=== PATIENT | female | born 1950 | race Caucasian/White ===

== ENCOUNTER 2016-12-16 04:11 | Emergency (ER) | payer OTHER ==
--- NOTE | 2016-12-16 05:03 | PDOC ---
History of Present Illness - General History Source: Patient, Half-Way Records Exam Limitations: No Limitations - History of Present Illness Initial Comments: 12/16/16 05:16 The patient is a 66 year old female with a significant past medical history of chronic renal disease, diabetes, hyperlipidemia, hypertension, CVA, anemia, asthma, COPD, and GERD, sent from rehab center to the Emergency Department with one episode of vomiting. The patients rehab center claims she was having difficulty breathing, though the patient claims that her breathing is fine. The patient claims that she woke up from nightmare which alarmed the staff. She reports one episode of vomiting. The patient admits she is hard of hearing, but does not have hear aids. She also admits to edema and redness of her legs which is chronic, though it may be worse today than baseline. The patient denies fever, chills, or cough. Patient denies chest pain, palpitations, or diaphoresis. Patient denies diarrhea or constipation. Patient denies headache, dizziness, or change in vision. <Avani Hercules - Last Filed: 12/16/16 05:16> <Temi Min - Last Filed: 12/17/16 19:47> - General Chief Complaint: Shortness of Breath Stated Complaint: DIFFICULTY BREATHING Time Seen by Provider: 12/16/16 04:24 Past History <Avani Hercules - Last Filed: 12/16/16 05:16> - Past Medical History Anemia: Yes Asthma: Yes CVA: Yes (x2 slurred speech) COPD: Yes Diabetes: Yes GI Disorders: Yes (GERD) Disorders: Yes (CRF) HTN: Yes Hypercholesterolemia: Yes Psychiatric Problems: Yes Thyroid Disease: Yes - Surgical History Cholecystectomy: Yes - Psycho/Social/Smoking Cessation Hx Anxiety: Yes Suicidal Ideation: No Smoking History: Former smoker Have you smoked in the past 12 months: No If you are a former smoker, when did you quit?: 3 MONTHS AGO Information on smoking cessation initiated: No 'Breaking Loose' booklet given: 09/15/16 Hx Alcohol Use: No Drug/Substance Use Hx: No Substance Use Type: None Hx Substance Use Treatment: No <Temi Min - Last Filed: 12/17/16 19:47> - Past Medical History Allergies/Adverse Reactions: Allergies Allergy/AdvReac Type Severity Reaction Status Date / Time naproxen [From Naprosyn] Allergy Verified 12/16/16 04:13 propoxyphene napsylate Allergy Verified 12/16/16 04:13 [From Darvocet-N 100] tramadol Allergy Verified 12/16/16 04:13 acetaminophen [From Percocet] AdvReac Abdominal Verified 12/16/16 04:13 issues ibuprofen [From Motrin] AdvReac Abdominal Verified 12/16/16 04:13 issues oxycodone HCl [From Percocet] AdvReac Abdominal Verified 12/16/16 04:13 issues Home Medications: Ambulatory Orders Brimonidine Tartrate [Alphagan P] 1 drop OU TID 06/05/16 Ferrous Sulfate [Slow Release Iron] 325 mg PO DAILY 06/05/16 Nortriptyline HCl [Pamelor -] 10 mg PO HS 06/05/16 Paroxetine HCl [Paxil] 20 mg PO DAILY 06/05/16 Simvastatin [Zocor -] 20 mg PO HS 06/05/16 Tiotropium [place] [Spiriva] 1 inh PO DAILY 06/05/16 Amlodipine Besylate [Norvasc -] 10 mg PO DAILY #30 tablet 10/25/16 Hydralazine HCl [Apresoline -] 50 mg PO TID #90 tablet 10/25/16 Insulin Glargine,Hum.rec.anlog [Lantus Solostar PEN (NF)] 20 units SQ HS Insulin Lispro [Humalog] 100 unit SQ AC 12/16/16 Levothyroxine [Synthroid -] 200 mcg PO DAILY 12/16/16 Review of Systems - Review of Systems Able to Perform ROS?: Yes Comments:: 12/16/16 05:16 GENERAL/CONSTITUTIONAL: No fever or chills. No weakness. HEAD, EYES, EARS, NOSE AND THROAT: No change in vision. No ear pain or discharge. No sore throat. CARDIOVASCULAR: No chest pain or shortness of breath. RESPIRATORY: No cough, wheezing, or hemoptysis. GASTROINTESTINAL: + vomiting. No diarrhea or constipation. GENITOURINARY: No dysuria, frequency, or change in urination. MUSCULOSKELETAL: No joint or muscle swelling or pain. No neck or back pain. SKIN: No rash NEUROLOGIC: No headache, vertigo, loss of consciousness, or change in strength/ sensation. ENDOCRINE: No increased thirst. No abnormal weight change. HEMATOLOGIC/LYMPHATIC: No anemia, easy bleeding, or history of blood clots. ALLERGIC/IMMUNOLOGIC: No hives or skin allergy. <Avani Hercules - Last Filed: 12/16/16 05:16> *Physical Exam - Vital Signs Last Vital Signs Temp Pulse Resp BP Pulse Ox 97.9 F 74 18 176/86 98 12/16/16 04:13 12/16/16 04:13 12/16/16 04:13 12/16/16 04:13 12/16/16 04:37 - Physical Exam Comments: 12/16/16 05:17 GENERAL: Awake, alert, and fully oriented, in no acute distress HEAD: No signs of trauma EYES: PERRLA, EOMI, sclera anicteric, conjunctiva clear ENT: Auricles normal inspection, hearing grossly normal, nares patent, oropharynx clear without exudates. Moist mucosa NECK: Normal ROM, supple, no lymphadenopathy, JVD, or masses LUNGS: Breath sounds equal, clear to auscultation bilaterally. No wheezes, and no crackles HEART: Regular rate and rhythm, normal S1 and S2, no murmurs, rubs or gallops ABDOMEN: Soft, nontender, normoactive bowel sounds. No guarding, no rebound. No masses EXTREMITIES: Cellulitis bilateral shins, left > right. 3 / 4+ pitting edema up to thighs, left > right. Normal range of motion. No clubbing or cyanosis. No cords. NEUROLOGICAL: Cranial nerves II through XII grossly intact. Normal speech, normal gait SKIN: Warm, Dry, normal turgor, no rashes or lesions noted. <Avani Hercules - Last Filed: 12/16/16 05:16> - Vital Signs Last Vital Signs Temp Pulse Resp BP Pulse Ox 97.9 F 74 18 176/86 98 12/16/16 04:13 12/16/16 04:13 12/16/16 04:13 12/16/16 04:13 12/16/16 04:37 <Temi Min - Last Filed: 12/17/16 19:47> ED Treatment Course - LABORATORY CBC & Chemistry Diagram: 12/16/16 05:21 12/16/16 05:21 <Temi Min - Last Filed: 12/17/16 19:47> Medical Decision Making - Medical Decision Making 12/16/16 05:20 Pt was sent from [place] for SOB; SHe has no complaint of SOB and states that she wants to sleep. Pt has leg swelling bilaterally. She has cellulitis of her shins bilaterally. SHe has pitting edema of her legs up to her thighs. 12/16/16 06:26 Pt has anemia and elevated BUN and creatinine; all labs are same as old. Nothing new. Pt is awaiting ultrasound of bilateral legs at 7AM, when ultrasound service opens. She was signed out to the day ER doc. <Temi Min - Last Filed: 12/17/16 19:47> *DC/Admit/Observation/Transfer - Attestations Scribe Attestion: 12/16/16 05:19 Documentation prepared by Avani Hercules, acting as medical assisting program director for Temi Min MD. <Avani Hercules - Last Filed: 12/16/16 05:16> <Temi Min - Last Filed: 12/17/16 19:47> Diagnosis at time of Disposition: Chronic renal failure, Peripheral edema - Discharge Dispostion Disposition: HOME Condition at time of disposition: Stable - Referrals Referrals: Freddy Barillas MD [Primary Care Provider] - - Patient Instructions Printed Discharge Instructions: DI for Peripheral Edema -- Bilateral
[2016-12-16 05:29] LABS: MCH 28.1 pg (25.7-33.7); MCHC 33.6 g/dl (32.0-36.0); MEAN CELL VOLUME 83.7 fl (80-96); MEAN PLT VOLUME 6.9 fl (7.5-11.1); PLATELET COUNT 364 K/MM3 (134-434); RDW 14.4 % (11.6-15.6); WHITE BLOOD COUNT 12.6 K/mm3 (4.0-10.0)
[2016-12-16 06:11] LABS: BILIRUBIN,TOTAL 0.3 mg/dL (0.2-1.0); CALCIUM 7.4 mg/dL (8.5-10.1); TOT PROT 6.3 g/dl (6.4-8.2)
[2016-12-16 06:14] LABS: TROPONIN I 0.17 ng/ml (0.00-0.05)
--- NOTE | 2016-12-16 07:39 | PDOC ---
*Physical Exam - Vital Signs Last Vital Signs Temp Pulse Resp BP Pulse Ox 97.9 F 74 18 176/86 98 12/16/16 04:13 12/16/16 04:13 12/16/16 04:13 12/16/16 04:13 12/16/16 04:37 ED Treatment Course - LABORATORY CBC & Chemistry Diagram: 12/16/16 05:21 12/16/16 05:21 - ADDITIONAL ORDERS Additional order review: Laboratory Results 12/16/16 12/16/16 05:21 05:21 Sodium 141 Potassium 3.4 L Chloride 107 Carbon Dioxide 20 L Anion Gap 14 BUN 36 H Creatinine 4.0 H Creat Clearance w eGFR 11.27 Random Glucose 127 H D Calcium 7.4 L Total Bilirubin 0.3 D AST 12 L D ALT 10 L Alkaline Phosphatase 123 H Creatine Kinase 48 Troponin I 0.17 H B-Natriuretic Peptide 2817.02 H Total Protein 6.3 L Albumin 3.0 L D 12/16/16 05:21 RBC 3.00 L MCV 83.7 MCHC 33.6 RDW 14.4 D MPV 6.9 L Neutrophils % Y Lymphocytes % Y Medical Decision Making - Medical Decision Making 12/16/16 09:29 Pt endorsed to hi by Dr. Min at 7am shift change. She was sent by [facility] for SOB. She denies any complaints at present. She was found to have BLE edema. Denies any SOB/ cp. Chart review shows that patient has prior history of BLE edema with erythematous, excoriated areas to the shins. Based on prior description, this does not appear to be different. Will send second CE based on earlier presentation with SOB. If neg, will DC back to [facility]. Pt in agreement with plan. *DC/Admit/Observation/Transfer Diagnosis at time of Disposition: Peripheral edema Chronic renal failure Qualifiers: Chronic kidney disease stage: unspecified stage Qualified Code(s): N18.9 - Chronic kidney disease, unspecified - Discharge Dispostion Disposition: HOME Condition at time of disposition: Stable Admit: No - Referrals Referrals: Freddy Barillas MD [Primary Care Provider] - - Patient Instructions Printed Discharge Instructions: DI for Peripheral Edema -- Bilateral - Post Discharge Activity
[2016-12-16 10:30] LABS: TROPONIN I 0.12 ng/ml (0.00-0.05)
[2016-12-16 11:54] VITALS: BP 118/78; PULSE 82; TEMP 98.1
--- NOTE | 2016-12-16 13:33 | EKG ---
Test Reason : Blood Pressure : / mmHG Vent. Rate : 093 BPM Atrial Rate : 093 BPM P-R Int : 120 ms QRS Dur : 102 ms QT Int : 400 ms P-R-T Axes : -24 -48 121 degrees QTc Int : 497 ms NORMAL SINUS RHYTHM LEFT AXIS DEVIATION CANNOT RULE OUT ANTERIOR INFARCT , AGE UNDETERMINED WITH POOR R PROGRESSION ABNORMAL ECG WHEN COMPARED WITH ECG OF 09-JUN-2016 14:56, T WAVE VARIATION Confirmed by CYNDY POMPA, DAVE ([id number]) on 12/16/2016 1:32:41 PM Referred By: Confirmed By:DAVE NAYLOR MD
== END 2016-12-16 12:09 | disposition home or self-care (01) ==
LOC: JER 04:11
DX: R60.0 Localized edema (principal); I12.9 Hypertensive chronic kidney disease with stage 1 through stage 4 chronic kidney disease, or unspecified chronic kidney disease; E11.22 Type 2 diabetes mellitus with diabetic chronic kidney disease; N18.9 Chronic kidney disease, unspecified; Z79.4 Long term (current) use of insulin; J45.909 Unspecified asthma, uncomplicated; J44.9 Chronic obstructive pulmonary disease, unspecified; E03.9 Hypothyroidism, unspecified; I69.320 Aphasia following cerebral infarction; I69.328 Other speech and language deficits following cerebral infarction
CPT/HCPCS: 36415; 71010-TC; 80053; 82550; 83880; 84484; 85025; 93005; 93010; 93970-TC; 99282-25

== ENCOUNTER 2017-01-12 12:42 | Inpatient (IN) | payer OTHER ==
--- NOTE | 2017-01-12 12:47 | PDOC ---
History of Present Illness - General Chief Complaint: Shortness of Breath Stated Complaint: SHORTNESS OF BREATH Time Seen by Provider: 01/12/17 12:44 History Source: Patient Exam Limitations: Other (poor historian) - History of Present Illness Initial Comments: 66 yo F history CRI, HTN, HL, GERD, anemia, asthma, CVA, COPD presents with SOB x1 day, comes from assisted living. Vague historian. Denies any recent illness. She c/o swelling to both legs which is chronic. No recent change in the swelling , but she states that she is supposed to start a new medicine for it- cannot recall the name. Denies cough, fever, congestion. She states "I might have heart problems". Past History - Past Medical History Allergies/Adverse Reactions: Allergies Allergy/AdvReac Type Severity Reaction Status Date / Time naproxen [From Naprosyn] Allergy Verified 12/16/16 04:13 propoxyphene napsylate Allergy Verified 12/16/16 04:13 [From Darvocet-N 100] tramadol Allergy Verified 12/16/16 04:13 acetaminophen [From Percocet] AdvReac Abdominal Verified 12/16/16 04:13 issues ibuprofen [From Motrin] AdvReac Abdominal Verified 12/16/16 04:13 issues oxycodone HCl [From Percocet] AdvReac Abdominal Verified 12/16/16 04:13 issues Home Medications: Ambulatory Orders Amlodipine Besylate 10 mg PO DAILY 01/12/17 Aspirin [Aspirin EC] 81 mg PO DAILY 01/12/17 Brimonidine Tartrate [Alphagan 0.15% -] 1 drop OU TID 01/12/17 Budesonide/Formeterol Fumarate [SYMBICORT 80/4.5mcg -] 2 inh PO BID 01/12/17 Cephalexin [Keflex] 250 mg PO DAILY 01/12/17 Ferrous Sulfate 325 mg PO DAILY 01/12/17 Hydralazine HCl 50 mg PO TID 01/12/17 Insulin Glargine,Hum.rec.anlog [Lantus Solostar PEN (NF)] 20 units SQ HS Insulin Lispro [Humalog] unit SQ TID 01/12/17 Levothyroxine Sodium [Synthroid] 200 mcg PO DAILY 01/12/17 Nortriptyline HCl [Pamelor -] 10 mg PO HS 01/12/17 Paroxetine HCl [Paxil] 20 mg PO DAILY 01/12/17 Sennosides [Senna] 8.6 mg PO HS 01/12/17 Simvastatin [Zocor -] 20 mg PO HS 01/12/17 Tiotropium [place] [Spiriva] 18 mcg IH DAILY 01/12/17 Anemia: Yes Asthma: Yes CVA: Yes (x2 slurred speech) COPD: Yes Diabetes: Yes GI Disorders: Yes (GERD) Disorders: Yes (CRF) HTN: Yes Hypercholesterolemia: Yes Psychiatric Problems: Yes Thyroid Disease: Yes - Surgical History Cholecystectomy: Yes - Psycho/Social/Smoking Cessation Hx Anxiety: Yes Suicidal Ideation: No Smoking History: Former smoker Have you smoked in the past 12 months: No If you are a former smoker, when did you quit?: 3 MONTHS AGO 'Breaking Loose' booklet given: 09/15/16 Hx Alcohol Use: No Drug/Substance Use Hx: No Substance Use Type: None Hx Substance Use Treatment: No Review of Systems - Review of Systems Able to Perform ROS?: Yes Comments:: GENERAL/CONSTITUTIONAL: No fever or chills. No weakness. HEAD, EYES, EARS, NOSE AND THROAT: No change in vision. No ear pain or discharge. No sore throat. CARDIOVASCULAR: No chest pain. +Shortness of breath. RESPIRATORY: No cough, wheezing, or hemoptysis. GASTROINTESTINAL: No nausea, vomiting, diarrhea or constipation. GENITOURINARY: No dysuria, frequency, or change in urination. MUSCULOSKELETAL: No joint or muscle swelling or pain. No neck or back pain. + Feet and ankle swelling and redness, chronic. SKIN: No rash NEUROLOGIC: No headache, vertigo, loss of consciousness, or change in strength/ sensation. ENDOCRINE: No increased thirst. No abnormal weight change. HEMATOLOGIC/LYMPHATIC: No anemia, easy bleeding, or history of blood clots. ALLERGIC/IMMUNOLOGIC: No hives or skin allergy. *Physical Exam - Physical Exam Comments: GENERAL: Awake, alert, and fully oriented. +Mildly labored breathing. HEAD: No signs of trauma EYES: PERRLA, EOMI, sclera anicteric, conjunctiva clear ENT: Auricles normal inspection, hearing grossly normal, nares patent, oropharynx clear without exudates. Moist mucosa NECK: Normal ROM, supple, no lymphadenopathy, JVD, or masses LUNGS: Good air entry B/L, mildly labored breathing, +rales at bases B/L. HEART: Regular rate and rhythm, normal S1 and S2, no murmurs, rubs or gallops ABDOMEN: Soft, nontender, normoactive bowel sounds. No guarding, no rebound. No masses EXTREMITIES: Normal range of motion. No clubbing or cyanosis. No cords, tenderness. +Chronic stasis changes to BLE, with erythema to lower anterior shins (consistent with prior exam 1 month ago), 2+ pitting edema to mid-chang B/ L. NEUROLOGICAL: Cranial nerves II through XII grossly intact. Normal speech. Motor and sensation intact. SKIN: Warm, Dry, normal turgor, no rashes or lesions noted. ED Treatment Course - LABORATORY CBC & Chemistry Diagram: 01/12/17 14:00 01/12/17 14:00 Medical Decision Making - Medical Decision Making Patient with B/L pna and pleural effusion, acute on chronic renal failure ( currently 4.5, baseline is 3.8-4). Will admit for IV abx. Treated for community acquired pna. *DC/Admit/Observation/Transfer Diagnosis at time of Disposition: Renal failure (ARF), acute on chronic, Pleural effusion Pneumonia Qualifiers: Pneumonia type: due to unspecified organism Laterality: bilateral Lung location : unspecified part of lung Qualified Code(s): J18.9 - Pneumonia, unspecified organism - Discharge Dispostion Condition at time of disposition: Fair Admit: Yes
[2017-01-12 12:52] VITALS: BMI 29.8
[2017-01-12 14:29] LABS: BASOPHIL 3.4 % (0-2.0); EOSINOPHIL 4.7 % (0-4.5); MCH 27.8 pg (25.7-33.7); MCHC 32.7 g/dl (32.0-36.0); MEAN CELL VOLUME 85.1 fl (80-96); NEUTROPHILS 76.1 % (42.8-82.8); PLATELET COUNT 421 K/MM3 (134-434); RDW 15.1 % (11.6-15.6); WHITE BLOOD COUNT 12.5 K/mm3 (4.0-10.0)
[2017-01-12 14:41] LABS: ALBUMIN 3.1 g/dl (3.5-5.0); ALK PHOS 96 U/L (32-92); ANION GAP 11 (8-16); CALCIUM 7.4 mg/dl (8.4-10.2); CO2 17 mmol/L (22-28); CREATININE 4.5 mg/dl (0.6-1.3); GLUCOSE,RANDOM 153 mg/dl (74-106); SGOT/AST 15 U/L (10-42); TOT PROT 6.1 g/dl (6.4-8.3)
[2017-01-12 14:50] LABS: BILIRUBIN,TOTAL 0.5 mg/dl (0.2-1.0)
[2017-01-12 14:51] LABS: SGPT/ALT < 9 U/L (10-40)
[2017-01-12 14:52] LABS: TROPONIN I (DFP) 0.09 ng/ml (0.03-0.50)
[2017-01-12] MEDS ORDERED: CEFTRIAXONE 1 GM in DEXTROSE 5%-WATER - 50 ML IVPB ONE (15:33)
[2017-01-12] MEDS ORDERED: AZITHROMYCIN IVPB 500 MG in DEXTROSE 5%-WATER - 250 ML IVPB ONE (15:33)
[2017-01-12] MEDS ORDERED: SODIUM CHLORIDE 500 ML IV STA (15:51)
[2017-01-12] MEDS ORDERED: AZITHROMYCIN 500 MG VIAL IVPB ONE (15:52)
[2017-01-12] MEDS ORDERED: cefTRIAXone SODIUM 1 GM VIAL ONE (15:52)
[2017-01-12] MEDS ORDERED: ALBUTEROL SO4 2.5/IPRATROPIUM 0.5 INH SOL 3 ML VIAL.NEB. NEB ONE ×2 (16:33→16:34)
[2017-01-12 16:41] LABS: URINE BILIRUBIN Negative (NEGATIVE); URINE BLOOD Trace-lysed (NEGATIVE); URINE GLUCOSE (UA) 1+ (NEGATIVE); URINE KETONE Negative (NEGATIVE); URINE LEUK ESTERASE Negative (NEGATIVE); URINE NITRITE Negative (NEGATIVE); URINE UROBILINOGEN 0.2 E.U/dl (0.2-1.0)
[2017-01-12 16:56] LABS: URINE APPEARANCE CLOUDY; URINE COLOR YELLOW; URINE PROTEIN 3+ (NEGATIVE)
[2017-01-12 16:57] LABS: URINE RBC NONE SEEN /hpf (0-3); URINE WBC NONE SEEN (3-5)
[2017-01-12 16:59] LABS: URINE BACTERIA FEW /hpf (NEGATIVE)
--- NOTE | 2017-01-12 19:47 | HP ---
CHIEF COMPLAINT: Shortness of Breath PCP: Doctor Not on Staff HISTORY OF PRESENT ILLNESS: This is a 66 y/o female with a past medical history of CKD, HTN, HLD, GERD, Anemia, CVA x2, Asthma, COPD (O2 dependent), Anxiety, Hypothyroid. Who presents to the emergency department from an assisted living facility with SOB x one day. Patient reports having trouble breathing worse on exertion. Patient reports chronic lower leg swelling and redness. Patient denies fever, chills, cough, dizziness, CP, AP, N/V/D, constipation. ER course was notable for: (1) Chest Xray- Bilateral infiltrates. Small left pleural effusion (2) WBC 12.3 (3) CKD- Bun 40, Cr 4.5 Recent Travel: None PAST MEDICAL HISTORY: See HPI PAST SURGICAL HISTORY: Cholecystectomy Social History: Smoking: Former Alcohol: None Drugs: None Resides in a Assisted Living Facility Family History: Allergies naproxen [From Naprosyn] Allergy (Verified 12/16/16 04:13) propoxyphene napsylate [From Darvocet-N 100] Allergy (Verified 12/16/16 04:13) tramadol Allergy (Verified 12/16/16 04:13) acetaminophen [From Percocet] Adverse Reaction (Verified 12/16/16 04:13) Abdominal issues ibuprofen [From Motrin] Adverse Reaction (Verified 12/16/16 04:13) Abdominal issues oxycodone HCl [From Percocet] Adverse Reaction (Verified 12/16/16 04:13) Abdominal issues HOME MEDICATIONS: Home Medications Medication Instructions Recorded Amlodipine Besylate 10 mg PO DAILY 01/12/17 Aspirin [Aspirin EC] 81 mg PO DAILY 01/12/17 Brimonidine Tartrate [Alphagan 1 drop OU TID 01/12/17 0.15% -] Budesonide/Formeterol Fumarate 2 inh PO BID 01/12/17 [SYMBICORT 80/4.5mcg -] Cephalexin [Keflex] 250 mg PO DAILY 01/12/17 Ferrous Sulfate 325 mg PO DAILY 01/12/17 Hydralazine HCl 50 mg PO TID 01/12/17 Insulin Glargine,Hum.rec.anlog 20 units SQ HS 01/12/17 [Lantus Solostar PEN (NF)] Insulin Lispro [Humalog] unit SQ TID 01/12/17 Levothyroxine Sodium [Synthroid] 200 mcg PO DAILY 01/12/17 Nortriptyline HCl [Pamelor -] 10 mg PO HS 01/12/17 Paroxetine HCl [Paxil] 20 mg PO DAILY 01/12/17 Sennosides [Senna] 8.6 mg PO HS 01/12/17 Simvastatin [Zocor -] 20 mg PO HS 01/12/17 Tiotropium [place] [Spiriva] 18 mcg IH DAILY 01/12/17 REVIEW OF SYSTEMS CONSTITUTIONAL: Absent: fever, chills, diaphoresis, generalized weakness, malaise, loss of appetite, weight change HEENT: Absent: rhinorrhea, nasal congestion, throat pain, throat swelling, difficulty swallowing, mouth swelling, ear pain, eye pain, visual changes CARDIOVASCULAR: Absent: chest pain, syncope, palpitations, irregular heart rate, lightheadedness , peripheral edema RESPIRATORY: shortness of breath Absent: cough, shortness of breath, dyspnea with exertion, orthopnea, wheezing, stridor, hemoptysis GASTROINTESTINAL: Absent: abdominal pain, abdominal distension, nausea, vomiting, diarrhea, constipation, melena, hematochezia GENITOURINARY: Absent: dysuria, frequency, urgency, hesitancy, hematuria, flank pain, genital pain MUSCULOSKELETAL: Absent: myalgia, arthralgia, joint swelling, back pain, neck pain SKIN: Absent: rash, itching, pallor HEMATOLOGIC/IMMUNOLOGIC: Absent: easy bleeding, easy bruising, lymphadenopathy, frequent infections ENDOCRINE: Absent: unexplained weight gain, unexplained weight loss, heat intolerance, cold intolerance NEUROLOGIC: Absent: headache, focal weakness or paresthesias, dizziness, unsteady gait, seizure, mental status changes, bladder or bowel incontinence PSYCHIATRIC: Absent: anxiety, depression, suicidal or homicidal ideation, hallucinations. PHYSICAL EXAMINATION Vital Signs - 24 hr 01/12/17 18:13 Temperature 98.4 F Pulse Rate 87 Respiratory 18 Rate Blood Pressure 144/82 GENERAL: Awake, alert, and oriented to baseline, in no acute distress. HEAD: Normal with no signs of trauma. EYES: Pupils equal, round and reactive to light, extraocular movements intact, sclera anicteric, conjunctiva clear. No lid lag. EARS, NOSE, THROAT: Ears normal, nares patent, oropharynx clear without exudates. Moist mucous membranes. NECK: Normal range of motion, supple without lymphadenopathy, JVD, or masses. LUNGS: Decreased breath sounds to bases. No wheezes, and no crackles. No accessory muscle use. HEART: Regular rate and rhythm, normal S1 and S2 without murmur, rub or gallop. ABDOMEN: Soft, obese, nontender, not distended, normoactive bowel sounds, no guarding, no rebound, no masses. No hepatomegaly or splenomegaly. MUSCULOSKELETAL: Normal range of motion at all joints. No bony deformities or tenderness. No CVA tenderness. UPPER EXTREMITIES: 2+ pulses, warm, well-perfused. No cyanosis. No clubbing. No peripheral edema. LOWER EXTREMITIES: 2+ pulses, warm, well-perfused. No calf tenderness. +2 pitting peripheral edema bilaterally mid knee to chang. NEUROLOGICAL: Cranial nerves II-XII intact. Normal speech. Gait not observed. PSYCHIATRIC: Cooperative. Good eye contact. Appropriate mood and affect. SKIN: Warm, dry, normal turgor, no rashes or lesions noted, normal capillary refill. +erythema to bilateral lower extremities. Laboratory Results - last 24 hr 01/12/17 01/12/17 01/12/17 14:00 14:00 14:00 WBC 12.5 H RBC 3.15 L Hgb 8.8 L Hct 26.8 L MCV 85.1 MCHC 32.7 RDW 15.1 Plt Count 421 MPV 7.0 L Neutrophils % 76.1 Lymphocytes % 11.7 Monocytes % 4.1 Eosinophils % 4.7 H Basophils % 3.4 H Sodium 137 Potassium 3.8 Chloride 109 H Carbon Dioxide 17 L Anion Gap 11 BUN 40 H Creatinine 4.5 H Creat Clearance w eGFR 9.84 Random Glucose 153 H D Lactic Acid Calcium 7.4 L Total Bilirubin 0.5 D AST 15 ALT < 9 L Alkaline Phosphatase 96 H Creatine Kinase 105 Troponin I 0.09 B-Natriuretic Peptide 4576.62 H Total Protein 6.1 L Albumin 3.1 L Urine Color Urine Appearance Urine pH Ur Specific [place] Urine Protein Urine Glucose (UA) Urine Ketones Urine Blood Urine Nitrite Urine Bilirubin Urine Urobilinogen Ur Leukocyte Esterase Urine RBC Urine WBC Amorphous Urates Urine Bacteria 01/12/17 01/12/17 15:45 16:10 WBC RBC Hgb Hct MCV MCHC RDW Plt Count MPV Neutrophils % Lymphocytes % Monocytes % Eosinophils % Basophils % Sodium Potassium Chloride Carbon Dioxide Anion Gap BUN Creatinine Creat Clearance w eGFR Random Glucose Lactic Acid 0.489 Calcium Total Bilirubin AST ALT Alkaline Phosphatase Creatine Kinase Troponin I B-Natriuretic Peptide Total Protein Albumin Urine Color Yellow Urine Appearance Cloudy Urine pH 6.0 Ur Specific [place] 1.020 Urine Protein 3+ H Urine Glucose (UA) 1+ H Urine Ketones Negative Urine Blood Trace-lysed Urine Nitrite Negative Urine Bilirubin Negative Urine Urobilinogen 0.2 e.u/dl Ur Leukocyte Esterase Negative Urine RBC None seen Urine WBC None seen Amorphous Urates Few Urine Bacteria Few ASSESSMENT/PLAN: This is a 66 y/o female with a PMHx of: CKD, HTN, HLD, GERD, anemia, asthma, CVA , COPD presents with SOB x1 day. Admitted for Community Acquired Pneumonia, Pleural Effusion for further evaluation of their emergent condition. Problems: 1. CAP 2. Pleural Effusion 3. Acute on Chronic Renal Failure 4. Anemia 5. HTN 6. Asthma 7. COPD 8. CVA 9. HLD 10. GERD FEN - PO Fluids 1L restriction - Replete lytes as indicated - Low Na, 1800 ADA Diet Code Status: Full Code Dispo: Requires Inpatient Care Problem List - Problem (1) Pneumonia Assessment/Plan: - Curb65 Score 1 - Blood Cultures-pending - Urine Legionella - Rocephin/Azithromycin given in ED - Will treat empirically with Rocephin/Azithromycin until results of BC - Sputum Culture - O2 - Monitor for fever, CBC Code(s): J18.9 - PNEUMONIA, UNSPECIFIED ORGANISM Qualifiers: Pneumonia type: due to unspecified organism Laterality: bilateral Lung location: unspecified part of lung Qualified Code(s): J18.9 - Pneumonia, unspecified organism (2) Pleural effusion Assessment/Plan: - Likely possible CHF vs PE vs Malignancy - Continue to diurese - Consider IR for Thoracentesis - O2 Code(s): J90 - PLEURAL EFFUSION, NOT ELSEWHERE CLASSIFIED (3) Renal failure (ARF), acute on chronic Assessment/Plan: - Cr 4.5 at baseline - Continue to monitor renal function - Avoid nephrotoxic drugs Code(s): N17.9 - ACUTE KIDNEY FAILURE, UNSPECIFIED N18.9 - CHRONIC KIDNEY DISEASE, UNSPECIFIED (4) HTN (hypertension) Assessment/Plan: - Uncontrolled - Likely secondary to CKD - Monitor BP - Continue home med - Monitor renal function Code(s): I10 - ESSENTIAL (PRIMARY) HYPERTENSION (5) Anemia Assessment/Plan: - Likely secondary to CKD - Hgb at baseline - Will transfuse if Hgb < 7.0 Code(s): D64.9 - ANEMIA, UNSPECIFIED Qualifiers: Anemia type: other cause Other causes of anemia: other cause, not classified Qualified Code(s): D64.89 - Other specified anemias (6) Cerebrovascular accident (CVA) Assessment/Plan: - Continue to monitor and treat with interventions accordingly - Continue Asa Code(s): I63.9 - CEREBRAL INFARCTION, UNSPECIFIED Qualifiers: CVA mechanism: other Qualified Code(s): I63.8 - Other cerebral infarction (7) Peripheral edema Assessment/Plan: - Likely secondary to chronic venous stasis - Elevate extremities Code(s): R60.9 - EDEMA, UNSPECIFIED (8) Hyperlipemia Assessment/Plan: - Continue Statin - Monitor LFTs Code(s): E78.5 - HYPERLIPIDEMIA, UNSPECIFIED (9) Hypothyroid Assessment/Plan: - Continue Levothyroxine - TSH Code(s): E03.9 - HYPOTHYROIDISM, UNSPECIFIED (10) DVT prophylaxis Assessment/Plan: - OOB - Heparin SQ Code(s): [id number] - Visit type - Emergency Visit Emergency Visit: Yes ED Registration Date: 01/12/17 Care time: The patient presented to the Emergency Department on the above date and was hospitalized for further evaluation of their emergent condition. - New Patient This patient is new to me today: Yes Date on this admission: 01/12/17 - Critical Care Critical Care patient: No
[2017-01-13] MEDS: BRIMONIDINE TARTRATE 0.15% OPHTHALMIC 5 ML BOTTLE OU SCH ×3 (05:43→21:12)
[2017-01-13] MEDS: HEPARIN NA (PORCINE) 5,000 UNITS/ML 1ML VIAL SQ SCH ×3 (05:44→21:15)
[2017-01-13] MEDS ORDERED: hydrALAZINE HCL 50 MG TABLET (FP) PO SCH (06:00)
[2017-01-13] MEDS: LEVOTHYROXINE NA 200 MCG TABLET PO SCH (06:12)
--- NOTE | 2017-01-13 08:58 | PN ---
Progress Note (short form) - Note Progress Note: ID Consult dictated Acute exacerbation COPD Bibasilar pneumonia v. effusions Possible bilateral LE cellulitis CKD S/P CVA Await c/s Sputum c/s, legionella/ pneumococcal ag CT chest non contrast Zithromax/ ceftriaxone, vancomycin x 1 dose
[2017-01-13 09:03] LABS: BASOPHIL 0.4 % (0-2.0); EOSINOPHIL 4.6 % (0-4.5); MCH 28.5 pg (25.7-33.7); MCHC 33.1 g/dl (32.0-36.0); MEAN PLT VOLUME 7.3 fl (7.5-11.1); NEUTROPHILS 83.4 % (42.8-82.8); PLATELET COUNT 400 K/MM3 (134-434); RDW 15.4 % (11.6-15.6); WHITE BLOOD COUNT 11.1 K/mm3 (4.0-10.0)
[2017-01-13] MEDS ORDERED: VANCOMYCIN 1,000 MG in DEXTROSE 5%-WATER - 250 ML IVPB ONE (09:05)
[2017-01-13 09:19] LABS: CALCIUM 7.4 mg/dl (8.4-10.2)
--- NOTE | 2017-01-13 09:22 | CONS ---
DATE OF CONSULTATION: HISTORY: A 66-year-old female status post stroke, history of COPD, and chronic kidney disease evaluated for possible pneumonia. She lives in an assisted living complex. She was brought to the hospital with a 1-day history of increasing shortness of breath. Chest x-ray on admission showed bibasilar infiltrates versus effusions. She had a low-grade temperature and elevated white blood cell count. She was empirically treated with Zithromax and ceftriaxone. According to the nursing facility notes, she had been prescribed Keflex 1 day prior to admission. She is awake and alert. She is out of bed to chair. She is slightly short of breath at rest on Ventimask. She reports cough productive of whitish sputum. She denies any hemoptysis. No complaints of chest pain. She denies any high-grade fever or shaking chills. She is unaware whether or not she received influenza and pneumococcal vaccines. She was last hospitalized in September 2016 for worsening renal function. PAST MEDICAL HISTORY: Positive for stroke, chronic kidney disease, COPD, diabetes mellitus, hypertension, hypothyroidism, hyperlipidemia, macular degeneration. PAST SURGICAL HISTORY: Status post cholecystectomy. ALLERGIES: NAPROXEN, TRAMADOL, ACETAMINOPHEN, DARVOCET, MOTRIN. MEDICATIONS: Humalog, nortriptyline, Spiriva, Symbicort, Norvasc, aspirin, iron, hydralazine, levothyroxine, Paxil, Zocor. SOCIAL HISTORY: She lives in an assisted living complex. Former smoker. SYSTEMS REVIEW: Neurologic: Positive for stroke. Cardiac: Negative chest pain or palpitations. Respiratory: As per HPI. Gastrointestinal: Negative vomiting or diarrhea. Genitourinary: Negative for urinary tract infection. LABORATORY DATA: White count 12.5 with 75 neutrophils, 11 lymphocytes, 4 monocytes, 4 eosinophils, hematocrit 26.8, platelet count 421, BUN 40, creatinine 4.5. BNP 4576. Urinalysis negative. Chest x-ray showed bilateral infiltrates versus effusions. PHYSICAL EXAMINATION: General: She is out of bed to chair. She is obese. She is dysarthric. No acute distress. Vital Signs: Temperature 99, blood pressure 164/84, pulse 98, respirations 20 per minute. HEENT: Sclerae anicteric. Heart: Sounds S1, S2. Lungs: Bibasilar rales. Abdomen: Obese, soft, nontender. Extremities: Positive for edema. There is erythema and warmth present to lower extremities bilaterally. IMPRESSION: 1. Acute exacerbation of chronic obstructive pulmonary disease. 2. Bibasilar pneumonia, possible infiltrates. 3. Possible bilateral lower extremity cellulitis. 4. Chronic kidney disease. 5. Status post cerebrovascular accident. PLAN: Await culture results. Obtain sputum culture, urine Legionella and pneumococcal antigens. CAT scan of the chest noncontrast. Continue empiric Zithromax and ceftriaxone. We will give a STAT dose of vancomycin for additional staphylococcus coverage in light of possible bilateral lower extremity cellulitis. Further recommendations pending cultures. Thank you for the kind referral. JESENIA MCCORMICK M.D. [id number]
[2017-01-13] MEDS: ACLIDINIUM BROMIDE 400 MCG/INH AERO.POWD IH SCH ×2 (10:00→21:14)
[2017-01-13] MEDS: BUDESONIDE/FORMETEROL FUMARATE 80/4.5 mcg INHALER IH SCH ×2 (10:00→21:13)
[2017-01-13] MEDS ORDERED: CEFTRIAXONE 500 MG in DEXTROSE 5%-WATER - 50 ML IVPB SCH (10:00)
[2017-01-13] MEDS ORDERED: PT OWN MED DRAWER 7, Y5N ONE ×2 (10:01→21:16)
[2017-01-13] MEDS: amLODIPine BESYLATE 10 MG TABLET (FP) PO SCH (10:02)
[2017-01-13] MEDS: ASPIRIN COATED 81 MG TABLET.EC PO SCH (10:02)
[2017-01-13] MEDS: AZITHROMYCIN IVPB 250 ML IVPB SCH (10:03)
[2017-01-13] MEDS: PARoxetine HCL 20 MG TABLET (FP) PO SCH (10:03)
--- NOTE | 2017-01-13 11:11 | PN ---
Physical Exam: SUBJECTIVE: Patient seen and examined oob to chair. Patient known to me from previous visit. Mildly agitated, resists nursing care, tried to scratch aides earlier. Emotional lability is sequelae of CVAs. Complains of feeling tired and SOB. OBJECTIVE: Vital Signs Period Temp Pulse Resp BP Sys/Gonsalez Pulse Ox Last 24 Hr 98.4 F-99 F 87-98 18-20 144-164/82-84 GENERAL/NEURO: The patient is awake, alert. Labile. Irritable. Cranial nerves II through XII grossly intact. Normal speech, gait not observed. HEAD: Normal with no signs of trauma. EYES: PERRL, extraocular movements intact, sclera anicteric, conjunctiva clear. No ptosis. LUNGS: Breath sounds equal, clear to auscultation bilaterally, no wheezes, no crackles, no accessory muscle use. HEART: Regular rate and rhythm, S1, S2 without murmur, rub or gallop. ABDOMEN: Soft, nontender, nondistended, normoactive bowel sounds, no guarding, no rebound EXTREMITIES: 2+ pulses, warm, well-perfused, no edema. Laboratory Results - last 24 hr 01/13/17 01/13/17 01/13/17 06:09 07:45 07:45 WBC 11.1 H RBC 2.96 L Hgb 8.4 L Hct 25.4 L MCV 86.0 MCHC 33.1 RDW 15.4 Plt Count 400 MPV 7.3 L Neutrophils % 83.4 H Lymphocytes % 6.3 L D Monocytes % 5.3 Eosinophils % 4.6 H Basophils % 0.4 Sodium 144 Potassium 4.0 Chloride 110 H Carbon Dioxide 21 L D Anion Gap 13 BUN 37 H Creatinine 4.0 H POC Glucometer 116 Random Glucose 109 H D Calcium 7.4 L 01/13/17 10:44 WBC RBC Hgb Hct MCV MCHC RDW Plt Count MPV Neutrophils % Lymphocytes % Monocytes % Eosinophils % Basophils % Sodium Potassium Chloride Carbon Dioxide Anion Gap BUN Creatinine POC Glucometer 166 Random Glucose Calcium Active Medications Generic Name Dose Route Start Last Admin Trade Name Freq PRN Reason Stop Dose Admin Aclidinium [place] 1 puff 01/13/17 10:00 Tudorza - IH BID L[facility] Amlodipine Besylate 10 mg 01/13/17 10:00 01/13/17 10:02 Norvasc - PO 10 mg DAILY [facility] Administration Aspirin 81 mg 01/13/17 10:00 01/13/17 10:02 Ecotrin - PO 81 mg DAILY [facility] Administration Brimonidine Tartrate 1 drop 01/13/17 06:00 01/13/17 05:43 Alphagan 0.15% - OU 1 drop TID [facility] Administration Budesonide/Formoterol Fumarate 2 puff 01/13/17 10:00 Symbicort 80/4.5mcg - IH BID LIT[facility] Heparin Sodium (Porcine) 5,000 unit 01/13/17 06:00 01/13/17 05:44 Heparin - SQ 5,000 unit TID [facility] Administration Hydralazine HCl 50 mg 01/13/17 06:00 01/13/17 05:43 Apresoline - PO 50 mg TID [facility] Administration Azithromycin 250 mls @ 250 mls/hr 01/13/17 10:00 01/13/17 10:03 Zithromax 500mg Ivpb (Pre-Docked) IVPB 250 mls/hr DAILY [facility] Administration Ceftriaxone Sodium 500 mg/ 50 mls @ 100 mls/hr 01/13/17 10:00 Dextrose IVPB DAILY [facility] Insulin Aspart 1 vial 01/13/17 07:00 Novolog Vial Sliding Scale - SQ ACHS [facility] Protocol Levothyroxine Sodium 200 mcg 01/13/17 07:00 01/13/17 06:12 Synthroid - PO 200 mcg DAILY@0700 [facility] Administration Nortriptyline HCl 10 mg 01/13/17 22:00 Pamelor - PO HS L[facility]Y Paroxetine HCl 20 mg 01/13/17 10:00 01/13/17 10:03 Paxil - PO 20 mg DAILY [facility] Administration Senna 2 tab 01/13/17 22:00 Senna - PO HS [facility] ASSESSMENT/PLAN: 66 year-old female with a PMH of HTN, HLD, CVA x 2 with left hemiparesis, IDDM, COPD on home O2, hypothyroidism, CKD and anemia. Admitted for worsening SOB. Acute Diastolic Heart Failure --01/13 CT: cardiomegaly, moderate bilateral pleural effusions, extensive atelectasis, pericardial effusion; BNP 4500 --last echo done May 2016 showed preserved EF; will get repeat on Sunday --Lasix IV started --daily weight, strict I&Os --cardiology consult requested Hypertension --BP elevated --continue amlodipine, increase hydralazine to 75mg TID, IV lasix Acute on chronic renal failure --baseline Cr 4.1 seen on 10/25/16 --Cr on admission 4.5, trending down, now 4.0 --closely monitor given the start of aggressive diuresis for CHF COPD exacerbation --continue Symbicort, Tudorza Pneumonia, unlikely --although initial CXR was read as bilateral infiltrates, CT is more suggestive of CHF --afebrile, no leukocytosis --cultures pending --consider stopping antibiotics Bilateral lower extremity cellulitis --mild erythema and edema seen bilaterally --continue current antibiotics IDDM --Novolog sliding scale coverage --holding long-acting insulin as patient has only required minimal coverage Anxiety --continue nortriptyline, Paxil Mediastinal and bilateral axillary lymphadenopathy Hyperproteinemia --will need workup when more stable F/E/N Fluids: PO intake adequate Electrolytes: replete as indicated Nutrition: diabetic diet DVT prophylaxis: subq heparin, oob, ambulation PT evaluation Dispo: continues to require inpatient care. full code. Visit type - Emergency Visit Emergency Visit: Yes ED Registration Date: 01/12/17 Care time: The patient presented to the Emergency Department on the above date and was hospitalized for further evaluation of their emergent condition. - New Patient This patient is new to me today: Yes Date on this admission: 01/13/17 - Critical Care Critical Care patient: No
[2017-01-13] MEDS ORDERED: INSULIN (NOVOLOG) ASPART 100 UNITS/ML 10ML VIAL ONE ×2 (11:43→16:37)
[2017-01-13] MEDS: INSULIN SLIDING SCALE (NOVOLOG) 1 VIAL SQ SCH ×2 (11:45→16:39)
[2017-01-13] MEDS: CEFTRIAXONE 1 GM in DEXTROSE 5%-WATER - 50 ML IVPB SCH (12:00)
[2017-01-13] MEDS: hydrALAZINE HCL 50 MG TABLET (FP) PO SCH ×2 (13:38→21:15)
--- NOTE | 2017-01-13 15:57 | CON.PULM ---
Consult Consult Specialty:: PULMONARY Referred by:: Dr. Haq Reason for Consultation:: shortness of breath - History of Present Illness Chief Complaint: shortness of breath History of Present Illness: 66yo female with h/o HTN, hyperlipidemia, COPD, chronic hypoxic respiratory failure, h/o CVA, hypothyroidism, anxiety who was admitted with worsening shortness of breath x 2 days. Pt denies any chest pain or discomfort. No cough, chest tightness or wheezing. Denies fevers, chills or sweats. She states that her legs are chronically swollen and red but she did have to sleep more upright because of her breathing. She is a former long time smoker. - History Source History Provided By: Patient, Medical Record Limitations to Obtaining History: Poor Historian - Past Medical History [employer]: Yes: CVA Cardio/Vascular: Yes: HTN, Hyperlipdemia Pulmonary: Yes: COPD ...: No - Alcohol/Substance Use Hx Alcohol Use: No - Smoking History Smoking history: Former smoker Have you smoked in the past 12 months: No If you are a former smoker, when did you quit?: 3 MONTHS AGO - Social History Usual Living Arrangement: Assisted Living ADL: Support Services Home Medications - Allergies Allergies/Adverse Reactions: Allergies Allergy/AdvReac Type Severity Reaction Status Date / Time naproxen [From Naprosyn] Allergy Verified 12/16/16 04:13 propoxyphene napsylate Allergy Verified 12/16/16 04:13 [From Darvocet-N 100] tramadol Allergy Verified 12/16/16 04:13 acetaminophen [From Percocet] AdvReac Abdominal Verified 12/16/16 04:13 issues ibuprofen [From Motrin] AdvReac Abdominal Verified 12/16/16 04:13 issues oxycodone HCl [From Percocet] AdvReac Abdominal Verified 12/16/16 04:13 issues - Home Medications Home Medications: Ambulatory Orders Amlodipine Besylate 10 mg PO DAILY 01/12/17 Aspirin [Aspirin EC] 81 mg PO DAILY 01/12/17 Brimonidine Tartrate [Alphagan 0.15% -] 1 drop OU TID 01/12/17 Budesonide/Formeterol Fumarate [SYMBICORT 80/4.5mcg -] 2 inh PO BID 01/12/17 Cephalexin [Keflex] 250 mg PO DAILY 01/12/17 Ferrous Sulfate 325 mg PO DAILY 01/12/17 Hydralazine HCl 50 mg PO TID 01/12/17 Insulin Glargine,Hum.rec.anlog [Lantus Solostar PEN (NF)] 20 units SQ HS Insulin Lispro [Humalog] unit SQ TID 01/12/17 Levothyroxine Sodium [Synthroid] 200 mcg PO DAILY 01/12/17 Nortriptyline HCl [Pamelor -] 10 mg PO HS 01/12/17 Paroxetine HCl [Paxil] 20 mg PO DAILY 01/12/17 Sennosides [Senna] 8.6 mg PO HS 01/12/17 Simvastatin [Zocor -] 20 mg PO HS 01/12/17 Tiotropium [place] [Spiriva] 18 mcg IH DAILY 01/12/17 Family Disease History - Family Disease History Other Family History: non-contributory Review of Systems - Review of Systems Constitutional: denies: Chills, Fever Eyes: denies: Recent Change in Vision HENT: denies: Nasal Congestion, Throat Pain Neck: denies: Stiffness, Tenderness Cardiovascular: reports: Edema, Shortness of Breath. denies: Chest Pain, Palpitations Respiratory: reports: SOB, SOB on Exertion. denies: Cough, Hemoptysis, Wheezing Gastrointestinal: denies: Abdominal Pain, Nausea, Vomiting Genitourinary: denies: Dysuria, Hematuria Neurological: denies: Dizziness, Headache Endocrine: denies: Unexplained Weight Gain, Unexplained Weight Loss Physical Exam Vital Sings: Vital Signs Temperature 98.5 F 01/13/17 15:00 Pulse Rate 99 H 01/13/17 15:00 Respiratory Rate 20 01/13/17 15:00 Blood Pressure 165/76 01/13/17 15:00 O2 Sat by Pulse Oximetry (%) 91 L 01/13/17 15:00 Constitutional: Yes: Anxious, Other (agitated) Eyes: Yes: Conjunctiva Clear, EOM Intact HENT: Yes: Atraumatic, Normocephalic Neck: Yes: Supple, Trachea Midline Cardiovascular: Yes: Regular Rate and Rhythm Respiratory: Yes: Rales (basilar) ...Clubbing: No Gastrointestinal: Yes: Normal Bowel Sounds, Soft. No: Tenderness Edema: Yes Neurological: Yes: Alert, Oriented Labs: CBC, BMP 01/13/17 07:45 01/13/17 07:45 Imaging - Results Chest X-ray: Report Reviewed, Image Reviewed Cat Scan: Report Reviewed, Image Reviewed (bilateral effusions, pulmonary vascular congestion, LLL atelectasis vs infiltrate, lymphadenopathy) Problem List - Problems (1) Acute on chronic diastolic (congestive) heart failure Code(s): I50.33 - ACUTE ON CHRONIC DIASTOLIC (CONGESTIVE) HEART FAILURE (2) Renal failure (ARF), acute on chronic Code(s): N17.9 - ACUTE KIDNEY FAILURE, UNSPECIFIED N18.9 - CHRONIC KIDNEY DISEASE, UNSPECIFIED (3) Pleural effusion Code(s): J90 - PLEURAL EFFUSION, NOT ELSEWHERE CLASSIFIED (4) Pneumonia Code(s): J18.9 - PNEUMONIA, UNSPECIFIED ORGANISM Qualifiers: Pneumonia type: due to unspecified organism Laterality: bilateral Lung location: unspecified part of lung Qualified Code(s): J18.9 - Pneumonia, unspecified organism (5) Atelectasis Code(s): J98.11 - ATELECTASIS (6) COPD (chronic obstructive pulmonary disease) Code(s): J44.9 - CHRONIC OBSTRUCTIVE PULMONARY DISEASE, UNSPECIFIED (7) Chronic respiratory failure with hypoxia Code(s): J96.11 - CHRONIC RESPIRATORY FAILURE WITH HYPOXIA Assessment/Plan Acute on Chronic Diastolic Heart Failure Pleural Effusions/Atelectasis from above Mitral Regurgitation Acute on Chronic Renal Failure COPD Chronic Hypoxic Respiratory Failure HTN Anxiety - IV lasix - monitor urine output, creatinine - daily weights, I/Os - favor decompensated CHF leading to pleural effusions and compressive atelectasis rather than pneumonia - monitor CXR with diuresis - continue empiric antibiotics - can d/c antibiotics if cultures negative and pt afebrile - O2 to keep SpO2 >90% - inhaled bronchodilators - consider repeat echocardiogram if none done recently as last one in 05/2016 showing moderate mitral regurgitation - DVT prophylaxis Thank you for this consult Edvin Parks MD
[2017-01-13] MEDS: FUROSEMIDE 40 MG/4 ML INJECTABLE VIAL IVPUSH SCH (16:38)
[2017-01-13] MEDS: SENNOSIDES 8.6MG TABLET (FP) PO SCH (21:12)
[2017-01-13] MEDS: NORTRIPTYLINE HCL 10 MG CAPSULE PO SCH (21:26)
[2017-01-14] MEDS ORDERED: PT OWN MED DRAWER 7, Y5N ONE ×4 (06:37→21:29)
[2017-01-14] MEDS: BRIMONIDINE TARTRATE 0.15% OPHTHALMIC 5 ML BOTTLE OU SCH ×3 (06:50→21:12)
[2017-01-14] MEDS: LEVOTHYROXINE NA 200 MCG TABLET PO SCH (06:51)
[2017-01-14] MEDS: HEPARIN NA (PORCINE) 5,000 UNITS/ML 1ML VIAL SQ SCH ×3 (06:51→21:10)
[2017-01-14] MEDS: hydrALAZINE HCL 50 MG TABLET (FP) PO SCH ×3 (06:51→21:21)
[2017-01-14] MEDS: INSULIN SLIDING SCALE (NOVOLOG) 1 VIAL SQ SCH ×4 (07:19→21:46)
--- NOTE | 2017-01-14 09:45 | PN ---
Progress Note, Physician History of Present Illness: Awake, alert No complaints Denies dyspnea/ cough/ sputum Breathing non-labored on nasal cannula O2 Afebrile CT shows bilateral effusions and compressive atelectasis - Current Medication List Current Medications: Active Medications Aclidinium [place] (Tudorza -) 1 puff IH BID [facility] Last Admin: 01/13/17 21:14 Dose: 1 puff Amlodipine Besylate (Norvasc -) 10 mg PO DAILY [facility] Last Admin: 01/13/17 10:02 Dose: 10 mg Aspirin (Ecotrin -) 81 mg PO DAILY [facility] Last Admin: 01/13/17 10:02 Dose: 81 mg Brimonidine Tartrate (Alphagan 0.15% -) 1 drop OU TID [facility] Last Admin: 01/14/17 06:50 Dose: 1 drop Budesonide/Formoterol Fumarate (Symbicort 80/4.5mcg -) 2 puff IH BID [facility] Last Admin: 01/13/17 21:13 Dose: 2 puff Furosemide (Lasix Injection -) 80 mg IVPUSH DAILY [facility] Last Admin: 01/13/17 16:38 Dose: 80 mg Heparin Sodium (Porcine) (Heparin -) 5,000 unit SQ TID [facility] Last Admin: 01/14/17 06:51 Dose: 5,000 unit Hydralazine HCl (Apresoline -) 75 mg PO TID [facility] Last Admin: 01/14/17 06:51 Dose: 75 mg Azithromycin (Zithromax 500mg Ivpb (Pre-Docked)) 250 mls @ 250 mls/hr IVPB DAILY [facility] Last Admin: 01/13/17 10:03 Dose: 250 mls/hr Ceftriaxone Sodium 1 gm/ (Dextrose) 50 mls @ 100 mls/hr IVPB DAILY [facility] Last Admin: 01/13/17 12:00 Dose: 100 mls/hr Insulin Aspart (Novolog Vial Sliding Scale -) 1 vial SQ ACHS [facility] PRN Reason: Protocol Last Admin: 01/14/17 07:19 Dose: Not Given Levothyroxine Sodium (Synthroid -) 200 mcg PO DAILY@0700 [facility] Last Admin: 01/14/17 06:51 Dose: 200 mcg Nortriptyline HCl (Pamelor -) 10 mg PO HS [facility] Last Admin: 01/13/17 21:26 Dose: 10 mg Paroxetine HCl (Paxil -) 20 mg PO DAILY [facility] Last Admin: 01/13/17 10:03 Dose: 20 mg Senna (Senna -) 2 tab PO HS [facility] Last Admin: 01/13/17 21:12 Dose: Not Given - Objective Vital Signs: Vital Signs Temperature 98.4 F 01/14/17 06:00 Pulse Rate 100 H 01/14/17 06:00 Respiratory Rate 19 01/14/17 06:00 Blood Pressure 148/79 01/14/17 06:00 O2 Sat by Pulse Oximetry (%) 95 01/14/17 06:00 Constitutional: Yes: No Distress Eyes: Yes: Conjunctiva Clear Cardiovascular: Yes: Regular Rate and Rhythm, S1, S2 Respiratory: Yes: Other (+ crepitations at bases bilaterally- improved) Gastrointestinal: Yes: Normal Bowel Sounds, Soft. No: Tenderness Extremities: Yes: Other (+ erythema/ warmth LE bilaterally) Edema: Yes Edema: LLE: 1+, RLE: 1+ Assessment/Plan Bilateral pleural effusions Compressive atelectasis v. pneumonia Possible bilateral cellulitis CKD S/P CVA Pulmonary evaluation appreciated Continue zithromax/ ceftriaxone Sputum c/s legionella/pneumococcal ag pending If cultures negative will D/C zithromax/ ceftriaxone Check vancomycin level. Redose vancomycin 1gm x 1 fot trough < 15
[2017-01-14 09:49] LABS: BASOPHIL 0.2 % (0-2.0); EOSINOPHIL 4.5 % (0-4.5); MCH 27.8 pg (25.7-33.7); MCHC 32.2 g/dl (32.0-36.0); MEAN CELL VOLUME 86.3 fl (80-96); MEAN PLT VOLUME 7.4 fl (7.5-11.1); NEUTROPHILS 83.5 % (42.8-82.8); PLATELET COUNT 434 K/MM3 (134-434); RDW 15.5 % (11.6-15.6); WHITE BLOOD COUNT 10.7 K/mm3 (4.0-10.0)
--- NOTE | 2017-01-14 09:54 | PN ---
Physical Exam: SUBJECTIVE: Patient seen and examined at bedside. OBJECTIVE: Vital Signs Period Temp Pulse Resp BP Sys/Gonsalez Pulse Ox Last 24 Hr 97.8 F-98.5 F 89-100 19-20 142-165/62-79 91-95 GENERAL/NEURO: The patient is awake, alert. Cranial nerves II through XII grossly intact. Normal speech, gait not observed. HEAD: Normal with no signs of trauma. EYES: PERRL, extraocular movements intact, sclera anicteric, conjunctiva clear. No ptosis. LUNGS: Breath sounds equal, clear to auscultation bilaterally, no wheezes, no crackles, no accessory muscle use. HEART: Regular rate and rhythm, S1, S2 without murmur, rub or gallop. ABDOMEN: Soft, nontender, nondistended, normoactive bowel sounds, no guarding, no rebound UPPER EXTREMITIES: 2+ pulses, warm, well-perfused, 1+ edema LOWER EXTREMITIES: 2+pulses, warm, well-perfused; 1+ edema; mild erythema bilaterally Laboratory Results - last 24 hr 01/13/17 01/13/17 01/14/17 10:44 16:33 06:00 WBC RBC Hgb Hct MCV MCHC RDW Plt Count MPV Neutrophils % Lymphocytes % Monocytes % Eosinophils % Basophils % Sodium 139 Potassium 3.7 Chloride 109 H Carbon Dioxide 20 L Anion Gap 10 BUN 39 H Creatinine 4.2 H Creat Clearance w eGFR 10.65 POC Glucometer 166 153 Random Glucose 84 D Calcium 7.4 L Phosphorus 6.1 H D Magnesium 1.7 L Total Bilirubin < 0.3 D AST 15 ALT < 9 L Alkaline Phosphatase 88 Total Protein 5.8 L Albumin 2.9 L 01/14/17 06:00 WBC 10.7 H RBC 3.04 L Hgb 8.4 L Hct 26.2 L MCV 86.3 MCHC 32.2 RDW 15.5 Plt Count 434 MPV 7.4 L Neutrophils % 83.5 H Lymphocytes % 7.4 L Monocytes % 4.4 Eosinophils % 4.5 Basophils % 0.2 Sodium Potassium Chloride Carbon Dioxide Anion Gap BUN Creatinine Creat Clearance w eGFR POC Glucometer Random Glucose Calcium Phosphorus Magnesium Total Bilirubin AST ALT Alkaline Phosphatase Total Protein Albumin Active Medications Generic Name Dose Route Start Last Admin Trade Name Freq PRN Reason Stop Dose Admin Aclidinium [place] 1 puff 01/13/17 10:00 01/13/17 21:14 Tudorza - IH 1 puff BID [facility] Administration Amlodipine Besylate 10 mg 01/13/17 10:00 01/13/17 10:02 Norvasc - PO 10 mg DAILY [facility] Administration Aspirin 81 mg 01/13/17 10:00 01/13/17 10:02 Ecotrin - PO 81 mg DAILY [facility] Administration Brimonidine Tartrate 1 drop 01/13/17 06:00 01/14/17 06:50 Alphagan 0.15% - OU 1 drop TID [facility] Administration Budesonide/Formoterol Fumarate 2 puff 01/13/17 10:00 01/13/17 21:13 Symbicort 80/4.5mcg - IH 2 puff BID [facility] Administration Furosemide 80 mg 01/13/17 16:15 01/13/17 16:38 Lasix Injection - IVPUSH 80 mg DAILY [facility] Administration Heparin Sodium (Porcine) 5,000 unit 01/13/17 06:00 01/14/17 06:51 Heparin - SQ 5,000 unit TID [facility] Administration Hydralazine HCl 75 mg 01/13/17 11:51 01/14/17 06:51 Apresoline - PO 75 mg TID [facility] Administration Azithromycin 250 mls @ 250 mls/hr 01/13/17 10:00 01/13/17 10:03 Zithromax 500mg Ivpb (Pre-Docked) IVPB 250 mls/hr DAILY [facility] Administration Ceftriaxone Sodium 1 gm/ 50 mls @ 100 mls/hr 01/13/17 11:45 01/13/17 12:00 Dextrose IVPB 100 mls/hr DAILY [facility] Administration Insulin Aspart 1 vial 01/13/17 07:00 01/14/17 07:19 Novolog Vial Sliding Scale - SQ Not Given ACHS [facility] Protocol Levothyroxine Sodium 200 mcg 01/13/17 07:00 01/14/17 06:51 Synthroid - PO 200 mcg DAILY@0700 [facility] Administration Nortriptyline HCl 10 mg 01/13/17 22:00 01/13/17 21:26 Pamelor - PO 10 mg HS [facility] Administration Paroxetine HCl 20 mg 01/13/17 10:00 01/13/17 10:03 Paxil - PO 20 mg DAILY [facility] Administration Senna 2 tab 01/13/17 22:00 01/13/17 21:12 Senna - PO Not Given HS [facility] ASSESSMENT/PLAN: 66 year-old female with a PMH of HTN, HLD, CVA x 2 with left hemiparesis, IDDM, COPD on home O2, hypothyroidism, CKD and anemia. Admitted for worsening SOB. Acute Diastolic Heart Failure --01/13 CT: cardiomegaly, moderate bilateral pleural effusions, extensive atelectasis, pericardial effusion; BNP 4500 --last echo done May 2016 showed preserved EF; will get repeat on Sunday --Lasix IV started --godfrey placed --daily weight, strict I&Os --cardiology consult requested Hypertension --BP improved --continue amlodipine, increased dose hydralazine, IV lasix Acute on chronic renal failure Hyperphosphatemia --baseline Cr 4.1 seen on 10/25/16 --Cr on admission 4.5; 4.2 today --start phoslo --renal consult requested Dr. Patel Hypmagnesemia --replete COPD exacerbation --continue Symbicort, Tudorza Pneumonia, unlikely --although initial CXR was read as bilateral infiltrates, CT is more suggestive of CHF --afebrile, no leukocytosis --per ID continue antibiotics until cultures back Bilateral lower extremity cellulitis --mild erythema and edema seen bilaterally --continue current antibiotics IDDM --Novolog sliding scale coverage --holding long-acting insulin as patient has only required minimal coverage Anxiety --continue nortriptyline, Paxil Mediastinal and bilateral axillary lymphadenopathy Hyperproteinemia --will need workup when more stable F/E/N Fluids: PO intake adequate Electrolytes: replete as indicated Nutrition: diabetic diet DVT prophylaxis: subq heparin, oob, ambulation PT evaluation Dispo: Attempted to call daughter Roxann to advise her of mother's condition; number listed in computer is not a working number; please ask SW to track daughter down. Patient continues to require inpatient care. full code. Visit type - Emergency Visit Emergency Visit: Yes ED Registration Date: 01/12/17 Care time: The patient presented to the Emergency Department on the above date and was hospitalized for further evaluation of their emergent condition. - New Patient This patient is new to me today: No - Critical Care Critical Care patient: No
[2017-01-14] MEDS: CEFTRIAXONE 1 GM in DEXTROSE 5%-WATER - 50 ML IVPB SCH (09:58)
[2017-01-14] MEDS: FUROSEMIDE 40 MG/4 ML INJECTABLE VIAL IVPUSH SCH (09:58)
[2017-01-14] MEDS: ASPIRIN COATED 81 MG TABLET.EC PO SCH (09:58)
[2017-01-14] MEDS: amLODIPine BESYLATE 10 MG TABLET (FP) PO SCH (09:58)
[2017-01-14] MEDS: PARoxetine HCL 20 MG TABLET (FP) PO SCH (09:58)
[2017-01-14 10:00] LABS: ALBUMIN 2.9 g/dl (3.5-5.0); ALK PHOS 88 U/L (32-92); ANION GAP 10 (8-16); CALCIUM 7.4 mg/dl (8.4-10.2); CO2 20 mmol/L (22-28); CREATININE 4.2 mg/dl (0.6-1.3); GLUCOSE,RANDOM 84 mg/dl (74-106); MAGNESIUM 1.7 mg/dL (1.8-2.4); PHOSPHOROUS 6.1 mg/dl (2.5-4.6); SGOT/AST 15 U/L (10-42); TOT PROT 5.8 g/dl (6.4-8.3)
[2017-01-14] MEDS: ACLIDINIUM BROMIDE 400 MCG/INH AERO.POWD IH SCH ×2 (10:00→21:12)
[2017-01-14] MEDS: AZITHROMYCIN IVPB 250 ML IVPB SCH (10:01)
[2017-01-14] MEDS: BUDESONIDE/FORMETEROL FUMARATE 80/4.5 mcg INHALER IH SCH ×2 (10:01→21:12)
[2017-01-14 10:04] LABS: BILIRUBIN,TOTAL < 0.3 mg/dl (0.2-1.0); SGPT/ALT < 9 U/L (10-40)
[2017-01-14] MEDS ORDERED: MAGNESIUM SULF 50% (8.12 MEQ/2 ML-1 GM VIAL) IVPB ONE (11:10)
[2017-01-14] MEDS: CALCIUM ACETATE 667 MG CAPSULE (FP) PO SCH ×2 (11:49→17:11)
--- NOTE | 2017-01-14 13:11 | CONSULT ---
Consult - text type - Consultation Consultation Note: CARDIOLOGY ASKED BY DR. Ny TO SEE PT. 66 YO FEMALE 01/12/17 DYSPNEA, PT SEEN, EXAMINED. X RAYS ECG REVIEWED. WORKING DX: ACUTE ON CHRONIC CHF DUE DIASTOLIC DYSFUNCTION/HEART FAILURE WITH PRESERVED EJECTION FRACTION . UNDERLYING HYPERTENSIVE-PROBABLE ATHEROSCLEROTIC ? VALVULAR (MODERATE MITRAL REGURGITATION 06/13 ECHO NOT APPARENT ON EXAMINATION TODAY )HEART DISEASE. RENAL FAILURE EXACERBATES FLUID RETENTION NO EVIDENCE OF ACUTE MYOCARDIAL ISCHEMIA/INFARCTION. PRESENTLY HEMODYNAMICALLY STABLE. REC: OBTAIN PRIOR RECORDS NOT AVAILABLE AT THIS TIME. IV LASIX. ADD NITRATES (ISORDIL) TO HYDRALAZINE REPEAT ECHOCARDIOGRAM. RENAL RE-EVALUATION. THANKS. FULL NOTE DICTATED. WILL FOLLOW
--- NOTE | 2017-01-14 14:20 | CON.NEP ---
Consult Consult Specialty:: Nephrology Referred by:: Nargis Vuong Reason for Consultation:: CKD - History of Present Illness Chief Complaint: Dyspnea History of Present Illness: 66yo female with h/o DM, HTN, CKD, HFpEF, hyperlipidemia, COPD, chronic hypoxic respiratory insufficiency, hypothyroidism, anxiety and is S/P CVA Pt now who was admitted with worsening shortness of breath over the last few day. She has no associated chest painor palpitations.Has had LE edema prior to admission and had diarrhea since yesterday but no nausea or vomiting. Since admission started on IV diuretics and Abx Asked to evaluate for azotemia. 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 Cardio/Vascular: Yes: HTN, Hyperlipdemia Pulmonary: Yes: COPD ...: No - Alcohol/Substance Use Hx Alcohol Use: No - Smoking History Smoking history: Former smoker Have you smoked in the past 12 months: No If you are a former smoker, when did you quit?: 3 MONTHS AGO - Social History Usual Living Arrangement: Assisted Living ADL: Support Services Home Medications - Allergies Allergies/Adverse Reactions: Allergies Allergy/AdvReac Type Severity Reaction Status Date / Time naproxen [From Naprosyn] Allergy Verified 12/16/16 04:13 propoxyphene napsylate Allergy Verified 12/16/16 04:13 [From Darvocet-N 100] tramadol Allergy Verified 12/16/16 04:13 acetaminophen [From Percocet] AdvReac Abdominal Verified 12/16/16 04:13 issues ibuprofen [From Motrin] AdvReac Abdominal Verified 12/16/16 04:13 issues oxycodone HCl [From Percocet] AdvReac Abdominal Verified 12/16/16 04:13 issues - Home Medications Home Medications: Ambulatory Orders Amlodipine Besylate 10 mg PO DAILY 01/12/17 Aspirin [Aspirin EC] 81 mg PO DAILY 01/12/17 Brimonidine Tartrate [Alphagan 0.15% -] 1 drop OU TID 01/12/17 Budesonide/Formeterol Fumarate [SYMBICORT 80/4.5mcg -] 2 inh PO BID 01/12/17 Cephalexin [Keflex] 250 mg PO DAILY 01/12/17 Ferrous Sulfate 325 mg PO DAILY 01/12/17 Hydralazine HCl 50 mg PO TID 01/12/17 Insulin Glargine,Hum.rec.anlog [Lantus Solostar PEN (NF)] 20 units SQ HS Insulin Lispro [Humalog] unit SQ TID 01/12/17 Levothyroxine Sodium [Synthroid] 200 mcg PO DAILY 01/12/17 Nortriptyline HCl [Pamelor -] 10 mg PO HS 01/12/17 Paroxetine HCl [Paxil] 20 mg PO DAILY 01/12/17 Sennosides [Senna] 8.6 mg PO HS 01/12/17 Simvastatin [Zocor -] 20 mg PO HS 01/12/17 Tiotropium [place] [Spiriva] 18 mcg IH DAILY 01/12/17 Family Disease History - Family Disease History Other Family History: non-contributory Nephrology Consult - Height Height: 5 ft 4 in - Weight Weight: 173 lb 15.115 oz - BMI Body Mass Index (BMI): 29.8 - Lab Results CBC,BMP: CBC, BMP 01/14/17 06:00 01/14/17 06:00 Laboratory Tests 10/20/16 10/21/16 10/22/16 06:30 06:30 07:30 Creatinine 3.8 H 3.9 H 4.1 H U/A: Laboratory Tests 01/12/17 16:10 Urine Color Yellow Urine Appearance Cloudy Urine pH 6.0 Ur Specific [place] 1.020 Urine Protein 3+ H Urine Glucose (UA) 1+ H Urine Blood Trace-lysed Urine Nitrite Negative Urine Bilirubin Negative Urine Urobilinogen 0.2 e.u/dl Ur Leukocyte Esterase Negative Anion Gap: Anion Gap Anion Gap 10 (8-16) 01/14/17 06:00 - Imaging X-ray: Report Reviewed Cat Scan: Report Reviewed EKG: Other (EKG NSR HR 95 LAE slow R wave progression) - Physical Examination Vital Signs: Vital Signs Temperature 97.6 F 01/14/17 10:02 Pulse Rate 100 H 01/14/17 10:02 Respiratory Rate 18 01/14/17 10:02 Blood Pressure 165/63 01/14/17 10:02 O2 Sat by Pulse Oximetry (%) 97 01/14/17 09:00 Cardiovascular: Yes: Murmur, S1, S2 Respiratory: Yes: CTA Bilaterally, Diminished (Decreased BS at bases) Gastrointestinal: Yes: Soft, Distention. No: Tenderness, Rebound Edema: Yes (up to knees with redness) Neurological: Yes: Alert (Cooperative but a poor historian) Assessment/Plan Impression Dyspnea from HFpEF, possible infiltrate, COPD, R/O Effusions from CKD with Nephrotic Syndrome CKD attributed to DM and HTN Cellulitis of the legs CVA Anemia Hypothyroidism Anxiety Plan IV Lasix and Abx Renal and CCD Adkins for I's O's Urine for Pro/Cr ratio Lipid profile Daily wt PO4 binder since PO4 6.1 Replace Mag W/U for the diarrhea if it persists Rpt labs in am Avoid nephrotoxic agents Thank You Will follow Dr Munroe
--- NOTE | 2017-01-14 15:32 | CONS ---
DATE OF CONSULTATION: 01/14/2017 REQUESTING PHYSICIAN: Sanju Ramirez MD PATIENT PROFILE: Mrs. Lissa Holland is a 66-year-old female admitted on January 12, 2017, because of shortness of breath. The details of the patient's prior history are not presently available. She has been unable to provide accurate history. She is a resident of an assisted living facility, carries a diagnosis of hypertension, chronic obstructive lung disease, and a previous cerebrovascular accident. An echocardiographic study in May 2016 reportedly showed evidence of moderate mitral insufficiency and normal left ventricular systolic function. She is admitted now with shortness of breath and was initially thought to have pneumonia and treated with antibiotics. She has been given intravenous Lasix and, at the present time, feels "better." There was no chest pain, no cough, no hemoptysis. Patient also complained of leg swelling with redness in the front area. No palpitations, no syncope. PRESENT MEDICATIONS: Norvasc 10 mg per day; aspirin 81 mg per day; Zithromax; calcium acetate; Rocephin; Lasix 80 mg intravenously daily; heparin 5000 units b.i.d.; hydralazine 75 mg t.i.d.; Synthroid 200 mcg per day; nortriptyline 10 mg per day; Pamelor 10 mg per day; Paxil 20 mg per day. PRIOR MEDICAL HISTORY: Chronic renal insufficiency, cholecystectomy, asthma, CVA in the past, chronic obstructive lung disease, hyperlipidemia, hypertension, gastroesophageal reflux, hypothyroidism, on replacement therapy. SOCIAL HISTORY: She is a resident of an assisted living facility. She smoked in the past, but, reportedly, stopped 3 months prior to presentation. There is no history of alcohol abuse. ALLERGIES: NAPROSYN, DARVOCET, TRAMADOL, ACETAMINOPHEN, IBUPROFEN, OXYCODONE. FAMILY HISTORY: Not able to be obtained accurately. REVIEW OF SYSTEMS: General: No chills or fever. Gastrointestinal: No melena, no vomiting. Respiratory: No hemoptysis. Neurologic: No focal deficit. PHYSICAL EXAMINATION: General: The patient is markedly hard of hearing, awake, and alert. Vital Signs: Temperature afebrile. The heart rate is 90. The blood pressure is 165/60. The respiratory rate is 18/min. The oxygen saturation is 97% on supplemental oxygen. Lungs: There are decreased breath sounds at the bases bilaterally. There is no wheezing. Neck: There is no jugular venous distention at 90 degrees. Cardiac: The heart sounds are normal and regular. There is a suggestion of an S4 gallop. No murmur is presently audible. The PMI is normal and not displaced. Abdomen: Soft and nontender. Extremities: There is pretibial erythema and +1 edema bilaterally. DATABASE: Electrocardiogram demonstrates sinus rhythm, possible septal infarct of indeterminate age, left atrial abnormality, nonspecific ST and T-wave changes. The chest x-ray was reviewed. It demonstrates bilateral pleural effusions. There is no distinct infiltrate. Laboratory studies of note include a white blood cell count of 10.7, hematocrit 26%, platelet count is 434,000. The INR is 1.1. The serum sodium is 139, potassium 3.7, chloride 109, carbon dioxide 20, BUN 39, creatinine 4.2. The albumin is 2.9. The glucose is 109. The BNP level is 4576. Troponin level was 0.09, CPK is 105. IMPRESSION: The working diagnosis is [id number] congestive heart failure secondary to diastolic dysfunction; that is heart failure with preserved ejection fraction (May 2016 echocardiogram). The underlying heart disease includes hypertensive, probable atherosclerotic and possibly valvular as reflected by moderate mitral insufficiency being described on the May 2016 echocardiogram, which is not apparent on the present physical examination. The renal failure with a creatinine clearance of 10 exacerbates fluid retention and makes treatment with medical intervention for heart failure challenging. There is no evidence to suggest an acute myocardial infarction/ischemia. The patient is presently hemodynamically stable. I have recommended the followin. Obtain prior records not presently available with regard to previous cardiac evaluation, noninvasive studies, etc. 2. Intravenous Lasix. 3. Add nitrates, i.e. Isordil, to hydralazine. 4. Repeat echocardiogram with particular attention to the degree of mitral insufficiency and left ventricular function. 5. Renal reevaluation with a consideration for dialysis treatment in the future in an effort to adequately control fluid retention. Thank you for allowing me to take part in the care of this pleasant patient. KATLIN RODRIGUEZ M.D. [id number] cc: MD Edvin Rodriges MD Ketevan Vladi, MD
[2017-01-14] MEDS: SENNOSIDES 8.6MG TABLET (FP) PO SCH (21:22)
[2017-01-14 21:33] LABS: URINE CREATININE 27.1 mg/dL
[2017-01-14] MEDS: NORTRIPTYLINE HCL 10 MG CAPSULE PO SCH (21:46)
[2017-01-15] MEDS: HEPARIN NA (PORCINE) 5,000 UNITS/ML 1ML VIAL SQ SCH ×3 (06:31→21:24)
[2017-01-15] MEDS: LEVOTHYROXINE NA 200 MCG TABLET PO SCH (06:31)
[2017-01-15] MEDS: BRIMONIDINE TARTRATE 0.15% OPHTHALMIC 5 ML BOTTLE OU SCH ×3 (06:31→21:23)
[2017-01-15] MEDS: hydrALAZINE HCL 50 MG TABLET (FP) PO SCH ×3 (06:31→21:22)
[2017-01-15] MEDS: INSULIN SLIDING SCALE (NOVOLOG) 1 VIAL SQ SCH ×4 (06:32→21:24)
[2017-01-15] MEDS: CALCIUM ACETATE 667 MG CAPSULE (FP) PO SCH ×3 (08:00→17:07)
[2017-01-15] MEDS ORDERED: PT OWN MED DRAWER 7, Y5N ONE ×9 (08:50→21:17)
--- NOTE | 2017-01-15 09:06 | PN ---
Progress Note, Physician History of Present Illness: Awake, alert Hard of hearing No complaints. Denies dyspnea, cough No c/o leg pain Afebrile WBC slightly elevated - Current Medication List Current Medications: Active Medications Aclidinium [place] (Tudorza -) 1 puff IH BID [facility] Last Admin: 01/14/17 21:12 Dose: 1 puff Amlodipine Besylate (Norvasc -) 10 mg PO DAILY [facility] Last Admin: 01/14/17 09:58 Dose: 10 mg Aspirin (Ecotrin -) 81 mg PO DAILY [facility] Last Admin: 01/14/17 09:58 Dose: 81 mg Brimonidine Tartrate (Alphagan 0.15% -) 1 drop OU TID [facility] Last Admin: 01/15/17 06:31 Dose: 1 drop Budesonide/Formoterol Fumarate (Symbicort 80/4.5mcg -) 2 puff IH BID [facility] Last Admin: 01/14/17 21:12 Dose: 2 puff Calcium Acetate (Phoslo -) 667 mg PO TIDCM [facility] Last Admin: 01/14/17 17:11 Dose: 667 mg Furosemide (Lasix Injection -) 80 mg IVPUSH DAILY [facility] Last Admin: 01/14/17 09:58 Dose: 80 mg Heparin Sodium (Porcine) (Heparin -) 5,000 unit SQ TID [facility] Last Admin: 01/15/17 06:31 Dose: 5,000 unit Hydralazine HCl (Apresoline -) 75 mg PO TID [facility] Last Admin: 01/15/17 06:31 Dose: 75 mg Azithromycin (Zithromax 500mg Ivpb (Pre-Docked)) 250 mls @ 250 mls/hr IVPB DAILY [facility] Last Admin: 01/14/17 10:01 Dose: 250 mls/hr Ceftriaxone Sodium 1 gm/ (Dextrose) 50 mls @ 100 mls/hr IVPB DAILY [facility] Last Admin: 01/14/17 09:58 Dose: 100 mls/hr Insulin Aspart (Novolog Vial Sliding Scale -) 1 vial SQ ACHS [facility] PRN Reason: Protocol Last Admin: 01/15/17 06:32 Dose: Not Given Levothyroxine Sodium (Synthroid -) 200 mcg PO DAILY@0700 [facility] Nortriptyline HCl (Pamelor -) 10 mg PO HS [facility] Last Admin: 01/14/17 21:46 Dose: 10 mg Paroxetine HCl (Paxil -) 20 mg PO DAILY [facility] Last Admin: 01/14/17 09:58 Dose: 20 mg Senna (Senna -) 2 tab PO HS [facility] Last Admin: 01/14/17 21:22 Dose: 2 tab - Objective Vital Signs: Vital Signs Temperature 98.3 F 01/15/17 06:00 Pulse Rate 98 H 01/15/17 06:00 Respiratory Rate 18 01/15/17 07:57 Blood Pressure 166/69 01/15/17 06:00 O2 Sat by Pulse Oximetry (%) 95 01/15/17 07:57 Constitutional: Yes: No Distress, Obese Eyes: Yes: Conjunctiva Clear Cardiovascular: Yes: Regular Rate and Rhythm, Tachycardia, S1, S2 Respiratory: Yes: Other (+ rales at bases bilaterally) Gastrointestinal: Yes: Normal Bowel Sounds, Soft, Abdomen, Obese. No: Tenderness Extremities: Yes: Other (+ erythema/ warmth pretibial aspects of LE bilaterally) Edema: Yes Assessment/Plan Bilateral pleural effusions Compressive atelectasis v. pneumonia Possible bilateral cellulitis CKD S/P CVA Cardiology and nephrology evaluations appreciated Discontinue zithromax/ ceftriaxone. Substitute po keflex for treatment of LE celllulitis
[2017-01-15 09:19] LABS: BASOPHIL 0.3 % (0-2.0); MCH 28.1 pg (25.7-33.7); MCHC 32.8 g/dl (32.0-36.0); MEAN CELL VOLUME 85.4 fl (80-96); MEAN PLT VOLUME 7.4 fl (7.5-11.1); NEUTROPHILS 85.5 % (42.8-82.8); PLATELET COUNT 423 K/MM3 (134-434); RDW 15.3 % (11.6-15.6); WHITE BLOOD COUNT 9.9 K/mm3 (4.0-10.0)
[2017-01-15 09:26] LABS: ALBUMIN 2.8 g/dl (3.5-5.0); ALK PHOS 92 U/L (32-92); ANION GAP 12 (8-16); BILIRUBIN,TOTAL 0.5 mg/dl (0.2-1.0); CALCIUM 7.9 mg/dl (8.4-10.2); CO2 20 mmol/L (22-28); CREATININE 4.2 mg/dl (0.6-1.3); GLUCOSE,RANDOM 131 mg/dl (74-106); MAGNESIUM 1.9 mg/dL (1.8-2.4); PHOSPHOROUS 6.3 mg/dl (2.5-4.6); SGOT/AST 13 U/L (10-42); TOT PROT 5.6 g/dl (6.4-8.3)
[2017-01-15 09:32] LABS: CHOLESTEROL 175 mg/dl
[2017-01-15] MEDS: ASPIRIN COATED 81 MG TABLET.EC PO SCH (09:55)
[2017-01-15] MEDS: FUROSEMIDE 40 MG/4 ML INJECTABLE VIAL IVPUSH SCH (09:55)
[2017-01-15] MEDS: PARoxetine HCL 20 MG TABLET (FP) PO SCH (09:55)
[2017-01-15] MEDS: amLODIPine BESYLATE 10 MG TABLET (FP) PO SCH (09:55)
[2017-01-15] MEDS: ACLIDINIUM BROMIDE 400 MCG/INH AERO.POWD IH SCH ×2 (09:55→21:23)
[2017-01-15] MEDS: BUDESONIDE/FORMETEROL FUMARATE 80/4.5 mcg INHALER IH SCH ×2 (09:56→21:23)
[2017-01-15 10:03] LABS: SGPT/ALT < 9 U/L (10-40)
--- NOTE | 2017-01-15 10:04 | PN ---
[id number] female with a PMH of HTN, HLD, CVA x 2 with left hemiparesis , IDDM, COPD on home O2, hypothyroidism, CKD and anemia. Admitted for worsening SOB. Vital Signs Period Temp Pulse Resp BP Sys/Gonsalez Pulse Ox Last 24 Hr 97.5 F-98.3 F 96-99 18-20 160-180/69-82 93-95 Selected Entries 01/12/17 01/12/17 01/14/17 12:49 18:13 15:08 Weight 78.925 kg 78.9 kg 78.9 kg 01/15/17 07:00 Weight 74.446 kg Intake & Output 01/14/17 01/15/17 01/15/17 23:59 07:59 15:59 Intake Total 450 700 Output Total 600 600 Balance -150 -600 700 Weight 74.446 kg GENERAL: The patient is awake, alert, and fully oriented, anxious. HEAD: Normal with no signs of trauma. EYES: PERRL, extraocular movements intact, sclera anicteric, conjunctiva clear. No ptosis. ENT: Ears normal, nares patent, oropharynx clear without exudates, moist mucous membranes. NECK: Trachea midline, full range of motion, supple. LUNGS: Breath sounds equal, clear to apexes, rales to bilateral bases, respiratory rate 22 unlabored, no accessory muscle use, no wheezes, no crackles , no HEART: Regular rate and rhythm, S1, S2 without murmur, rub or gallop. ABDOMEN: Soft, nontender, nondistended, normoactive bowel sounds, no guarding, no rebound, no hepatosplenomegaly, no masses. EXTREMITIES: 2+ pulses, warm, well-perfused, no edema. NEUROLOGICAL: Cranial nerves II through XII grossly intact. Normal speech, gait not observed. PSYCH: Normal mood, normal affect. SKIN: Warm, dry, normal turgor, no rashes or lesions noted Laboratory Results - last 24 hr 01/14/17 01/14/17 01/14/17 06:00 11:23 16:58 WBC RBC Hgb Hct MCV MCHC RDW Plt Count MPV Neutrophils % Lymphocytes % Monocytes % Eosinophils % Basophils % Sodium 139 Potassium 3.7 Chloride 109 H Carbon Dioxide 20 L Anion Gap 10 BUN 39 H Creatinine 4.2 H Creat Clearance w eGFR 10.65 POC Glucometer 163 147 Random Glucose 84 D Calcium 7.4 L Phosphorus 6.1 H D Magnesium 1.7 L Total Bilirubin < 0.3 D AST 15 ALT < 9 L Alkaline Phosphatase 88 Total Protein 5.8 L Albumin 2.9 L Triglycerides Cholesterol Total LDL Cholesterol HDL Cholesterol U Random Total Protein Urine Creatinine Protein/Creatinin Ratio Random Vancomycin 12.661 01/14/17 01/14/17 01/15/17 18:00 21:44 06:37 WBC RBC Hgb Hct MCV MCHC RDW Plt Count MPV Neutrophils % Lymphocytes % Monocytes % Eosinophils % Basophils % Sodium Potassium Chloride Carbon Dioxide Anion Gap BUN Creatinine Creat Clearance w eGFR POC Glucometer 122 121 Random Glucose Calcium Phosphorus Magnesium Total Bilirubin AST ALT Alkaline Phosphatase Total Protein Albumin Triglycerides Cholesterol Total LDL Cholesterol HDL Cholesterol U Random Total Protein 274 H Urine Creatinine 27.1 Protein/Creatinin Ratio 10.1 Random Vancomycin 01/15/17 01/15/17 01/15/17 07:25 07:25 07:25 WBC 9.9 RBC 2.98 L Hgb 8.4 L Hct 25.4 L MCV 85.4 MCHC 32.8 RDW 15.3 Plt Count 423 MPV 7.4 L Neutrophils % 85.5 H Lymphocytes % 5.8 L D Monocytes % 4.4 Eosinophils % 4.0 Basophils % 0.3 Sodium 139 Potassium 3.7 Chloride 107 Carbon Dioxide 20 L Anion Gap 12 BUN 38 H Creatinine 4.2 H Creat Clearance w eGFR 10.65 POC Glucometer Random Glucose 131 H D Calcium 7.9 L Phosphorus 6.3 H Magnesium 1.9 Total Bilirubin 0.5 D AST 13 ALT < 9 L Alkaline Phosphatase 92 Total Protein 5.6 L Albumin 2.8 L Triglycerides 184 H Cholesterol 175 Total LDL Cholesterol 79 HDL Cholesterol 59 U Random Total Protein Urine Creatinine Protein/Creatinin Ratio Random Vancomycin Active Medications Generic Name Dose Route Start Last Admin Trade Name Freq PRN Reason Stop Dose Admin Aclidinium [place] 1 puff 01/13/17 10:00 01/15/17 09:55 Tudorza - IH 1 puff BID [facility] Administration Amlodipine Besylate 10 mg 01/13/17 10:00 01/15/17 09:55 Norvasc - PO 10 mg DAILY [facility] Administration Aspirin 81 mg 01/13/17 10:00 01/15/17 09:55 Ecotrin - PO 81 mg DAILY [facility] Administration Brimonidine Tartrate 1 drop 01/13/17 06:00 01/15/17 06:31 Alphagan 0.15% - OU 1 drop TID [facility] Administration Budesonide/Formoterol Fumarate 2 puff 01/13/17 10:00 01/15/17 09:56 Symbicort 80/4.5mcg - IH 2 puff BID [facility] Administration Calcium Acetate 667 mg 01/14/17 12:00 01/15/17 08:00 Phoslo - PO 667 mg TIDCM [facility] Administration Cephalexin HCl 250 mg 01/15/17 10:00 Keflex - PO Q8H [facility] Furosemide 80 mg 01/13/17 16:15 01/15/17 09:55 Lasix Injection - IVPUSH 80 mg DAILY [facility] Administration Heparin Sodium (Porcine) 5,000 unit 01/13/17 06:00 01/15/17 06:31 Heparin - SQ 5,000 unit TID [facility] Administration Hydralazine HCl 75 mg 01/13/17 11:51 01/15/17 06:31 Apresoline - PO 75 mg TID [facility] Administration Insulin Aspart 1 vial 01/13/17 07:00 01/15/17 06:32 Novolog Vial Sliding Scale - SQ Not Given [facility] Protocol Levothyroxine Sodium 200 mcg 01/16/17 07:00 Synthroid - PO DAILY@0700 [facility] Nortriptyline HCl 10 mg 01/13/17 22:00 01/14/17 21:46 Pamelor - PO 10 mg HS [facility] Administration Paroxetine HCl 20 mg 01/13/17 10:00 01/15/17 09:55 Paxil - PO 20 mg DAILY [facility] Administration Senna 2 tab 01/13/17 22:00 01/14/17 21:22 Senna - PO 2 tab HS [facility] Administration Microbiology 01/12/17 15:40 Blood - Peripheral Venous Blood Culture - Preliminary NO GROWTH OBTAINED AFTER 48 HOURS, INCUBATION TO CONTINUE FOR 3 DAYS. 01/12/17 15:45 Blood - Peripheral Venous Blood Culture - Preliminary NO GROWTH OBTAINED AFTER 48 HOURS, INCUBATION TO CONTINUE FOR 3 DAYS. 01/14/17 13:00 Urine For Antigen Detection Legionella Antigen - Final negative 01/14/17 13:00 Urine For Antigen Detection Streptococcus pneumoniae Antigen (M - Final 01/12/17 16:10 Urine - Urine Clean Catch Urine Culture - Final NO GROWTH OBTAINED 01/13/17 20:00 Nasopharyngeal Swab Influenza Types A,B Antigen (DAX) - Coreen , negtive l 01/13/17 20:00 Nasopharyngeal Swab - Final IMAGING 01/13 CT: cardiomegaly, moderate bilateral pleural effusions, extensive atelectasis, pericardial effusion 01/15 chest x-ray: Moderate bilateral pleural effusions ASSESSMENT/PLAN: 1) card Acute Diastolic Heart Failure - pending echo - Continue Lasix 80 mg IV daily,4 kg weight loss noted - Continue daily weights strict I's and O's, 1 L fluid restriction Hypertension -continue amlodipine and hydralazine - Cardiology consulted and following 2) nephrology acute on chronic renal failure - creatinine 4.2 baseline 2.7 - continue PhosLo - continue Adkins - nephrology consulted and followed 3) pulmonary cOPD exacerbation - continue Symbicort and tudorza is when necessary albuterol nebulizers Pneumonia - Unlikely pneumonia CT scan of chest suggestive of cHF, continue with antibiotics as per ID l - pulmonary consulted and following 4) ID Bilateral lower extremity cellulitis - Continue Rocephin 5) Endo IDDM - continue fingersticks before meals and at bedtime with regular insulin coverage 6) psych Anxiety - continue nortripyltine and Paxil F/E/N Fluids: PO intake adequate Electrolytes: replete as indicated Nutrition: diabetic diet DVT prophylaxis: subq heparin, oob, ambulation PT evaluation Dispo: Patient continues to require inpatient care. full code. Visit type - Emergency Visit Emergency Visit: Yes ED Registration Date: 01/12/17 Care time: The patient presented to the Emergency Department on the above date and was hospitalized for further evaluation of their emergent condition. - New Patient This patient is new to me today: Yes Date on this admission: 01/15/17 - Critical Care Critical Care patient: No - Discharge Referral Referred to [facility] Med P.C.: No
--- NOTE | 2017-01-15 10:08 | PN ---
Progress Note, Physician History of Present Illness: PULMONARY ALERT,FEELING BETTER,LESS DYSPNEIC - Current Medication List Current Medications: Active Medications Aclidinium [place] (Tudorza -) 1 puff IH BID [facility] Last Admin: 01/15/17 09:55 Dose: 1 puff Amlodipine Besylate (Norvasc -) 10 mg PO DAILY [facility] Last Admin: 01/15/17 09:55 Dose: 10 mg Aspirin (Ecotrin -) 81 mg PO DAILY [facility] Last Admin: 01/15/17 09:55 Dose: 81 mg Brimonidine Tartrate (Alphagan 0.15% -) 1 drop OU TID [facility] Last Admin: 01/15/17 06:31 Dose: 1 drop Budesonide/Formoterol Fumarate (Symbicort 80/4.5mcg -) 2 puff IH BID [facility] Last Admin: 01/15/17 09:56 Dose: 2 puff Calcium Acetate (Phoslo -) 667 mg PO TIDCM [facility] Last Admin: 01/15/17 08:00 Dose: 667 mg Cephalexin HCl (Keflex -) 250 mg PO Q8H [facility] Furosemide (Lasix Injection -) 80 mg IVPUSH DAILY [facility] Last Admin: 01/15/17 09:55 Dose: 80 mg Heparin Sodium (Porcine) (Heparin -) 5,000 unit SQ TID [facility] Last Admin: 01/15/17 06:31 Dose: 5,000 unit Hydralazine HCl (Apresoline -) 75 mg PO TID [facility] Last Admin: 01/15/17 06:31 Dose: 75 mg Insulin Aspart (Novolog Vial Sliding Scale -) 1 vial SQ ACHS [facility] PRN Reason: Protocol Last Admin: 01/15/17 06:32 Dose: Not Given Levothyroxine Sodium (Synthroid -) 200 mcg PO DAILY@0700 [facility] Nortriptyline HCl (Pamelor -) 10 mg PO HS [facility] Last Admin: 01/14/17 21:46 Dose: 10 mg Paroxetine HCl (Paxil -) 20 mg PO DAILY [facility] Last Admin: 01/15/17 09:55 Dose: 20 mg Senna (Senna -) 2 tab PO HS [facility] Last Admin: 01/14/17 21:22 Dose: 2 tab - Objective Vital Signs: Vital Signs Temperature 98.3 F 01/15/17 06:00 Pulse Rate 98 H 01/15/17 06:00 Respiratory Rate 18 01/15/17 07:57 Blood Pressure 166/69 01/15/17 06:00 O2 Sat by Pulse Oximetry (%) 95 01/15/17 07:57 Constitutional: Yes: Well Nourished, Calm Eyes: Yes: WNL HENT: Yes: WNL Neck: Yes: WNL Cardiovascular: Yes: Regular Rate and Rhythm, S1, S2 Respiratory: Yes: Rales ([place] CRACKLES) Gastrointestinal: Yes: Normal Bowel Sounds, Soft Extremities: Yes: Erythema Edema: Yes Labs: CBC, BMP 01/15/17 07:25 01/15/17 07:25 - ....Imaging Chest X-ray: Report Reviewed, Image Reviewed (NO CHANGE) Assessment/Plan Problem List - Problems (1) Acute on chronic diastolic (congestive) heart failure Code(s): I50.33 - ACUTE ON CHRONIC DIASTOLIC (CONGESTIVE) HEART FAILURE (2) Renal failure (ARF), acute on chronic Code(s): N17.9 - ACUTE KIDNEY FAILURE, UNSPECIFIED N18.9 - CHRONIC KIDNEY DISEASE, UNSPECIFIED (3) Pleural effusion Code(s): J90 - PLEURAL EFFUSION, NOT ELSEWHERE CLASSIFIED (4) Pneumonia Code(s): J18.9 - PNEUMONIA, UNSPECIFIED ORGANISM Qualifiers: Pneumonia type: due to unspecified organism Laterality: bilateral Lung location: unspecified part of lung Qualified Code(s): J18.9 - Pneumonia, unspecified organism (5) Atelectasis Code(s): J98.11 - ATELECTASIS (6) COPD (chronic obstructive pulmonary disease) Code(s): J44.9 - CHRONIC OBSTRUCTIVE PULMONARY DISEASE, UNSPECIFIED (7) Chronic respiratory failure with hypoxia Code(s): J96.11 - CHRONIC RESPIRATORY FAILURE WITH HYPOXIA Assessment/Plan Acute on Chronic Diastolic Heart Failure Pleural Effusions/Atelectasis from above Mitral Regurgitation Acute on Chronic Renal Failure COPD Chronic Hypoxic Respiratory Failure HTN Anxiety - CONT IV lasix - monitor urine output, creatinine - daily weights, I/Os - monitor CXR with diuresis - continue antibiotics - O2 to keep SpO2 >90% - inhaled bronchodilators - DVT prophylaxis DR WALKER
[2017-01-15] MEDS: CEPHALEXIN MONOHYDRATE 250 MG CAPSULE (FP) PO SCH ×2 (10:30→17:24)
--- NOTE | 2017-01-15 12:25 | PN ---
Progress Note, Physician History of Present Illness: Pt seen and examined at bedside. She is awake and alert. She feels that her breathing is improved mildly. She denies chest pain. - Current Medication List Current Medications: Active Medications Aclidinium [place] (Tudorza -) 1 puff IH BID [facility] Last Admin: 01/15/17 09:55 Dose: 1 puff Amlodipine Besylate (Norvasc -) 10 mg PO DAILY [facility] Last Admin: 01/15/17 09:55 Dose: 10 mg Aspirin (Ecotrin -) 81 mg PO DAILY [facility] Last Admin: 01/15/17 09:55 Dose: 81 mg Brimonidine Tartrate (Alphagan 0.15% -) 1 drop OU TID [facility] Last Admin: 01/15/17 06:31 Dose: 1 drop Budesonide/Formoterol Fumarate (Symbicort 80/4.5mcg -) 2 puff IH BID [facility] Last Admin: 01/15/17 09:56 Dose: 2 puff Calcium Acetate (Phoslo -) 667 mg PO TIDCM [facility] Last Admin: 01/15/17 08:00 Dose: 667 mg Cephalexin HCl (Keflex -) 250 mg PO Q8H [facility] Last Admin: 01/15/17 10:30 Dose: 250 mg Furosemide (Lasix Injection -) 80 mg IVPUSH DAILY [facility] Last Admin: 01/15/17 09:55 Dose: 80 mg Heparin Sodium (Porcine) (Heparin -) 5,000 unit SQ TID [facility] Last Admin: 01/15/17 06:31 Dose: 5,000 unit Hydralazine HCl (Apresoline -) 75 mg PO TID [facility] Last Admin: 01/15/17 06:31 Dose: 75 mg Insulin Aspart (Novolog Vial Sliding Scale -) 1 vial SQ ACHS [facility] PRN Reason: Protocol Last Admin: 01/15/17 06:32 Dose: Not Given Levothyroxine Sodium (Synthroid -) 200 mcg PO DAILY@0700 [facility] Nortriptyline HCl (Pamelor -) 10 mg PO HS [facility] Last Admin: 01/14/17 21:46 Dose: 10 mg Paroxetine HCl (Paxil -) 20 mg PO DAILY [facility] Last Admin: 01/15/17 09:55 Dose: 20 mg Senna (Senna -) 2 tab PO [facility] Last Admin: 01/14/17 21:22 Dose: 2 tab - Objective Vital Signs: Vital Signs Temperature 98.3 F 01/15/17 06:00 Pulse Rate 98 H 01/15/17 06:00 Respiratory Rate 18 01/15/17 07:57 Blood Pressure 166/69 01/15/17 06:00 O2 Sat by Pulse Oximetry (%) 95 01/15/17 07:57 Constitutional: Yes: Calm Eyes: Yes: Conjunctiva Clear HENT: Yes: Atraumatic Cardiovascular: Yes: S1, S2 Respiratory: Yes: On Nasal O2, Rhonchi Gastrointestinal: Yes: Soft, Abdomen, Obese Genitourinary: Yes: Adkins Present Musculoskeletal: Yes: WNL Edema: Yes Edema: LLE: 2+, RLE: 2+ Integumentary: Yes: Erythema Neurological: Yes: Oriented Psychiatric: Yes: Oriented Labs: CBC, BMP 01/15/17 07:25 01/15/17 07:25 - ....Imaging Chest X-ray: Report Reviewed Problem List - Problems (1) Acute on chronic diastolic (congestive) heart failure Code(s): I50.33 - ACUTE ON CHRONIC DIASTOLIC (CONGESTIVE) HEART FAILURE (2) COPD (chronic obstructive pulmonary disease) Code(s): J44.9 - CHRONIC OBSTRUCTIVE PULMONARY DISEASE, UNSPECIFIED (3) HTN (hypertension) Code(s): I10 - ESSENTIAL (PRIMARY) HYPERTENSION (4) Hypothyroid Code(s): E03.9 - HYPOTHYROIDISM, UNSPECIFIED (5) Pleural effusion Code(s): J90 - PLEURAL EFFUSION, NOT ELSEWHERE CLASSIFIED (6) Renal failure (ARF), acute on chronic Code(s): N17.9 - ACUTE KIDNEY FAILURE, UNSPECIFIED N18.9 - CHRONIC KIDNEY DISEASE, UNSPECIFIED Assessment/Plan Current Medications Generic Name Dose Route Start Last Admin Trade Name Freq PRN Reason Stop Dose Admin Aclidinium [place] 1 puff 01/13/17 10:00 01/15/17 09:55 Tudorza - IH 1 puff BID [facility] Administration Amlodipine Besylate 10 mg 01/13/17 10:00 01/15/17 09:55 Norvasc - PO 10 mg DAILY [facility] Administration Aspirin 81 mg 01/13/17 10:00 01/15/17 09:55 Ecotrin - PO 81 mg DAILY [facility] Administration Brimonidine Tartrate 1 drop 01/13/17 06:00 01/15/17 06:31 Alphagan 0.15% - OU 1 drop TID [facility] Administration Budesonide/Formoterol Fumarate 2 puff 01/13/17 10:00 01/15/17 09:56 Symbicort 80/4.5mcg - IH 2 puff BID [facility] Administration Calcium Acetate 667 mg 01/14/17 12:00 01/15/17 08:00 Phoslo - PO 667 mg TIDCM [facility] Administration Cephalexin HCl 250 mg 01/15/17 10:00 01/15/17 10:30 Keflex - PO 250 mg Q8H [facility] Administration Furosemide 80 mg 01/13/17 16:15 01/15/17 09:55 Lasix Injection - IVPUSH 80 mg DAILY [facility] Administration Heparin Sodium (Porcine) 5,000 unit 01/13/17 06:00 01/15/17 06:31 Heparin - SQ 5,000 unit TID [facility] Administration Hydralazine HCl 75 mg 01/13/17 11:51 01/15/17 06:31 Apresoline - PO 75 mg TID [facility] Administration Insulin Aspart 1 vial 01/13/17 07:00 01/15/17 06:32 Novolog Vial Sliding Scale - SQ Not Given ACHS [facility] Protocol Levothyroxine Sodium 200 mcg 01/16/17 07:00 Synthroid - PO DAILY@0700 [facility] Nortriptyline HCl 10 mg 01/13/17 22:00 01/14/17 21:46 Pamelor - PO 10 mg HS [facility] Administration Paroxetine HCl 20 mg 01/13/17 10:00 01/15/17 09:55 Paxil - PO 20 mg DAILY [facility] Administration Senna 2 tab 01/13/17 22:00 01/14/17 21:22 Senna - PO 2 tab HS [facility] Administration Laboratory Tests 10/19/16 10/20/16 10/25/16 11:00 06:30 13:15 NATHAN Screen Positive H c-ANCA <1:20 Proteinase 3 (PR3) <3.5 p-ANCA <1:20 Atypical p-ANCA <1:20 Myeloperoxidase Ab <9.0 Double Strand DNA Ab <1 Hep B Core Total Ab Positive H Impression 1. CKD with acute component 2. HTN 3. DM 4. CVA 5. smoking history 6. pleural effusions 7. anemia 8. COPD 9. CHF 10. positive nathan 11. Hepatitis B Plan - cont with diuretics - monitor urine output - check echo - renal workup is in progress - pt does have history of nephrotic range proteinuria - monitor bmp daily - discussed HD with patient, will need access for [facility] Dr Patel
--- NOTE | 2017-01-15 20:38 | EKG ---
Test Reason : Blood Pressure : / mmHG Vent. Rate : 095 BPM Atrial Rate : 095 BPM P-R Int : 140 ms QRS Dur : 088 ms QT Int : 384 ms P-R-T Axes : 056 -08 131 degrees QTc Int : 482 ms NORMAL SINUS RHYTHM POSSIBLE LEFT ATRIAL ENLARGEMENT LOW VOLTAGE QRS CANNOT RULE OUT ANTERIOR INFARCT (CITED ON OR BEFORE 16-DEC-2016) WHEN COMPARED WITH ECG OF 16-DEC-2016 05:19, QRS AXIS SHIFTED RIGHT Confirmed by MD YIMI, PRESTON ([id number]) on 01/15/2017 8:37:38 PM Referred By: ALDA Confirmed By:PRESTON GELLER MD
[2017-01-15] MEDS: SENNOSIDES 8.6MG TABLET (FP) PO SCH (21:22)
[2017-01-15] MEDS: NORTRIPTYLINE HCL 10 MG CAPSULE PO SCH (21:23)
[2017-01-16] MEDS: CEPHALEXIN MONOHYDRATE 250 MG CAPSULE (FP) PO SCH ×3 (02:05→17:46)
[2017-01-16] MEDS ORDERED: PT OWN MED DRAWER 7, Y5N ONE ×5 (03:17→21:09)
[2017-01-16] MEDS: LEVOTHYROXINE NA 100 MCG TABLET (FP) PO SCH (06:42)
[2017-01-16] MEDS: HEPARIN NA (PORCINE) 5,000 UNITS/ML 1ML VIAL SQ SCH ×3 (06:42→21:14)
[2017-01-16] MEDS: hydrALAZINE HCL 50 MG TABLET (FP) PO SCH ×3 (06:42→21:13)
[2017-01-16] MEDS: BRIMONIDINE TARTRATE 0.15% OPHTHALMIC 5 ML BOTTLE OU SCH ×3 (06:42→21:12)
[2017-01-16 07:52] LABS: BASOPHIL 3.5 % (0-2.0); EOSINOPHIL 3.8 % (0-4.5); MCH 27.6 pg (25.7-33.7); MCHC 32.2 g/dl (32.0-36.0); MEAN CELL VOLUME 85.6 fl (80-96); MEAN PLT VOLUME 7.2 fl (7.5-11.1); NEUTROPHILS 81.1 % (42.8-82.8); PLATELET COUNT 423 K/MM3 (134-434); RDW 15.4 % (11.6-15.6); WHITE BLOOD COUNT 12.6 K/mm3 (4.0-10.0)
--- NOTE | 2017-01-16 07:54 | PN ---
Progress Note, Physician History of Present Illness: pulmonary alert,feeling better,less dyspneic - Current Medication List Current Medications: Active Medications Aclidinium [place] (Tudorza -) 1 puff IH BID [facility] Last Admin: 01/15/17 21:23 Dose: 1 puff Albuterol Sulfate (Ventolin 0.083% Nebulizer Soln -) 1 amp NEB Q4H PRN PRN Reason: SHORT OF BREATH/WHEEZING Amlodipine Besylate (Norvasc -) 10 mg PO DAILY [facility] Last Admin: 01/15/17 09:55 Dose: 10 mg Aspirin (Ecotrin -) 81 mg PO DAILY [facility] Last Admin: 01/15/17 09:55 Dose: 81 mg Brimonidine Tartrate (Alphagan 0.15% -) 1 drop OU TID [facility] Last Admin: 01/16/17 06:42 Dose: 1 drop Budesonide/Formoterol Fumarate (Symbicort 80/4.5mcg -) 2 puff IH BID [facility] Last Admin: 01/15/17 21:23 Dose: 2 puff Calcium Acetate (Phoslo -) 667 mg PO TIDCM [facility] Last Admin: 01/15/17 17:07 Dose: 667 mg Cephalexin HCl (Keflex -) 250 mg PO Q8H [facility] Last Admin: 01/16/17 02:05 Dose: 250 mg Furosemide (Lasix Injection -) 80 mg IVPUSH DAILY [facility] Last Admin: 01/15/17 09:55 Dose: 80 mg Heparin Sodium (Porcine) (Heparin -) 5,000 unit SQ TID [facility] Last Admin: 01/16/17 06:42 Dose: 5,000 unit Hydralazine HCl (Apresoline -) 75 mg PO TID [facility] Last Admin: 01/16/17 06:42 Dose: 75 mg Insulin Aspart (Novolog Vial Sliding Scale -) 1 vial SQ ACHS [facility] PRN Reason: Protocol Last Admin: 01/15/17 21:24 Dose: Not Given Levothyroxine Sodium (Synthroid -) 200 mcg PO DAILY@0700 [facility] Last Admin: 01/16/17 06:42 Dose: 200 mcg Nortriptyline HCl (Pamelor -) 10 mg PO HS [facility] Last Admin: 01/15/17 21:23 Dose: 10 mg Paroxetine HCl (Paxil -) 20 mg PO DAILY [facility] Last Admin: 01/15/17 09:55 Dose: 20 mg Senna (Senna -) 2 tab PO HS [facility] Last Admin: 01/15/17 21:22 Dose: 2 tab - Objective Vital Signs: Vital Signs Temperature 98.0 F 01/16/17 06:32 Pulse Rate 94 H 01/16/17 06:32 Respiratory Rate 20 01/16/17 06:32 Blood Pressure 163/73 01/16/17 06:32 O2 Sat by Pulse Oximetry (%) 98 01/16/17 06:32 Constitutional: Yes: Well Nourished, Calm Eyes: Yes: WNL HENT: Yes: WNL Neck: Yes: WNL Cardiovascular: Yes: Regular Rate and Rhythm, S1, S2 Respiratory: Yes: Diminished, Rales (bibasilar crackles) Gastrointestinal: Yes: WNL Extremities: Yes: WNL Edema: No Assessment/Plan Problem List - Problems (1) Acute on chronic diastolic (congestive) heart failure Code(s): I50.33 - ACUTE ON CHRONIC DIASTOLIC (CONGESTIVE) HEART FAILURE (2) Renal failure (ARF), acute on chronic Code(s): N17.9 - ACUTE KIDNEY FAILURE, UNSPECIFIED N18.9 - CHRONIC KIDNEY DISEASE, UNSPECIFIED (3) Pleural effusion Code(s): J90 - PLEURAL EFFUSION, NOT ELSEWHERE CLASSIFIED (4) Pneumonia Code(s): J18.9 - PNEUMONIA, UNSPECIFIED ORGANISM Qualifiers: Pneumonia type: due to unspecified organism Laterality: bilateral Lung location: unspecified part of lung Qualified Code(s): J18.9 - Pneumonia, unspecified organism (5) Atelectasis Code(s): J98.11 - ATELECTASIS (6) COPD (chronic obstructive pulmonary disease) Code(s): J44.9 - CHRONIC OBSTRUCTIVE PULMONARY DISEASE, UNSPECIFIED (7) Chronic respiratory failure with hypoxia Code(s): J96.11 - CHRONIC RESPIRATORY FAILURE WITH HYPOXIA Assessment/Plan Acute on Chronic Diastolic Heart Failure improving Pleural Effusions/Atelectasis from above Mitral Regurgitation Acute on Chronic Renal Failure COPD Chronic Hypoxic Respiratory Failure HTN Anxiety - CONT IV lasix - monitor urine output, creatinine - daily weights, I/Os - monitor CXR - continue antibiotics - O2 to keep SpO2 >90% - inhaled bronchodilators - DVT prophylaxis DR WALKER
[2017-01-16] MEDS: INSULIN SLIDING SCALE (NOVOLOG) 1 VIAL SQ SCH ×4 (07:58→23:10)
[2017-01-16 08:03] LABS: ALBUMIN 2.9 g/dl (3.5-5.0); ALK PHOS 93 U/L (32-92); ANION GAP 10 (8-16); CO2 22 mmol/L (22-28); CREATININE 4.1 mg/dl (0.6-1.3); GLUCOSE,RANDOM 140 mg/dl (74-106); MAGNESIUM 1.8 mg/dL (1.8-2.4); PHOSPHOROUS 5.9 mg/dl (2.5-4.6); SGOT/AST 16 U/L (10-42); TOT PROT 5.7 g/dl (6.4-8.3)
[2017-01-16 08:04] LABS: BILIRUBIN,TOTAL < 0.3 mg/dl (0.2-1.0); SGPT/ALT < 9 U/L (10-40)
[2017-01-16] MEDS ORDERED: ALPRAZolam 0.25 MG TABLET PO ONE (08:20)
--- NOTE | 2017-01-16 08:20 | PN ---
Physical Exam: SUBJECTIVE: Patient seen and examined. Complaining that she did not sleep well. No appetite. Wants "a pill to relax" and wants to be left alone. OBJECTIVE: Hospital day # ALONZO-on-CKD, HTN, HLD, GERD, anemia, CVA x2, asthma/ COPD (O2 dependent), anxiety, hypothyroidism, and chronic diastolic heart failure admitted on 01/12 with ?CAP, bilateral pleural effusions, small pericardial effusions, and bilateral LE cellulitis. Echo has been completed and read is pending. Currently on Keflex for cellulitis. Vital Signs Period Temp Pulse Resp BP Sys/Gonsalez Pulse Ox Last 24 Hr 98.0 F-98.4 F 90-98 18-20 163-163/67-73 96-98 GENERAL: The patient is awake, alert, and fully oriented, in no acute distress. HEAD: Normal with no signs of trauma. EYES: PERRL, extraocular movements intact, sclera anicteric, conjunctiva clear. No ptosis. ENT: Ears normal, nares patent, oropharynx clear without exudates, moist mucous membranes. NECK: Trachea midline, full range of motion, supple. LUNGS: Mild tachypnea. Rales at bases. HEART: Regular rate and rhythm, S1, S2 without murmur, rub or gallop. ABDOMEN: Soft, nontender, nondistended, normoactive bowel sounds, no guarding, no rebound, no hepatosplenomegaly, no masses. EXTREMITIES: 2+ pulses, warm, well-perfused. 2+ pitting edema bilaterally with erythema and cobblestoning. NEUROLOGICAL: Cranial nerves II through XII grossly intact. Normal speech, gait not observed. PSYCH: Irritable. SKIN: Warm, dry, normal turgor, no rashes or lesions noted Laboratory Results - last 24 hr 01/15/17 01/15/17 01/15/17 07:25 07:25 07:25 WBC 9.9 RBC 2.98 L Hgb 8.4 L Hct 25.4 L MCV 85.4 MCHC 32.8 RDW 15.3 Plt Count 423 MPV 7.4 L Neutrophils % 85.5 H Lymphocytes % 5.8 L D Monocytes % 4.4 Eosinophils % 4.0 Basophils % 0.3 Sodium 139 Potassium 3.7 Chloride 107 Carbon Dioxide 20 L Anion Gap 12 BUN 38 H Creatinine 4.2 H Creat Clearance w eGFR 10.65 POC Glucometer Random Glucose 131 H D Calcium 7.9 L Phosphorus 6.3 H Magnesium 1.9 Total Bilirubin 0.5 D AST 13 ALT < 9 L Alkaline Phosphatase 92 Total Protein 5.6 L Albumin 2.8 L Triglycerides 184 H Cholesterol 175 Total LDL Cholesterol 79 HDL Cholesterol 59 01/15/17 01/15/17 01/15/17 11:14 16:17 21:20 WBC RBC Hgb Hct MCV MCHC RDW Plt Count MPV Neutrophils % Lymphocytes % Monocytes % Eosinophils % Basophils % Sodium Potassium Chloride Carbon Dioxide Anion Gap BUN Creatinine Creat Clearance w eGFR POC Glucometer 142 148 161 Random Glucose Calcium Phosphorus Magnesium Total Bilirubin AST ALT Alkaline Phosphatase Total Protein Albumin Triglycerides Cholesterol Total LDL Cholesterol HDL Cholesterol 01/16/17 01/16/17 01/16/17 05:33 07:25 07:25 WBC 12.6 H RBC 3.25 L Hgb 9.0 L Hct 27.8 L MCV 85.6 MCHC 32.2 RDW 15.4 Plt Count 423 MPV 7.2 L Neutrophils % 81.1 Lymphocytes % 7.5 L D Monocytes % 4.1 Eosinophils % 3.8 Basophils % 3.5 H D Sodium 140 Potassium 3.5 Chloride 108 H Carbon Dioxide 22 Anion Gap 10 BUN 34 H Creatinine 4.1 H Creat Clearance w eGFR 10.96 POC Glucometer 134 Random Glucose 140 H Calcium 8.0 L Phosphorus 5.9 H Magnesium 1.8 Total Bilirubin < 0.3 D AST 16 D ALT < 9 L Alkaline Phosphatase 93 H Total Protein 5.7 L Albumin 2.9 L Triglycerides Cholesterol Total LDL Cholesterol HDL Cholesterol Active Medications Generic Name Dose Route Start Last Admin Trade Name Freq PRN Reason Stop Dose Admin Aclidinium [place] 1 puff 01/13/17 10:00 01/15/17 21:23 Tudorza - IH 1 puff BID [facility] Administration Albuterol Sulfate 1 amp 01/15/17 15:14 Ventolin 0.083% Nebulizer Soln - NEB Q4H PRN SHORT OF BREATH/WHEEZING Amlodipine Besylate 10 mg 01/13/17 10:00 01/15/17 09:55 Norvasc - PO 10 mg DAILY [facility] Administration Aspirin 81 mg 01/13/17 10:00 01/15/17 09:55 Ecotrin - PO 81 mg DAILY [facility] Administration Brimonidine Tartrate 1 drop 01/13/17 06:00 01/16/17 06:42 Alphagan 0.15% - OU 1 drop TID [facility] Administration Budesonide/Formoterol Fumarate 2 puff 01/13/17 10:00 01/15/17 21:23 Symbicort 80/4.5mcg - IH 2 puff BID [facility] Administration Calcium Acetate 667 mg 01/14/17 12:00 01/15/17 17:07 Phoslo - PO 667 mg TIDCM [facility] Administration Cephalexin HCl 250 mg 01/15/17 10:00 01/16/17 02:05 Keflex - PO 250 mg Q8H [facility] Administration Furosemide 80 mg 01/13/17 16:15 01/15/17 09:55 Lasix Injection - IVPUSH 80 mg DAILY [facility] Administration Heparin Sodium (Porcine) 5,000 unit 01/13/17 06:00 01/16/17 06:42 Heparin - SQ 5,000 unit TID [facility] Administration Hydralazine HCl 75 mg 01/13/17 11:51 01/16/17 06:42 Apresoline - PO 75 mg TID [facility] Administration Insulin Aspart 1 vial 01/13/17 07:00 01/16/17 07:58 Novolog Vial Sliding Scale - SQ Not Given ACHS [facility] Protocol Levothyroxine Sodium 200 mcg 01/16/17 07:00 01/16/17 06:42 Synthroid - PO 200 mcg DAILY@0700 [facility] Administration Nortriptyline HCl 10 mg 01/13/17 22:00 01/15/17 21:23 Pamelor - PO 10 mg HS [facility] Administration Paroxetine HCl 20 mg 01/13/17 10:00 01/15/17 09:55 Paxil - PO 20 mg DAILY [facility] Administration Senna 2 tab 01/13/17 22:00 01/15/17 21:22 Senna - PO 2 tab HS [facility] Administration IMAGIN/18 CT: Cardiomegaly, moderate bilateral pleural effusions, groundglass opacities with extensive atelectasis, small pericardial effusion 01/15 chest x-ray: Moderate bilateral pleural effusions ASSESSMENT/PLAN: 66 year old female with ALONZO-on-CKD, exacerbation of diastolic heart failure, ?CAP, and bilateral LE cellulitis. 1. CARDS Acute diastolic heart failure -Continue Lasix 80 mg IV daily, 6 kg weight loss noted since admission! -Continue daily weights strict I's and O's, 1 L fluid restriction -Echo has been completed and read is pending Hypertension -Consistently above goal -Continue amlodipine and hydralazine -Add isosorbide dinitrate per cardiology recommendations 2. RENAL -ALONZO-on-CKD -Creatinine 4.1 (baseline ~2.7) -Continue PhosLo -Continue Adkins catheter/strict I/O -Nephrology following 3. PULM -Exacerbation of COPD -Continue Symbicort, Tudorza, prn albuterol nebs 4. ID Bilateral lower extremity cellulitis -On PO Keflex ?CAP -S/p Cefriaxone/Azithromycin, one dose Vancomycin -No obvious infiltrate on CT 5. ENDO IDDM -Continue FS ACHS, ISS, diabetic diet 6. PSYCH Anxiety -Continue nortriptyline, paroxetine -Alprazolam 0.25mg po x 1 now 7. F/E/N -Encourage PO intake -Replete electrolytes as indicated -Diabetic diet 8. Ppx -Sqh -Ambulation Dispo: Requires inpatient care. FULL CODE Visit type - Emergency Visit Emergency Visit: Yes ED Registration Date: 01/12/17 Care time: The patient presented to the Emergency Department on the above date and was hospitalized for further evaluation of their emergent condition. - New Patient This patient is new to me today: Yes Date on this admission: 01/16/17 - Critical Care Critical Care patient: No
[2017-01-16] MEDS: CALCIUM ACETATE 667 MG CAPSULE (FP) PO SCH ×3 (08:38→17:47)
--- NOTE | 2017-01-16 09:02 | PN ---
Progress Note, Physician History of Present Illness: Awake, alert. Supine in bed. No complaints Breathing non-labored Denies cough No c/o fever/ chills No c/o leg pain Slight leukocytosis noted No diarrhea reported - Current Medication List Current Medications: Active Medications Aclidinium [place] (Tudorza -) 1 puff IH BID [facility] Last Admin: 01/15/17 21:23 Dose: 1 puff Albuterol Sulfate (Ventolin 0.083% Nebulizer Soln -) 1 amp NEB Q4H PRN PRN Reason: SHORT OF BREATH/WHEEZING Amlodipine Besylate (Norvasc -) 10 mg PO DAILY [facility] Last Admin: 01/15/17 09:55 Dose: 10 mg Aspirin (Ecotrin -) 81 mg PO DAILY [facility] Last Admin: 01/15/17 09:55 Dose: 81 mg Brimonidine Tartrate (Alphagan 0.15% -) 1 drop OU TID [facility] Last Admin: 01/16/17 06:42 Dose: 1 drop Budesonide/Formoterol Fumarate (Symbicort 80/4.5mcg -) 2 puff IH BID [facility] Last Admin: 01/15/17 21:23 Dose: 2 puff Calcium Acetate (Phoslo -) 667 mg PO TIDCM [facility] Last Admin: 01/16/17 08:38 Dose: Not Given Cephalexin HCl (Keflex -) 250 mg PO Q8H [facility] Last Admin: 01/16/17 02:05 Dose: 250 mg Furosemide (Lasix Injection -) 80 mg IVPUSH DAILY [facility] Last Admin: 01/15/17 09:55 Dose: 80 mg Heparin Sodium (Porcine) (Heparin -) 5,000 unit SQ TID [facility] Last Admin: 01/16/17 06:42 Dose: 5,000 unit Hydralazine HCl (Apresoline -) 75 mg PO TID [facility] Last Admin: 01/16/17 06:42 Dose: 75 mg Insulin Aspart (Novolog Vial Sliding Scale -) 1 vial SQ ACHS [facility] PRN Reason: Protocol Last Admin: 01/16/17 07:58 Dose: Not Given Isosorbide Dinitrate (Isordil -) 20 mg PO TID [facility] Levothyroxine Sodium (Synthroid -) 200 mcg PO DAILY@0700 [facility] Last Admin: 01/16/17 06:42 Dose: 200 mcg Nortriptyline HCl (Pamelor -) 10 mg PO HS [facility] Last Admin: 01/15/17 21:23 Dose: 10 mg Paroxetine HCl (Paxil -) 20 mg PO DAILY [facility] Last Admin: 01/15/17 09:55 Dose: 20 mg Senna (Senna -) 2 tab PO HS [facility] Last Admin: 01/15/17 21:22 Dose: 2 tab - Objective Vital Signs: Vital Signs Temperature 98.0 F 01/16/17 06:32 Pulse Rate 94 H 01/16/17 06:32 Respiratory Rate 20 01/16/17 06:32 Blood Pressure 163/73 01/16/17 06:32 O2 Sat by Pulse Oximetry (%) 98 01/16/17 06:32 Constitutional: Yes: Well Nourished, Obese Eyes: Yes: Conjunctiva Clear Cardiovascular: Yes: Regular Rate and Rhythm, S1, S2 Respiratory: Yes: Other (few crepitations at bases-improved) Gastrointestinal: Yes: Normal Bowel Sounds, Soft. No: Tenderness Extremities: Yes: Other (+ erythema/ warmth, pretibial aspects of LE bilaterally ) Edema: Yes Labs: CBC, BMP 01/16/17 07:25 01/16/17 07:25 Assessment/Plan Bilateral pleural effusions Compressive atelectasis v. pneumonia Possible bilateral cellulitis CKD S/P CVA Cardiology and nephrology evaluations appreciated Continue po keflex for treatment of LE celllulitis
[2017-01-16] MEDS: BUDESONIDE/FORMETEROL FUMARATE 80/4.5 mcg INHALER IH SCH ×2 (10:28→21:16)
[2017-01-16] MEDS: FUROSEMIDE 40 MG/4 ML INJECTABLE VIAL IVPUSH SCH (10:29)
[2017-01-16] MEDS: ACLIDINIUM BROMIDE 400 MCG/INH AERO.POWD IH SCH ×2 (10:30→21:17)
[2017-01-16] MEDS: amLODIPine BESYLATE 10 MG TABLET (FP) PO SCH (10:32)
[2017-01-16] MEDS: ASPIRIN COATED 81 MG TABLET.EC PO SCH (10:32)
[2017-01-16] MEDS: PARoxetine HCL 20 MG TABLET (FP) PO SCH (10:32)
[2017-01-16] MEDS: ALBUTEROL SO4 0.083% IH SOL 2.5 MG/3 ML VIAL.NEB. NEB PRN (10:40)
--- NOTE | 2017-01-16 10:41 | CONSULT ---
Consult - text type - Consultation Consultation Note: CARDIOLOGY. FEELS "BETTER" DECREASED DYSPNEA. MEDICATIONS REVIEWED. AWAKE ALERT LYING 45 DEGREES. RR 18/MINUTE. BP 163/78 PULSE 85/MINUTE AFEBRILE.DECREASED WEIGHT DECREASED BREATH SOUNDS BILATERAL BASES. NO WHEEZE. S1 AND S2 NORMAL. 1/6 SYSTOLIC MURMUR LEFT STERNAL BORDER WITH BREATH HOLDING. NO GALLOP DECREASED EDEMA/ERYTHEMA CREAT. 4.1 WORKING DX: ACUTE ON CHRONIC CHF DUE DIASTOLIC DYSFUNCTION/HEART FAILURE WITH PRESERVED EJECTION FRACTION . UNDERLYING HYPERTENSIVE-PROBABLE ATHEROSCLEROTIC ? VALVULAR (MODERATE MITRAL REGURGITATION 06/13 ECHO NOT APPARENT ON EXAMINATION TODAY )HEART DISEASE. RENAL FAILURE EXACERBATES FLUID RETENTION INFLUENCES MEDICAL THERAPY FOR HEART FAILURE NO EVIDENCE OF ACUTE MYOCARDIAL ISCHEMIA/INFARCTION. CONTROL OF SYSTEMIC HYPERTENSION WILL BE CRITICAL PRESENTLY HEMODYNAMICALLY STABLE WITH CLINICAL IMPROVEMENT FROM ADMISSION REC: OBTAIN PRIOR RECORDS NOT AVAILABLE AT THIS TIME. IV LASIX. INCREASE NITRATES (ISORDIL)/HYDRALAZINE DOSES AWAIT ECHOCARDIOGRAM. RENAL RE-EVALUATION.
[2017-01-16] MEDS ORDERED: INSULIN (NOVOLOG) ASPART 100 UNITS/ML 10ML VIAL ONE ×2 (12:10→12:13)
--- NOTE | 2017-01-16 13:20 | PN ---
Progress Note, Physician History of Present Illness: Pt seen and examined at bedside. She is out of bed to chair. She feels that her breathing is improved. - Current Medication List Current Medications: Active Medications Aclidinium [place] (Tudorza -) 1 puff IH BID [facility] Last Admin: 01/16/17 10:30 Dose: 1 puff Albuterol Sulfate (Ventolin 0.083% Nebulizer Soln -) 1 amp NEB Q4H PRN PRN Reason: SHORT OF BREATH/WHEEZING Last Admin: 01/16/17 10:40 Dose: 1 amp Amlodipine Besylate (Norvasc -) 10 mg PO DAILY [facility] Last Admin: 01/16/17 10:32 Dose: 10 mg Aspirin (Ecotrin -) 81 mg PO DAILY [facility] Last Admin: 01/16/17 10:32 Dose: 81 mg Brimonidine Tartrate (Alphagan 0.15% -) 1 drop OU TID [facility] Last Admin: 01/16/17 06:42 Dose: 1 drop Budesonide/Formoterol Fumarate (Symbicort 80/4.5mcg -) 2 puff IH BID [facility] Last Admin: 01/16/17 10:28 Dose: 2 puff Calcium Acetate (Phoslo -) 667 mg PO TIDCM [facility] Last Admin: 01/16/17 12:14 Dose: 667 mg Cephalexin HCl (Keflex -) 250 mg PO Q8H [facility] Last Admin: 01/16/17 10:27 Dose: 250 mg Furosemide (Lasix Injection -) 80 mg IVPUSH DAILY [facility] Last Admin: 01/16/17 10:29 Dose: 80 mg Heparin Sodium (Porcine) (Heparin -) 5,000 unit SQ TID [facility] Last Admin: 01/16/17 06:42 Dose: 5,000 unit Hydralazine HCl (Apresoline -) 75 mg PO TID [facility] Last Admin: 01/16/17 06:42 Dose: 75 mg Insulin Aspart (Novolog Vial Sliding Scale -) 1 vial SQ ACHS [facility] PRN Reason: Protocol Last Admin: 01/16/17 12:13 Dose: 2 unit Isosorbide Dinitrate (Isordil -) 20 mg PO TID [facility] Levothyroxine Sodium (Synthroid -) 200 mcg PO DAILY@0700 [facility] Last Admin: 01/16/17 06:42 Dose: 200 mcg Nortriptyline HCl (Pamelor -) 10 mg PO HS [facility] Last Admin: 01/15/17 21:23 Dose: 10 mg Paroxetine HCl (Paxil -) 20 mg PO DAILY [facility] Last Admin: 01/16/17 10:32 Dose: 20 mg Senna (Senna -) 2 tab PO HS [facility] Last Admin: 01/15/17 21:22 Dose: 2 tab - Objective Vital Signs: Vital Signs Temperature 98.0 F 01/16/17 06:32 Pulse Rate 94 H 01/16/17 06:32 Respiratory Rate 20 01/16/17 12:00 Blood Pressure 163/73 01/16/17 06:32 O2 Sat by Pulse Oximetry (%) 98 01/16/17 09:00 Constitutional: Yes: Anxious Eyes: Yes: Conjunctiva Clear HENT: Yes: Atraumatic Cardiovascular: Yes: S1, S2 Respiratory: Yes: On Nasal O2 Gastrointestinal: Yes: Soft, Abdomen, Obese Genitourinary: Yes: Godfrey Present Musculoskeletal: Yes: WNL Edema: Yes Edema: LLE: 2+, RLE: 2+ Neurological: Yes: Oriented Psychiatric: Yes: Oriented Labs: CBC, BMP 01/16/17 07:25 01/16/17 07:25 Problem List - Problems (1) Acute on chronic diastolic (congestive) heart failure Code(s): I50.33 - ACUTE ON CHRONIC DIASTOLIC (CONGESTIVE) HEART FAILURE (2) COPD (chronic obstructive pulmonary disease) Code(s): J44.9 - CHRONIC OBSTRUCTIVE PULMONARY DISEASE, UNSPECIFIED (3) HTN (hypertension) Code(s): I10 - ESSENTIAL (PRIMARY) HYPERTENSION (4) Hypothyroid Code(s): E03.9 - HYPOTHYROIDISM, UNSPECIFIED (5) Pleural effusion Code(s): J90 - PLEURAL EFFUSION, NOT ELSEWHERE CLASSIFIED (6) Renal failure (ARF), acute on chronic Code(s): N17.9 - ACUTE KIDNEY FAILURE, UNSPECIFIED N18.9 - CHRONIC KIDNEY DISEASE, UNSPECIFIED Assessment/Plan Current Medications Generic Name Dose Route Start Last Admin Trade Name Freq PRN Reason Stop Dose Admin Aclidinium [place] 1 puff 01/13/17 10:00 01/16/17 10:30 Tudorza - IH 1 puff BID [facility] Administration Albuterol Sulfate 1 amp 01/15/17 15:14 01/16/17 10:40 Ventolin 0.083% Nebulizer Soln - NEB 1 amp Q4H PRN Administration SHORT OF BREATH/WHEEZING Amlodipine Besylate 10 mg 01/13/17 10:00 01/16/17 10:32 Norvasc - PO 10 mg DAILY [facility] Administration Aspirin 81 mg 01/13/17 10:00 01/16/17 10:32 Ecotrin - PO 81 mg DAILY [facility] Administration Brimonidine Tartrate 1 drop 01/13/17 06:00 01/16/17 06:42 Alphagan 0.15% - OU 1 drop TID [facility] Administration Budesonide/Formoterol Fumarate 2 puff 01/13/17 10:00 01/16/17 10:28 Symbicort 80/4.5mcg - IH 2 puff BID [facility] Administration Calcium Acetate 667 mg 01/14/17 12:00 01/16/17 12:14 Phoslo - PO 667 mg TIDCM [facility] Administration Cephalexin HCl 250 mg 01/15/17 10:00 01/16/17 10:27 Keflex - PO 250 mg Q8H [facility] Administration Furosemide 80 mg 01/13/17 16:15 01/16/17 10:29 Lasix Injection - IVPUSH 80 mg DAILY [facility] Administration Heparin Sodium (Porcine) 5,000 unit 01/13/17 06:00 01/16/17 06:42 Heparin - SQ 5,000 unit TID [facility] Administration Hydralazine HCl 75 mg 01/13/17 11:51 01/16/17 06:42 Apresoline - PO 75 mg TID [facility] Administration Insulin Aspart 1 vial 01/13/17 07:00 01/16/17 12:13 Novolog Vial Sliding Scale - SQ 2 unit ACHS [facility] Administration Protocol Isosorbide Dinitrate 20 mg 01/16/17 14:00 Isordil - PO TID [facility] Levothyroxine Sodium 200 mcg 01/16/17 07:00 01/16/17 06:42 Synthroid - PO 200 mcg DAILY@0700 [facility] Administration Nortriptyline HCl 10 mg 01/13/17 22:00 01/15/17 21:23 Pamelor - PO 10 mg HS [facility] Administration Paroxetine HCl 20 mg 01/13/17 10:00 01/16/17 10:32 Paxil - PO 20 mg DAILY [facility] Administration Senna 2 tab 01/13/17 22:00 01/15/17 21:22 Senna - PO 2 tab HS [facility] Administration Impression 1. CKD with acute component 2. HTN 3. DM 4. CVA 5. smoking history 6. pleural effusions 7. anemia 8. COPD 9. CHF 10. positive nathan 11. Hepatitis B Plan - renal function has returned to near baseline - cont with diuretics - keep godfrey in place for now - attempted to call daughter - should at least place fistula in preperation for HD - cardiology input appreciated - monitor urine output - renal workup is in progress Dr Patel
[2017-01-16] MEDS: ISOSORBIDE DINITRATE 20 MG TABLET (FP) PO SCH ×2 (15:25→21:15)
[2017-01-16] MEDS: SENNOSIDES 8.6MG TABLET (FP) PO SCH (21:16)
[2017-01-16] MEDS: NORTRIPTYLINE HCL 10 MG CAPSULE PO SCH (21:16)
[2017-01-17] MEDS: CEPHALEXIN MONOHYDRATE 250 MG CAPSULE (FP) PO SCH ×3 (01:28→17:17)
[2017-01-17] MEDS ORDERED: PT OWN MED DRAWER 7, Y5N ONE ×6 (06:07→21:23)
[2017-01-17] MEDS: hydrALAZINE HCL 50 MG TABLET (FP) PO SCH ×3 (06:08→21:29)
[2017-01-17] MEDS: HEPARIN NA (PORCINE) 5,000 UNITS/ML 1ML VIAL SQ SCH ×3 (06:09→21:29)
[2017-01-17] MEDS: LEVOTHYROXINE NA 100 MCG TABLET (FP) PO SCH (06:09)
[2017-01-17] MEDS: BRIMONIDINE TARTRATE 0.15% OPHTHALMIC 5 ML BOTTLE OU SCH ×3 (06:09→21:30)
[2017-01-17] MEDS: ISOSORBIDE DINITRATE 20 MG TABLET (FP) PO SCH ×3 (06:09→21:30)
[2017-01-17] MEDS: INSULIN SLIDING SCALE (NOVOLOG) 1 VIAL SQ SCH ×4 (06:38→21:30)
--- NOTE | 2017-01-17 08:07 | PN ---
Physical Exam: SUBJECTIVE: Patient seen and examined, reports feeling well, reports improvement in shortness of breath, wants to go home OBJECTIVE: patient is Hospital day # [id number], HTN, HLD, GERD, anemia, CVA x2 , asthma/COPD (O2 dependent), anxiety, hypothyroidism, and chronic diastolic heart failure admitted on 01/12 with ?CAP, bilateral pleural effusions, small pericardial effusions, and bilateral LE cellulitis. . Vital Signs Period Temp Pulse Resp BP Sys/Gonsalez Pulse Ox Last 24 Hr 98.0 F-98.7 F 65-96 18-20 128-155/57-74 94-98 Physical examination GENERAL: The patient is awake, alert, and fully oriented, irritable, in no acute distress. HEAD: Normal with no signs of trauma. EYES: PERRL, extraocular movements intact, sclera anicteric, conjunctiva clear. No ptosis. ENT: Ears normal, nares patent, oropharynx clear without exudates, moist mucous membranes. NECK: Trachea midline, full range of motion, supple. LUNGS: Breath sounds equal to apexes, rales noted bilaterally to bases, no wheezes, no crackles, no accessory muscle use. HEART: Regular rate and rhythm, S1, S2 without murmur, rub or gallop. ABDOMEN: Soft, nontender, nondistended, normoactive bowel sounds, no guarding, no rebound, no hepatosplenomegaly, no masses. EXTREMITIES: 2+ pulses, warm, well-perfused, no edema. NEUROLOGICAL: Cranial nerves II through XII grossly intact. Normal speech, gait not observed. PSYCH: Normal mood, normal affect. SKIN: Warm, dry, normal turgor, no rashes or lesions noted Laboratory Results - last 24 hr 01/16/17 01/16/17 01/17/17 12:05 17:06 06:16 POC Glucometer 167 122 130 CBC, BMP 01/17/17 09:23 01/17/17 09:23 Active Medications Generic Name Dose Route Start Last Admin Trade Name Freq PRN Reason Stop Dose Admin Aclidinium [place] 1 puff 01/13/17 10:00 01/16/17 21:17 Tudorza - IH 1 puff BID [facility] Administration Albuterol Sulfate 1 amp 01/15/17 15:14 01/16/17 10:40 Ventolin 0.083% Nebulizer Soln - NEB 1 amp Q4H PRN Administration SHORT OF BREATH/WHEEZING Amlodipine Besylate 10 mg 01/13/17 10:00 01/16/17 10:32 Norvasc - PO 10 mg DAILY [facility] Administration Aspirin 81 mg 01/13/17 10:00 01/16/17 10:32 Ecotrin - PO 81 mg DAILY [facility] Administration Brimonidine Tartrate 1 drop 01/13/17 06:00 01/17/17 06:09 Alphagan 0.15% - OU 1 drop TID [facility] Administration Budesonide/Formoterol Fumarate 2 puff 01/13/17 10:00 01/16/17 21:16 Symbicort 80/4.5mcg - IH 2 puff BID [facility] Administration Calcium Acetate 667 mg 01/14/17 12:00 01/16/17 17:47 Phoslo - PO 667 mg TIDCM [facility] Administration Cephalexin HCl 250 mg 01/15/17 10:00 01/17/17 01:28 Keflex - PO 250 mg Q8H [facility] Administration Furosemide 80 mg 01/13/17 16:15 01/16/17 10:29 Lasix Injection - IVPUSH 80 mg DAILY [facility] Administration Heparin Sodium (Porcine) 5,000 unit 01/13/17 06:00 01/17/17 06:09 Heparin - SQ 5,000 unit TID [facility] Administration Hydralazine HCl 75 mg 01/13/17 11:51 01/17/17 06:08 Apresoline - PO 75 mg TID [facility] Administration Insulin Aspart 1 vial 01/13/17 07:00 01/17/17 06:38 Novolog Vial Sliding Scale - SQ Not Given [facility] Protocol Isosorbide Dinitrate 20 mg 01/16/17 14:00 01/17/17 06:09 Isordil - PO 20 mg TID [facility] Administration Levothyroxine Sodium 200 mcg 01/16/17 07:00 01/17/17 06:09 Synthroid - PO 200 mcg DAILY@0700 [facility] Administration Nortriptyline HCl 10 mg 01/13/17 22:00 01/16/17 21:16 Pamelor - PO 10 mg HS [facility] Administration Paroxetine HCl 20 mg 01/13/17 10:00 01/16/17 10:32 Paxil - PO 20 mg DAILY [facility] Administration Senna 2 tab 01/13/17 22:00 01/16/17 21:16 Senna - PO Not Given HS [facility] Microbiology 01/12/17 15:40 Blood - Peripheral Venous Blood Culture - Preliminary NO GROWTH OBTAINED AFTER 96 HOURS, INCUBATION TO CONTINUE FOR 1 DAYS. 01/12/17 15:45 Blood - Peripheral Venous Blood Culture - Preliminary NO GROWTH OBTAINED AFTER 96 HOURS, INCUBATION TO CONTINUE FOR 1 DAYS. 01/13/17 20:00 Nasopharyngeal Swab Respiratory Virus Panel - Preliminary 01/14/17 13:00 Urine For Antigen Detection Legionella Antigen - Final 01/14/17 13:00 Urine For Antigen Detection Streptococcus pneumoniae Antigen (M - Final 01/12/17 16:10 Urine - Urine Clean Catch Urine Culture - Final NO GROWTH OBTAINED 01/13/17 20:00 Nasopharyngeal Swab Influenza Types A,B Antigen (DAX) - Final , negative IMAGING 01/13 CT: cardiomegaly, moderate bilateral pleural effusions, extensive atelectasis, pericardial effusion 01/15 chest x-ray: Moderate bilateral pleural effusions ASSESSMENT/PLAN: 1) card Acute Diastolic Heart Failure - echo grade 1 diastolic dysfunction, LVEF 65-70% - Continue Lasix 80 mg IV daily,7 kg weight loss noted - Continue daily weights strict I's and O's, 1 L fluid restriction Hypertension -continue amlodipine and hydralazine - Cardiology consulted and following 2) nephrology acute on chronic renal failure - creatinine 4.2 baseline 2.7 - continue PhosLo - continue Adkins - nephrology consulted and followed 3) pulmonary cOPD exacerbation - continue Symbicort and tudorza is when necessary albuterol nebulizers Pneumonia - Unlikely pneumonia CT scan of chest suggestive of cHF, continue with antibiotics as per ID l - pulmonary consulted and following 4) ID Bilateral lower extremity cellulitis - Continue keflex 5) Endo IDDM - continue fingersticks before meals and at bedtime with regular insulin coverage 6) psych Anxiety - continue nortripyltine and Paxil F/E/N Fluids: PO intake adequate Electrolytes: replete as indicated Nutrition: diabetic diet DVT prophylaxis: subq heparin, oob, ambulation PT evaluation Dispo: Patient continues to require inpatient care. full code. Visit type - Emergency Visit Emergency Visit: Yes ED Registration Date: 01/12/17 Care time: The patient presented to the Emergency Department on the above date and was hospitalized for further evaluation of their emergent condition. - New Patient This patient is new to me today: No - Critical Care Critical Care patient: No - Discharge Referral Referred to [facility] No
[2017-01-17] MEDS: CALCIUM ACETATE 667 MG CAPSULE (FP) PO SCH ×3 (08:30→17:17)
--- NOTE | 2017-01-17 09:19 | PN ---
Progress Note, Physician History of Present Illness: Awake, alert No c/o leg pain No fever/ chills Denies chest pain/ dyspnea/ cough - Current Medication List Current Medications: Active Medications Aclidinium [place] (Tudorza -) 1 puff IH BID [facility] Last Admin: 01/16/17 21:17 Dose: 1 puff Albuterol Sulfate (Ventolin 0.083% Nebulizer Soln -) 1 amp NEB Q4H PRN PRN Reason: SHORT OF BREATH/WHEEZING Last Admin: 01/16/17 10:40 Dose: 1 amp Amlodipine Besylate (Norvasc -) 10 mg PO DAILY [facility] Last Admin: 01/16/17 10:32 Dose: 10 mg Aspirin (Ecotrin -) 81 mg PO DAILY [facility] Last Admin: 01/16/17 10:32 Dose: 81 mg Brimonidine Tartrate (Alphagan 0.15% -) 1 drop OU TID [facility] Last Admin: 01/17/17 06:09 Dose: 1 drop Budesonide/Formoterol Fumarate (Symbicort 80/4.5mcg -) 2 puff IH BID [facility] Last Admin: 01/16/17 21:16 Dose: 2 puff Calcium Acetate (Phoslo -) 667 mg PO TIDCM [facility] Last Admin: 01/17/17 08:30 Dose: 667 mg Cephalexin HCl (Keflex -) 250 mg PO Q8H [facility] Last Admin: 01/17/17 01:28 Dose: 250 mg Furosemide (Lasix Injection -) 80 mg IVPUSH DAILY [facility] Last Admin: 01/16/17 10:29 Dose: 80 mg Heparin Sodium (Porcine) (Heparin -) 5,000 unit SQ TID [facility] Last Admin: 01/17/17 06:09 Dose: 5,000 unit Hydralazine HCl (Apresoline -) 75 mg PO TID [facility] Last Admin: 01/17/17 06:08 Dose: 75 mg Insulin Aspart (Novolog Vial Sliding Scale -) 1 vial SQ ACHS [facility] PRN Reason: Protocol Last Admin: 01/17/17 06:38 Dose: Not Given Isosorbide Dinitrate (Isordil -) 20 mg PO TID [facility] Last Admin: 01/17/17 06:09 Dose: 20 mg Levothyroxine Sodium (Synthroid -) 200 mcg PO DAILY@0700 [facility] Last Admin: 01/17/17 06:09 Dose: 200 mcg Nortriptyline HCl (Pamelor -) 10 mg PO HS [facility] Last Admin: 01/16/17 21:16 Dose: 10 mg Paroxetine HCl (Paxil -) 20 mg PO DAILY [facility] Last Admin: 01/16/17 10:32 Dose: 20 mg Senna (Senna -) 2 tab PO HS [facility] Last Admin: 01/16/17 21:16 Dose: Not Given - Objective Vital Signs: Vital Signs Temperature 98.0 F 01/17/17 04:00 Pulse Rate 65 01/17/17 04:00 Respiratory Rate 20 01/17/17 04:00 Blood Pressure 128/57 01/17/17 04:00 O2 Sat by Pulse Oximetry (%) 98 01/17/17 05:40 Constitutional: Yes: No Distress Eyes: Yes: Conjunctiva Clear Cardiovascular: Yes: Regular Rate and Rhythm, S1, S2 Respiratory: Yes: Other (few crepitations at bases) Gastrointestinal: Yes: Normal Bowel Sounds, Soft. No: Tenderness Extremities: Yes: Other (decreasing erythema/ warmth LE bilaterally) Edema: Yes Labs: CBC, BMP 01/16/17 07:25 01/16/17 07:25 Assessment/Plan Bilateral pleural effusions Compressive atelectasis v. pneumonia Bilateral LE cellulitis-improved CKD S/P CVA Continue po keflex for treatment of LE celllulitis
[2017-01-17] MEDS: FUROSEMIDE 40 MG/4 ML INJECTABLE VIAL IVPUSH SCH (09:42)
[2017-01-17] MEDS: ASPIRIN COATED 81 MG TABLET.EC PO SCH (09:43)
[2017-01-17] MEDS: amLODIPine BESYLATE 10 MG TABLET (FP) PO SCH (09:43)
[2017-01-17] MEDS: PARoxetine HCL 20 MG TABLET (FP) PO SCH (09:44)
[2017-01-17] MEDS: ACLIDINIUM BROMIDE 400 MCG/INH AERO.POWD IH SCH ×2 (09:44→21:30)
[2017-01-17] MEDS: BUDESONIDE/FORMETEROL FUMARATE 80/4.5 mcg INHALER IH SCH ×2 (09:45→21:30)
--- NOTE | 2017-01-17 09:56 | PN ---
Progress Note, Physician History of Present Illness: pulmonary alert,nad,-sob. - Current Medication List Current Medications: Active Medications Aclidinium [place] (Tudorza -) 1 puff IH BID [facility] Last Admin: 01/16/17 21:17 Dose: 1 puff Albuterol Sulfate (Ventolin 0.083% Nebulizer Soln -) 1 amp NEB Q4H PRN PRN Reason: SHORT OF BREATH/WHEEZING Last Admin: 01/16/17 10:40 Dose: 1 amp Amlodipine Besylate (Norvasc -) 10 mg PO DAILY [facility] Last Admin: 01/16/17 10:32 Dose: 10 mg Aspirin (Ecotrin -) 81 mg PO DAILY [facility] Last Admin: 01/16/17 10:32 Dose: 81 mg Brimonidine Tartrate (Alphagan 0.15% -) 1 drop OU TID [facility] Last Admin: 01/17/17 06:09 Dose: 1 drop Budesonide/Formoterol Fumarate (Symbicort 80/4.5mcg -) 2 puff IH BID [facility] Last Admin: 01/16/17 21:16 Dose: 2 puff Calcium Acetate (Phoslo -) 667 mg PO TIDCM [facility] Last Admin: 01/17/17 08:30 Dose: 667 mg Cephalexin HCl (Keflex -) 250 mg PO Q8H [facility] Last Admin: 01/17/17 01:28 Dose: 250 mg Furosemide (Lasix Injection -) 80 mg IVPUSH DAILY [facility] Last Admin: 01/16/17 10:29 Dose: 80 mg Heparin Sodium (Porcine) (Heparin -) 5,000 unit SQ TID [facility] Last Admin: 01/17/17 06:09 Dose: 5,000 unit Hydralazine HCl (Apresoline -) 75 mg PO TID [facility] Last Admin: 01/17/17 06:08 Dose: 75 mg Insulin Aspart (Novolog Vial Sliding Scale -) 1 vial SQ ACHS [facility] PRN Reason: Protocol Last Admin: 01/17/17 06:38 Dose: Not Given Isosorbide Dinitrate (Isordil -) 20 mg PO TID [facility] Last Admin: 01/17/17 06:09 Dose: 20 mg Levothyroxine Sodium (Synthroid -) 200 mcg PO DAILY@0700 [facility] Last Admin: 01/17/17 06:09 Dose: 200 mcg Nortriptyline HCl (Pamelor -) 10 mg PO [facility] Last Admin: 01/16/17 21:16 Dose: 10 mg Paroxetine HCl (Paxil -) 20 mg PO DAILY [facility] Last Admin: 01/16/17 10:32 Dose: 20 mg Senna (Senna -) 2 tab PO [facility] Last Admin: 01/16/17 21:16 Dose: Not Given - Objective Vital Signs: Vital Signs Temperature 98.0 F 01/17/17 04:00 Pulse Rate 65 01/17/17 04:00 Respiratory Rate 20 01/17/17 04:00 Blood Pressure 128/57 01/17/17 04:00 O2 Sat by Pulse Oximetry (%) 98 01/17/17 05:40 Constitutional: Yes: Well Nourished, Calm Eyes: Yes: WNL HENT: Yes: WNL Neck: Yes: WNL Cardiovascular: Yes: Regular Rate and Rhythm, S1, S2 Respiratory: Yes: Diminished Gastrointestinal: Yes: Normal Bowel Sounds, Soft Extremities: Yes: WNL Edema: No Assessment/Plan Problem List - Problems (1) Acute on chronic diastolic (congestive) heart failure Code(s): I50.33 - ACUTE ON CHRONIC DIASTOLIC (CONGESTIVE) HEART FAILURE (2) Renal failure (ARF), acute on chronic Code(s): N17.9 - ACUTE KIDNEY FAILURE, UNSPECIFIED N18.9 - CHRONIC KIDNEY DISEASE, UNSPECIFIED (3) Pleural effusion Code(s): J90 - PLEURAL EFFUSION, NOT ELSEWHERE CLASSIFIED (4) Pneumonia Code(s): J18.9 - PNEUMONIA, UNSPECIFIED ORGANISM Qualifiers: Pneumonia type: due to unspecified organism Laterality: bilateral Lung location: unspecified part of lung Qualified Code(s): J18.9 - Pneumonia, unspecified organism (5) Atelectasis Code(s): J98.11 - ATELECTASIS (6) COPD (chronic obstructive pulmonary disease) Code(s): J44.9 - CHRONIC OBSTRUCTIVE PULMONARY DISEASE, UNSPECIFIED (7) Chronic respiratory failure with hypoxia Code(s): J96.11 - CHRONIC RESPIRATORY FAILURE WITH HYPOXIA Assessment/Plan Acute on Chronic Diastolic Heart Failure improving Pleural Effusions/Atelectasis from above Mitral Regurgitation Acute on Chronic Renal Failure COPD Chronic Hypoxic Respiratory Failure HTN Anxiety - CONT IV lasix - monitor urine output, creatinine - daily weights, I/Os - CXR in am - continue antibiotics - O2 to keep SpO2 >90% - inhaled bronchodilators - DVT prophylaxis DR WALKER
[2017-01-17 09:59] LABS: BASOPHIL 1.7 % (0-2.0); EOSINOPHIL 4.1 % (0-4.5); MCH 28.5 pg (25.7-33.7); MCHC 33.4 g/dl (32.0-36.0); MEAN CELL VOLUME 85.1 fl (80-96); MEAN PLT VOLUME 7.3 fl (7.5-11.1); NEUTROPHILS 84.1 % (42.8-82.8); PLATELET COUNT 387 K/MM3 (134-434); RDW 15.6 % (11.6-15.6); WHITE BLOOD COUNT 12.7 K/mm3 (4.0-10.0)
[2017-01-17 10:06] LABS: ALBUMIN 2.7 g/dl (3.5-5.0); ALK PHOS 82 U/L (32-92); ANION GAP 10 (8-16); BILIRUBIN,TOTAL 0.4 mg/dl (0.2-1.0); CALCIUM 7.8 mg/dl (8.4-10.2); CO2 24 mmol/L (22-28); CREATININE 4.2 mg/dl (0.6-1.3); GLUCOSE,RANDOM 162 mg/dl (74-106); MAGNESIUM 1.8 mg/dL (1.8-2.4); PHOSPHOROUS 5.7 mg/dl (2.5-4.6); SGOT/AST 15 U/L (10-42); TOT PROT 5.3 g/dl (6.4-8.3)
[2017-01-17] MEDS: ALBUTEROL SO4 0.083% IH SOL 2.5 MG/3 ML VIAL.NEB. NEB PRN (10:10)
[2017-01-17 10:44] LABS: SGPT/ALT < 9 U/L (10-40)
[2017-01-17] MEDS ORDERED: POTASSIUM CHLORIDE TABS 20 MEQ TABLET.ER (FP) PO ONE (10:45)
[2017-01-17] MEDS ORDERED: INSULIN (NOVOLOG) ASPART 100 UNITS/ML 10ML VIAL ONE ×2 (11:13→16:15)
--- NOTE | 2017-01-17 12:41 | PN ---
Progress Note, Physician History of Present Illness: Pt seen and examined at bedside. She is unable to lay flat due to shortness of breath. - Current Medication List Current Medications: Active Medications Aclidinium [place] (Tudorza -) 1 puff IH BID [facility] Last Admin: 01/17/17 09:44 Dose: 1 puff Albuterol Sulfate (Ventolin 0.083% Nebulizer Soln -) 1 amp NEB Q4H PRN PRN Reason: SHORT OF BREATH/WHEEZING Last Admin: 01/17/17 10:10 Dose: 1 amp Amlodipine Besylate (Norvasc -) 10 mg PO DAILY [facility] Last Admin: 01/17/17 09:43 Dose: 10 mg Aspirin (Ecotrin -) 81 mg PO DAILY [facility] Last Admin: 01/17/17 09:43 Dose: 81 mg Brimonidine Tartrate (Alphagan 0.15% -) 1 drop OU TID [facility] Last Admin: 01/17/17 06:09 Dose: 1 drop Budesonide/Formoterol Fumarate (Symbicort 80/4.5mcg -) 2 puff IH BID [facility] Last Admin: 01/17/17 09:45 Dose: 2 puff Calcium Acetate (Phoslo -) 667 mg PO TIDCM [facility] Last Admin: 01/17/17 11:21 Dose: 667 mg Cephalexin HCl (Keflex -) 250 mg PO Q8H [facility] Last Admin: 01/17/17 09:43 Dose: 250 mg Furosemide (Lasix Injection -) 80 mg IVPUSH DAILY [facility] Last Admin: 01/17/17 09:42 Dose: 80 mg Heparin Sodium (Porcine) (Heparin -) 5,000 unit SQ TID [facility] Last Admin: 01/17/17 06:09 Dose: 5,000 unit Hydralazine HCl (Apresoline -) 75 mg PO TID [facility] Last Admin: 01/17/17 06:08 Dose: 75 mg Insulin Aspart (Novolog Vial Sliding Scale -) 1 vial SQ ACHS [facility] PRN Reason: Protocol Last Admin: 01/17/17 11:20 Dose: 2 unit Isosorbide Dinitrate (Isordil -) 20 mg PO TID [facility] Last Admin: 01/17/17 06:09 Dose: 20 mg Levothyroxine Sodium (Synthroid -) 200 mcg PO DAILY@0700 [facility] Last Admin: 01/17/17 06:09 Dose: 200 mcg Nortriptyline HCl (Pamelor -) 10 mg PO HS [facility] Last Admin: 01/16/17 21:16 Dose: 10 mg Paroxetine HCl (Paxil -) 20 mg PO DAILY [facility] Last Admin: 01/17/17 09:44 Dose: 20 mg Senna (Senna -) 2 tab PO HS [facility] Last Admin: 01/16/17 21:16 Dose: Not Given - Objective Vital Signs: Vital Signs Temperature 98.0 F 01/17/17 04:00 Pulse Rate 72 01/17/17 10:10 Respiratory Rate 20 01/17/17 04:00 Blood Pressure 128/57 01/17/17 04:00 O2 Sat by Pulse Oximetry (%) 97 01/17/17 10:10 Constitutional: Yes: Calm Eyes: Yes: Conjunctiva Clear Cardiovascular: Yes: S1, S2 Respiratory: Yes: On Nasal O2, Rhonchi Gastrointestinal: Yes: Soft Genitourinary: Yes: Adkins Present Musculoskeletal: Yes: WNL Extremities: Yes: WNL Edema: Yes Edema: LLE: 1+, RLE: 1+ Neurological: Yes: Oriented Psychiatric: Yes: Oriented Labs: CBC, BMP 01/17/17 09:23 01/17/17 09:23 Problem List - Problems (1) Acute on chronic diastolic (congestive) heart failure Code(s): I50.33 - ACUTE ON CHRONIC DIASTOLIC (CONGESTIVE) HEART FAILURE (2) COPD (chronic obstructive pulmonary disease) Code(s): J44.9 - CHRONIC OBSTRUCTIVE PULMONARY DISEASE, UNSPECIFIED (3) HTN (hypertension) Code(s): I10 - ESSENTIAL (PRIMARY) HYPERTENSION (4) Hypothyroid Code(s): E03.9 - HYPOTHYROIDISM, UNSPECIFIED (5) Pleural effusion Code(s): J90 - PLEURAL EFFUSION, NOT ELSEWHERE CLASSIFIED (6) Renal failure (ARF), acute on chronic Code(s): N17.9 - ACUTE KIDNEY FAILURE, UNSPECIFIED N18.9 - CHRONIC KIDNEY DISEASE, UNSPECIFIED Assessment/Plan Current Medications Generic Name Dose Route Start Last Admin Trade Name Freq PRN Reason Stop Dose Admin Aclidinium [place] 1 puff 01/13/17 10:00 01/17/17 09:44 Tudorza - IH 1 puff BID [facility] Administration Albuterol Sulfate 1 amp 01/15/17 15:14 01/17/17 10:10 Ventolin 0.083% Nebulizer Soln - NEB 1 amp Q4H PRN Administration SHORT OF BREATH/WHEEZING Amlodipine Besylate 10 mg 01/13/17 10:00 01/17/17 09:43 Norvasc - PO 10 mg DAILY [facility] Administration Aspirin 81 mg 01/13/17 10:00 01/17/17 09:43 Ecotrin - PO 81 mg DAILY [facility] Administration Brimonidine Tartrate 1 drop 01/13/17 06:00 01/17/17 06:09 Alphagan 0.15% - OU 1 drop TID [facility] Administration Budesonide/Formoterol Fumarate 2 puff 01/13/17 10:00 01/17/17 09:45 Symbicort 80/4.5mcg - IH 2 puff BID [facility] Administration Calcium Acetate 667 mg 01/14/17 12:00 01/17/17 11:21 Phoslo - PO 667 mg TIDCM [facility] Administration Cephalexin HCl 250 mg 01/15/17 10:00 01/17/17 09:43 Keflex - PO 250 mg Q8H [facility] Administration Furosemide 80 mg 01/13/17 16:15 01/17/17 09:42 Lasix Injection - IVPUSH 80 mg DAILY [facility] Administration Heparin Sodium (Porcine) 5,000 unit 01/13/17 06:00 01/17/17 06:09 Heparin - SQ 5,000 unit TID [facility] Administration Hydralazine HCl 75 mg 01/13/17 11:51 01/17/17 06:08 Apresoline - PO 75 mg TID [facility] Administration Insulin Aspart 1 vial 01/13/17 07:00 01/17/17 11:20 Novolog Vial Sliding Scale - SQ 2 unit ACHS [facility] Administration Protocol Isosorbide Dinitrate 20 mg 01/16/17 14:00 01/17/17 06:09 Isordil - PO 20 mg TID [facility] Administration Levothyroxine Sodium 200 mcg 01/16/17 07:00 01/17/17 06:09 Synthroid - PO 200 mcg DAILY@0700 [facility] Administration Nortriptyline HCl 10 mg 01/13/17 22:00 01/16/17 21:16 Pamelor - PO 10 mg HS [facility] Administration Paroxetine HCl 20 mg 01/13/17 10:00 01/17/17 09:44 Paxil - PO 20 mg DAILY [facility] Administration Senna 2 tab 01/13/17 22:00 01/16/17 21:16 Senna - PO Not Given HS [facility] Impression 1. CKD with acute component 2. HTN 3. DM 4. CVA 5. smoking history 6. pleural effusions 7. anemia 8. COPD 9. CHF 10. positive nathan 11. Hepatitis B Plan - replace potassium - check mag - cont lasix - abx per ID - repeat labs in am - should at least place fistula in preperation for HD once pt is clinically stable - monitor urine output Dr Patel
--- NOTE | 2017-01-17 12:47 | PN ---
Progress Note, Physician History of Present Illness: SOB improving with diuretics - Current Medication List Current Medications: Active Medications Aclidinium [place] (Tudorza -) 1 puff IH BID [facility] Last Admin: 01/17/17 09:44 Dose: 1 puff Albuterol Sulfate (Ventolin 0.083% Nebulizer Soln -) 1 amp NEB Q4H PRN PRN Reason: SHORT OF BREATH/WHEEZING Last Admin: 01/17/17 10:10 Dose: 1 amp Amlodipine Besylate (Norvasc -) 10 mg PO DAILY [facility] Last Admin: 01/17/17 09:43 Dose: 10 mg Aspirin (Ecotrin -) 81 mg PO DAILY [facility] Last Admin: 01/17/17 09:43 Dose: 81 mg Brimonidine Tartrate (Alphagan 0.15% -) 1 drop OU TID [facility] Last Admin: 01/17/17 06:09 Dose: 1 drop Budesonide/Formoterol Fumarate (Symbicort 80/4.5mcg -) 2 puff IH BID [facility] Last Admin: 01/17/17 09:45 Dose: 2 puff Calcium Acetate (Phoslo -) 667 mg PO TIDCM [facility] Last Admin: 01/17/17 11:21 Dose: 667 mg Cephalexin HCl (Keflex -) 250 mg PO Q8H [facility] Last Admin: 01/17/17 09:43 Dose: 250 mg Furosemide (Lasix Injection -) 80 mg IVPUSH DAILY [facility] Last Admin: 01/17/17 09:42 Dose: 80 mg Heparin Sodium (Porcine) (Heparin -) 5,000 unit SQ TID [facility] Last Admin: 01/17/17 06:09 Dose: 5,000 unit Hydralazine HCl (Apresoline -) 75 mg PO TID [facility] Last Admin: 01/17/17 06:08 Dose: 75 mg Insulin Aspart (Novolog Vial Sliding Scale -) 1 vial SQ ACHS [facility] PRN Reason: Protocol Last Admin: 01/17/17 11:20 Dose: 2 unit Isosorbide Dinitrate (Isordil -) 20 mg PO TID [facility] Last Admin: 01/17/17 06:09 Dose: 20 mg Levothyroxine Sodium (Synthroid -) 200 mcg PO DAILY@0700 [facility] Last Admin: 01/17/17 06:09 Dose: 200 mcg Nortriptyline HCl (Pamelor -) 10 mg PO HS [facility] Last Admin: 01/16/17 21:16 Dose: 10 mg Paroxetine HCl (Paxil -) 20 mg PO DAILY [facility] Last Admin: 01/17/17 09:44 Dose: 20 mg Senna (Senna -) 2 tab PO HS [facility] Last Admin: 01/16/17 21:16 Dose: Not Given - Objective Vital Signs: Vital Signs Temperature 98.0 F 01/17/17 04:00 Pulse Rate 72 01/17/17 10:10 Respiratory Rate 20 01/17/17 04:00 Blood Pressure 128/57 01/17/17 04:00 O2 Sat by Pulse Oximetry (%) 97 01/17/17 10:10 Constitutional: Yes: No Distress Eyes: Yes: Conjunctiva Clear, EOM Intact HENT: Yes: Atraumatic, Normocephalic Cardiovascular: Yes: Regular Rate and Rhythm. No: JVD, Murmur Respiratory: Yes: Diminished (at bases, otherwise clear) Gastrointestinal: Yes: Normal Bowel Sounds, Soft Edema: LLE: 2+, RLE: 2+ Neurological: Yes: Alert, Oriented, Cran Nerves II-XII Intact Psychiatric: Yes: Alert, Oriented Labs: CBC, BMP 01/17/17 09:23 01/17/17 09:23 Assessment/Plan 66 yo female with HTN, CKD, COPD, prior CVA, hyperlipidemia. Admitted on 01/12 with SOB. Currently being treated for acute on chronic diastolic CHF with fluid retention from CKD as an exacerbating factor. 01/15/17 Echo: Normal LV size and systolic function. LVEF 65-70%. Grade I diastolic dysfunction. Normal RV size and systolic function. LAE. Severe MAC. Mild MR. Mild TR. RVSP normal. Mild AV sclerosis. Mild PT. Trivial pericardial effusion. Pleural effusion present. Patient still dyspneic but improving with diuresis. Cr 4.2 today. RECS: Blood pressure is currently controlled on current regimen. Will continue to monitor on currend meds. Will continue furosemide 80 mg IV daily for now. Monitor lytes and renal function. Will repeat PA CXR today. Patient does not have any cardiac contraindications to AV fistula surgery if clinically indicated, and may proceed without further cardiac work-up. Will follow. Call with questions.
[2017-01-17] MEDS: SENNOSIDES 8.6MG TABLET (FP) PO SCH (21:29)
[2017-01-17] MEDS: NORTRIPTYLINE HCL 10 MG CAPSULE PO SCH (21:50)
[2017-01-18] MEDS: CEPHALEXIN MONOHYDRATE 250 MG CAPSULE (FP) PO SCH ×3 (02:00→17:17)
[2017-01-18] MEDS ORDERED: PT OWN MED DRAWER 7, Y5N ONE ×6 (05:43→21:42)
[2017-01-18] MEDS: hydrALAZINE HCL 50 MG TABLET (FP) PO SCH ×3 (05:52→22:12)
[2017-01-18] MEDS: BRIMONIDINE TARTRATE 0.15% OPHTHALMIC 5 ML BOTTLE OU SCH ×3 (05:52→22:12)
[2017-01-18] MEDS: ISOSORBIDE DINITRATE 20 MG TABLET (FP) PO SCH ×3 (05:52→22:12)
[2017-01-18] MEDS: HEPARIN NA (PORCINE) 5,000 UNITS/ML 1ML VIAL SQ SCH ×3 (05:52→22:13)
[2017-01-18] MEDS: LEVOTHYROXINE NA 100 MCG TABLET (FP) PO SCH ×2 (05:53→07:16)
[2017-01-18] MEDS ORDERED: FUROSEMIDE 40 MG/4 ML INJECTABLE VIAL IVPUSH SCH (06:00)
[2017-01-18] MEDS: INSULIN SLIDING SCALE (NOVOLOG) 1 VIAL SQ SCH ×4 (07:16→22:22)
[2017-01-18] MEDS: CALCIUM ACETATE 667 MG CAPSULE (FP) PO SCH ×3 (07:59→17:17)
[2017-01-18 08:38] LABS: ALBUMIN 2.7 g/dl (3.5-5.0); ALK PHOS 84 U/L (32-92); ANION GAP 8 (8-16); BILIRUBIN,TOTAL 0.4 mg/dl (0.2-1.0); CALCIUM 7.8 mg/dl (8.4-10.2); CO2 25 mmol/L (22-28); CREATININE 4.1 mg/dl (0.6-1.3); GLUCOSE,RANDOM 96 mg/dl (74-106); MAGNESIUM 1.8 mg/dL (1.8-2.4); SGOT/AST 15 U/L (10-42); TOT PROT 5.4 g/dl (6.4-8.3)
[2017-01-18 08:53] LABS: SGPT/ALT < 9 U/L (10-40)
[2017-01-18] MEDS: PARoxetine HCL 20 MG TABLET (FP) PO SCH (09:35)
[2017-01-18] MEDS: ASPIRIN COATED 81 MG TABLET.EC PO SCH (09:35)
[2017-01-18] MEDS: amLODIPine BESYLATE 10 MG TABLET (FP) PO SCH (09:35)
[2017-01-18] MEDS: ACLIDINIUM BROMIDE 400 MCG/INH AERO.POWD IH SCH ×2 (09:36→22:13)
[2017-01-18] MEDS: BUDESONIDE/FORMETEROL FUMARATE 80/4.5 mcg INHALER IH SCH ×2 (09:36→22:13)
--- NOTE | 2017-01-18 10:28 | PN ---
Progress Note, Physician History of Present Illness: pulmonary alert,oob-chair,-sob - Current Medication List Current Medications: Active Medications Aclidinium [place] (Tudorza -) 1 puff IH BID [facility] Last Admin: 01/18/17 09:36 Dose: 1 puff Albuterol Sulfate (Ventolin 0.083% Nebulizer Soln -) 1 amp NEB Q4H PRN PRN Reason: SHORT OF BREATH/WHEEZING Last Admin: 01/17/17 10:10 Dose: 1 amp Amlodipine Besylate (Norvasc -) 10 mg PO DAILY [facility] Last Admin: 01/18/17 09:35 Dose: 10 mg Aspirin (Ecotrin -) 81 mg PO DAILY [facility] Last Admin: 01/18/17 09:35 Dose: 81 mg Brimonidine Tartrate (Alphagan 0.15% -) 1 drop OU TID [facility] Last Admin: 01/18/17 05:52 Dose: 1 drop Budesonide/Formoterol Fumarate (Symbicort 80/4.5mcg -) 2 puff IH BID [facility] Last Admin: 01/18/17 09:36 Dose: 2 puff Calcium Acetate (Phoslo -) 667 mg PO TIDCM [facility] Last Admin: 01/18/17 07:59 Dose: 667 mg Cephalexin HCl (Keflex -) 250 mg PO Q8H [facility] Last Admin: 01/18/17 09:35 Dose: 250 mg Furosemide (Lasix Injection -) 80 mg IVPUSH BIDLASIX [facility] Last Admin: 01/18/17 05:51 Dose: 80 mg Heparin Sodium (Porcine) (Heparin -) 5,000 unit SQ TID [facility] Last Admin: 01/18/17 05:52 Dose: 5,000 unit Hydralazine HCl (Apresoline -) 75 mg PO TID [facility] Last Admin: 01/18/17 05:52 Dose: 75 mg Insulin Aspart (Novolog Vial Sliding Scale -) 1 vial SQ ACHS [facility] PRN Reason: Protocol Last Admin: 01/18/17 07:16 Dose: Not Given Isosorbide Dinitrate (Isordil -) 20 mg PO TID [facility] Last Admin: 01/18/17 05:52 Dose: 20 mg Levothyroxine Sodium (Synthroid -) 200 mcg PO DAILY@0700 [facility] Last Admin: 01/18/17 07:16 Dose: Not Given Nortriptyline HCl (Pamelor -) 10 mg PO [facility] Last Admin: 01/17/17 21:50 Dose: 10 mg Paroxetine HCl (Paxil -) 20 mg PO DAILY [facility] Last Admin: 01/18/17 09:35 Dose: 20 mg Senna (Senna -) 2 tab PO [facility] Last Admin: 01/17/17 21:29 Dose: 2 tab - Objective Vital Signs: Vital Signs Temperature 98.2 F 01/18/17 07:30 Pulse Rate 80 01/18/17 07:30 Respiratory Rate 18 01/18/17 07:30 Blood Pressure 143/65 01/18/17 07:30 O2 Sat by Pulse Oximetry (%) 96 01/18/17 07:30 Constitutional: Yes: Well Nourished, Calm Eyes: Yes: WNL HENT: Yes: WNL Neck: Yes: WNL Cardiovascular: Yes: Regular Rate and Rhythm, S1, S2 Respiratory: Yes: Diminished (poor inspiratory effort) Gastrointestinal: Yes: Normal Bowel Sounds, Soft Extremities: Yes: Erythema Edema: Yes Labs: CBC, BMP 01/17/17 09:23 01/18/17 07:00 - ....Imaging Chest X-ray: Report Reviewed, Image Reviewed Assessment/Plan Problem List - Problems (1) Acute on chronic diastolic (congestive) heart failure Code(s): I50.33 - ACUTE ON CHRONIC DIASTOLIC (CONGESTIVE) HEART FAILURE (2) Renal failure (ARF), acute on chronic Code(s): N17.9 - ACUTE KIDNEY FAILURE, UNSPECIFIED N18.9 - CHRONIC KIDNEY DISEASE, UNSPECIFIED (3) Pleural effusion Code(s): J90 - PLEURAL EFFUSION, NOT ELSEWHERE CLASSIFIED (4) Pneumonia Code(s): J18.9 - PNEUMONIA, UNSPECIFIED ORGANISM Qualifiers: Pneumonia type: due to unspecified organism Laterality: bilateral Lung location: unspecified part of lung Qualified Code(s): J18.9 - Pneumonia, unspecified organism (5) Atelectasis Code(s): J98.11 - ATELECTASIS (6) COPD (chronic obstructive pulmonary disease) Code(s): J44.9 - CHRONIC OBSTRUCTIVE PULMONARY DISEASE, UNSPECIFIED (7) Chronic respiratory failure with hypoxia Code(s): J96.11 - CHRONIC RESPIRATORY FAILURE WITH HYPOXIA Assessment/Plan Acute on Chronic Diastolic Heart Failure improving Pleural Effusions/Atelectasis from above Mitral Regurgitation Acute on Chronic Renal Failure COPD Chronic Hypoxic Respiratory Failure HTN Anxiety - CONT IV lasix - monitor urine output, creatinine - daily weights, I/Os - continue antibiotics - O2 to keep SpO2 >90% - inhaled bronchodilators - DVT prophylaxis - fistula as per surgery DR WALKER
--- NOTE | 2017-01-18 10:42 | PN ---
Progress Note, Physician History of Present Illness: SOB improving with diuretics. - Current Medication List Current Medications: Active Medications Aclidinium [place] (Tudorza -) 1 puff IH BID [facility] Last Admin: 01/18/17 09:36 Dose: 1 puff Albuterol Sulfate (Ventolin 0.083% Nebulizer Soln -) 1 amp NEB Q4H PRN PRN Reason: SHORT OF BREATH/WHEEZING Last Admin: 01/17/17 10:10 Dose: 1 amp Amlodipine Besylate (Norvasc -) 10 mg PO DAILY [facility] Last Admin: 01/18/17 09:35 Dose: 10 mg Aspirin (Ecotrin -) 81 mg PO DAILY [facility] Last Admin: 01/18/17 09:35 Dose: 81 mg Brimonidine Tartrate (Alphagan 0.15% -) 1 drop OU TID [facility] Last Admin: 01/18/17 05:52 Dose: 1 drop Budesonide/Formoterol Fumarate (Symbicort 80/4.5mcg -) 2 puff IH BID [facility] Last Admin: 01/18/17 09:36 Dose: 2 puff Calcium Acetate (Phoslo -) 667 mg PO TIDCM [facility] Last Admin: 01/18/17 07:59 Dose: 667 mg Cephalexin HCl (Keflex -) 250 mg PO Q8H [facility] Last Admin: 01/18/17 09:35 Dose: 250 mg Furosemide (Lasix Injection -) 80 mg IVPUSH BIDLASIX [facility] Last Admin: 01/18/17 05:51 Dose: 80 mg Heparin Sodium (Porcine) (Heparin -) 5,000 unit SQ TID [facility] Last Admin: 01/18/17 05:52 Dose: 5,000 unit Hydralazine HCl (Apresoline -) 75 mg PO TID [facility] Last Admin: 01/18/17 05:52 Dose: 75 mg Insulin Aspart (Novolog Vial Sliding Scale -) 1 vial SQ ACHS [facility] PRN Reason: Protocol Last Admin: 01/18/17 07:16 Dose: Not Given Isosorbide Dinitrate (Isordil -) 20 mg PO TID [facility] Last Admin: 01/18/17 05:52 Dose: 20 mg Levothyroxine Sodium (Synthroid -) 200 mcg PO DAILY@0700 [facility] Last Admin: 01/18/17 07:16 Dose: Not Given Nortriptyline HCl (Pamelor -) 10 mg PO HS [facility] Last Admin: 01/17/17 21:50 Dose: 10 mg Paroxetine HCl (Paxil -) 20 mg PO DAILY [facility] Last Admin: 01/18/17 09:35 Dose: 20 mg Senna (Senna -) 2 tab PO HS [facility] Last Admin: 01/17/17 21:29 Dose: 2 tab - Objective Vital Signs: Vital Signs Temperature 98.2 F 01/18/17 07:30 Pulse Rate 80 01/18/17 07:30 Respiratory Rate 18 01/18/17 10:30 Blood Pressure 143/65 01/18/17 07:30 O2 Sat by Pulse Oximetry (%) 96 01/18/17 10:30 Constitutional: Yes: Well Nourished, No Distress Eyes: Yes: Conjunctiva Clear, EOM Intact HENT: Yes: Atraumatic, Normocephalic Cardiovascular: Yes: Regular Rate and Rhythm. No: Murmur Respiratory: Yes: CTA Bilaterally Gastrointestinal: Yes: Normal Bowel Sounds, Soft Edema: LLE: 1+, RLE: 1+ Neurological: Yes: Alert, Oriented Labs: CBC, BMP 01/17/17 09:23 01/18/17 07:00 Assessment/Plan 66 yo female with HTN, CKD, COPD, prior CVA, hyperlipidemia. Admitted on 01/12 with SOB. Currently being treated for acute on chronic diastolic CHF with fluid retention from CKD as an exacerbating factor. 01/15/17 Echo: Normal LV size and systolic function. LVEF 65-70%. Grade I diastolic dysfunction. Normal RV size and systolic function. LAE. Severe MAC. Mild MR. Mild TR. RVSP normal. Mild AV sclerosis. Mild PT. Trivial pericardial effusion. Pleural effusion present. Patient clinically improving with diuresis. Cr 4.1 today. RECS: Blood pressure is currently controlled on current regimen. Will continue to monitor on current meds. Will switch patient to lasix 80 mg po bid. Patient does not have any cardiac contraindications to AV fistula surgery if clinically indicated, and may proceed without further cardiac work-up. Patient will need cardiology follow upon discharge. Further recs and management as per renal/pulmonary/primary care team. Will see prn. Call with questions.
--- NOTE | 2017-01-18 12:10 | PN ---
Progress Note, Physician History of Present Illness: No c/o leg pain Denies chest pain/ dyspnea/ cough no fever/chills - Current Medication List Current Medications: Active Medications Aclidinium [place] (Tudorza -) 1 puff IH BID [facility] Last Admin: 01/18/17 09:36 Dose: 1 puff Albuterol Sulfate (Ventolin 0.083% Nebulizer Soln -) 1 amp NEB Q4H PRN PRN Reason: SHORT OF BREATH/WHEEZING Last Admin: 01/17/17 10:10 Dose: 1 amp Amlodipine Besylate (Norvasc -) 10 mg PO DAILY [facility] Last Admin: 01/18/17 09:35 Dose: 10 mg Aspirin (Ecotrin -) 81 mg PO DAILY [facility] Last Admin: 01/18/17 09:35 Dose: 81 mg Brimonidine Tartrate (Alphagan 0.15% -) 1 drop OU TID [facility] Last Admin: 01/18/17 05:52 Dose: 1 drop Budesonide/Formoterol Fumarate (Symbicort 80/4.5mcg -) 2 puff IH BID [facility] Last Admin: 01/18/17 09:36 Dose: 2 puff Calcium Acetate (Phoslo -) 667 mg PO TIDCM [facility] Last Admin: 01/18/17 12:06 Dose: 667 mg Cephalexin HCl (Keflex -) 250 mg PO Q8H [facility] Last Admin: 01/18/17 09:35 Dose: 250 mg Furosemide (Lasix -) 80 mg PO BIDLASIX [facility] Heparin Sodium (Porcine) (Heparin -) 5,000 unit SQ TID [facility] Last Admin: 01/18/17 05:52 Dose: 5,000 unit Hydralazine HCl (Apresoline -) 75 mg PO TID [facility] Last Admin: 01/18/17 05:52 Dose: 75 mg Insulin Aspart (Novolog Vial Sliding Scale -) 1 vial SQ ACHS [facility] PRN Reason: Protocol Last Admin: 01/18/17 11:20 Dose: Not Given Isosorbide Dinitrate (Isordil -) 20 mg PO TID [facility] Last Admin: 01/18/17 05:52 Dose: 20 mg Levothyroxine Sodium (Synthroid -) 200 mcg PO DAILY@0700 [facility] Last Admin: 01/18/17 07:16 Dose: Not Given Nortriptyline HCl (Pamelor -) 10 mg PO [facility] Last Admin: 01/17/17 21:50 Dose: 10 mg Paroxetine HCl (Paxil -) 20 mg PO DAILY [facility] Last Admin: 01/18/17 09:35 Dose: 20 mg Senna (Senna -) 2 tab PO [facility] Last Admin: 01/17/17 21:29 Dose: 2 tab - Objective Vital Signs: Vital Signs Temperature 98.2 F 01/18/17 07:30 Pulse Rate 80 01/18/17 07:30 Respiratory Rate 18 01/18/17 10:30 Blood Pressure 143/65 01/18/17 07:30 O2 Sat by Pulse Oximetry (%) 96 01/18/17 10:30 Constitutional: Yes: No Distress Eyes: Yes: Conjunctiva Clear Cardiovascular: Yes: Regular Rate and Rhythm, S1, S2 Respiratory: Yes: Other (few crepitations, bases) Gastrointestinal: Yes: Normal Bowel Sounds, Soft. No: Tenderness Extremities: Yes: Other (resolving erythema/ warmth LE bilaterally) Edema: Yes Labs: CBC, BMP 01/17/17 09:23 01/18/17 07:00 Assessment/Plan Bilateral pleural effusions Compressive atelectasis v. pneumonia Bilateral LE cellulitis-improved CKD S/P CVA Continue po keflex for treatment of LE celllulitis
[2017-01-18] MEDS: FUROSEMIDE 40 MG TABLET (FP) PO SCH (13:49)
--- NOTE | 2017-01-18 14:11 | PN ---
[id number]:patient is a 66 y/o female with a past medical history of ALONZO-on- CKD, HTN, HLD, GERD, anemia, CVA x2, asthma/COPD (O2 dependent), anxiety, hypothyroidism, and chronic diastolic heart failure admitted on 01/12 with ?CAP, bilateral pleural effusions, small pericardial effusions, and bilateral LE cellulitis . . Vital Signs Period Temp Pulse Resp BP Sys/Gonsalez Pulse Ox Last 24 Hr 97.8 F-98.2 F 80-88 18-19 132-157/56-73 95-97 GENERAL: The patient is awake, alert, and fully oriented, in no acute distress. HEAD: Normal with no signs of trauma. EYES: PERRL, extraocular movements intact, sclera anicteric, conjunctiva clear. No ptosis. ENT: Ears normal, nares patent, oropharynx clear without exudates, moist mucous membranes. NECK: Trachea midline, full range of motion, supple. LUNGS: Breath sounds equal, clear to auscultation bilaterally to apexes, no wheezes, crackles to bases, no accessory muscle use. HEART: Regular rate and rhythm, S1, S2 without murmur, rub or gallop. ABDOMEN: Soft, nontender, nondistended, normoactive bowel sounds, no guarding, no rebound, no hepatosplenomegaly, no masses. EXTREMITIES: 2+ pulses, warm, well-perfused, no edema. NEUROLOGICAL: Cranial nerves II through XII grossly intact. Normal speech, gait not observed. PSYCH: Normal mood, normal affect. SKIN: Warm, dry, normal turgor, no rashes or lesions noted Laboratory Results - last 24 hr 01/17/17 01/17/17 01/18/17 16:11 21:06 05:40 Sodium Potassium Chloride Carbon Dioxide Anion Gap BUN Creatinine Creat Clearance w eGFR POC Glucometer 164 266 68 Random Glucose Calcium Magnesium Total Bilirubin AST ALT Alkaline Phosphatase B-Natriuretic Peptide Total Protein Albumin 01/18/17 01/18/17 01/18/17 07:00 07:00 11:18 Sodium 139 Potassium 3.7 Chloride 106 Carbon Dioxide 25 Anion Gap 8 BUN 32 H Creatinine 4.1 H Creat Clearance w eGFR 10.96 POC Glucometer 120 Random Glucose 96 D Calcium 7.8 L Magnesium 1.8 Total Bilirubin 0.4 AST 15 ALT < 9 L Alkaline Phosphatase 84 B-Natriuretic Peptide 3995.65 H Total Protein 5.4 L Albumin 2.7 L Active Medications Generic Name Dose Route Start Last Admin Trade Name Freq PRN Reason Stop Dose Admin Aclidinium [place] 1 puff 01/13/17 10:00 01/18/17 09:36 Tudorza - IH 1 puff BID LITZY Administration Albuterol Sulfate 1 amp 01/15/17 15:14 01/17/17 10:10 Ventolin 0.083% Nebulizer Soln - NEB 1 amp Q4H PRN Administration SHORT OF BREATH/WHEEZING Amlodipine Besylate 10 mg 01/13/17 10:00 01/18/17 09:35 Norvasc - PO 10 mg DAILY LITZY Administration Aspirin 81 mg 01/13/17 10:00 01/18/17 09:35 Ecotrin - PO 81 mg DAILY LITZY Administration Brimonidine Tartrate 1 drop 01/13/17 06:00 01/18/17 13:52 Alphagan 0.15% - OU 1 drop TID LITZY Administration Budesonide/Formoterol Fumarate 2 puff 01/13/17 10:00 01/18/17 09:36 Symbicort 80/4.5mcg - IH 2 puff BID LITZY Administration Calcium Acetate 667 mg 01/14/17 12:00 01/18/17 12:06 Phoslo - PO 667 mg TIDCM LITZY Administration Cephalexin HCl 250 mg 01/15/17 10:00 01/18/17 09:35 Keflex - PO 250 mg Q8H LITZY Administration Furosemide 80 mg 01/18/17 14:00 01/18/17 13:49 Lasix - PO 80 mg BIDLASIX LITZY Administration Heparin Sodium (Porcine) 5,000 unit 01/13/17 06:00 01/18/17 13:49 Heparin - SQ 5,000 unit TID LITZY Administration Hydralazine HCl 75 mg 01/13/17 11:51 01/18/17 13:49 Apresoline - PO 75 mg TID LITZY Administration Insulin Aspart 1 vial 01/13/17 07:00 01/18/17 11:20 Novolog Vial Sliding Scale - SQ Not Given ACHS [facility] Protocol Isosorbide Dinitrate 20 mg 01/16/17 14:00 01/18/17 13:53 Isordil - PO 20 mg TID LITZY Administration Levothyroxine Sodium 200 mcg 01/16/17 07:00 01/18/17 07:16 Synthroid - PO Not Given DAILY@0700 LITZY Nortriptyline HCl 10 mg 01/13/17 22:00 01/17/17 21:50 Pamelor - PO 10 mg HS LITZY Administration Paroxetine HCl 20 mg 01/13/17 10:00 01/18/17 09:35 Paxil - PO 20 mg DAILY LITZY Administration Senna 2 tab 01/13/17 22:00 01/17/17 21:29 Senna - PO 2 tab HS LITZY Administration Microbiology 01/12/17 15:40 Blood - Peripheral Venous Blood Culture - Final NO GROWTH AFTER 5 DAYS INCUBATION 01/12/17 15:45 Blood - Peripheral Venous Blood Culture - Final NO GROWTH AFTER 5 DAYS INCUBATION 01/13/17 20:00 Nasopharyngeal Swab Respiratory Virus Panel - Preliminary 01/14/17 13:00 Urine For Antigen Detection Legionella Antigen - Final 01/14/17 13:00 Urine For Antigen Detection Streptococcus pneumoniae Antigen (M - Final 01/12/17 16:10 Urine - Urine Clean Catch Urine Culture - Final NO GROWTH OBTAINED 01/13/17 20:00 Nasopharyngeal Swab Influenza Types A,B Antigen (DAX) - Final 01/13/17 20:00 Nasopharyngeal Swab - Final IMAGING 01/13 CT: cardiomegaly, moderate bilateral pleural effusions, extensive atelectasis, pericardial effusion 01/15 chest x-ray: Moderate bilateral pleural effusions 01/18 chest x-ray, unchanged bilateral pleural effusions ASSESSMENT/PLAN: 1) card Acute Diastolic Heart Failure - echo grade 1 diastolic dysfunction, LVEF 65-70% - Lasix 80 mg PO BID, 8 kg weight loss noted - Continue daily weights strict I's and O's, 1 L fluid restriction Hypertension -continue amlodipine and hydralazine - Cardiology consulted and following 2) nephrology acute on chronic renal failure - creatinine 4.2 baseline 2.7 - continue PhosLo - continue Adkins - nephrology consulted and followed 3) pulmonary cOPD exacerbation - continue Symbicort and tudorza is when necessary albuterol nebulizers Pneumonia - Unlikely pneumonia CT scan of chest suggestive of cHF - pulmonary consulted and following 4) ID Bilateral lower extremity cellulitis - Continue keflex 5) Endo IDDM - continue fingersticks before meals and at bedtime with regular insulin coverage 6) psych Anxiety - continue nortripyltine and Paxil F/E/N Fluids: PO intake adequate Electrolytes: replete as indicated Nutrition: diabetic diet DVT prophylaxis: subq heparin, oob, ambulation PT evaluation Dispo: Patient continues to require inpatient care. full code. Visit type - Emergency Visit Emergency Visit: Yes ED Registration Date: 01/12/17 Care time: The patient presented to the Emergency Department on the above date and was hospitalized for further evaluation of their emergent condition. - New Patient This patient is new to me today: No - Critical Care Critical Care patient: No - Discharge Referral Referred to [facility] No
--- NOTE | 2017-01-18 16:26 | PN ---
Progress Note, Physician History of Present Illness: Pt seen and examined at bedside. She is awake and appears comfortable. She complains of discomfort from the godfrey. - Current Medication List Current Medications: Active Medications Aclidinium [place] (Tudorza -) 1 puff IH BID [facility] Last Admin: 01/18/17 09:36 Dose: 1 puff Albuterol Sulfate (Ventolin 0.083% Nebulizer Soln -) 1 amp NEB Q4H PRN PRN Reason: SHORT OF BREATH/WHEEZING Last Admin: 01/17/17 10:10 Dose: 1 amp Amlodipine Besylate (Norvasc -) 10 mg PO DAILY [facility] Last Admin: 01/18/17 09:35 Dose: 10 mg Aspirin (Ecotrin -) 81 mg PO DAILY [facility] Last Admin: 01/18/17 09:35 Dose: 81 mg Brimonidine Tartrate (Alphagan 0.15% -) 1 drop OU TID [facility] Last Admin: 01/18/17 13:52 Dose: 1 drop Budesonide/Formoterol Fumarate (Symbicort 80/4.5mcg -) 2 puff IH BID [facility] Last Admin: 01/18/17 09:36 Dose: 2 puff Calcium Acetate (Phoslo -) 667 mg PO TIDCM [facility] Last Admin: 01/18/17 12:06 Dose: 667 mg Cephalexin HCl (Keflex -) 250 mg PO Q8H [facility] Last Admin: 01/18/17 09:35 Dose: 250 mg Furosemide (Lasix -) 80 mg PO BIDLASIX [facility] Last Admin: 01/18/17 13:49 Dose: 80 mg Heparin Sodium (Porcine) (Heparin -) 5,000 unit SQ TID [facility] Last Admin: 01/18/17 13:49 Dose: 5,000 unit Hydralazine HCl (Apresoline -) 75 mg PO TID [facility] Last Admin: 01/18/17 13:49 Dose: 75 mg Insulin Aspart (Novolog Vial Sliding Scale -) 1 vial SQ ACHS [facility] PRN Reason: Protocol Last Admin: 01/18/17 11:20 Dose: Not Given Isosorbide Dinitrate (Isordil -) 20 mg PO TID [facility] Last Admin: 01/18/17 13:53 Dose: 20 mg Levothyroxine Sodium (Synthroid -) 200 mcg PO DAILY@0700 [facility] Last Admin: 01/18/17 07:16 Dose: Not Given Nortriptyline HCl (Pamelor -) 10 mg PO HS [facility] Last Admin: 01/17/17 21:50 Dose: 10 mg Paroxetine HCl (Paxil -) 20 mg PO DAILY [facility] Last Admin: 01/18/17 09:35 Dose: 20 mg Senna (Senna -) 2 tab PO HS [facility] Last Admin: 01/17/17 21:29 Dose: 2 tab - Objective Vital Signs: Vital Signs Temperature 98.5 F 01/18/17 14:14 Pulse Rate 93 H 01/18/17 14:14 Respiratory Rate 19 01/18/17 14:14 Blood Pressure 152/66 01/18/17 14:14 O2 Sat by Pulse Oximetry (%) 99 01/18/17 14:14 Constitutional: Yes: Calm Eyes: Yes: Conjunctiva Clear HENT: Yes: Atraumatic Cardiovascular: Yes: S1, S2 Respiratory: Yes: On Nasal O2 Gastrointestinal: Yes: Soft Genitourinary: Yes: Godfrey Present Musculoskeletal: Yes: WNL Edema: Yes Edema: LLE: 2+, RLE: 2+ Neurological: Yes: Oriented Psychiatric: Yes: Oriented Labs: CBC, BMP 01/17/17 09:23 01/18/17 07:00 Problem List - Problems (1) Acute on chronic diastolic (congestive) heart failure Code(s): I50.33 - ACUTE ON CHRONIC DIASTOLIC (CONGESTIVE) HEART FAILURE (2) COPD (chronic obstructive pulmonary disease) Code(s): J44.9 - CHRONIC OBSTRUCTIVE PULMONARY DISEASE, UNSPECIFIED (3) HTN (hypertension) Code(s): I10 - ESSENTIAL (PRIMARY) HYPERTENSION (4) Hypothyroid Code(s): E03.9 - HYPOTHYROIDISM, UNSPECIFIED (5) Pleural effusion Code(s): J90 - PLEURAL EFFUSION, NOT ELSEWHERE CLASSIFIED (6) Renal failure (ARF), acute on chronic Code(s): N17.9 - ACUTE KIDNEY FAILURE, UNSPECIFIED N18.9 - CHRONIC KIDNEY DISEASE, UNSPECIFIED Assessment/Plan Current Medications Generic Name Dose Route Start Last Admin Trade Name Freq PRN Reason Stop Dose Admin Aclidinium [place] 1 puff 01/13/17 10:00 01/18/17 09:36 Tudorza - IH 1 puff BID [facility] Administration Albuterol Sulfate 1 amp 01/15/17 15:14 01/17/17 10:10 Ventolin 0.083% Nebulizer Soln - NEB 1 amp Q4H PRN Administration SHORT OF BREATH/WHEEZING Amlodipine Besylate 10 mg 01/13/17 10:00 01/18/17 09:35 Norvasc - PO 10 mg DAILY LITZY Administration Aspirin 81 mg 01/13/17 10:00 01/18/17 09:35 Ecotrin - PO 81 mg DAILY LITZY Administration Brimonidine Tartrate 1 drop 01/13/17 06:00 01/18/17 13:52 Alphagan 0.15% - OU 1 drop TID LITZY Administration Budesonide/Formoterol Fumarate 2 puff 01/13/17 10:00 01/18/17 09:36 Symbicort 80/4.5mcg - IH 2 puff BID LITZY Administration Calcium Acetate 667 mg 01/14/17 12:00 01/18/17 12:06 Phoslo - PO 667 mg TIDCM LITZY Administration Cephalexin HCl 250 mg 01/15/17 10:00 01/18/17 09:35 Keflex - PO 250 mg Q8H LITZY Administration Furosemide 80 mg 01/18/17 14:00 01/18/17 13:49 Lasix - PO 80 mg BIDLASIX [facility] Administration Heparin Sodium (Porcine) 5,000 unit 01/13/17 06:00 01/18/17 13:49 Heparin - SQ 5,000 unit TID LITZY Administration Hydralazine HCl 75 mg 01/13/17 11:51 01/18/17 13:49 Apresoline - PO 75 mg TID [facility] Administration Insulin Aspart 1 vial 01/13/17 07:00 01/18/17 11:20 Novolog Vial Sliding Scale - SQ Not Given ACHS [facility] Protocol Isosorbide Dinitrate 20 mg 01/16/17 14:00 01/18/17 13:53 Isordil - PO 20 mg TID LITZY Administration Levothyroxine Sodium 200 mcg 01/16/17 07:00 01/18/17 07:16 Synthroid - PO Not Given DAILY@0700 LITZY Nortriptyline HCl 10 mg 01/13/17 22:00 01/17/17 21:50 Pamelor - PO 10 mg HS LITZY Administration Paroxetine HCl 20 mg 01/13/17 10:00 01/18/17 09:35 Paxil - PO 20 mg DAILY LITZY Administration Senna 2 tab 01/13/17 22:00 01/17/17 21:29 Senna - PO 2 tab HS LITZY Administration Impression 1. CKD with acute component 2. HTN 3. DM 4. CVA 5. smoking history 6. pleural effusions 7. anemia 8. COPD 9. CHF 10. positive nathan 11. Hepatitis B Plan - cont with lasix - repeat labs in am - abx for cellulitis - will need close outpt follow up - can d/c godfrey catheter Dr Patel
[2017-01-18] MEDS: SENNOSIDES 8.6MG TABLET (FP) PO SCH (22:11)
[2017-01-18] MEDS: NORTRIPTYLINE HCL 10 MG CAPSULE PO SCH (22:12)
[2017-01-18 22:44] VITALS: BP 141/62; PULSE 87; TEMP 98.8
[2017-01-19] MEDS: CEPHALEXIN MONOHYDRATE 250 MG CAPSULE (FP) PO SCH ×2 (01:17→10:30)
[2017-01-19] MEDS ORDERED: PT OWN MED DRAWER 7, Y5N ONE ×2 (06:01→12:26)
[2017-01-19] MEDS: ISOSORBIDE DINITRATE 20 MG TABLET (FP) PO SCH (06:16)
[2017-01-19] MEDS: LEVOTHYROXINE NA 100 MCG TABLET (FP) PO SCH (06:16)
[2017-01-19] MEDS: BRIMONIDINE TARTRATE 0.15% OPHTHALMIC 5 ML BOTTLE OU SCH (06:16)
[2017-01-19] MEDS: FUROSEMIDE 40 MG TABLET (FP) PO SCH (06:16)
[2017-01-19] MEDS: hydrALAZINE HCL 50 MG TABLET (FP) PO SCH (06:17)
[2017-01-19] MEDS: HEPARIN NA (PORCINE) 5,000 UNITS/ML 1ML VIAL SQ SCH (06:17)
[2017-01-19] MEDS: INSULIN SLIDING SCALE (NOVOLOG) 1 VIAL SQ SCH (06:36)
--- NOTE | 2017-01-19 07:35 | PN ---
Progress Note, Physician History of Present Illness: pulmonary alert,nad,-sob - Current Medication List Current Medications: Active Medications Aclidinium [place] (Tudorza -) 1 puff IH BID [facility] Last Admin: 01/18/17 22:13 Dose: 1 puff Albuterol Sulfate (Ventolin 0.083% Nebulizer Soln -) 1 amp NEB Q4H PRN PRN Reason: SHORT OF BREATH/WHEEZING Last Admin: 01/17/17 10:10 Dose: 1 amp Amlodipine Besylate (Norvasc -) 10 mg PO DAILY [facility] Last Admin: 01/18/17 09:35 Dose: 10 mg Aspirin (Ecotrin -) 81 mg PO DAILY [facility] Last Admin: 01/18/17 09:35 Dose: 81 mg Brimonidine Tartrate (Alphagan 0.15% -) 1 drop OU TID [facility] Last Admin: 01/19/17 06:16 Dose: 1 drop Budesonide/Formoterol Fumarate (Symbicort 80/4.5mcg -) 2 puff IH BID [facility] Last Admin: 01/18/17 22:13 Dose: 2 puff Calcium Acetate (Phoslo -) 667 mg PO TIDCM [facility] Last Admin: 01/18/17 17:17 Dose: 667 mg Cephalexin HCl (Keflex -) 250 mg PO Q8H [facility] Last Admin: 01/19/17 01:17 Dose: 250 mg Furosemide (Lasix -) 80 mg PO BIDLASIX [facility] Last Admin: 01/19/17 06:16 Dose: 80 mg Heparin Sodium (Porcine) (Heparin -) 5,000 unit SQ TID [facility] Last Admin: 01/19/17 06:17 Dose: 5,000 unit Hydralazine HCl (Apresoline -) 75 mg PO TID [facility] Last Admin: 01/19/17 06:17 Dose: 75 mg Insulin Aspart (Novolog Vial Sliding Scale -) 1 vial SQ ACHS [facility] PRN Reason: Protocol Last Admin: 01/19/17 06:36 Dose: Not Given Isosorbide Dinitrate (Isordil -) 20 mg PO TID [facility] Last Admin: 01/19/17 06:16 Dose: 20 mg Levothyroxine Sodium (Synthroid -) 200 mcg PO DAILY@0700 [facility] Last Admin: 01/19/17 06:16 Dose: 200 mcg Nortriptyline HCl (Pamelor -) 10 mg PO [facility] Last Admin: 01/18/17 22:12 Dose: 10 mg Paroxetine HCl (Paxil -) 20 mg PO DAILY [facility] Last Admin: 01/18/17 09:35 Dose: 20 mg Senna (Senna -) 2 tab PO [facility] Last Admin: 01/18/17 22:11 Dose: 2 tab - Objective Vital Signs: Vital Signs Temperature 98.8 F 01/18/17 22:43 Pulse Rate 87 01/18/17 22:43 Respiratory Rate 18 01/18/17 22:43 Blood Pressure 141/62 01/18/17 22:43 O2 Sat by Pulse Oximetry (%) 96 01/19/17 06:00 Constitutional: Yes: Well Nourished, Calm Eyes: Yes: WNL HENT: Yes: WNL Neck: Yes: WNL Cardiovascular: Yes: Regular Rate and Rhythm, S1, S2 Respiratory: Yes: Diminished Gastrointestinal: Yes: WNL Extremities: Yes: WNL, Erythema (less erythema brayan) Edema: Yes Labs: CBC, BMP 01/17/17 09:23 01/18/17 07:00 Assessment/Plan Problem List - Problems (1) Acute on chronic diastolic (congestive) heart failure Code(s): I50.33 - ACUTE ON CHRONIC DIASTOLIC (CONGESTIVE) HEART FAILURE (2) Renal failure (ARF), acute on chronic Code(s): N17.9 - ACUTE KIDNEY FAILURE, UNSPECIFIED N18.9 - CHRONIC KIDNEY DISEASE, UNSPECIFIED (3) Pleural effusion Code(s): J90 - PLEURAL EFFUSION, NOT ELSEWHERE CLASSIFIED (4) Pneumonia Code(s): J18.9 - PNEUMONIA, UNSPECIFIED ORGANISM Qualifiers: Pneumonia type: due to unspecified organism Laterality: bilateral Lung location: unspecified part of lung Qualified Code(s): J18.9 - Pneumonia, unspecified organism (5) Atelectasis Code(s): J98.11 - ATELECTASIS (6) COPD (chronic obstructive pulmonary disease) Code(s): J44.9 - CHRONIC OBSTRUCTIVE PULMONARY DISEASE, UNSPECIFIED (7) Chronic respiratory failure with hypoxia Code(s): J96.11 - CHRONIC RESPIRATORY FAILURE WITH HYPOXIA Assessment/Plan Acute on Chronic Diastolic Heart Failure improving Pleural Effusions/Atelectasis from above Mitral Regurgitation Acute on Chronic Renal Failure COPD Chronic Hypoxic Respiratory Failure HTN Anxiety - lasix - monitor urine output, creatinine - daily weights, I/Os - antibiotics as per id - O2 to keep SpO2 >90% - inhaled bronchodilators - DVT prophylaxis DR WALKER
[2017-01-19] MEDS: CALCIUM ACETATE 667 MG CAPSULE (FP) PO SCH ×2 (08:00→12:00)
--- NOTE | 2017-01-19 09:39 | DS ---
Physical Exam: SUBJECTIVE: Patient seen and examined OBJECTIVE:This is a 66 y/o female with a past medical history of CKD, HTN, HLD, GERD, Anemia, CVA x2, Asthma, COPD (O2 dependent), Anxiety, Hypothyroid. Who presents to the emergency department from an assisted living facility with SOB x one day. Patient reports having trouble breathing worse on exertion. Patient reports chronic lower leg swelling and redness. Patient denies fever, chills, cough, dizziness, CP, AP, N/V/D, constipation. ER course was notable for: (1) Chest Xray- Bilateral infiltrates. Small left pleural effusion (2) WBC 12.3 (3) CKD- Bun 40, Cr 4.5 Vital Signs Period Temp Pulse Resp BP Sys/Gonsalez Pulse Ox Last 24 Hr 98.5 F-98.8 F 87-93 18-19 141-152/62-66 96-99 PHYSICAL EXAM GENERAL: The patient is awake, alert, and fully oriented, in no acute distress. HEAD: Normal with no signs of trauma. EYES: PERRL, extraocular movements intact, sclera anicteric, conjunctiva clear. ENT: Ears normal, nares patent, oropharynx clear without exudates, moist mucous membranes. NECK: Trachea midline, full range of motion, supple. LUNGS: Breath sounds equal, clear to auscultation bilaterally, no wheezes, no crackles, no accessory muscle use. HEART: Regular rate and rhythm, S1, S2 without murmur, rub or gallop. ABDOMEN: Soft, nontender, nondistended, normoactive bowel sounds, no guarding, no rebound, no hepatosplenomegaly, no masses. EXTREMITIES: 2+ pulses, warm, well-perfused, no edema. NEUROLOGICAL: Cranial nerves II through XII grossly intact. Normal speech, gait not observed. PSYCH: Normal mood, normal affect. SKIN: Warm, dry, normal turgor, no rashes or lesions noted. LABS Laboratory Results - last 24 hr 01/18/17 01/18/17 01/18/17 11:18 16:41 22:21 POC Glucometer 120 137 145 01/19/17 06:35 POC Glucometer 131 HOSPITAL COURSE: Date of Admission:01/12/17 Date of Discharge: 01/19/17 Minutes to complete discharge: 45 Discharge Summary Reason For Visit: SHORTNESS OF BREATH Current Active Problems Acute on chronic diastolic (congestive) heart failure (Acute) Atelectasis (Acute) COPD (chronic obstructive pulmonary disease) (Acute) Chronic respiratory failure with hypoxia (Acute) DVT prophylaxis (Acute) HTN (hypertension) (Acute) Hypothyroid (Acute) Pleural effusion (Acute) Pneumonia (Acute) Renal failure (ARF), acute on chronic (Acute) Condition: Improved - Instructions Diet, Activity, Other Instructions: resume, regular low sodium diet take antibiotics as prescribed continue taking phosphlo and lasix daily as prescribed please follow up with Dr Siddiqui (nephrology) within 5 days please follow up with the motor builder winder within 7 days please follow up with your primary care physician within 7 days. Referrals: Stevie Patel MD [Staff Physician] - Disposition: HOME - Home Medications Comprehensive Discharge Medication List: Ambulatory Orders Aspirin [Aspirin EC] 81 mg PO DAILY 01/12/17 Brimonidine Tartrate [Alphagan 0.15% -] 1 drop OU TID 01/12/17 Budesonide/Formeterol Fumarate [SYMBICORT 80/4.5mcg -] 2 inh PO BID 01/12/17 Cephalexin [Keflex] 250 mg PO DAILY 01/12/17 Insulin Glargine,Hum.rec.anlog [Lantus Solostar PEN (NF)] 20 units SQ HS Insulin Lispro [Humalog] unit SQ TID 01/12/17 Levothyroxine Sodium [Synthroid] 200 mcg PO DAILY 01/12/17 Nortriptyline HCl [Pamelor -] 10 mg PO HS 01/12/17 Paroxetine HCl [Paxil] 20 mg PO DAILY 01/12/17 RX: Amlodipine Besylate 10 mg PO DAILY 01/12/17 RX: Ferrous Sulfate 325 mg PO DAILY 01/12/17 RX: Hydralazine HCl 50 mg PO TID 01/12/17 Sennosides [Senna] 8.6 mg PO HS 01/12/17 Simvastatin [Zocor -] 20 mg PO HS 01/12/17 Tiotropium [place] [Spiriva] 18 mcg IH DAILY 01/12/17 - Discharge Referral Referred to [facility] No
[2017-01-19] MEDS: ACLIDINIUM BROMIDE 400 MCG/INH AERO.POWD IH SCH (10:00)
[2017-01-19] MEDS: PARoxetine HCL 20 MG TABLET (FP) PO SCH (10:00)
[2017-01-19] MEDS: BUDESONIDE/FORMETEROL FUMARATE 80/4.5 mcg INHALER IH SCH (10:00)
[2017-01-19] MEDS: amLODIPine BESYLATE 10 MG TABLET (FP) PO SCH (10:00)
--- NOTE | 2017-01-19 10:07 | PN ---
Progress Note, Physician History of Present Illness: Awake, alert Supine in bed No complaints No c/o leg pain Afebrile WBC slightly elevated - Current Medication List Current Medications: Active Medications Aclidinium [place] (Tudorza -) 1 puff IH BID [facility] Last Admin: 01/18/17 22:13 Dose: 1 puff Albuterol Sulfate (Ventolin 0.083% Nebulizer Soln -) 1 amp NEB Q4H PRN PRN Reason: SHORT OF BREATH/WHEEZING Last Admin: 01/17/17 10:10 Dose: 1 amp Amlodipine Besylate (Norvasc -) 10 mg PO DAILY [facility] Last Admin: 01/18/17 09:35 Dose: 10 mg Aspirin (Ecotrin -) 81 mg PO DAILY [facility] Last Admin: 01/18/17 09:35 Dose: 81 mg Brimonidine Tartrate (Alphagan 0.15% -) 1 drop OU TID [facility] Last Admin: 01/19/17 06:16 Dose: 1 drop Budesonide/Formoterol Fumarate (Symbicort 80/4.5mcg -) 2 puff IH BID [facility] Last Admin: 01/18/17 22:13 Dose: 2 puff Calcium Acetate (Phoslo -) 667 mg PO TIDCM [facility] Last Admin: 01/18/17 17:17 Dose: 667 mg Cephalexin HCl (Keflex -) 250 mg PO Q8H [facility] Last Admin: 01/19/17 01:17 Dose: 250 mg Furosemide (Lasix -) 80 mg PO BIDLASIX [facility] Last Admin: 01/19/17 06:16 Dose: 80 mg Heparin Sodium (Porcine) (Heparin -) 5,000 unit SQ TID [facility] Last Admin: 01/19/17 06:17 Dose: 5,000 unit Hydralazine HCl (Apresoline -) 75 mg PO TID [facility] Last Admin: 01/19/17 06:17 Dose: 75 mg Insulin Aspart (Novolog Vial Sliding Scale -) 1 vial SQ ACHS [facility] PRN Reason: Protocol Last Admin: 01/19/17 06:36 Dose: Not Given Isosorbide Dinitrate (Isordil -) 20 mg PO TID [facility] Last Admin: 01/19/17 06:16 Dose: 20 mg Levothyroxine Sodium (Synthroid -) 200 mcg PO DAILY@0700 [facility] Last Admin: 01/19/17 06:16 Dose: 200 mcg Nortriptyline HCl (Pamelor -) 10 mg PO HS [facility] Last Admin: 01/18/17 22:12 Dose: 10 mg Paroxetine HCl (Paxil -) 20 mg PO DAILY [facility] Last Admin: 01/18/17 09:35 Dose: 20 mg Senna (Senna -) 2 tab PO HS [facility] Last Admin: 01/18/17 22:11 Dose: 2 tab - Objective Vital Signs: Vital Signs Temperature 98.8 F 01/18/17 22:43 Pulse Rate 87 01/18/17 22:43 Respiratory Rate 18 01/18/17 22:43 Blood Pressure 141/62 01/18/17 22:43 O2 Sat by Pulse Oximetry (%) 96 01/19/17 06:00 Constitutional: Yes: No Distress Eyes: Yes: Conjunctiva Clear Cardiovascular: Yes: Regular Rate and Rhythm, S1, S2 Respiratory: Yes: Other (few crepitations at bases) Gastrointestinal: Yes: Normal Bowel Sounds, Soft. No: Tenderness Extremities: Yes: Other (fading erythema/ decreasing warmth LE bilaterally) Edema: Yes Edema: LLE: 1+, RLE: 1+ Labs: CBC, BMP 01/17/17 09:23 Assessment/Plan Bilateral pleural effusions Compressive atelectasis v. pneumonia Bilateral LE cellulitis-improved CKD S/P CVA Continue po keflex for treatment of LE celllulitis additional 5 days Please re-consult prn
[2017-01-19 10:17] LABS: CALCIUM 7.8 mg/dl (8.4-10.2); CREATININE 4.1 mg/dl (0.6-1.3)
--- NOTE | 2017-01-19 10:25 | PN ---
Progress Note, Physician History of Present Illness: Pt seen and examined at bedside. She is awake and alert. She feels that her breathing is improved. - Current Medication List Current Medications: Active Medications Aclidinium [place] (Tudorza -) 1 puff IH BID [facility] Last Admin: 01/18/17 22:13 Dose: 1 puff Albuterol Sulfate (Ventolin 0.083% Nebulizer Soln -) 1 amp NEB Q4H PRN PRN Reason: SHORT OF BREATH/WHEEZING Last Admin: 01/17/17 10:10 Dose: 1 amp Amlodipine Besylate (Norvasc -) 10 mg PO DAILY [facility] Last Admin: 01/18/17 09:35 Dose: 10 mg Aspirin (Ecotrin -) 81 mg PO DAILY [facility] Last Admin: 01/18/17 09:35 Dose: 81 mg Brimonidine Tartrate (Alphagan 0.15% -) 1 drop OU TID [facility] Last Admin: 01/19/17 06:16 Dose: 1 drop Budesonide/Formoterol Fumarate (Symbicort 80/4.5mcg -) 2 puff IH BID [facility] Last Admin: 01/18/17 22:13 Dose: 2 puff Calcium Acetate (Phoslo -) 667 mg PO TIDCM [facility] Last Admin: 01/18/17 17:17 Dose: 667 mg Cephalexin HCl (Keflex -) 250 mg PO Q8H [facility] Last Admin: 01/19/17 01:17 Dose: 250 mg Furosemide (Lasix -) 80 mg PO BIDLASIX [facility] Last Admin: 01/19/17 06:16 Dose: 80 mg Heparin Sodium (Porcine) (Heparin -) 5,000 unit SQ TID [facility] Last Admin: 01/19/17 06:17 Dose: 5,000 unit Hydralazine HCl (Apresoline -) 75 mg PO TID [facility] Last Admin: 01/19/17 06:17 Dose: 75 mg Insulin Aspart (Novolog Vial Sliding Scale -) 1 vial SQ ACHS [facility] PRN Reason: Protocol Last Admin: 01/19/17 06:36 Dose: Not Given Isosorbide Dinitrate (Isordil -) 20 mg PO TID [facility] Last Admin: 01/19/17 06:16 Dose: 20 mg Levothyroxine Sodium (Synthroid -) 200 mcg PO DAILY@0700 [facility] Last Admin: 01/19/17 06:16 Dose: 200 mcg Nortriptyline HCl (Pamelor -) 10 mg PO HS [facility] Last Admin: 01/18/17 22:12 Dose: 10 mg Paroxetine HCl (Paxil -) 20 mg PO DAILY [facility] Last Admin: 01/18/17 09:35 Dose: 20 mg Senna (Senna -) 2 tab PO HS [facility] Last Admin: 01/18/17 22:11 Dose: 2 tab - Objective Vital Signs: Vital Signs Temperature 98.8 F 01/18/17 22:43 Pulse Rate 87 01/18/17 22:43 Respiratory Rate 18 01/18/17 22:43 Blood Pressure 141/62 01/18/17 22:43 O2 Sat by Pulse Oximetry (%) 96 01/19/17 06:00 Constitutional: Yes: Calm Eyes: Yes: Conjunctiva Clear HENT: Yes: Atraumatic Neck: Yes: Supple Cardiovascular: Yes: S1, S2 Respiratory: Yes: On Nasal O2 Gastrointestinal: Yes: Soft, Abdomen, Obese Genitourinary: Yes: WNL Musculoskeletal: Yes: WNL Edema: Yes Edema: LLE: 2+, RLE: 2+ Neurological: Yes: Oriented Labs: CBC, BMP 01/17/17 09:23 Problem List - Problems (1) Acute on chronic diastolic (congestive) heart failure Code(s): I50.33 - ACUTE ON CHRONIC DIASTOLIC (CONGESTIVE) HEART FAILURE (2) COPD (chronic obstructive pulmonary disease) Code(s): J44.9 - CHRONIC OBSTRUCTIVE PULMONARY DISEASE, UNSPECIFIED (3) HTN (hypertension) Code(s): I10 - ESSENTIAL (PRIMARY) HYPERTENSION (4) Hypothyroid Code(s): E03.9 - HYPOTHYROIDISM, UNSPECIFIED (5) Pleural effusion Code(s): J90 - PLEURAL EFFUSION, NOT ELSEWHERE CLASSIFIED (6) Renal failure (ARF), acute on chronic Code(s): N17.9 - ACUTE KIDNEY FAILURE, UNSPECIFIED N18.9 - CHRONIC KIDNEY DISEASE, UNSPECIFIED Assessment/Plan Current Medications Generic Name Dose Route Start Last Admin Trade Name Freq PRN Reason Stop Dose Admin Aclidinium [place] 1 puff 01/13/17 10:00 01/18/17 22:13 Tudorza - IH 1 puff BID [facility] Administration Albuterol Sulfate 1 amp 01/15/17 15:14 01/17/17 10:10 Ventolin 0.083% Nebulizer Soln - NEB 1 amp Q4H PRN Administration SHORT OF BREATH/WHEEZING Amlodipine Besylate 10 mg 01/13/17 10:00 01/18/17 09:35 Norvasc - PO 10 mg DAILY [facility] Administration Aspirin 81 mg 01/13/17 10:00 01/18/17 09:35 Ecotrin - PO 81 mg DAILY [facility] Administration Brimonidine Tartrate 1 drop 01/13/17 06:00 01/19/17 06:16 Alphagan 0.15% - OU 1 drop TID [facility] Administration Budesonide/Formoterol Fumarate 2 puff 01/13/17 10:00 01/18/17 22:13 Symbicort 80/4.5mcg - IH 2 puff BID [facility] Administration Calcium Acetate 667 mg 01/14/17 12:00 01/18/17 17:17 Phoslo - PO 667 mg TIDCM [facility] Administration Cephalexin HCl 250 mg 01/15/17 10:00 01/19/17 01:17 Keflex - PO 250 mg Q8H [facility] Administration Furosemide 80 mg 01/18/17 14:00 01/19/17 06:16 Lasix - PO 80 mg BIDLASIX [facility] Administration Heparin Sodium (Porcine) 5,000 unit 01/13/17 06:00 01/19/17 06:17 Heparin - SQ 5,000 unit TID [facility] Administration Hydralazine HCl 75 mg 01/13/17 11:51 01/19/17 06:17 Apresoline - PO 75 mg TID [facility] Administration Insulin Aspart 1 vial 01/13/17 07:00 01/19/17 06:36 Novolog Vial Sliding Scale - SQ Not Given ACHS [facility] Protocol Isosorbide Dinitrate 20 mg 01/16/17 14:00 01/19/17 06:16 Isordil - PO 20 mg TID [facility] Administration Levothyroxine Sodium 200 mcg 01/16/17 07:00 01/19/17 06:16 Synthroid - PO 200 mcg DAILY@0700 [facility] Administration Nortriptyline HCl 10 mg 01/13/17 22:00 01/18/17 22:12 Pamelor - PO 10 mg HS [facility] Administration Paroxetine HCl 20 mg 01/13/17 10:00 01/18/17 09:35 Paxil - PO 20 mg DAILY [facility] Administration Senna 2 tab 01/13/17 22:00 01/18/17 22:11 Senna - PO 2 tab HS [facility] Administration Impression 1. CKD with acute component 2. HTN 3. DM 4. CVA 5. smoking history 6. pleural effusions 7. anemia 8. COPD 9. CHF 10. positive nathan 11. Hepatitis B Plan - cont with lasix PO - abx per ID - pt will need close outpt follow up - should see me in office next week on Sunday - will need vascular eval for fistula creation - pt has tolerated voiding trial - follow up labs from today - discussed with medical team Dr Patel
[2017-01-19] MEDS: ASPIRIN COATED 81 MG TABLET.EC PO SCH (10:30)
== END 2017-01-19 14:31 | disposition home or self-care (01) | DRG 291 ==
LOC: FER 12:42 → FM/S 16:35 → UNDODISIN 01-19 12:53
PROVIDERS: ADMIT Internal Medicine; ATTEND Nurse Practitioner Family
DX: I13.0 Hypertensive heart and chronic kidney disease with heart failure and stage 1 through stage 4 chronic kidney disease, or unspecified chronic kidney disease (principal); I50.33 Acute on chronic diastolic (congestive) heart failure; J18.9 Pneumonia, unspecified organism; J98.11 Atelectasis; J90 Pleural effusion, not elsewhere classified; J96.11 Chronic respiratory failure with hypoxia; N17.9 Acute kidney failure, unspecified; J44.1 Chronic obstructive pulmonary disease with (acute) exacerbation; L03.115 Cellulitis of right lower limb; L03.116 Cellulitis of left lower limb; B19.10 Unspecified viral hepatitis B without hepatic coma; N18.9 Chronic kidney disease, unspecified; I34.0 Nonrheumatic mitral (valve) insufficiency; F41.9 Anxiety disorder, unspecified; E03.9 Hypothyroidism, unspecified; E11.9 Type 2 diabetes mellitus without complications; D64.9 Anemia, unspecified; Z87.891 Personal history of nicotine dependence; Z86.73 Personal history of transient ischemic attack (TIA), and cerebral infarction without residual deficits; E78.5 Hyperlipidemia, unspecified; K21.9 Gastro-esophageal reflux disease without esophagitis; Z79.4 Long term (current) use of insulin; E83.39 Other disorders of phosphorus metabolism; J45.909 Unspecified asthma, uncomplicated; R59.1 Generalized enlarged lymph nodes
CPT/HCPCS: 36415; 71010-TC; 71250-TC; 80048; 80053; 80061; 81003; 81015; 82550; 82570; 83605; 83735; 83880; 84100; 84156; 84484; 85025; 87040; 87086; 87254; 87804; 87899; 93005; 93306-TC; 94640; 97116-GP; 97161-GP; 99283-25; G0480; J1644

== ENCOUNTER 2017-02-06 18:30 | Inpatient (IN) | payer OTHER ==
[2017-02-06 21:52] LABS: BASOPHIL 0.7 % (0-2.0); EOSINOPHIL 4.8 % (0-4.5); MCH 27.6 pg (25.7-33.7); MCHC 32.5 g/dl (32.0-36.0); MEAN CELL VOLUME 85.1 fl (80-96); NEUTROPHILS 83.8 % (42.8-82.8); PLATELET COUNT 395 K/MM3 (134-434); RDW 15.4 % (11.6-15.6); WHITE BLOOD COUNT 14.7 K/mm3 (4.0-10.0)
[2017-02-06 22:00] LABS: URINE APPEARANCE CLEAR; URINE BILIRUBIN NEGATIVE (NEGATIVE); URINE BLOOD NEGATIVE (NEGATIVE); URINE COLOR STRAW; URINE GLUCOSE (UA) 1+ (NEGATIVE); URINE KETONE NEGATIVE (NEGATIVE); URINE LEUK ESTERASE NEGATIVE (NEGATIVE); URINE NITRITE NEGATIVE (NEGATIVE); URINE UROBILINOGEN NEGATIVE E.U./dl (0.2-1.0)
[2017-02-06 22:01] LABS: URINE PROTEIN 3+ (NEGATIVE)
[2017-02-06 22:03] LABS: URINE BACTERIA RARE /hpf (NONE SEEN); URINE RBC 1 /hpf (0-3); URINE WBC 4 /hpf (3-5)
[2017-02-06 22:03] LABS: INR 1.13 (0.82-1.09); PROTHROMBIN TIME (PATIENT) 12.5 SEC (9.98-11.88)
[2017-02-06 22:13] LABS: ALBUMIN 2.5 g/dl (3.4-5.0); BILIRUBIN,TOTAL 0.2 mg/dL (0.2-1.0); CALCIUM 7.1 mg/dL (8.5-10.1); COCKROFT - GAULT 14.195; CREATININE 4.3 mg/dL (0.55-1.02); TOT PROT 6.2 g/dl (6.4-8.2)
--- NOTE | 2017-02-07 05:00 | PDOC ---
History of Present Illness - General Chief Complaint: Nausea Stated Complaint: NAUSEA Time Seen by Provider: 02/06/17 19:06 History Source: Family (Daughter), [place] Records Exam Limitations: Dementia - History of Present Illness Initial Comments: 02/07/17 05:11 66yo Female patient w/ PmHx: Dementia, CVA x 4, HTN, Vertigo, Depression, DM, HLD, LORENZO, GERD, Anxiety, Hypothyroidism, CRF, Dysarthria, presented to ED via EMS from [facility]. Staff states patient was trying to get up out of chair, fell backward, her eyes rolled backward and they called 911 for possible stroke. Patient is altered and this is her baseline according to her daughter. Denies any other complaints at this time. Timing/Duration: other (Prior to arrival) Severity: mild Modifying Factors: worse with: cold therapy, eating, immobilization, medication , movement, rest, other Associated Symptoms: denies: denies symptoms, chest pain, cough, diaphoresis, fever/chills, headaches, loss of appetite, malaise, nausea/vomiting, rash, seizure, shortness of breath, syncope, weakness, other Aspirin Received prior to arrival: No: no aspirin today, unknown, 81 mg x 1, 81 mg x 2, 81 mg x 3, 81 mg x 4, 325 mg x 1, provided at home, provided by EMS, provided by ED Past History - Travel Traveled outside of the country in the last 30 days: No Close contact w/someone who was outside of country & ill: No - Past Medical History Allergies/Adverse Reactions: Allergies Allergy/AdvReac Type Severity Reaction Status Date / Time naproxen [From Naprosyn] Allergy Verified 02/06/17 19:32 propoxyphene napsylate Allergy Verified 02/06/17 19:32 [From Darvocet-N 100] tramadol Allergy Verified 02/06/17 19:32 acetaminophen [From Percocet] AdvReac Abdominal Verified 02/06/17 19:32 issues ibuprofen [From Motrin] AdvReac Abdominal Verified 02/06/17 19:32 issues oxycodone HCl [From Percocet] AdvReac Abdominal Verified 02/06/17 19:32 issues Home Medications: Ambulatory Orders Amlodipine Besylate [Norvasc -] 10 mg PO DAILY 02/06/17 Aspirin [ASA -] 81 mg PO DAILY 02/06/17 Brimonidine Tartrate [Alphagan 0.15% -] 1 drop OD TID 02/06/17 Calcium Acetate 667 mg PO TID 02/06/17 Diphenhydramine HCl [Benadryl -] 25 mg PO Q6H 02/06/17 Ferrous Sulfate [Feosol] 325 mg PO DAILY 02/06/17 Furosemide [Lasix] 40 mg PO BID 02/06/17 Hydralazine HCl 50 mg PO TID 02/06/17 Insulin Glargine,Hum.rec.anlog [Lantus Solostar PEN (NF)] 0 units SQ HS Insulin Lispro [Humalog] 0 unit SQ ASDIR 02/06/17 Levothyroxine [Synthroid -] 200 mcg PO DAILY 02/06/17 Mag Hydrox/Al Hydrox/Simeth [[place] Liquid] 355 ml PO BID 02/06/17 Nortriptyline HCl [Pamelor -] 10 mg PO DAILY 02/06/17 Paroxetine HCl [Paxil] 20 mg PO DAILY 02/06/17 Sennosides [Senna] 8.6 mg PO DAILY 02/06/17 Simvastatin 20 mg PO DAILY 02/06/17 Tiotropium [place] [Spiriva] 1 inh IH DAILY 02/06/17 Anemia: Yes (iron def) Asthma: Yes Cancer: No Cardiac Disorders: No CVA: Yes (x2 slurred speech) COPD: Yes CHF: No Dementia: No Diabetes: Yes GI Disorders: Yes (GERD) Disorders: Yes HTN: Yes Hypercholesterolemia: Yes Liver Disease: No Psychiatric Problems: Yes Seizures: No Thyroid Disease: Yes - Surgical History Abdominal Surgery: No Appendectomy: No Cardiac Surgery: No Cholecystectomy: Yes Lung Surgery: No Neurologic Surgery: No Orthopedic Surgery: No - Psycho/Social/Smoking Cessation Hx Anxiety: No Suicidal Ideation: No Smoking History: Former smoker Have you smoked in the past 12 months: No If you are a former smoker, when did you quit?: 3 MONTHS AGO Information on smoking cessation initiated: No 'Breaking Loose' booklet given: 09/15/16 Hx Alcohol Use: No Drug/Substance Use Hx: No Substance Use Type: None Hx Substance Use Treatment: No Review of Systems - Review of Systems Able to Perform ROS?: No Is the patient limited Armenian proficient: No Constitutional: No: Chills, Fever, Malaise, Weakness HEENTM: Yes: Hearing Loss. No: Eye Pain, Blurred Vision, Double Vision, Cataracts, Nose Congestion, Nose Bleeding, Throat Swelling, Mouth Pain, Difficulty Swallowing, Mouth Swelling Respiratory: No: Cough, Shortness of Breath, Wheezing Cardiac (ROS): Yes: Edema. No: See HPI, Chest Pain, Lightheadedness, Palpitations, Syncope, Chest Tightness ABD/GI: No: Diarrhea, Difficulty Swallowing, Nausea, Poor Appetite, Poor Fluid Intake, Vomiting, Abdominal cramping : Yes: Incontinence. No: Dysuria, Flank Pain, Hematuria Musculoskeletal: No: Back Pain, Muscle Weakness Integumentary: No: Bruising, Erythema, Rash, Sweating Neurological: No: Headache, Numbness, Tingling, Tremors, Weakness, Ataxia, Dizziness All Other Systems: Reviewed and Negative *Physical Exam - Vital Signs Last Vital Signs Temp Pulse Resp BP Pulse Ox 97.2 F L 92 H 18 153/80 95 02/06/17 18:30 02/06/17 18:30 02/06/17 18:30 02/06/17 18:30 02/06/17 18:30 - Physical Exam General Appearance: Yes: Appropriately Dressed. No: Apparent Distress, Mild Distress, Moderate Distress, Severe Distress Neck: positive: Trachea midline, Supple. negative: Decreased range of motion, Stridor, Lymphadenopathy (R), Lymphadenopathy (L) Respiratory/Chest: positive: Decreased Breath Sounds. negative: Chest Tender, Normal Breath Sounds, Respiratory Distress, Accessory Muscle Use, Labored Respiration, Rapid RR, Stridor, Wheezing Cardiovascular: positive: Regular Rhythm, Regular Rate, Edema. negative: JVD, Murmur Gastrointestinal/Abdominal: positive: Normal Bowel Sounds, Soft. negative: Tender, Distended, Guarding, Rebound, Tenderness Rectal Exam: positive: normal rectal tone, heme positive stool Musculoskeletal: positive: Normal Inspection. negative: CVA Tenderness Extremity: positive: Normal Capillary Refill, Normal Range of Motion, Pedal Edema, Swelling, Erythema, Inflammation. negative: Calf Tenderness Integumentary: positive: Dry, Warm, Pale Neurologic: positive: Alert, Normal Mood/Affect, Normal Response, Other ( Dementia) ED Treatment Course - LABORATORY CBC & Chemistry Diagram: 02/06/17 21:20 02/06/17 20:10 - ADDITIONAL ORDERS Additional order review: Laboratory Results 02/06/17 02/06/17 02/06/17 23:53 22:41 21:20 INR PTT (Actin FS) Sodium Potassium Chloride Carbon Dioxide Anion Gap BUN Creatinine Creat Clearance w eGFR Random Glucose Calcium Total Bilirubin AST ALT Alkaline Phosphatase Total Protein Albumin Urine Color Straw Urine Appearance Clear Urine pH 6.0 Ur Specific [place] 1.012 Urine Protein 3+ H Urine Glucose (UA) 1+ H D Urine Ketones Negative Urine Blood Negative Urine Nitrite Negative Urine Bilirubin Negative Urine Urobilinogen Negative Ur Leukocyte Esterase Negative Urine RBC 1 Urine WBC 4 Urine Bacteria Rare Stool Occult Blood Positive Blood Type O NEGATIVE Antibody Screen Negative Crossmatch See Detail 02/06/17 02/06/17 20:10 20:10 INR 1.13 PTT (Actin FS) 33.0 Sodium 143 Potassium 3.5 Chloride 106 Carbon Dioxide 23 Anion Gap 14 BUN 62 H D Creatinine 4.3 H Creat Clearance w eGFR 10.37 Random Glucose 89 D Calcium 7.1 L Total Bilirubin 0.2 D AST 19 D ALT 13 D Alkaline Phosphatase 120 H Total Protein 6.2 L Albumin 2.5 L Urine Color Urine Appearance Urine pH Ur Specific [place] Urine Protein Urine Glucose (UA) Urine Ketones Urine Blood Urine Nitrite Urine Bilirubin Urine Urobilinogen Ur Leukocyte Esterase Urine RBC Urine WBC Urine Bacteria Stool Occult Blood Blood Type Antibody Screen Crossmatch 02/06/17 21:20 RBC 2.34 L D MCV 85.1 MCHC 32.5 RDW 15.4 MPV 7.0 L Neutrophils % 83.8 H Lymphocytes % 6.0 L D Monocytes % 4.7 D Eosinophils % 4.8 H Basophils % 0.7 - RADIOLOGY Radiology Studies Ordered: Category Date Time Status HEAD CT WITHOUT CONTRAST [CT] Stat CT Scan 02/06/17 20:35 Completed CHEST X-RAY PORTABLE* [RAD] Stat Radiology 02/06/17 22:14 Taken *DC/Admit/Observation/Transfer Diagnosis at time of Disposition: Renal failure (ARF), acute on chronic, Guaiac + stool Anemia Qualifiers: Anemia type: unspecified type Qualified Code(s): D64.9 - Anemia, unspecified - Discharge Dispostion Condition at time of disposition: Fair Admit: Yes
--- NOTE | 2017-02-07 05:36 | PDOC ---
*Physical Exam - Vital Signs Last Vital Signs Temp Pulse Resp BP Pulse Ox 97.2 F L 84 17 152/81 98 02/06/17 18:30 02/07/17 05:06 02/07/17 05:06 02/07/17 05:06 02/07/17 05:06 ED Treatment Course - LABORATORY CBC & Chemistry Diagram: 02/06/17 21:20 02/06/17 20:10 - ADDITIONAL ORDERS Additional order review: Laboratory Results 02/06/17 02/06/17 02/06/17 23:53 22:41 21:20 INR PTT (Actin FS) Sodium Potassium Chloride Carbon Dioxide Anion Gap BUN Creatinine Creat Clearance w eGFR Random Glucose Calcium Total Bilirubin AST ALT Alkaline Phosphatase Total Protein Albumin Urine Color Straw Urine Appearance Clear Urine pH 6.0 Ur Specific [place] 1.012 Urine Protein 3+ H Urine Glucose (UA) 1+ H D Urine Ketones Negative Urine Blood Negative Urine Nitrite Negative Urine Bilirubin Negative Urine Urobilinogen Negative Ur Leukocyte Esterase Negative Urine RBC 1 Urine WBC 4 Urine Bacteria Rare Stool Occult Blood Positive Blood Type O NEGATIVE Antibody Screen Negative Crossmatch See Detail 02/06/17 02/06/17 20:10 20:10 INR 1.13 PTT (Actin FS) 33.0 Sodium 143 Potassium 3.5 Chloride 106 Carbon Dioxide 23 Anion Gap 14 BUN 62 H D Creatinine 4.3 H Creat Clearance w eGFR 10.37 Random Glucose 89 D Calcium 7.1 L Total Bilirubin 0.2 D AST 19 D ALT 13 D Alkaline Phosphatase 120 H Total Protein 6.2 L Albumin 2.5 L Urine Color Urine Appearance Urine pH Ur Specific [place] Urine Protein Urine Glucose (UA) Urine Ketones Urine Blood Urine Nitrite Urine Bilirubin Urine Urobilinogen Ur Leukocyte Esterase Urine RBC Urine WBC Urine Bacteria Stool Occult Blood Blood Type Antibody Screen Crossmatch 02/06/17 21:20 RBC 2.34 L D MCV 85.1 MCHC 32.5 RDW 15.4 MPV 7.0 L Neutrophils % 83.8 H Lymphocytes % 6.0 L D Monocytes % 4.7 D Eosinophils % 4.8 H Basophils % 0.7 Medical Decision Making - Medical Decision Making 02/07/17 05:36 agree with care from [facility] *DC/Admit/Observation/Transfer Diagnosis at time of Disposition: Renal failure (ARF), acute on chronic, Guaiac + stool Anemia Qualifiers: Anemia type: unspecified type Qualified Code(s): D64.9 - Anemia, unspecified - Discharge Dispostion Condition at time of disposition: Fair - Referrals Referrals: Freddy Barillas MD [Primary Care Provider] - - Patient Instructions - Post Discharge Activity
--- NOTE | 2017-02-07 06:36 | HP ---
CHIEF COMPLAINT: syncope PCP: HISTORY OF PRESENT ILLNESS: This is a 66 year old female with a past medical history of HTN, DM, HLD, CKD, COPD, hypothyroidism, CVA x 2, anemia, glaucoma who presents to the ED from her assisted living facility for ? syncopal episode. According to ER chart, patient was trying to get up out of chair, fell backward, her eyes rolled backward and they called 911 for possible stroke. Pt states she was sent in to r/o stroke but is unable to provide any further details. Denies complaints on exam. ER course was notable for: (1) Hgb 6.5 (2) head Ct without acute changes Recent Travel: pt denies PAST MEDICAL HISTORY: HTN DM CKD Hyperlipidemia COPD hypothyroid CVA x 2, most recent 06/05/16, L aliza anemia glaucoma PAST SURGICAL HISTORY: cholecystectomy L knee arthroscopy Social History: Smoking: pt denies presently, h/o same Alcohol: pt denies Drugs: pt denies Family History: mother in her 50s, [place], DM father when pt was very young, ?alcohol related brother with mental retardation, , unknown cause 1 daughter, healthy Allergies naproxen [From Naprosyn] Allergy (Verified 02/06/17 19:32) propoxyphene napsylate [From Darvocet-N 100] Allergy (Verified 02/06/17 19:32) tramadol Allergy (Verified 02/06/17 19:32) acetaminophen [From Percocet] Adverse Reaction (Verified 02/06/17 19:32) Abdominal issues ibuprofen [From Motrin] Adverse Reaction (Verified 02/06/17 19:32) Abdominal issues oxycodone HCl [From Percocet] Adverse Reaction (Verified 02/06/17 19:32) Abdominal issues HOME MEDICATIONS: 3 Medication Instructions Recorded Amlodipine Besylate [Norvasc -] 10 mg PO DAILY 02/06/17 Aspirin [ASA -] 81 mg PO DAILY 02/06/17 Brimonidine Tartrate [Alphagan 1 drop OD TID 02/06/17 0.15% -] Calcium Acetate 667 mg PO TID 02/06/17 Diphenhydramine HCl [Benadryl -] 25 mg PO Q6H 02/06/17 Ferrous Sulfate [Feosol] 325 mg PO DAILY 02/06/17 Furosemide [Lasix] 40 mg PO BID 02/06/17 Hydralazine HCl 50 mg PO TID 02/06/17 Insulin Glargine,Hum.rec.anlog 0 units SQ HS 02/06/17 [Lantus Solostar PEN (NF)] Insulin Lispro [Humalog] 0 unit SQ ASDIR 02/06/17 Levothyroxine [Synthroid -] 200 mcg PO DAILY 02/06/17 Mag Hydrox/Al Hydrox/Simeth 355 ml PO BID 02/06/17 [Brittney-Lanta Liquid] Nortriptyline HCl [Pamelor -] 10 mg PO DAILY 02/06/17 Paroxetine HCl [Paxil] 20 mg PO DAILY 02/06/17 Sennosides [Senna] 8.6 mg PO DAILY 02/06/17 Simvastatin 20 mg PO DAILY 02/06/17 Tiotropium [place] [Spiriva] 1 inh IH DAILY 02/06/17 REVIEW OF SYSTEMS CONSTITUTIONAL: Present: generalized weakness, malaise Absent: fever, chills, diaphoresis, loss of appetite, weight change HEENT: Absent: rhinorrhea, nasal congestion, throat pain, throat swelling, difficulty swallowing, mouth swelling, ear pain, eye pain, visual changes CARDIOVASCULAR: Present: ?syncope Absent: chest pain, palpitations, irregular heart rate, lightheadedness, peripheral edema RESPIRATORY: Absent: cough, shortness of breath, dyspnea with exertion, orthopnea, wheezing, stridor, hemoptysis GASTROINTESTINAL: Absent: abdominal pain, abdominal distension, nausea, vomiting, diarrhea, constipation, melena, hematochezia GENITOURINARY: Absent: dysuria, frequency, urgency, hesitancy, hematuria, flank pain, genital pain MUSCULOSKELETAL: Absent: myalgia, arthralgia, joint swelling, back pain, neck pain SKIN: Absent: rash, itching, pallor HEMATOLOGIC/IMMUNOLOGIC: Absent: easy bleeding, easy bruising, lymphadenopathy, frequent infections ENDOCRINE: Absent: unexplained weight gain, unexplained weight loss, heat intolerance, cold intolerance NEUROLOGIC: Absent: headache, focal weakness or paresthesias, dizziness, unsteady gait, seizure, mental status changes, bladder or bowel incontinence PSYCHIATRIC: Absent: anxiety, depression, suicidal or homicidal ideation, hallucinations. PHYSICAL EXAMINATION Vital Signs - 24 hr 3 02/06/17 02/07/17 02/07/17 18:30 02:42 05:06 Temperature 97.2 F L Pulse Rate 92 H Pulse Rate [ 77 84 Both] Respiratory 18 16 17 Rate Blood Pressure 153/80 Blood Pressure 146/70 152/81 [Left] O2 Sat by Pulse 95 96 98 Oximetry (%) GENERAL: Awake, alert, and fully oriented, in no acute distress. HEAD: Normal with no signs of trauma. EYES: Pupils equal, round and reactive to light, extraocular movements intact, sclera anicteric, conjunctiva clear. No lid lag. EARS, NOSE, THROAT: Ears normal, nares patent, oropharynx clear without exudates. Moist mucous membranes. NECK: Normal range of motion, supple without lymphadenopathy, JVD, or masses. LUNGS: Breath sounds equal, clear to auscultation bilaterally. No wheezes, and no crackles. No accessory muscle use. HEART: Regular rate and rhythm, normal S1 and S2 without murmur, rub or gallop. ABDOMEN: Softly distended, nontender, normoactive bowel sounds, no guarding, no rebound, no masses. No hepatomegaly or splenomegaly. MUSCULOSKELETAL: Normal range of motion at all joints. No bony deformities or tenderness. No CVA tenderness. UPPER EXTREMITIES: 2+ pulses, warm, well-perfused. No cyanosis. No clubbing. No peripheral edema. LOWER EXTREMITIES: 2+ pulses, warm, well-perfused. No calf tenderness. + erythema B/L, some excoriations left lower extremity. No excessive warmth, 1+ edema. NEUROLOGICAL: Cranial nerves II-XII intact. Normal speech. Normal gait. PSYCHIATRIC: Cooperative. Good eye contact. Appropriate mood and affect. SKIN: Warm, dry, normal turgor, no rashes or lesions noted, normal capillary refill. Laboratory Results - last 24 hr 3 02/06/17 02/06/17 02/06/17 20:10 20:10 21:20 WBC RBC Hgb Hct MCV MCHC RDW Plt Count MPV Neutrophils % Lymphocytes % Monocytes % Eosinophils % Basophils % INR 1.13 PTT (Actin FS) 33.0 Sodium 143 Potassium 3.5 Chloride 106 Carbon Dioxide 23 Anion Gap 14 BUN 62 H D Creatinine 4.3 H Creat Clearance w eGFR 10.37 Random Glucose 89 D Calcium 7.1 L Total Bilirubin 0.2 D AST 19 D ALT 13 D Alkaline Phosphatase 120 H Total Protein 6.2 L Albumin 2.5 L Urine Color Straw Urine Appearance Clear Urine pH 6.0 Ur Specific [place] 1.012 Urine Protein 3+ H Urine Glucose (UA) 1+ H D Urine Ketones Negative Urine Blood Negative Urine Nitrite Negative Urine Bilirubin Negative Urine Urobilinogen Negative Ur Leukocyte Esterase Negative Urine RBC 1 Urine WBC 4 Urine Bacteria Rare Stool Occult Blood Blood Type Antibody Screen Crossmatch 3 02/06/17 02/06/17 02/06/17 21:20 22:41 23:53 WBC 14.7 H RBC 2.34 L D Hgb 6.5 L* D Hct 19.9 L D MCV 85.1 MCHC 32.5 RDW 15.4 Plt Count 395 MPV 7.0 L Neutrophils % 83.8 H Lymphocytes % 6.0 L D Monocytes % 4.7 D Eosinophils % 4.8 H Basophils % 0.7 INR PTT (Actin FS) Sodium Potassium Chloride Carbon Dioxide Anion Gap BUN Creatinine Creat Clearance w eGFR Random Glucose Calcium Total Bilirubin AST ALT Alkaline Phosphatase Total Protein Albumin Urine Color Urine Appearance Urine pH Ur Specific [place] Urine Protein Urine Glucose (UA) Urine Ketones Urine Blood Urine Nitrite Urine Bilirubin Urine Urobilinogen Ur Leukocyte Esterase Urine RBC Urine WBC Urine Bacteria Stool Occult Blood Positive Blood Type O NEGATIVE Antibody Screen Negative Crossmatch See Detail CT/HEAD CT WITHOUT CONTRAST Cranial CT without contrast Clinical information: altered mental status No definite interval change is identified in comparison to a previous CT exam of 10/18/2016. A moderate to large chronic right frontal cortical infarct is noted. No intracranial hemorrhage is seen. There is no evidence of acute infarction with the limitations of CT. Mild periventricular microvascular ischemic gliosis is noted. No obvious mass lesion is identified. There is no extra-axial fluid collection. Involutional changes are noted with mild ventricular dilatation. Impression: No definite interval change is identified. Moderate to large chronic right frontal cortical infarct. CXR: No acute infiltrates/effusions, official read pending ASSESSMENT/PLAN: 66yF with PMH HTN, DM, HLD, COPD, hypothyroid, CVA w/ L aliza, CKD, anemia, glaucoma presented s/p fall, ? syncope and was found to have anemia with significant drop in H/H from previous labs. fall, ? syncope - likely due to anemia - CT head negative for acute process - ECG pending, f/u same - check trop x1 to r/o ACS although no chest pain or other s/s - tele x 24 Anemia - Hgb 6.5 down from 8.2 on 01/17/17 - stool guaic positive, GI consult ordered - transfuse 2uPRBC - cont home ferrous sulfate CKD - Cr slightly above baseline, likely due to severe anemia - trend BUN/Cr - consider renal consult HTN - cont home hydralazine, norvasc, BP stable with same. DM - home dosing not specified, on DC on 01/17 was on lantus 20 units QHS, start levemir 5u BID (dose reduced by 50% due to NPO.) - BGM ACHS with novolog sliding scale COPD - cont home spiriva CVA - will hold ASA due to positive stool guaiac - cont statin hypothyroid - cont home synthroid dose glaucoma - cont home alphagan DVT PPX - deferred due to positive stool guaiac FEN - hold IVF, will be getting 2uPRBC - repeat labs ordered - NPO for now Dispo: Pt currently requires inpatient management of her emergent condition. Visit type - Emergency Visit Emergency Visit: Yes ED Registration Date: 02/06/17 Care time: The patient presented to the Emergency Department on the above date and was hospitalized for further evaluation of their emergent condition. - New Patient This patient is new to me today: Yes Date on this admission: 02/07/17 - Critical Care Critical Care patient: No
[2017-02-07] MEDS ORDERED: INSULIN DETEMIR 100 UNITS/ML MDV SQ SCH (07:00)
[2017-02-07] MEDS: INSULIN DETEMIR 100 UNITS/ML MDV SQ SCH ×2 (07:39→17:56)
[2017-02-07] MEDS: INSULIN SLIDING SCALE (NOVOLOG) 1 VIAL SQ SCH ×4 (07:39→21:34)
[2017-02-07] MEDS: LEVOTHYROXINE NA 200 MCG TABLET PO SCH (07:39)
[2017-02-07 09:08] LABS: BASOPHIL 0.9 % (0-2.0); EOSINOPHIL 5.7 % (0-4.5); MCH 27.5 pg (25.7-33.7); MEAN PLT VOLUME 7.1 fl (7.5-11.1); NEUTROPHILS 79.4 % (42.8-82.8); PLATELET COUNT 372 K/MM3 (134-434); RDW 15.5 % (11.6-15.6); WHITE BLOOD COUNT 11.1 K/mm3 (4.0-10.0)
[2017-02-07 09:20] LABS: COCKROFT - GAULT 13.872; CREATININE 4.4 mg/dL (0.55-1.02); MAGNESIUM 1.8 mg/dL (1.8-2.4); PHOSPHOROUS 4.7 mg/dL (2.5-4.9)
[2017-02-07] MEDS: FERROUS SO4 325 MG TABLET (FP) PO SCH (09:40)
[2017-02-07] MEDS: PARoxetine HCL 20 MG TABLET (FP) PO SCH (09:40)
[2017-02-07] MEDS: NORTRIPTYLINE HCL 10 MG CAPSULE PO SCH (09:40)
[2017-02-07] MEDS: ATORVASTATIN CA 10 MG TABLET (FP) PO SCH (09:40)
[2017-02-07] MEDS: ACLIDINIUM BROMIDE 400 MCG/INH AERO.POWD IH SCH ×3 (09:42→22:39)
[2017-02-07 09:50] LABS: CALCIUM 6.9 mg/dL (8.5-10.1)
[2017-02-07] MEDS ORDERED: FUROSEMIDE 40 MG TABLET (FP) PO SCH (10:00)
[2017-02-07] MEDS ORDERED: ASPIRIN 81 MG CHEWABLE TABLETS PO SCH (10:00)
[2017-02-07] MEDS ORDERED: SENNOSIDES 8.6MG TABLET (FP) PO SCH (10:00)
[2017-02-07] MEDS ORDERED: POTASSIUM CHLORIDE ORAL LIQUID 20 MEQ/15 ML PO ONE (10:15)
[2017-02-07 10:19] LABS: ALBUMIN 2.5 g/dl (3.4-5.0)
[2017-02-07 10:20] LABS: TROPONIN I 0.41 ng/ml (0.00-0.05)
[2017-02-07] MEDS ORDERED: INSULIN (NOVOLOG) ASPART 100 UNITS/ML 10ML VIAL ONE (11:41)
--- NOTE | 2017-02-07 12:31 | EKG ---
Test Reason : Blood Pressure : / mmHG Vent. Rate : 085 BPM Atrial Rate : 085 BPM P-R Int : 136 ms QRS Dur : 098 ms QT Int : 422 ms P-R-T Axes : 055 -28 114 degrees QTc Int : 502 ms NORMAL SINUS RHYTHM POSSIBLE LEFT ATRIAL ENLARGEMENT ABNORMAL QRS-T ANGLE, CONSIDER PRIMARY T WAVE ABNORMALITY PROLONGED QT ABNORMAL ECG WHEN COMPARED WITH ECG OF 12-JAN-2017 13:54, NO SIGNIFICANT CHANGE WAS FOUND Confirmed by JURGEN BRIGGS MD ([id number]) on 02/07/2017 12:31:44 PM Referred By: Confirmed By:JURGEN BRIGGS MD
[2017-02-07 14:23] VITALS: BMI 45.8
[2017-02-07 14:37] LABS: TROPONIN I 0.42 ng/ml (0.00-0.05)
[2017-02-07] MEDS: hydrALAZINE HCL 50 MG TABLET (FP) PO SCH ×2 (14:47→21:30)
[2017-02-07] MEDS: CALCIUM ACETATE 667 MG CAPSULE (FP) PO SCH ×2 (14:47→21:30)
[2017-02-07] MEDS: BRIMONIDINE TARTRATE 0.15% OPHTHALMIC 5 ML BOTTLE OD SCH ×2 (14:50→21:30)
--- NOTE | 2017-02-07 14:50 | CON.GI ---
Consult Consult Specialty:: GI Referred by:: Hospitalist Service Reason for Consultation:: Anemia - History of Present Illness Chief Complaint: Poor historian. did not give a CC History of Present Illness: 66F admitted from [place] for evaluation of syncopal/near syncopal episode. Called to evaluate anemia. Found guaiac + in ER with Hgb 6.5. Her baseline hgb in review of [facility] is 8-9. She was admitted 09/13 for evaluation of anemia. It appears as though the hospitalist ordered a GI consult at that time but the patient was discharged the next day. Ms. Holland is a poor historian. She thinks that she may have had a colonoscopy "a few years ago" at [facility]. She then said that she There has been no overt bleeding noted. She denies abdominal pain. - History Source History Provided By: Patient, Medical Record Limitations to Obtaining History: Other (? confused or simply hard of hearing) - Past Medical History STAGE HAND: Yes: CVA Cardio/Vascular: Yes: HTN, Hyperlipdemia Pulmonary: Yes: COPD ...: No Endocrine: Yes: Diabetes Mellitus Additional Medical History: Hard of hearing - Past Surgical History Past Surgical History: Yes: Cholecystectomy - Alcohol/Substance Use Hx Alcohol Use: No History of Substance Use: reports: None - Smoking History Smoking history: Former smoker Have you smoked in the past 12 months: No If you are a former smoker, when did you quit?: 3 MONTHS AGO - Social History Usual Living Arrangement: Assisted Living ADL: Support Services Occupation: Unemployed Place of : [facility] History of Recent Travel: No Home Medications - Allergies Allergies/Adverse Reactions: Allergies Allergy/AdvReac Type Severity Reaction Status Date / Time naproxen [From Naprosyn] Allergy Verified 02/06/17 19:32 propoxyphene napsylate Allergy Verified 02/06/17 19:32 [From Darvocet-N 100] tramadol Allergy Verified 02/06/17 19:32 acetaminophen [From Percocet] AdvReac Abdominal Verified 02/06/17 19:32 issues ibuprofen [From Motrin] AdvReac Abdominal Verified 02/06/17 19:32 issues oxycodone HCl [From Percocet] AdvReac Abdominal Verified 02/06/17 19:32 issues - Home Medications Home Medications: Ambulatory Orders Amlodipine Besylate [Norvasc -] 10 mg PO DAILY 02/06/17 Aspirin [ASA -] 81 mg PO DAILY 02/06/17 Brimonidine Tartrate [Alphagan 0.15% -] 1 drop OD TID 02/06/17 Calcium Acetate 667 mg PO TID 02/06/17 Diphenhydramine HCl [Benadryl -] 25 mg PO Q6H 02/06/17 Ferrous Sulfate [Feosol] 325 mg PO DAILY 02/06/17 Furosemide [Lasix] 40 mg PO BID 02/06/17 Hydralazine HCl 50 mg PO TID 02/06/17 Insulin Glargine,Hum.rec.anlog [Lantus Solostar PEN (NF)] 0 units SQ HS Insulin Lispro [Humalog] 0 unit SQ ASDIR 02/06/17 Levothyroxine [Synthroid -] 200 mcg PO DAILY 02/06/17 Mag Hydrox/Al Hydrox/Simeth [Brittney-Lanta Liquid] 355 ml PO BID 02/06/17 Nortriptyline HCl [Pamelor -] 10 mg PO DAILY 02/06/17 Paroxetine HCl [Paxil] 20 mg PO DAILY 02/06/17 Sennosides [Senna] 8.6 mg PO DAILY 02/06/17 Simvastatin 20 mg PO DAILY 02/06/17 Tiotropium [place] [Spiriva] 1 inh IH DAILY 02/06/17 Family Disease History - Family Disease History Other Family History: Unable to obtain Review of Systems - Review of Systems HENT: denies: Difficult Swallowing Respiratory: denies: Cough Gastrointestinal: denies: Abdominal Pain, Constipation, Melena, Rectal Bleeding Physical Exam-GI Vital Signs: Vital Signs Temperature 98.7 F 02/07/17 13:52 Pulse Rate 94 H 02/07/17 13:52 Respiratory Rate 20 02/07/17 13:52 Blood Pressure 134/83 02/07/17 13:52 O2 Sat by Pulse Oximetry (%) 96 02/07/17 13:01 Constitutional: Yes: Calm Eyes: No: Sclera Icterus Cardiovascular: Yes: Regular Rate and Rhythm Respiratory: Yes: CTA Bilaterally Gastrointestinal Inspection: Yes: Scars (RUQ). No: Distention ...Auscultate: Yes: Normoactive Bowel Sounds ...Palpate: Yes: Hepatomegaly. No: Tenderness, Tenderness, Rebound ...Percussion: No: Tympanitic ...Rectal Exam: Yes: Guaiac Positive (Tracely guaic positive dark brown stool) Edema: Yes (Erythema LE) Edema: LLE: 2+, RLE: 2+ Neurological: Yes: Confusion Labs: CBC, BMP 02/07/17 08:15 02/07/17 08:15 INR, PTT INR 1.13 (0.82-1.09) 02/06/17 20:10 Problem List - Problems (1) Anemia Assessment/Plan: Likely multifactorial including her renal disease. ? if her near syncopal episode was secondary to her hypoglycemia Consider Hematology evaluation Discussed EGD / Colonoscopy with Ms. Holland to exclude potential sources of GI blood loss such as ulcers, bleeding blood vessels, cancers. I needed to speak quite loudly given her difficulty hearing and her nurse Cristina was present. We discussed potential risks of the procedures like but not limited to bleeding, perforation requiring surgery to repair, infection, sedation medication effects all of which could be potentially life threatening. She agreed however seemed somewhat confused and at times stated that she did not understand. I explained to her that I would call her daughter as well to discuss the plan. the number provided in the chart did not work. EGD and colonoscopy can be performed when: 1. Ms. Holland's decision making capacity has been clarified and plan can be discussed with her daughter. The number provided in the chart was non- functioning 2. Hgb within reason ie 8-9 Consider heme evaluation Monitor H/H and for active bleeding MiraLAX 17g daily Code(s): D64.9 - ANEMIA, UNSPECIFIED Qualifiers: Anemia type: unspecified type Qualified Code(s): D64.9 - Anemia, unspecified
--- NOTE | 2017-02-07 15:46 | HOSP ---
Physical Examination Vital Signs: Vital Signs Temperature 98.7 F 02/07/17 13:52 Pulse Rate 94 H 02/07/17 13:52 Respiratory Rate 20 02/07/17 13:52 Blood Pressure 134/83 02/07/17 13:52 O2 Sat by Pulse Oximetry (%) 96 02/07/17 13:01 Labs: CBC, BMP 02/07/17 08:15 02/07/17 08:15 Hospitalist Encounter Assessment: Subjective: pt seen and examined in ED. She says she feels fine and she wants to go home. Denies SOB, CP, dizziness, SINGH. She is hard of hearing Objective: PE: Neuro: alert, awake, cn 2-12intact, no dizziness Pulm: CTAB CV: s1 s2 rrr no mrg Abd: mild erythema, white coating skin panus fold, abd soft, nt nd +bs ExT: b/l LE erythema up to knees, not warm, +1 edema, no tenderness Current Medications Generic Name Dose Route Start Last Admin Trade Name Freq PRN Reason Stop Dose Admin Aclidinium [place] 1 puff 02/07/17 10:00 02/07/17 09:42 Tudorza - IH 1 puff BID LITZY Administration Amlodipine Besylate 10 mg 02/07/17 22:00 Norvasc - PO HS LITZY Atorvastatin Calcium 10 mg 02/07/17 10:00 02/07/17 09:40 Lipitor - PO 10 mg DAILY LITZY Administration Brimonidine Tartrate 1 drop 02/07/17 14:00 02/07/17 14:50 Alphagan 0.15% - OD Not Given TID LITZY Calcium Acetate 667 mg 02/07/17 14:00 02/07/17 14:47 Phoslo - PO 667 mg TID LITZY Administration Ferrous Sulfate 325 mg 02/07/17 10:00 02/07/17 09:40 Feosol - PO 325 mg DAILY LITZY Administration Furosemide 40 mg 02/07/17 10:00 02/07/17 09:40 Lasix - PO 40 mg BID ILTZY Administration Hydralazine HCl 50 mg 02/07/17 14:00 02/07/17 14:47 Apresoline - PO 50 mg TID LITZY Administration Insulin Aspart 1 vial 02/07/17 07:00 02/07/17 11:40 Novolog Vial Sliding Scale - SQ 2 unit ACHS LITZY Administration Protocol Insulin Detemir 5 units 02/07/17 07:00 02/07/17 07:39 Levemir Vial SQ Not Given BIDI LITZY Levothyroxine Sodium 200 mcg 02/07/17 07:00 02/07/17 07:39 Synthroid - PO 200 mcg AM LITZY Administration Nortriptyline HCl 10 mg 02/07/17 10:00 02/07/17 09:40 Pamelor - PO 10 mg DAILY LITZY Administration Paroxetine HCl 20 mg 02/07/17 10:00 02/07/17 09:40 Paxil - PO 20 mg DAILY LITZY Administration Polyethylene Glycol 17 gm 02/08/17 10:00 Miralax (For Daily Use) - PO DAILY LITZY Imagin01/15/17 Echo: Normal LV size and systolic function. LVEF 65-70%. Grade I diastolic dysfunction. Normal RV size and systolic function. Mild MR. Mild TR. RVSP normal. Trivial pericardial effusion. Pleural effusion present. Assessment: 66 year old female HFpEF CHF, HTN, DM, HLD, CKD, COPD, hypothyroidism, CVA x 2 (05/2016), anemia, glaucoma admitted with witnessed syncopal episode and hgb 6.5. Plan: 1. Acute blood loss anemia - Transfused 2units PRBC - Recheck CBC at 8pm - D/w Primary manager of investigations Dr. Philip, states she has worsening under productive anemia d/t kidney disease, negative for hemolysis suspects GI blood loss - Maintained on Procrit and Iron 2. GI bleed - Stool occult positive - Will likely need EGD/colonoscopy possibly Sunday - Outpt GI Dr. Dias [phone] - Pt daughter states, pt has had colonoscopy in past - Will keep on clears for tentative prep tomorrow pending stable hgb - Can proceed with procedure per cardiology - Discussed above with GI 3. ALONZO on CKD - Cr 12/29 4.1, 01/05 3.7 and today 4.1 - Primary cook syrup maker Dr. Conroy [phone] - per daughter, was to have appt this regarding goals of care, plan was ?palliative - Continue phoslo 4. Elevated troponins - Likely demand from above - No ischemic changes on EKG - ECHO above 5. Acute on chronic CHF (HFpEF) - Start Toprol xl 25mg daily - Continue Norvasc 10mg daily - Lasix 40mg BID, will hold on 80mg for alonzo 6. Syncopal episode - Likely d/t anemia - CT head negative - ECHO above 7. HTN - Hydralazine 50mg TID 8. Hypothyroidsm - Continue Synthroid 200mcg - Check TSH 9. COPD - Continue Tudorza 10. HLD - Continue statin 11. DM II - Levemir 5mg BID - ISS, BGM ACHS Dispo: - discussed with daughter shane [phone]
--- NOTE | 2017-02-07 16:04 | CON.CARD ---
Consult Consult Specialty:: Cardiology Referred by:: Dr. Adriana Fuller Reason for Consultation:: Elevated troponins - History of Present Illness History of Present Illness: 66 yo female with HTN, DM, hyperlipidemia, CKD, COPD, hypothyroidism, CVA x2 ( last 05/2016), anemia (chronic), and recent hospitalization for acute on chronic diastolic CHF (HFpEF) on 01/12/17. Patient was now admitted from her assisted living facility for reported syncopal/near syncopal episode. It was reported that she was trying to get up out of her chair and then fell backward with her eyes rolled back. Patient currently denies any symptoms. She was found to be anemia in ED with Hgb 6.5 and positive stool occult blood. Head CT was negative for acute changes. Cardiology was consulted for mildly elevated troponins. No ischemic ECG changes were noted. 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 Cardio/Vascular: Yes: HTN, Hyperlipdemia Pulmonary: Yes: COPD Renal/: Yes: Renal Inusuff (CKD) ...: No Endocrine: Yes: Diabetes Mellitus Additional Medical History: Hard of hearing - Past Surgical History Past Surgical History: Yes: Arthrosocopy (Left knee), Cholecystectomy - Alcohol/Substance Use Hx Alcohol Use: No History of Substance Use: reports: None - Smoking History Smoking history: Former smoker Have you smoked in the past 12 months: No If you are a former smoker, when did you quit?: 3 MONTHS AGO - Social History Usual Living Arrangement: Assisted Living ADL: Support Services Occupation: Unemployed History of Recent Travel: No Home Medications - Allergies Allergies/Adverse Reactions: Allergies Allergy/AdvReac Type Severity Reaction Status Date / Time naproxen [From Naprosyn] Allergy Verified 02/06/17 19:32 propoxyphene napsylate Allergy Verified 02/06/17 19:32 [From Darvocet-N 100] tramadol Allergy Verified 02/06/17 19:32 acetaminophen [From Percocet] AdvReac Abdominal Verified 02/06/17 19:32 issues ibuprofen [From Motrin] AdvReac Abdominal Verified 02/06/17 19:32 issues oxycodone HCl [From Percocet] AdvReac Abdominal Verified 02/06/17 19:32 issues - Home Medications Home Medications: Ambulatory Orders Amlodipine Besylate [Norvasc -] 10 mg PO DAILY 02/06/17 Aspirin [ASA -] 81 mg PO DAILY 02/06/17 Brimonidine Tartrate [Alphagan 0.15% -] 1 drop OD TID 02/06/17 Calcium Acetate 667 mg PO TID 02/06/17 Diphenhydramine HCl [Benadryl -] 25 mg PO Q6H 02/06/17 Ferrous Sulfate [Feosol] 325 mg PO DAILY 02/06/17 Furosemide [Lasix] 40 mg PO BID 02/06/17 Hydralazine HCl 50 mg PO TID 02/06/17 Insulin Glargine,Hum.rec.anlog [Lantus Solostar PEN (NF)] 0 units SQ HS Insulin Lispro [Humalog] 0 unit SQ ASDIR 02/06/17 Levothyroxine [Synthroid -] 200 mcg PO DAILY 02/06/17 Mag Hydrox/Al Hydrox/Simeth [Brittney-Lanta Liquid] 355 ml PO BID 02/06/17 Nortriptyline HCl [Pamelor -] 10 mg PO DAILY 02/06/17 Paroxetine HCl [Paxil] 20 mg PO DAILY 02/06/17 Sennosides [Senna] 8.6 mg PO DAILY 02/06/17 Simvastatin 20 mg PO DAILY 02/06/17 Tiotropium [place] [Spiriva] 1 inh IH DAILY 02/06/17 Family Disease History - Family Disease History Family Disease History: Diabetes: Mother ( in her 50s from [place]), Heart Disease: Mother Review of Systems - Review of Systems Constitutional: reports: No Symptoms Eyes: reports: No Symptoms HENT: reports: No Symptoms Neck: reports: No Symptoms Cardiovascular: reports: No Symptoms, Edema. denies: Chest Pain, Palpitations, Shortness of Breath Respiratory: denies: SOB Gastrointestinal: reports: No Symptoms. denies: Abdominal Pain Genitourinary: reports: No Symptoms Vital Signs: Vital Signs Temperature 98.7 F 02/07/17 13:52 Pulse Rate 94 H 02/07/17 13:52 Respiratory Rate 20 02/07/17 13:52 Blood Pressure 134/83 02/07/17 13:52 O2 Sat by Pulse Oximetry (%) 96 02/07/17 13:01 Constitutional: Yes: No Distress Eyes: Yes: EOM Intact, PERRL HENT: Yes: Atraumatic, Normocephalic Respiratory: Yes: CTA Bilaterally Gastrointestinal: Yes: Normal Bowel Sounds. No: Soft, Tenderness JVD: No Carotid Bruit: No PMI: Non-Displaced Heart Sounds: Yes: S1, S2 Murmur: No: Systolic Murmur Edema: Yes Edema: LLE: 1+, RLE: 1+ Neurological: Yes: Alert, Other (Decreased hearing) - Other Data Labs, Other Data: CBC, BMP 02/07/17 08:15 02/07/17 08:15 INR, PTT INR 1.13 (0.82-1.09) 02/06/17 20:10 Troponin, BNP 02/07/17 02/07/17 02/07/17 08:15 08:15 13:55 Troponin I 0.41 H Cancelled 0.42 H Troponin, BNP 02/07/17 02/07/17 02/07/17 08:15 08:15 13:55 Troponin I 0.41 H Cancelled 0.42 H 02/07/17 ECG: Sinus rhythm, possible LA enlargement, non-specific T wave abnormalities, poor R wave progression Echo: Report Reviewed (01/15/17 Echo: Normal LV size and systolic function. LVEF 65-70%. Grade I diastolic dysfunction. Normal RV size and systolic function. LAE. Severe MAC. Mild MR. Mild TR. RVSP normal. Mild AV sclerosis. Mild PT. Trivial pericardial effusion. Pleural effusion present.) Imaging - Results Chest X-ray: Report Reviewed (02/06/17: Cardiomegaly, congestive changes), Image Reviewed Assessment/Plan 66 yo female with HTN, DM, hyperlipidemia, CKD, COPD, hypothyroidism, CVA x2 ( last 05/2016), anemia (chronic), and hospitalization for acute on chronic diastolic CHF (HFpEF) on 01/12/17. Now admitted from her assisted living facility for reported syncopal/near syncopal episode, and anemia with Hgb 6.5 and positive stool occult blood. Head CT was negative for acute changes. Cardiology was consulted for mildly elevated troponins of 0.42 -> 0.41, but normal CKs. No ischemic ECG changes were noted. Mildly elevated/flat trops due to CKD. Low clinical suspicion for ACS given absence of chest pain/dyspnea and ischemic ECG changes. 01/15/17 Echo: Normal LV size and systolic function. LVEF 65-70%. Grade I diastolic dysfunction. Normal RV size and systolic function. LAE. Severe MAC. Mild MR. Mild TR. RVSP normal. Mild AV sclerosis. Mild PT. Trivial pericardial effusion. RECS: Patient may proceed with GI endoscopy if clinically indicated without further cardiac work-up or intervention. No further cardiac work-up or intervention is indicated at this time with regard to her mild troponin elevation as this would not change her current medical management. If patient were found to have a positive stress test in the future, she would not be a candidate for coronary angiography/coronary re- vascularization due to the following reasons: 1) CKD (unless she starts hemodialysis in the future), 2) current anemia due to possible GI source since coronary re-vascularization would require the use of antiplatelet therapy. Patient does not appear grossly volume overloaded at this time. Will resume her furosemide 80 mg po bid. Further adjustment of diuretics as per renal service. Further recs as per GI, nephrology, and primary team. Please call with questions. Will see prn.
[2017-02-07] MEDS ORDERED: DEXTROSE 50%-WATER 50 ML VIAL IVPUSH ONE (17:50)
[2017-02-07] MEDS ORDERED: PT OWN MED DRAWER 7, Y5N ONE ×3 (17:59→21:38)
[2017-02-07] MEDS ORDERED: DEXTROSE 50%-WATER 50 ML DISP.SYRIN ONE (17:59)
[2017-02-07] MEDS: METOPROLOL SUCCINATE 25 MG TAB.SR.24H (FP) PO SCH (18:03)
[2017-02-07 20:35] LABS: BASOPHIL 0.8 % (0-2.0); EOSINOPHIL 2.4 % (0-4.5); MCH 28.3 pg (25.7-33.7); MCHC 33.2 g/dl (32.0-36.0); MEAN CELL VOLUME 85.2 fl (80-96); NEUTROPHILS 85.2 % (42.8-82.8); PLATELET COUNT 389 K/MM3 (134-434); RDW 14.8 % (11.6-15.6); WHITE BLOOD COUNT 12.7 K/mm3 (4.0-10.0)
[2017-02-07 21:22] LABS: TROPONIN I 0.54 ng/ml (0.00-0.05)
[2017-02-07] MEDS: amLODIPine BESYLATE 10 MG TABLET (FP) PO SCH (21:30)
--- NOTE | 2017-02-08 03:09 | HOSP ---
Subjective - Review of Symptoms Events since last encounter: troponin @ 8pm slightly higher, no chest pain. ordered repeat for 2am but pt refused 2am CBC and troponin, nurse reports pt became combative. Will reorder for 6am. Elevated troponin in setting of renal disease. Physical Examination Vital Signs: Vital Signs Temperature 98.1 F 02/08/17 02:00 Pulse Rate 80 02/08/17 02:00 Respiratory Rate 20 02/08/17 02:00 Blood Pressure 141/71 02/08/17 02:00 O2 Sat by Pulse Oximetry (%) 96 02/07/17 22:00 Labs: CBC, BMP 02/07/17 19:45 02/07/17 08:15
[2017-02-08] MEDS ORDERED: PT OWN MED DRAWER 7, Y5N ONE ×4 (05:27→14:31)
[2017-02-08] MEDS: hydrALAZINE HCL 50 MG TABLET (FP) PO SCH ×3 (05:50→21:16)
[2017-02-08] MEDS: BRIMONIDINE TARTRATE 0.15% OPHTHALMIC 5 ML BOTTLE OD SCH ×3 (05:50→21:17)
[2017-02-08] MEDS: CALCIUM ACETATE 667 MG CAPSULE (FP) PO SCH ×3 (05:50→21:17)
[2017-02-08] MEDS: FUROSEMIDE 40 MG TABLET (FP) PO SCH ×2 (05:50→14:33)
[2017-02-08] MEDS: LEVOTHYROXINE NA 200 MCG TABLET PO SCH ×2 (05:51→06:01)
[2017-02-08] MEDS: INSULIN SLIDING SCALE (NOVOLOG) 1 VIAL SQ SCH ×4 (06:01→21:07)
[2017-02-08] MEDS: INSULIN DETEMIR 100 UNITS/ML MDV SQ SCH ×2 (06:01→17:53)
[2017-02-08] MEDS ORDERED: PARoxetine HCL 10 MG TABLET (FP) ONE (09:08)
[2017-02-08] MEDS: FERROUS SO4 325 MG TABLET (FP) PO SCH (09:12)
[2017-02-08] MEDS: ATORVASTATIN CA 10 MG TABLET (FP) PO SCH (09:12)
[2017-02-08] MEDS: METOPROLOL SUCCINATE 25 MG TAB.SR.24H (FP) PO SCH (09:12)
[2017-02-08] MEDS: NORTRIPTYLINE HCL 10 MG CAPSULE PO SCH (09:13)
[2017-02-08] MEDS: PARoxetine HCL 20 MG TABLET (FP) PO SCH (09:13)
[2017-02-08] MEDS: POLYETHYLENE GLYCOL 3350 119 GM BTL PO SCH (09:14)
[2017-02-08] MEDS: ACLIDINIUM BROMIDE 400 MCG/INH AERO.POWD IH SCH ×2 (09:14→21:17)
[2017-02-08 10:29] LABS: BASOPHIL 0.9 % (0-2.0); EOSINOPHIL 5.3 % (0-4.5); MCH 28.8 pg (25.7-33.7); MEAN CELL VOLUME 84.8 fl (80-96); MEAN PLT VOLUME 7.1 fl (7.5-11.1); NEUTROPHILS 84.7 % (42.8-82.8); PLATELET COUNT 402 K/MM3 (134-434); RDW 15.1 % (11.6-15.6); WHITE BLOOD COUNT 13.8 K/mm3 (4.0-10.0)
[2017-02-08 11:07] LABS: ALBUMIN 2.6 g/dl (3.4-5.0); CALCIUM 7.4 mg/dL (8.5-10.1)
[2017-02-08 11:10] LABS: BILIRUBIN,TOTAL 0.4 mg/dL (0.2-1.0); COCKROFT - GAULT 14.8835; CREATININE 4.1 mg/dL (0.55-1.02); TOT PROT 6.4 g/dl (6.4-8.2)
[2017-02-08 11:27] LABS: TROPONIN I 0.49 ng/ml (0.00-0.05)
--- NOTE | 2017-02-08 14:08 | CONSULT ---
Consult Consult Specialty:: Nephrology Reason for Consultation:: CKD - History of Present Illness Chief Complaint: s/p fall/syncope History of Present Illness: Pt is a 66 year old female with pmhx of CKD stage 5, CVA, HTH, vertigo, DM, Chol , GERD and hypothyroidism who presented to the ER after a fall. She was admitted to hospital for workup. She was found to have elevated troponins and a GI bleed. I was called to evaluate her for CKD. Her mental status is at baseline. She denies shortness of breath or palpitations. She denies dysuria or hematuria. 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 Cardio/Vascular: Yes: HTN, Hyperlipdemia Pulmonary: Yes: COPD Renal/: Yes: Renal Inusuff (CKD) ...: No Endocrine: Yes: Diabetes Mellitus Additional Medical History: Hard of hearing - Past Surgical History Past Surgical History: Yes: Arthrosocopy (Left knee), Cholecystectomy - Alcohol/Substance Use Hx Alcohol Use: No History of Substance Use: reports: None - Smoking History Smoking history: Former smoker Have you smoked in the past 12 months: No If you are a former smoker, when did you quit?: 3 MONTHS AGO - Social History Usual Living Arrangement: Assisted Living ADL: Support Services Occupation: Unemployed History of Recent Travel: No Home Medications - Allergies Allergies/Adverse Reactions: Allergies Allergy/AdvReac Type Severity Reaction Status Date / Time naproxen [From Naprosyn] Allergy Verified 02/06/17 19:32 propoxyphene napsylate Allergy Verified 02/06/17 19:32 [From Darvocet-N 100] tramadol Allergy Verified 02/06/17 19:32 acetaminophen [From Percocet] AdvReac Abdominal Verified 02/06/17 19:32 issues ibuprofen [From Motrin] AdvReac Abdominal Verified 02/06/17 19:32 issues oxycodone HCl [From Percocet] AdvReac Abdominal Verified 02/06/17 19:32 issues - Home Medications Home Medications: Ambulatory Orders Amlodipine Besylate [Norvasc -] 10 mg PO DAILY 02/06/17 Aspirin [ASA -] 81 mg PO DAILY 02/06/17 Brimonidine Tartrate [Alphagan 0.15% -] 1 drop OD TID 02/06/17 Calcium Acetate 667 mg PO TID 02/06/17 Diphenhydramine HCl [Benadryl -] 25 mg PO Q6H 02/06/17 Ferrous Sulfate [Feosol] 325 mg PO DAILY 02/06/17 Furosemide [Lasix] 40 mg PO BID 02/06/17 Hydralazine HCl 50 mg PO TID 02/06/17 Insulin Glargine,Hum.rec.anlog [Lantus Solostar PEN (NF)] 0 units SQ HS Insulin Lispro [Humalog] 0 unit SQ ASDIR 02/06/17 Levothyroxine [Synthroid -] 200 mcg PO DAILY 02/06/17 Mag Hydrox/Al Hydrox/Simeth [Brittney-Lanta Liquid] 355 ml PO BID 02/06/17 Nortriptyline HCl [Pamelor -] 10 mg PO DAILY 02/06/17 Paroxetine HCl [Paxil] 20 mg PO DAILY 02/06/17 Sennosides [Senna] 8.6 mg PO DAILY 02/06/17 Simvastatin 20 mg PO DAILY 02/06/17 Tiotropium [place] [Spiriva] 1 inh IH DAILY 02/06/17 Family Disease History - Family Disease History Family Disease History: Diabetes: Mother ( in her 50s from [place]), Heart Disease: Mother Other Family History: Unable to obtain Review of Systems - Review of Systems Constitutional: reports: No Symptoms Eyes: reports: No Symptoms HENT: reports: No Symptoms Cardiovascular: reports: Edema Respiratory: reports: Cough Musculoskeletal: reports: Muscle Weakness Neurological: reports: Change in LOC Endocrine: reports: No Symptoms Physical Exam Vital Signs: Vital Signs Temperature 98.2 F 02/08/17 10:00 Pulse Rate 78 02/08/17 10:00 Respiratory Rate 20 02/08/17 10:00 Blood Pressure 146/78 02/08/17 10:00 O2 Sat by Pulse Oximetry (%) 96 02/08/17 10:00 Constitutional: Yes: Calm Eyes: Yes: Conjunctiva Clear HENT: Yes: Atraumatic Neck: Yes: Supple Cardiovascular: Yes: S1, S2 Respiratory: Yes: On Nasal O2, Rhonchi Gastrointestinal: Yes: Soft Musculoskeletal: Yes: Muscle Weakness Edema: Yes Edema: LLE: 1+, RLE: 1+ Neurological: Yes: Oriented Labs: CBC, BMP 02/08/17 09:44 02/08/17 09:44 Laboratory Tests 02/06/17 02/06/17 02/07/17 20:10 21:20 08:15 WBC Hgb 6.5 L* D 6.5 L* RDW Plt Count INR 1.13 PTT (Actin FS) 33.0 Sodium Potassium Chloride Carbon Dioxide Anion Gap BUN Creatinine Troponin I 02/07/17 02/07/17 02/07/17 08:15 13:55 19:45 WBC 12.7 H Hgb 9.6 L D RDW Plt Count 389 INR PTT (Actin FS) Sodium Potassium Chloride Carbon Dioxide Anion Gap BUN Creatinine 4.4 H Troponin I 0.42 H 02/07/17 02/08/17 02/08/17 19:45 09:44 09:44 WBC 13.8 H Hgb 10.7 D RDW 15.1 Plt Count INR PTT (Actin FS) Sodium 144 Potassium 3.7 Chloride 105 Carbon Dioxide 25 Anion Gap 14 BUN 54 H Creatinine 4.1 H Troponin I 0.54 H 0.49 H Imaging - Results Chest X-ray: Report Reviewed Problem List - Problems (1) Anemia Code(s): D64.9 - ANEMIA, UNSPECIFIED Qualifiers: Anemia type: unspecified type Qualified Code(s): D64.9 - Anemia, unspecified (2) Guaiac + stool Code(s): R19.5 - OTHER FECAL ABNORMALITIES (3) Chronic renal failure Code(s): N18.9 - CHRONIC KIDNEY DISEASE, UNSPECIFIED Qualifiers: Chronic kidney disease stage: unspecified stage Qualified Code(s): N18.9 - Chronic kidney disease, unspecified Assessment/Plan Current Medications Generic Name Dose Route Start Last Admin Trade Name Freq PRN Reason Stop Dose Admin Aclidinium [place] 1 puff 02/07/17 10:00 02/08/17 09:14 Tudorza - IH 1 puff BID LITZY Administration Amlodipine Besylate 10 mg 02/07/17 22:00 02/07/17 21:30 Norvasc - PO 10 mg HS LITZY Administration Atorvastatin Calcium 10 mg 02/07/17 10:00 02/08/17 09:12 Lipitor - PO 10 mg DAILY LITZY Administration Brimonidine Tartrate 1 drop 02/07/17 14:00 02/08/17 05:50 Alphagan 0.15% - OD 1 drop TID LITZY Administration Calcium Acetate 667 mg 02/07/17 14:00 02/08/17 05:50 Phoslo - PO 667 mg TID LITZY Administration Ferrous Sulfate 325 mg 02/07/17 10:00 02/08/17 09:12 Feosol - PO 325 mg DAILY LITZY Administration Furosemide 80 mg 02/08/17 06:00 02/08/17 05:50 Lasix - PO 80 mg BID@0600,1400 LITZY Administration Hydralazine HCl 50 mg 02/07/17 14:00 02/08/17 05:50 Apresoline - PO 50 mg TID LITZY Administration Insulin Aspart 1 vial 02/07/17 07:00 02/08/17 12:52 Novolog Vial Sliding Scale - SQ Not Given ACHS [facility] Protocol Insulin Detemir 5 units 02/07/17 07:00 02/08/17 06:01 Levemir Vial SQ Not Given BIDI [facility] Levothyroxine Sodium 200 mcg 02/07/17 07:00 02/08/17 06:01 Synthroid - PO Not Given AM LITZY Metoprolol Succinate 25 mg 02/07/17 17:15 02/08/17 09:12 Toprol Xl - PO 25 mg DAILY LITZY Administration Nortriptyline HCl 10 mg 02/07/17 10:00 02/08/17 09:13 Pamelor - PO 10 mg DAILY LITZY Administration Paroxetine HCl 20 mg 02/07/17 10:00 02/08/17 09:13 Paxil - PO 20 mg DAILY LITZY Administration Polyethylene Glycol 17 gm 02/08/17 10:00 02/08/17 09:14 Miralax (For Daily Use) - PO 17 gm DAILY LITZY Administration Impression 1. CKD with acute component 2. HTN 3. DM 4. CVA 5. smoking history 6. pleural effusions 7. anemia 8. COPD 9. CHF 10. positive nathan 11. 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
--- NOTE | 2017-02-08 16:17 | PN ---
GI Progress Note Subjective: No acute events No abdominal pain - Objective Vital Signs: Vital Signs Temperature 98.0 F 02/08/17 14:45 Pulse Rate 76 02/08/17 14:45 Respiratory Rate 18 02/08/17 14:45 Blood Pressure 142/72 02/08/17 14:45 O2 Sat by Pulse Oximetry (%) 96 02/08/17 10:00 Constitutional: Calm Cardiovascular: Yes: Regular Rate and Rhythm Respiratory: Yes: CTA Bilaterally Gastrointestinal Inspection: No: Distention ...Auscultate: Yes: Normoactive Bowel Sounds ...Palpate: No: Tenderness Edema: Yes Labs: CBC, BMP 02/08/17 09:44 02/08/17 09:44 INR, PTT INR 1.13 (0.82-1.09) 02/06/17 20:10 Problem List - Problems (1) Anemia Assessment/Plan: Had d/w Ms. Holland's daughter earlier. She was concerned about her mother undergoing invasive testing because she was certain she had seen Her GI Dr. Zabala recently. I subsequently called Dr. Zabala's office and he called me back. SHe has not had any procedures performed anytime recently. I called back Ms. Holland's daughter to discuss this however her voicemail box was full. Clears for now for possible procedures tomorrow if she can be reached Code(s): D64.9 - ANEMIA, UNSPECIFIED Qualifiers: Anemia type: unspecified type Qualified Code(s): D64.9 - Anemia, unspecified
--- NOTE | 2017-02-08 16:42 | PN ---
Physical Exam: SUBJECTIVE: Patient seen and examined. she feels better than yesterday, she is eating, has no acute complaints. OBJECTIVE: Vital Signs Period Temp Pulse Resp BP Sys/Gonsalez Pulse Ox Last 24 Hr 97.5 F-98.2 F 69-94 18-20 141-156/71-78 96-96 PE: Neuro: alert, awake, cn 2-12intact HEENT: hard of hearing Pulm: CTAB CV: s1 s2 rrr no mrg Abd: abd soft, nt nd +bs ExT: b/l LE erythema up to knees, not warm, +1 edema, no tenderness CBCD WBC 13.8 K/mm3 (4.0-10.0) H 02/08/17 09:44 RBC 3.72 M/mm3 (3.60-5.2) 02/08/17 09:44 Hgb 10.7 GM/dL (10.7-15.3) D 02/08/17 09:44 Hct 31.6 % (32.4-45.2) L 02/08/17 09:44 MCV 84.8 fl (80-96) 02/08/17 09:44 MCHC 34.0 g/dl (32.0-36.0) 02/08/17 09:44 RDW 15.1 % (11.6-15.6) 02/08/17 09:44 Plt Count 402 K/MM3 (134-434) 02/08/17 09:44 MPV 7.1 fl (7.5-11.1) L 02/08/17 09:44 CMP Sodium 144 mmol/L (136-145) 02/08/17 09:44 Potassium 3.7 mmol/L (3.5-5.1) 02/08/17 09:44 Chloride 105 mmol/L (98-107) 02/08/17 09:44 Carbon Dioxide 25 mmol/L (21-32) 02/08/17 09:44 Anion Gap 14 (8-16) 02/08/17 09:44 BUN 54 mg/dL (7-18) H 02/08/17 09:44 Creatinine 4.1 mg/dL (0.55-1.02) H 02/08/17 09:44 Creat Clearance w eGFR 10.96 (>60) 02/08/17 09:44 Calcium 7.4 mg/dL (8.5-10.1) L 02/08/17 09:44 Total Bilirubin 0.4 mg/dL (0.2-1.0) D 02/08/17 09:44 AST 22 U/L (15-37) 02/08/17 09:44 ALT 13 U/L (12-78) 02/08/17 09:44 Alkaline Phosphatase 113 U/L (45-117) 02/08/17 09:44 Total Protein 6.4 g/dl (6.4-8.2) 02/08/17 09:44 Albumin 2.6 g/dl (3.4-5.0) L 02/08/17 09:44 02/07/17 02/07/17 02/08/17 13:55 19:45 09:44 Creatine Kinase 76 Troponin I 0.42 H 0.54 H 0.49 H Active Medications Generic Name Dose Route Start Last Admin Trade Name Freq PRN Reason Stop Dose Admin Aclidinium [place] 1 puff 02/07/17 10:00 02/08/17 09:14 Tudorza - IH 1 puff BID LITZY Administration Amlodipine Besylate 10 mg 02/07/17 22:00 02/07/17 21:30 Norvasc - PO 10 mg HS LITZY Administration Atorvastatin Calcium 10 mg 02/07/17 10:00 02/08/17 09:12 Lipitor - PO 10 mg DAILY LITZY Administration Brimonidine Tartrate 1 drop 02/07/17 14:00 02/08/17 14:33 Alphagan 0.15% - OD 1 drop TID LITZY Administration Calcium Acetate 667 mg 02/07/17 14:00 02/08/17 14:33 Phoslo - PO 667 mg TID LITZY Administration Ferrous Sulfate 325 mg 02/07/17 10:00 02/08/17 09:12 Feosol - PO 325 mg DAILY LITZY Administration Furosemide 80 mg 02/08/17 06:00 02/08/17 14:33 Lasix - PO 80 mg BID@0600,1400 LITZY Administration Hydralazine HCl 50 mg 02/07/17 14:00 02/08/17 14:33 Apresoline - PO 50 mg TID LITZY Administration Insulin Aspart 1 vial 02/07/17 07:00 02/08/17 12:52 Novolog Vial Sliding Scale - SQ Not Given ACHS [facility] Protocol Insulin Detemir 5 units 02/07/17 07:00 02/08/17 06:01 Levemir Vial SQ Not Given BIDI [facility] Levothyroxine Sodium 200 mcg 02/07/17 07:00 02/08/17 06:01 Synthroid - PO Not Given AM LITZY Metoprolol Succinate 25 mg 02/07/17 17:15 02/08/17 09:12 Toprol Xl - PO 25 mg DAILY LITZY Administration Nortriptyline HCl 10 mg 02/07/17 10:00 02/08/17 09:13 Pamelor - PO 10 mg DAILY LITZY Administration Paroxetine HCl 20 mg 02/07/17 10:00 02/08/17 09:13 Paxil - PO 20 mg DAILY LITZY Administration Polyethylene Glycol 17 gm 02/08/17 10:00 02/08/17 09:14 Miralax (For Daily Use) - PO 17 gm DAILY LITZY Administration Imagin01/15/17 Echo: Normal LV size and systolic function. LVEF 65-70%. Grade I diastolic dysfunction. Normal RV size and systolic function. Mild MR. Mild TR. RVSP normal. Trivial pericardial effusion. Pleural effusion present. Assessment: 66 year old female HFpEF CHF, HTN, DM, HLD, CKD, COPD, hypothyroidism, CVA x 2 (05/2016), anemia, glaucoma admitted with witnessed syncopal episode and hgb 6.5. Plan: 1. Acute blood loss anemia - Under productive anemia d/t CKD per Dr. Philip, ? GI loss - Hgb stable - s/p 2uPRBC 02/08 - Maintained on Procrit and Iron 2. GI bleed - For EGD/colonoscopy tomorrow if consent per daughter - Can proceed with procedure per cardiology - D/w GI 3. ALONZO on CKD - Per renal plan is palliative moving fwd - Lasix 80mg BID - CXR in am - Continue phoslo 4. Elevated troponins - Trops mildly uptrended, then decreasing - Will trend - No AC d/t bleeding 5. Acute on chronic CHF (HFpEF) - Toprol xl 25mg daily - Continue Norvasc 10mg daily - Continue lasix 6. Syncopal episode - Likely d/t anemia - CT head negative - ECHO above 7. HTN - Hydralazine 50mg TID 8. Hypothyroidsm - Continue Synthroid 200mcg - Check TSH 9. COPD - Continue Tudorza 10. HLD - Continue statin 11. DM II - Levemir 5mg BID - ISS, BGM ACHS Dispo: - Daughter shane [phone] Visit type - Emergency Visit Emergency Visit: Yes ED Registration Date: 02/07/17 Care time: The patient presented to the Emergency Department on the above date and was hospitalized for further evaluation of their emergent condition. - New Patient This patient is new to me today: Yes Date on this admission: 02/08/17 - Critical Care Critical Care patient: No
[2017-02-08] MEDS ORDERED: BISACODYL 5 MG TABLET.DR (FP) PO ONE (18:56)
--- NOTE | 2017-02-08 18:58 | PN ---
Progress Note (short form) - Note Progress Note: Discussed conversation I had with Dr. Vera today. Roxann is OK proceeding with procedures as is Ms. Holland Problem List - Problems (1) Anemia Code(s): D64.9 - ANEMIA, UNSPECIFIED Qualifiers: Anemia type: unspecified type Qualified Code(s): D64.9 - Anemia, unspecified
[2017-02-08] MEDS ORDERED: PEG3350/SOD SULF,BICARB,CL/KCL 4,000 ML SOLN.RECON PO ONE (20:00)
[2017-02-08] MEDS: amLODIPine BESYLATE 10 MG TABLET (FP) PO SCH (21:16)
[2017-02-09] MEDS ORDERED: DEXTROSE 5%-0.45% SALINE 1,000 ML IV SCH ×2 (00:01)
[2017-02-09] MEDS: INSULIN SLIDING SCALE (NOVOLOG) 1 VIAL SQ SCH ×4 (06:05→21:38)
[2017-02-09] MEDS: INSULIN DETEMIR 100 UNITS/ML MDV SQ SCH ×2 (06:05→16:55)
[2017-02-09] MEDS: FUROSEMIDE 40 MG TABLET (FP) PO SCH ×2 (06:37→14:23)
[2017-02-09] MEDS: hydrALAZINE HCL 50 MG TABLET (FP) PO SCH ×3 (06:37→21:36)
[2017-02-09] MEDS: CALCIUM ACETATE 667 MG CAPSULE (FP) PO SCH ×3 (06:38→21:37)
[2017-02-09] MEDS: LEVOTHYROXINE NA 200 MCG TABLET PO SCH (06:38)
[2017-02-09] MEDS: BRIMONIDINE TARTRATE 0.15% OPHTHALMIC 5 ML BOTTLE OD SCH ×3 (06:38→21:36)
[2017-02-09 07:34] LABS: BASOPHIL 0.6 % (0-2.0); EOSINOPHIL 4.3 % (0-4.5); MCH 28.8 pg (25.7-33.7); MCHC 34.2 g/dl (32.0-36.0); MEAN CELL VOLUME 84.4 fl (80-96); MEAN PLT VOLUME 7.1 fl (7.5-11.1); NEUTROPHILS 85.4 % (42.8-82.8); PLATELET COUNT 445 K/MM3 (134-434); WHITE BLOOD COUNT 17.7 K/mm3 (4.0-10.0)
[2017-02-09 07:57] LABS: CALCIUM 7.8 mg/dL (8.5-10.1); COCKROFT - GAULT 14.8835; CREATININE 4.1 mg/dL (0.55-1.02)
[2017-02-09] MEDS: POLYETHYLENE GLYCOL 3350 119 GM BTL PO SCH ×2 (10:27→21:42)
[2017-02-09] MEDS: ATORVASTATIN CA 10 MG TABLET (FP) PO SCH (10:27)
[2017-02-09] MEDS: PARoxetine HCL 20 MG TABLET (FP) PO SCH (10:27)
[2017-02-09] MEDS: NORTRIPTYLINE HCL 10 MG CAPSULE PO SCH (10:27)
[2017-02-09] MEDS ORDERED: PARoxetine HCL 10 MG TABLET (FP) ONE (10:34)
[2017-02-09] MEDS: FERROUS SO4 325 MG TABLET (FP) PO SCH (10:37)
[2017-02-09] MEDS: ACLIDINIUM BROMIDE 400 MCG/INH AERO.POWD IH SCH ×2 (10:38→21:37)
[2017-02-09] MEDS: METOPROLOL SUCCINATE 25 MG TAB.SR.24H (FP) PO SCH (10:38)
--- NOTE | 2017-02-09 15:07 | PN ---
Progress Note (short form) - Note Progress Note: GI Procedure Note: Colonoscopy cancelled when patient could not do a bowel prep. Was going to do EGD today but staff has been unable to reach family to procure consent so this also has been cancelled. Please recall us if/when consent can be procured. Dr Mckay will be covering this weekend. Will empirically continue Miralax.
--- NOTE | 2017-02-09 15:10 | PN ---
Physical Exam: SUBJECTIVE: Patient seen and examined. She appears comfortable, asking to go home. She did not drink the PO contrast. OBJECTIVE: Vital Signs Period Temp Pulse Resp BP Sys/Gonsalez Pulse Ox Last 24 Hr 97.6 F-98.5 F 73-93 18-18 144-161/78-86 96-96 PE: Neuro: alert, awake, cn 2-12intact Pulm: CTAB CV: s1 s2 rrr no mrg Abd: soft, nt nd +bs Ext: b/l LE erythema up to knees-improving, trace le edema Skin: dry with skin flakes CBCD WBC 17.7 K/mm3 (4.0-10.0) H 02/09/17 06:00 RBC 3.81 M/mm3 (3.60-5.2) 02/09/17 06:00 Hgb 11.0 GM/dL (10.7-15.3) 02/09/17 06:00 Hct 32.2 % (32.4-45.2) L 02/09/17 06:00 MCV 84.4 fl (80-96) 02/09/17 06:00 MCHC 34.2 g/dl (32.0-36.0) 02/09/17 06:00 RDW 15.0 % (11.6-15.6) 02/09/17 06:00 Plt Count 445 K/MM3 (134-434) H 02/09/17 06:00 MPV 7.1 fl (7.5-11.1) L 02/09/17 06:00 CMP Sodium 144 mmol/L (136-145) 02/09/17 06:00 Potassium 3.4 mmol/L (3.5-5.1) L 02/09/17 06:00 Chloride 105 mmol/L (98-107) 02/09/17 06:00 Carbon Dioxide 28 mmol/L (21-32) 02/09/17 06:00 Anion Gap 11 (8-16) 02/09/17 06:00 BUN 54 mg/dL (7-18) H 02/09/17 06:00 Creatinine 4.1 mg/dL (0.55-1.02) H 02/09/17 06:00 Creat Clearance w eGFR 10.96 (>60) 02/08/17 09:44 Calcium 7.8 mg/dL (8.5-10.1) L 02/09/17 06:00 Total Bilirubin 0.4 mg/dL (0.2-1.0) D 02/08/17 09:44 AST 22 U/L (15-37) 02/08/17 09:44 ALT 13 U/L (12-78) 02/08/17 09:44 Alkaline Phosphatase 113 U/L (45-117) 02/08/17 09:44 Total Protein 6.4 g/dl (6.4-8.2) 02/08/17 09:44 Albumin 2.6 g/dl (3.4-5.0) L 02/08/17 09:44 Active Medications Generic Name Dose Route Start Last Admin Trade Name Freq PRN Reason Stop Dose Admin Aclidinium [place] 1 puff 02/07/17 10:00 02/09/17 10:38 Tudorza - IH 1 puff BID [facility] Administration Amlodipine Besylate 10 mg 02/07/17 22:00 02/08/17 21:16 Norvasc - PO 10 mg HS [facility] Administration Atorvastatin Calcium 10 mg 02/07/17 10:00 02/09/17 10:27 Lipitor - PO Not Given DAILY [facility] Brimonidine Tartrate 1 drop 02/07/17 14:00 02/09/17 14:22 Alphagan 0.15% - OD 1 drop TID [facility] Administration Calcium Acetate 667 mg 02/07/17 14:00 02/09/17 14:22 Phoslo - PO Not Given TID [facility] Ferrous Sulfate 325 mg 02/07/17 10:00 02/09/17 10:37 Feosol - PO Not Given DAILY [facility] Furosemide 80 mg 02/08/17 06:00 02/09/17 14:23 Lasix - PO 80 mg BID@0600,1400 [facility] Administration Hydralazine HCl 50 mg 02/07/17 14:00 02/09/17 14:23 Apresoline - PO 50 mg TID [facility] Administration Dextrose/Sodium Chloride 1,000 mls @ 30 mls/hr 02/09/17 00:01 02/09/17 00:30 D5-1/2ns - IV 30 mls/hr ASDIR [facility] Administration Insulin Aspart 1 vial 02/07/17 07:00 02/09/17 11:02 Novolog Vial Sliding Scale - SQ Not Given ACHS [facility] Protocol Insulin Detemir 5 units 02/07/17 07:00 02/09/17 06:05 Levemir Vial SQ Not Given BIDI [facility] Levothyroxine Sodium 200 mcg 02/07/17 07:00 02/09/17 06:38 Synthroid - PO 200 mcg AM [facility] Administration Metoprolol Succinate 25 mg 02/07/17 17:15 02/09/17 10:38 Toprol Xl - PO 25 mg DAILY [facility] Administration Nortriptyline HCl 10 mg 02/07/17 10:00 02/09/17 10:27 Pamelor - PO Not Given DAILY [facility] Paroxetine HCl 20 mg 02/07/17 10:00 02/09/17 10:27 Paxil - PO Not Given DAILY [facility] Polyethylene Glycol 17 gm 02/08/17 10:00 02/09/17 10:27 Miralax (For Daily Use) - PO Not Given DAILY [facility] Imaging: - 01/15/17 Echo: Normal LV size and systolic function. LVEF 65-70%. Grade I diastolic dysfunction. Normal RV size and systolic function. Mild MR. Mild TR. RVSP normal. Trivial pericardial effusion. Pleural effusion present. - CT head negative Assessment: 66 year old female HFpEF CHF, HTN, DM, HLD, CKD, COPD, hypothyroidism, CVA x 2 (05/2016), anemia, glaucoma admitted with witnessed syncopal episode and hgb 6.5. Plan: 1. GI bleed - Unable to gain consent from daughter today for EGD/colonoscopy - Will re schedule when consent obtained, per GI - Can proceed with procedure per cardiology 2. Acute blood loss anemia - Hgb stable - Under productive anemia d/t CKD per Dr. Philip, ? GI loss - Transfused 2UPRBC 02/08 - Maintained on Procrit and Iron 3. ALONZO on CKD - Per renal plan is palliative moving fwd - Decrease lasix 60mg BID - CXR ordered- follow up - Continue phoslo 4. Elevated troponins - Follow enzymes tomorrow - No AC d/t bleeding 5. Acute on chronic CHF (HFpEF) - Toprol xl 25mg daily - Continue Norvasc 10mg daily - Continue Lasix 6. Syncopal episode - Likely d/t anemia - ECHO above 7. HTN - Hydralazine 50mg TID 8. Hypothyroidism - Continue Synthroid 200mcg 9. COPD - Continue Tudorza 10. HLD - Continue Statin 11. DM II - Levemir 5mg BID - ISS, BGM ACHS Dispo: - Daughter Roxann [phone] Visit type - Emergency Visit Emergency Visit: Yes ED Registration Date: 02/07/17 Care time: The patient presented to the Emergency Department on the above date and was hospitalized for further evaluation of their emergent condition. - New Patient This patient is new to me today: No - Critical Care Critical Care patient: No
[2017-02-09] MEDS ORDERED: POTASSIUM CHLORIDE ORAL LIQUID 20 MEQ/15 ML PO ONE ×2 (15:11→15:35)
--- NOTE | 2017-02-09 15:36 | PN ---
Progress Note, Physician History of Present Illness: Pt seen and examined at bedside. She is awake and appears comfortable. She denies shortness of breath. - Current Medication List Current Medications: Active Medications Aclidinium [place] (Tudorza -) 1 puff IH BID [facility] Last Admin: 02/09/17 10:38 Dose: 1 puff Amlodipine Besylate (Norvasc -) 10 mg PO HS [facility] Last Admin: 02/08/17 21:16 Dose: 10 mg Atorvastatin Calcium (Lipitor -) 10 mg PO DAILY [facility] Last Admin: 02/09/17 10:27 Dose: Not Given Brimonidine Tartrate (Alphagan 0.15% -) 1 drop OD TID [facility] Last Admin: 02/09/17 14:22 Dose: 1 drop Calcium Acetate (Phoslo -) 667 mg PO TID [facility] Last Admin: 02/09/17 14:22 Dose: Not Given Ferrous Sulfate (Feosol -) 325 mg PO DAILY [facility] Last Admin: 02/09/17 10:37 Dose: Not Given Furosemide (Lasix -) 80 mg PO BID@0600,1400 [facility] Last Admin: 02/09/17 14:23 Dose: 80 mg Hydralazine HCl (Apresoline -) 50 mg PO TID [facility] Last Admin: 02/09/17 14:23 Dose: 50 mg Dextrose/Sodium Chloride (D5-1/2ns -) 1,000 mls @ 30 mls/hr IV ASDIR [facility] Last Admin: 02/09/17 00:30 Dose: 30 mls/hr Insulin Aspart (Novolog Vial Sliding Scale -) 1 vial SQ ACHS [facility] PRN Reason: Protocol Last Admin: 02/09/17 11:02 Dose: Not Given Insulin Detemir (Levemir Vial) 5 units SQ BIDI [facility] Last Admin: 02/09/17 06:05 Dose: Not Given Levothyroxine Sodium (Synthroid -) 200 mcg PO AM [facility] Last Admin: 02/09/17 06:38 Dose: 200 mcg Metoprolol Succinate (Toprol Xl -) 25 mg PO DAILY [facility] Last Admin: 02/09/17 10:38 Dose: 25 mg Nortriptyline HCl (Pamelor -) 10 mg PO DAILY [facility] Last Admin: 02/09/17 10:27 Dose: Not Given Paroxetine HCl (Paxil -) 20 mg PO DAILY [facility] Last Admin: 02/09/17 10:27 Dose: Not Given Polyethylene Glycol (Miralax (For Daily Use) -) 17 gm PO TID [facility] - Objective Vital Signs: Vital Signs Temperature 98.5 F 02/09/17 14:20 Pulse Rate 86 02/09/17 14:20 Respiratory Rate 18 02/09/17 14:20 Blood Pressure 155/86 02/09/17 14:20 O2 Sat by Pulse Oximetry (%) 96 02/09/17 10:00 Constitutional: Yes: Calm Eyes: Yes: Conjunctiva Clear HENT: Yes: Atraumatic Neck: Yes: Supple Cardiovascular: Yes: S1, S2 Respiratory: Yes: CTA Bilaterally Gastrointestinal: Yes: Soft, Abdomen, Obese Musculoskeletal: Yes: WNL Edema: Yes Edema: LLE: 1+, RLE: 1+ Neurological: Yes: Confusion Labs: CBC, BMP 02/09/17 06:00 02/09/17 06:00 INR, PTT INR 1.13 (0.82-1.09) 02/06/17 20:10 Problem List - Problems (1) Anemia Code(s): D64.9 - ANEMIA, UNSPECIFIED Qualifiers: Anemia type: unspecified type Qualified Code(s): D64.9 - Anemia, unspecified (2) Guaiac + stool Code(s): R19.5 - OTHER FECAL ABNORMALITIES (3) Chronic renal failure Code(s): N18.9 - CHRONIC KIDNEY DISEASE, UNSPECIFIED Qualifiers: Chronic kidney disease stage: unspecified stage Qualified Code(s): N18.9 - Chronic kidney disease, unspecified Assessment/Plan Current Medications Generic Name Dose Route Start Last Admin Trade Name Melania PRN Reason Stop Dose Admin Aclidinium [place] 1 puff 02/07/17 10:00 02/09/17 10:38 Tudorza - IH 1 puff BID [facility] Administration Amlodipine Besylate 10 mg 02/07/17 22:00 02/08/17 21:16 Norvasc - PO 10 mg HS [facility] Administration Atorvastatin Calcium 10 mg 02/07/17 10:00 02/09/17 10:27 Lipitor - PO Not Given DAILY [facility] Brimonidine Tartrate 1 drop 02/07/17 14:00 02/09/17 14:22 Alphagan 0.15% - OD 1 drop TID [facility] Administration Calcium Acetate 667 mg 02/07/17 14:00 02/09/17 14:22 Phoslo - PO Not Given TID [facility] Ferrous Sulfate 325 mg 02/07/17 10:00 02/09/17 10:37 Feosol - PO Not Given DAILY [facility] Furosemide 80 mg 02/08/17 06:00 02/09/17 14:23 Lasix - PO 80 mg BID@0600,1400 [facility] Administration Hydralazine HCl 50 mg 02/07/17 14:00 02/09/17 14:23 Apresoline - PO 50 mg TID [facility] Administration Dextrose/Sodium Chloride 1,000 mls @ 30 mls/hr 02/09/17 00:01 02/09/17 00:30 D5-1/2ns - IV 30 mls/hr ASDIR [facility] Administration Insulin Aspart 1 vial 02/07/17 07:00 02/09/17 11:02 Novolog Vial Sliding Scale - SQ Not Given ACHS [facility] Protocol Insulin Detemir 5 units 02/07/17 07:00 02/09/17 06:05 Levemir Vial SQ Not Given BIDI [facility] Levothyroxine Sodium 200 mcg 02/07/17 07:00 02/09/17 06:38 Synthroid - PO 200 mcg AM [facility] Administration Metoprolol Succinate 25 mg 02/07/17 17:15 02/09/17 10:38 Toprol Xl - PO 25 mg DAILY [facility] Administration Nortriptyline HCl 10 mg 02/07/17 10:00 02/09/17 10:27 Pamelor - PO Not Given DAILY [facility] Paroxetine HCl 20 mg 02/07/17 10:00 02/09/17 10:27 Paxil - PO Not Given DAILY [facility] Polyethylene Glycol 17 gm 02/09/17 22:00 Miralax (For Daily Use) - PO TID [facility] Impression 1. CKD with acute component 2. HTN 3. DM 4. CVA 5. smoking history 6. pleural effusions 7. anemia 8. COPD 9. CHF 10. positive nathan 11. Hepatitis B Plan - renal function is stable - replace potassium - cont with lasix, can decrease dose - stop dextrose once she starts eating. It was started for hypoglycemia - discussed with medical team Dr Patel
[2017-02-09] MEDS ORDERED: PT OWN MED DRAWER 7, Y5N ONE (21:23)
[2017-02-09] MEDS: amLODIPine BESYLATE 10 MG TABLET (FP) PO SCH (21:37)
[2017-02-10] MEDS: BRIMONIDINE TARTRATE 0.15% OPHTHALMIC 5 ML BOTTLE OD SCH ×3 (06:35→22:37)
[2017-02-10] MEDS: hydrALAZINE HCL 50 MG TABLET (FP) PO SCH ×3 (06:36→22:37)
[2017-02-10] MEDS: FUROSEMIDE 40 MG TABLET (FP) PO SCH ×3 (06:36→14:22)
[2017-02-10] MEDS: LEVOTHYROXINE NA 200 MCG TABLET PO SCH (06:36)
[2017-02-10] MEDS: INSULIN DETEMIR 100 UNITS/ML MDV SQ SCH ×2 (06:37→17:32)
[2017-02-10] MEDS: CALCIUM ACETATE 667 MG CAPSULE (FP) PO SCH ×3 (06:37→22:38)
[2017-02-10] MEDS: INSULIN SLIDING SCALE (NOVOLOG) 1 VIAL SQ SCH ×4 (06:38→22:38)
[2017-02-10] MEDS: POLYETHYLENE GLYCOL 3350 119 GM BTL PO SCH ×3 (06:38→22:37)
[2017-02-10] MEDS ORDERED: PARoxetine HCL 10 MG TABLET (FP) ONE (10:02)
[2017-02-10] MEDS ORDERED: PT OWN MED DRAWER 7, Y5N ONE (10:03)
[2017-02-10] MEDS: PARoxetine HCL 20 MG TABLET (FP) PO SCH (10:06)
[2017-02-10] MEDS: FERROUS SO4 325 MG TABLET (FP) PO SCH (10:06)
[2017-02-10] MEDS: NORTRIPTYLINE HCL 10 MG CAPSULE PO SCH (10:07)
[2017-02-10] MEDS: ATORVASTATIN CA 10 MG TABLET (FP) PO SCH (10:07)
[2017-02-10] MEDS: METOPROLOL SUCCINATE 25 MG TAB.SR.24H (FP) PO SCH (10:07)
[2017-02-10] MEDS: ACLIDINIUM BROMIDE 400 MCG/INH AERO.POWD IH SCH ×2 (10:10→22:38)
[2017-02-10 15:17] LABS: BASOPHIL 0.8 % (0-2.0); EOSINOPHIL 3.5 % (0-4.5); MCH 28.3 pg (25.7-33.7); MCHC 33.1 g/dl (32.0-36.0); MEAN CELL VOLUME 85.6 fl (80-96); MEAN PLT VOLUME 7.2 fl (7.5-11.1); NEUTROPHILS 85.2 % (42.8-82.8); PLATELET COUNT 396 K/MM3 (134-434); WHITE BLOOD COUNT 13.5 K/mm3 (4.0-10.0)
[2017-02-10 15:42] LABS: CALCIUM 7.6 mg/dL (8.5-10.1); COCKROFT - GAULT 15.2575
[2017-02-10 15:58] LABS: TROPONIN I 0.56 ng/ml (0.00-0.05)
[2017-02-10] MEDS ORDERED: VANCOMYCIN 1 GRAM (PRE-DOCKED) 1,000 MG/250 ML BAG IVPB ONE (16:26)
[2017-02-10] MEDS ORDERED: POTASSIUM CHLORIDE TABS 20 MEQ TABLET.ER (FP) PO ONE (16:56)
--- NOTE | 2017-02-10 16:56 | PN ---
Progress Note, Physician History of Present Illness: Pt seen and examined at bedside. She is agitated today. - Current Medication List Current Medications: Active Medications Aclidinium [place] (Tudorza -) 1 puff IH BID [facility] Last Admin: 02/10/17 10:10 Dose: Not Given Amlodipine Besylate (Norvasc -) 10 mg PO HS [facility] Last Admin: 02/09/17 21:37 Dose: 10 mg Atorvastatin Calcium (Lipitor -) 10 mg PO DAILY [facility] Last Admin: 02/10/17 10:07 Dose: 10 mg Bisacodyl (Dulcolax -) 20 mg PO ONCE ONE Stop: 02/11/17 12:01 Brimonidine Tartrate (Alphagan 0.15% -) 1 drop OD TID [facility] Last Admin: 02/10/17 14:22 Dose: 1 drop Calcium Acetate (Phoslo -) 667 mg PO TID [facility] Last Admin: 02/10/17 14:22 Dose: 667 mg Ferrous Sulfate (Feosol -) 325 mg PO DAILY [facility] Last Admin: 02/10/17 10:06 Dose: 325 mg Furosemide (Lasix -) 60 mg PO BID@0600,1400 [facility] Last Admin: 02/10/17 14:22 Dose: 60 mg Hydralazine HCl (Apresoline -) 50 mg PO TID [facility] Last Admin: 02/10/17 14:22 Dose: 50 mg Insulin Aspart (Novolog Vial Sliding Scale -) 1 vial SQ ACHS [facility] PRN Reason: Protocol Last Admin: 02/10/17 12:05 Dose: Not Given Insulin Detemir (Levemir Vial) 5 units SQ BIDI [facility] Last Admin: 02/10/17 06:37 Dose: Not Given Levothyroxine Sodium (Synthroid -) 200 mcg PO AM [facility] Last Admin: 02/10/17 06:36 Dose: 200 mcg Metoprolol Succinate (Toprol Xl -) 25 mg PO DAILY [facility] Last Admin: 02/10/17 10:07 Dose: 25 mg Nortriptyline HCl (Pamelor -) 10 mg PO DAILY [facility] Last Admin: 02/10/17 10:07 Dose: 10 mg Paroxetine HCl (Paxil -) 20 mg PO DAILY [facility] Last Admin: 02/10/17 10:06 Dose: 20 mg Polyethylene Glycol (Miralax (For Daily Use) -) 17 gm PO TID [facility] Last Admin: 02/10/17 14:25 Dose: Not Given - Objective Vital Signs: Vital Signs Temperature 98.1 F 02/10/17 10:10 Pulse Rate 90 02/10/17 10:10 Respiratory Rate 20 02/10/17 10:10 Blood Pressure 148/98 02/10/17 10:10 O2 Sat by Pulse Oximetry (%) 95 02/10/17 10:10 Constitutional: Yes: Anxious Eyes: Yes: Conjunctiva Clear HENT: Yes: Atraumatic Neck: Yes: Supple Cardiovascular: Yes: S1, S2 Respiratory: Yes: On Nasal O2 Gastrointestinal: Yes: Soft, Abdomen, Obese Musculoskeletal: Yes: Muscle Weakness Edema: Yes Edema: LLE: 1+, RLE: 1+ Neurological: Yes: Oriented Psychiatric: Yes: Agitated Labs: CBC, BMP 02/10/17 15:00 02/10/17 15:00 INR, PTT INR 1.13 (0.82-1.09) 02/06/17 20:10 Problem List - Problems (1) Anemia Code(s): D64.9 - ANEMIA, UNSPECIFIED Qualifiers: Anemia type: unspecified type Qualified Code(s): D64.9 - Anemia, unspecified (2) Guaiac + stool Code(s): R19.5 - OTHER FECAL ABNORMALITIES (3) Chronic renal failure Code(s): N18.9 - CHRONIC KIDNEY DISEASE, UNSPECIFIED Qualifiers: Chronic kidney disease stage: unspecified stage Qualified Code(s): N18.9 - Chronic kidney disease, unspecified Assessment/Plan Current Medications Generic Name Dose Route Start Last Admin Trade Name Melania PRN Reason Stop Dose Admin Aclidinium [place] 1 puff 02/07/17 10:00 02/10/17 10:10 Tudorza - IH Not Given BID [facility] Amlodipine Besylate 10 mg 02/07/17 22:00 02/09/17 21:37 Norvasc - PO 10 mg HS [facility] Administration Atorvastatin Calcium 10 mg 02/07/17 10:00 02/10/17 10:07 Lipitor - PO 10 mg DAILY [facility] Administration Bisacodyl 20 mg 02/11/17 12:00 Dulcolax - PO 02/11/17 12:01 ONCE ONE Brimonidine Tartrate 1 drop 02/07/17 14:00 02/10/17 14:22 Alphagan 0.15% - OD 1 drop TID [facility] Administration Calcium Acetate 667 mg 02/07/17 14:00 02/10/17 14:22 Phoslo - PO 667 mg TID [facility] Administration Ferrous Sulfate 325 mg 02/07/17 10:00 02/10/17 10:06 Feosol - PO 325 mg DAILY [facility] Administration Furosemide 60 mg 02/09/17 15:52 02/10/17 14:22 Lasix - PO 60 mg BID@0600,1400 [facility] Administration Hydralazine HCl 50 mg 02/07/17 14:00 02/10/17 14:22 Apresoline - PO 50 mg TID [facility] Administration Insulin Aspart 1 vial 02/07/17 07:00 02/10/17 12:05 Novolog Vial Sliding Scale - SQ Not Given ACHS [facility] Protocol Insulin Detemir 5 units 02/07/17 07:00 02/10/17 06:37 Levemir Vial SQ Not Given BIDI [facility] Levothyroxine Sodium 200 mcg 02/07/17 07:00 02/10/17 06:36 Synthroid - PO 200 mcg AM [facility] Administration Metoprolol Succinate 25 mg 02/07/17 17:15 02/10/17 10:07 Toprol Xl - PO 25 mg DAILY [facility] Administration Nortriptyline HCl 10 mg 02/07/17 10:00 02/10/17 10:07 Pamelor - PO 10 mg DAILY [facility] Administration Paroxetine HCl 20 mg 02/07/17 10:00 02/10/17 10:06 Paxil - PO 20 mg DAILY [facility] Administration Polyethylene Glycol 17 gm 02/09/17 22:00 02/10/17 14:25 Miralax (For Daily Use) - PO Not Given TID [facility] Impression 1. CKD 2. HTN 3. DM 4. CVA 5. smoking history 6. pleural effusions 7. anemia 8. COPD 9. CHF 10. positive nathan 11. Hepatitis B Plan - renal function is stable - potassium levels is stable - will give a dose of potassium as she is on lasix - monitor hg - no acute change in management - no indication for acute HD Dr Patel
--- NOTE | 2017-02-10 18:20 | PN ---
Physical Exam: SUBJECTIVE: Patient seen and examined. OBJECTIVE: Vital Signs Period Temp Pulse Resp BP Sys/Gonsalez Pulse Ox Last 24 Hr 97.9 F-98.1 F 84-90 18-20 148-160/74-98 95-95 GENERAL: The patient is awake, alert. In no acute distress. HEAD: Normal with no signs of trauma. EYES: PERRL, extraocular movements intact, sclera anicteric, conjunctiva clear. No ptosis. LUNGS: Breath sounds equal, clear to auscultation bilaterally, no wheezes, no crackles, no accessory muscle use. HEART: Regular rate and rhythm, S1, S2 without murmur, rub or gallop. ABDOMEN: Soft, nontender, nondistended, normoactive bowel sounds, no guarding, no rebound EXTREMITIES: 2+ pulses, warm, well-perfused, no edema. NEUROLOGICAL: Cranial nerves II through XII grossly intact. Normal speech, gait not observed. PSYCH: Bizzare affect. Watching television and states "can't you see I'm sleeping?" Irritable. Uncooperative with medical interventions. SKIN: Warm, dry, normal turgor. Pressure ulcer Stage II right buttock 2.5cm L x 0.5cm W x 0.1cm D. Not previously visualized. Laboratory Results - last 24 hr 02/09/17 02/10/17 02/10/17 21:33 06:29 12:03 WBC RBC Hgb Hct MCV MCHC RDW Plt Count MPV Neutrophils % Lymphocytes % Monocytes % Eosinophils % Basophils % Sodium Potassium Chloride Carbon Dioxide Anion Gap BUN Creatinine POC Glucometer 108 76 119 Random Glucose Calcium Creatine Kinase Troponin I 02/10/17 02/10/17 15:00 15:00 WBC 13.5 H RBC 3.57 L Hgb 10.1 L Hct 30.5 L MCV 85.6 MCHC 33.1 RDW 15.0 Plt Count 396 MPV 7.2 L Neutrophils % 85.2 H Lymphocytes % 4.8 L Monocytes % 5.7 Eosinophils % 3.5 Basophils % 0.8 Sodium 143 Potassium 3.5 Chloride 105 Carbon Dioxide 28 Anion Gap 10 BUN 45 H Creatinine 4.0 H POC Glucometer Random Glucose 169 H D Calcium 7.6 L Creatine Kinase 97 Troponin I 0.56 H Active Medications Generic Name Dose Route Start Last Admin Trade Name Freq PRN Reason Stop Dose Admin Aclidinium [place] 1 puff 02/07/17 10:00 02/10/17 10:10 Tudorza - IH Not Given BID [facility] Amlodipine Besylate 10 mg 02/07/17 22:00 02/09/17 21:37 Norvasc - PO 10 mg HS [facility] Administration Atorvastatin Calcium 10 mg 02/07/17 10:00 02/10/17 10:07 Lipitor - PO 10 mg DAILY [facility] Administration Bisacodyl 20 mg 02/11/17 12:00 Dulcolax - PO 02/11/17 12:01 ONCE ONE Brimonidine Tartrate 1 drop 02/07/17 14:00 02/10/17 14:22 Alphagan 0.15% - OD 1 drop TID [facility] Administration Calcium Acetate 667 mg 02/07/17 14:00 02/10/17 14:22 Phoslo - PO 667 mg TID [facility] Administration Ferrous Sulfate 325 mg 02/07/17 10:00 02/10/17 10:06 Feosol - PO 325 mg DAILY [facility] Administration Furosemide 60 mg 02/09/17 15:52 02/10/17 14:22 Lasix - PO 60 mg BID@0600,1400 [facility] Administration Hydralazine HCl 50 mg 02/07/17 14:00 02/10/17 14:22 Apresoline - PO 50 mg TID [facility] Administration Insulin Aspart 1 vial 02/07/17 07:00 02/10/17 17:31 Novolog Vial Sliding Scale - SQ Not Given ACHS [facility] Protocol Insulin Detemir 5 units 02/07/17 07:00 02/10/17 17:32 Levemir Vial SQ 5 units BIDI [facility] Administration Levothyroxine Sodium 200 mcg 02/07/17 07:00 02/10/17 06:36 Synthroid - PO 200 mcg AM [facility] Administration Metoprolol Succinate 25 mg 02/07/17 17:15 02/10/17 10:07 Toprol Xl - PO 25 mg DAILY [facility] Administration Nortriptyline HCl 10 mg 02/07/17 10:00 02/10/17 10:07 Pamelor - PO 10 mg DAILY [facility] Administration Paroxetine HCl 20 mg 02/07/17 10:00 02/10/17 10:06 Paxil - PO 20 mg DAILY [facility] Administration Polyethylene Glycol 17 gm 02/09/17 22:00 02/10/17 14:25 Miralax (For Daily Use) - PO Not Given TID [facility] Imaging: - 01/15/17 Echo: Normal LV size and systolic function. LVEF 65-70%. Grade I diastolic dysfunction. Normal RV size and systolic function. Mild MR. Mild TR. RVSP normal. Trivial pericardial effusion. Pleural effusion present. - CT head negative ASSESSMENT/PLAN 66 year-old female with a PMH of HTN, HLD, diastolic heart failure, CVA x 2, COPD, IDDM, CKD, hypothyroidism, and anemia, admitted for syncope/near syncope and severe anemia. Bilateral lower extremity cellulitis, recurrent Leukocytosis --recently treated for same --start clindamycin --ID consult requested Left lower lobe density --CT chest ordered Syncope/Near syncope --flat trending troponins in setting of CKD --low clinical suspicion for ACS given absence of chest pain/dyspnea or ischemic ECG changes Chronic diastolic heart failure --congestive changes seen on 02/06 CXR --continue lasix PO BID at lower dose GI Bleed Anemia secondary to blood loss Anemia of chronic kidney disease --stool occult positive on admission, Hgb 6.5, transfused 2 units PRBC 02/08 with good response; Hgb 11.0 and stable --need daughter's consent for planned EGD/colonoscopy, cardiac clearance given --continue iron CKD --Cr 4.1 which is baseline --continue lower dose lasix, phoslo --no immediate plan for [employer] Hypertension --continue Toprol XL, amlodipine, hydralazine, lasix Hyperlipidemia --continue Lipitor Hypothyroidism --continue levothyroxine COPD --continue Tudorza IDDM --Levemir --Novolog sliding scale coverage Dispo: continues to require inpatient care. Full Code. Jose Hackett [phone] Visit type - Emergency Visit Emergency Visit: Yes ED Registration Date: 02/07/17 Care time: The patient presented to the Emergency Department on the above date and was hospitalized for further evaluation of their emergent condition. - New Patient This patient is new to me today: Yes Date on this admission: 02/10/17 - Critical Care Critical Care patient: No
[2017-02-10] MEDS: amLODIPine BESYLATE 10 MG TABLET (FP) PO SCH (22:37)
[2017-02-11] MEDS ORDERED: PT OWN MED DRAWER 7, Y5N ONE ×2 (05:57→23:13)
[2017-02-11] MEDS: hydrALAZINE HCL 50 MG TABLET (FP) PO SCH ×2 (06:02→12:19)
[2017-02-11] MEDS: FUROSEMIDE 40 MG TABLET (FP) PO SCH ×2 (06:02→12:20)
[2017-02-11] MEDS: CALCIUM ACETATE 667 MG CAPSULE (FP) PO SCH ×2 (06:02→12:21)
[2017-02-11] MEDS: BRIMONIDINE TARTRATE 0.15% OPHTHALMIC 5 ML BOTTLE OD SCH ×2 (06:03→14:19)
[2017-02-11] MEDS: POLYETHYLENE GLYCOL 3350 119 GM BTL PO SCH ×2 (06:03→14:20)
[2017-02-11] MEDS: INSULIN DETEMIR 100 UNITS/ML MDV SQ SCH ×2 (06:20→17:57)
[2017-02-11] MEDS: INSULIN SLIDING SCALE (NOVOLOG) 1 VIAL SQ SCH ×3 (06:20→17:54)
[2017-02-11] MEDS: LEVOTHYROXINE NA 200 MCG TABLET PO SCH (06:21)
--- NOTE | 2017-02-11 10:11 | PN ---
Progress Note (short form) - Note Progress Note: Staff have been unable to reach daughter for consent for procedures as there was a question as to whether or not Ms. Holland has capacity to do so on her own. The procedures have been discussed with Shane, her daughter, however still need consent. Patient also refused bowel prep at the first attempt. I left a message for shane to call me back to discuss further. Problem List - Problems (1) Anemia Code(s): D64.9 - ANEMIA, UNSPECIFIED Qualifiers: Anemia type: unspecified type Qualified Code(s): D64.9 - Anemia, unspecified
[2017-02-11] MEDS ORDERED: PARoxetine HCL 10 MG TABLET (FP) ONE (11:49)
[2017-02-11] MEDS: ATORVASTATIN CA 10 MG TABLET (FP) PO SCH (11:50)
[2017-02-11] MEDS: FERROUS SO4 325 MG TABLET (FP) PO SCH (11:50)
[2017-02-11] MEDS: METOPROLOL SUCCINATE 25 MG TAB.SR.24H (FP) PO SCH (11:51)
[2017-02-11] MEDS: PARoxetine HCL 20 MG TABLET (FP) PO SCH (11:51)
[2017-02-11] MEDS: NORTRIPTYLINE HCL 10 MG CAPSULE PO SCH (11:51)
[2017-02-11] MEDS: ACLIDINIUM BROMIDE 400 MCG/INH AERO.POWD IH SCH (11:51)
[2017-02-11] MEDS: BISACODYL 5 MG TABLET.DR (FP) PO ONE ×3 (12:17→17:58)
[2017-02-11] MEDS: PEG3350/SOD SULF,BICARB,CL/KCL 4,000 ML SOLN.RECON PO ONE ×2 (14:16→15:19)
--- NOTE | 2017-02-11 15:18 | PN ---
Progress Note (short form) - Note Progress Note: patient refusing bowel prep. daughter called and gave consents per nurse. will then attempt egd in am. npo after midnight Problem List - Problems (1) Anemia Code(s): D64.9 - ANEMIA, UNSPECIFIED Qualifiers: Anemia type: unspecified type Qualified Code(s): D64.9 - Anemia, unspecified
[2017-02-11] MEDS ORDERED: POTASSIUM CHLORIDE TABS 20 MEQ TABLET.ER (FP) PO ONE (16:22)
--- NOTE | 2017-02-11 16:22 | PN ---
Progress Note, Physician History of Present Illness: Pt seen and examined at bedside. She is agitated and is asking for food. She is refusing the prep for the endoscopy. - Current Medication List Current Medications: Active Medications Aclidinium Sealy (Tudorza -) 1 puff IH BID ON LICENSE OF [facility] Last Admin: 02/11/17 11:51 Dose: Not Given Amlodipine Besylate (Norvasc -) 10 mg PO HS ON LICENSE OF [facility] Last Admin: 02/10/17 22:37 Dose: 10 mg Atorvastatin Calcium (Lipitor -) 10 mg PO DAILY ON LICENSE OF [facility] Last Admin: 02/11/17 11:50 Dose: 10 mg Brimonidine Tartrate (Alphagan 0.15% -) 1 drop OD TID ON LICENSE OF [facility] Last Admin: 02/11/17 14:19 Dose: Not Given Calcium Acetate (Phoslo -) 667 mg PO TID ON LICENSE OF [facility] Last Admin: 02/11/17 12:21 Dose: 667 mg Ferrous Sulfate (Feosol -) 325 mg PO DAILY ON [facility] OF [facility] Last Admin: 02/11/17 11:50 Dose: 325 mg Furosemide (Lasix -) 60 mg PO BID@0600,1400 ON LICENSE OF [facility] Last Admin: 02/11/17 12:20 Dose: 60 mg Hydralazine HCl (Apresoline -) 50 mg PO TID ON LICENSE OF [facility] Last Admin: 02/11/17 12:19 Dose: 50 mg Dextrose/Sodium Chloride (D5-1/2ns -) 1,000 mls @ 30 mls/hr IV ASDIR ON LICENSE OF [facility] Insulin Aspart (Novolog Vial Sliding Scale -) 1 vial SQ ACHS ON LICENSE OF [facility] PRN Reason: Protocol Last Admin: 02/11/17 12:15 Dose: Not Given Insulin Detemir (Levemir Vial) 5 units SQ BIDI ON LICENSE OF [facility] Last Admin: 02/11/17 06:20 Dose: Not Given Levothyroxine Sodium (Synthroid -) 200 mcg PO AM ON LICENSE OF [facility] Last Admin: 02/11/17 06:21 Dose: 200 mcg Metoprolol Succinate (Toprol Xl -) 25 mg PO DAILY ON LICENSE OF [facility] Last Admin: 02/11/17 11:51 Dose: 25 mg Nortriptyline HCl (Pamelor -) 10 mg PO DAILY ON LICENSE OF [facility] Last Admin: 02/11/17 11:51 Dose: 10 mg Paroxetine HCl (Paxil -) 20 mg PO DAILY ON LICENSE OF [facility] Last Admin: 02/11/17 11:51 Dose: 20 mg Polyethylene Glycol (Miralax (For Daily Use) -) 17 gm PO TID [facility] Last Admin: 02/11/17 14:20 Dose: Not Given - Objective Vital Signs: Vital Signs Temperature 97.9 F 02/11/17 11:55 Pulse Rate 83 02/11/17 11:55 Respiratory Rate 19 02/11/17 11:55 Blood Pressure 127/73 02/11/17 11:55 O2 Sat by Pulse Oximetry (%) 95 02/11/17 09:00 Constitutional: Yes: Calm Eyes: Yes: Conjunctiva Clear HENT: Yes: Atraumatic Neck: Yes: Supple Cardiovascular: Yes: S1, S2 Respiratory: Yes: CTA Bilaterally Gastrointestinal: Yes: Soft Genitourinary: Yes: WNL Musculoskeletal: Yes: WNL Edema: Yes Edema: LLE: 1+, RLE: 1+ Psychiatric: Yes: Agitated Labs: CBC, BMP 02/10/17 15:00 02/10/17 15:00 INR, PTT INR 1.13 (0.82-1.09) 02/06/17 20:10 Problem List - Problems (1) Anemia Code(s): D64.9 - ANEMIA, UNSPECIFIED Qualifiers: Anemia type: unspecified type Qualified Code(s): D64.9 - Anemia, unspecified (2) Guaiac + stool Code(s): R19.5 - OTHER FECAL ABNORMALITIES (3) Chronic renal failure Code(s): N18.9 - CHRONIC KIDNEY DISEASE, UNSPECIFIED Qualifiers: Chronic kidney disease stage: unspecified stage Qualified Code(s): N18.9 - Chronic kidney disease, unspecified Assessment/Plan Current Medications Generic Name Dose Route Start Last Admin Trade Name Freq PRN Reason Stop Dose Admin Aclidinium [place] 1 puff 02/07/17 10:00 02/11/17 11:51 Tudorza - IH Not Given BID [facility] Amlodipine Besylate 10 mg 02/07/17 22:00 02/10/17 22:37 Norvasc - PO 10 mg HS [facility] Administration Atorvastatin Calcium 10 mg 02/07/17 10:00 02/11/17 11:50 Lipitor - PO 10 mg DAILY [facility] Administration Brimonidine Tartrate 1 drop 02/07/17 14:00 02/11/17 14:19 Alphagan 0.15% - OD Not Given TID [facility] Calcium Acetate 667 mg 02/07/17 14:00 02/11/17 12:21 Phoslo - PO 667 mg TID ON LICENSE OF [facility] Administration Ferrous Sulfate 325 mg 02/07/17 10:00 02/11/17 11:50 Feosol - PO 325 mg DAILY [facility] Administration Furosemide 60 mg 02/09/17 15:52 02/11/17 12:20 Lasix - PO 60 mg BID@0600,1400 [facility] Administration Hydralazine HCl 50 mg 02/07/17 14:00 02/11/17 12:19 Apresoline - PO 50 mg TID ON LICENSE OF [facility] Administration Dextrose/Sodium Chloride 1,000 mls @ 30 mls/hr 02/12/17 00:01 D5-1/2ns - IV ASDIR ON LICENSE OF [facility] Insulin Aspart 1 vial 02/07/17 07:00 02/11/17 12:15 Novolog Vial Sliding Scale - SQ Not Given ACHS ON LICENSE OF [facility] Protocol Insulin Detemir 5 units 02/07/17 07:00 02/11/17 06:20 Levemir Vial SQ Not Given BIDI ON LICENSE OF [facility] Levothyroxine Sodium 200 mcg 02/07/17 07:00 02/11/17 06:21 Synthroid - PO 200 mcg AM ON LICENSE OF [facility] Administration Metoprolol Succinate 25 mg 02/07/17 17:15 02/11/17 11:51 Toprol Xl - PO 25 mg DAILY ON LICENSE OF [facility] Administration Nortriptyline HCl 10 mg 02/07/17 10:00 02/11/17 11:51 Pamelor - PO 10 mg DAILY [facility] Administration Paroxetine HCl 20 mg 02/07/17 10:00 02/11/17 11:51 Paxil - PO 20 mg DAILY ON LICENSE OF [facility] Administration Polyethylene Glycol 17 gm 02/09/17 22:00 02/11/17 14:20 Miralax (For Daily Use) - PO Not Given TID ON LICENSE OF [facility] Impression 1. CKD 2. HTN 3. DM 4. CVA 5. smoking history 6. pleural effusions 7. anemia 8. COPD 9. CHF 10. positive nathan 11. Hepatitis B Plan - will replace potassium - endoscopy in am - hold am lasix dose and pt NPO post midnight - will follow - monitor hg - no indication for acute HD Dr Patel
--- NOTE | 2017-02-11 17:43 | PN ---
Physical Exam: SUBJECTIVE: Patient seen and examined at bedside. OBJECTIVE: Vital Signs Period Temp Pulse Resp BP Sys/Gonsalez Pulse Ox Last 24 Hr 97.9 F-98.5 F 63-83 19-20 127-160/73-80 95-95 GENERAL: The patient is awake, alert, in no distress. Calmer today. HEAD: Normal with no signs of trauma. EYES: PERRL, extraocular movements intact, sclera anicteric, conjunctiva clear. No ptosis. LUNGS: Breath sounds equal, clear to auscultation bilaterally, no wheezes, no crackles, no accessory muscle use. HEART: Regular rate and rhythm, S1, S2 without murmur, rub or gallop. ABDOMEN: Soft, nontender, nondistended, normoactive bowel sounds, no guarding, no rebound EXTREMITIES: 2+ pulses, warm, well-perfused, no edema. NEUROLOGICAL: Cranial nerves II through XII grossly intact. Normal speech, gait not observed. PSYCH: Calmer today. Watching television quietly. Active Medications Generic Name Dose Route Start Last Admin Trade Name Melania PRN Reason Stop Dose Admin Aclidinium [place] 1 puff 02/07/17 10:00 02/11/17 11:51 Tudorza - IH Not Given BID [facility] Amlodipine Besylate 10 mg 02/07/17 22:00 02/10/17 22:37 Norvasc - PO 10 mg HS [facility] Administration Atorvastatin Calcium 10 mg 02/07/17 10:00 02/11/17 11:50 Lipitor - PO 10 mg DAILY [facility] Administration Brimonidine Tartrate 1 drop 02/07/17 14:00 02/11/17 14:19 Alphagan 0.15% - OD Not Given TID [facility] Calcium Acetate 667 mg 02/07/17 14:00 02/11/17 12:21 Phoslo - PO 667 mg TID [facility] Administration Ferrous Sulfate 325 mg 02/07/17 10:00 02/11/17 11:50 Feosol - PO 325 mg DAILY [facility] Administration Furosemide 60 mg 02/09/17 15:52 02/11/17 12:20 Lasix - PO 60 mg BID@0600,1400 [facility] Administration Hydralazine HCl 50 mg 02/07/17 14:00 02/11/17 12:19 Apresoline - PO 50 mg TID [facility] Administration Dextrose/Sodium Chloride 1,000 mls @ 30 mls/hr 02/12/17 00:01 D5-1/2ns - IV ASDIR [facility] Insulin Aspart 1 vial 02/07/17 07:00 02/11/17 12:15 Novolog Vial Sliding Scale - SQ Not Given ACHS [facility] Protocol Insulin Detemir 5 units 02/07/17 07:00 02/11/17 06:20 Levemir Vial SQ Not Given BIDI [facility] Levothyroxine Sodium 200 mcg 02/07/17 07:00 02/11/17 06:21 Synthroid - PO 200 mcg AM [facility] Administration Metoprolol Succinate 25 mg 02/07/17 17:15 02/11/17 11:51 Toprol Xl - PO 25 mg DAILY [facility] Administration Nortriptyline HCl 10 mg 02/07/17 10:00 02/11/17 11:51 Pamelor - PO 10 mg DAILY [facility] Administration Paroxetine HCl 20 mg 02/07/17 10:00 02/11/17 11:51 Paxil - PO 20 mg DAILY [facility] Administration Polyethylene Glycol 17 gm 02/09/17 22:00 02/11/17 14:20 Miralax (For Daily Use) - PO Not Given TID [facility] ASSESSMENT/PLAN 66 year-old female with a PMH of HTN, HLD, diastolic heart failure, CVA x 2, COPD, IDDM, CKD, hypothyroidism, and anemia, admitted for syncope/near syncope and severe anemia. Bilateral lower extremity cellulitis, chronic, recurrent --recently treated for same --will observe off antibiotics Left lower lobe density --CT chest 02/10 no evidence of infiltrate or infectious process Syncope/Near syncope --flat trending troponins in setting of CKD --low clinical suspicion for ACS given absence of chest pain/dyspnea or ischemic ECG changes Chronic diastolic heart failure --congestive changes seen on 02/06 CXR --small to moderate bilateral pleural effusions on 02/10 CT chest --continue lasix GI Bleed Anemia secondary to blood loss Anemia of chronic kidney disease --stool occult positive on admission, Hgb 6.5, transfused 2 units PRBC 02/08 with good response; Hgb 11.0 and stable --need daughter's consent for planned EGD/colonoscopy (see below), cardiac clearance given --continue iron CKD --Cr 4.1 which is baseline --continue lasix, phoslo --no immediate plan for [employer] Hypertension --continue Toprol XL, amlodipine, hydralazine, lasix Hyperlipidemia --continue Lipitor Hypothyroidism --continue levothyroxine COPD --continue Tudorza IDDM --Levemir --Novolog sliding scale coverage Dispo: continues to require inpatient care. Full Code. Jose Hackett . Several attempts have been made to reach daughter to obtain consent for EGD/colonoscopy and she has not answered the phone. Please discuss this at bed board on Sunday as administration will have to get involved. Visit type - Emergency Visit Emergency Visit: Yes ED Registration Date: 02/07/17 Care time: The patient presented to the Emergency Department on the above date and was hospitalized for further evaluation of their emergent condition. - New Patient This patient is new to me today: No - Critical Care Critical Care patient: No
[2017-02-12] MEDS ORDERED: DEXTROSE 5%-0.45% SALINE 1,000 ML IV SCH (00:01)
[2017-02-12] MEDS: amLODIPine BESYLATE 10 MG TABLET (FP) PO SCH ×2 (00:04→21:28)
[2017-02-12] MEDS: hydrALAZINE HCL 50 MG TABLET (FP) PO SCH ×4 (00:04→21:27)
[2017-02-12] MEDS: BRIMONIDINE TARTRATE 0.15% OPHTHALMIC 5 ML BOTTLE OD SCH ×4 (00:04→21:28)
[2017-02-12] MEDS: CALCIUM ACETATE 667 MG CAPSULE (FP) PO SCH ×4 (00:04→21:28)
[2017-02-12] MEDS: POLYETHYLENE GLYCOL 3350 119 GM BTL PO SCH ×4 (00:05→21:27)
[2017-02-12] MEDS: INSULIN SLIDING SCALE (NOVOLOG) 1 VIAL SQ SCH ×5 (00:05→21:29)
[2017-02-12] MEDS: ACLIDINIUM BROMIDE 400 MCG/INH AERO.POWD IH SCH ×3 (00:06→21:29)
[2017-02-12] MEDS ORDERED: PT OWN MED DRAWER 7, Y5N ONE (06:56)
[2017-02-12] MEDS: LEVOTHYROXINE NA 200 MCG TABLET PO SCH (07:00)
[2017-02-12] MEDS: INSULIN DETEMIR 100 UNITS/ML MDV SQ SCH ×2 (07:00→16:50)
[2017-02-12 08:31] LABS: CALCIUM 8.2 mg/dL (8.5-10.1); COCKROFT - GAULT 15.6485; CREATININE 3.9 mg/dL (0.55-1.02)
--- NOTE | 2017-02-12 10:55 | PN ---
Progress Note (short form) - Note Progress Note: GI NOte: EGD again canceled as patient refused to come to endo unit.
[2017-02-12] MEDS ORDERED: PARoxetine HCL 10 MG TABLET (FP) ONE (11:12)
[2017-02-12] MEDS: FERROUS SO4 325 MG TABLET (FP) PO SCH (11:14)
[2017-02-12] MEDS: ATORVASTATIN CA 10 MG TABLET (FP) PO SCH (11:14)
[2017-02-12] MEDS: METOPROLOL SUCCINATE 25 MG TAB.SR.24H (FP) PO SCH (11:15)
[2017-02-12] MEDS: NORTRIPTYLINE HCL 10 MG CAPSULE PO SCH (11:15)
[2017-02-12] MEDS: PARoxetine HCL 20 MG TABLET (FP) PO SCH (11:15)
--- NOTE | 2017-02-12 12:23 | PN ---
Progress Note, Physician History of Present Illness: Pt seen and examined at bedside. She refused to go to endoscopy today. - Current Medication List Current Medications: Active Medications Aclidinium [place] (Tudorza -) 1 puff IH BID [facility] Last Admin: 02/12/17 11:15 Dose: Not Given Amlodipine Besylate (Norvasc -) 10 mg PO HS [facility] Last Admin: 02/12/17 00:04 Dose: 10 mg Atorvastatin Calcium (Lipitor -) 10 mg PO DAILY [facility] Last Admin: 02/12/17 11:14 Dose: 10 mg Brimonidine Tartrate (Alphagan 0.15% -) 1 drop OD TID [facility] Last Admin: 02/12/17 07:00 Dose: 1 drop Calcium Acetate (Phoslo -) 667 mg PO TID [facility] Last Admin: 02/12/17 07:00 Dose: 667 mg Ferrous Sulfate (Feosol -) 325 mg PO DAILY [facility] Last Admin: 02/12/17 11:14 Dose: 325 mg Furosemide (Lasix -) 60 mg PO BID@0600,1400 [facility] Last Admin: 02/11/17 12:20 Dose: 60 mg Hydralazine HCl (Apresoline -) 50 mg PO TID [facility] Last Admin: 02/12/17 07:00 Dose: 50 mg Dextrose/Sodium Chloride (D5-1/2ns -) 1,000 mls @ 30 mls/hr IV ASDIR [facility] Last Admin: 02/12/17 00:07 Dose: 30 mls/hr Insulin Aspart (Novolog Vial Sliding Scale -) 1 vial SQ ACHS [facility] PRN Reason: Protocol Last Admin: 02/12/17 11:36 Dose: Not Given Insulin Detemir (Levemir Vial) 5 units SQ BIDI [facility] Last Admin: 02/12/17 07:00 Dose: Not Given Levothyroxine Sodium (Synthroid -) 200 mcg PO AM [facility] Last Admin: 02/12/17 07:00 Dose: 200 mcg Metoprolol Succinate (Toprol Xl -) 25 mg PO DAILY [facility] Last Admin: 02/12/17 11:15 Dose: 25 mg Nortriptyline HCl (Pamelor -) 10 mg PO DAILY [facility] Last Admin: 02/12/17 11:15 Dose: 10 mg Paroxetine HCl (Paxil -) 20 mg PO DAILY [facility] Last Admin: 02/12/17 11:15 Dose: 20 mg Polyethylene Glycol (Miralax (For Daily Use) -) 17 gm PO TID [facility] Last Admin: 02/12/17 07:00 Dose: Not Given - Objective Vital Signs: Vital Signs Temperature 98.6 F 02/12/17 06:00 Pulse Rate 88 02/12/17 06:00 Respiratory Rate 20 02/12/17 06:00 Blood Pressure 151/84 02/12/17 06:00 O2 Sat by Pulse Oximetry (%) 95 02/11/17 22:00 Constitutional: Yes: Anxious Eyes: Yes: Conjunctiva Clear HENT: Yes: Atraumatic Cardiovascular: Yes: S1, S2 Respiratory: Yes: CTA Bilaterally Gastrointestinal: Yes: Soft Genitourinary: Yes: WNL Musculoskeletal: Yes: WNL Edema: Yes (improved) Edema: LLE: 1+, RLE: 1+ Neurological: Yes: Confusion Labs: CBC, BMP 02/10/17 15:00 02/12/17 06:28 INR, PTT INR 1.13 (0.82-1.09) 02/06/17 20:10 Problem List - Problems (1) Anemia Code(s): D64.9 - ANEMIA, UNSPECIFIED Qualifiers: Anemia type: unspecified type Qualified Code(s): D64.9 - Anemia, unspecified (2) Guaiac + stool Code(s): R19.5 - OTHER FECAL ABNORMALITIES (3) Chronic renal failure Code(s): N18.9 - CHRONIC KIDNEY DISEASE, UNSPECIFIED Qualifiers: Chronic kidney disease stage: unspecified stage Qualified Code(s): N18.9 - Chronic kidney disease, unspecified Assessment/Plan Current Medications Generic Name Dose Route Start Last Admin Trade Name Kaushalq PRN Reason Stop Dose Admin Aclidinium [place] 1 puff 02/07/17 10:00 02/12/17 11:15 Tudorza - IH Not Given BID [facility] Amlodipine Besylate 10 mg 02/07/17 22:00 02/12/17 00:04 Norvasc - PO 10 mg HS [facility] Administration Atorvastatin Calcium 10 mg 02/07/17 10:00 02/12/17 11:14 Lipitor - PO 10 mg DAILY [facility] Administration Brimonidine Tartrate 1 drop 02/07/17 14:00 02/12/17 07:00 Alphagan 0.15% - OD 1 drop TID [facility] Administration Calcium Acetate 667 mg 02/07/17 14:00 02/12/17 07:00 Phoslo - PO 667 mg TID [facility] Administration Ferrous Sulfate 325 mg 02/07/17 10:00 02/12/17 11:14 Feosol - PO 325 mg DAILY [facility] Administration Furosemide 60 mg 02/09/17 15:52 02/11/17 12:20 Lasix - PO 60 mg BID@0600,1400 [facility] Administration Hydralazine HCl 50 mg 02/07/17 14:00 02/12/17 07:00 Apresoline - PO 50 mg TID [facility] Administration Dextrose/Sodium Chloride 1,000 mls @ 30 mls/hr 02/12/17 00:01 02/12/17 00:07 D5-1/2ns - IV 30 mls/hr ASDIR [facility] Administration Insulin Aspart 1 vial 02/07/17 07:00 02/12/17 11:36 Novolog Vial Sliding Scale - SQ Not Given ACHS [facility] Protocol Insulin Detemir 5 units 02/07/17 07:00 02/12/17 07:00 Levemir Vial SQ Not Given BIDI [facility] Levothyroxine Sodium 200 mcg 02/07/17 07:00 02/12/17 07:00 Synthroid - PO 200 mcg AM [facility] Administration Metoprolol Succinate 25 mg 02/07/17 17:15 02/12/17 11:15 Toprol Xl - PO 25 mg DAILY [facility] Administration Nortriptyline HCl 10 mg 02/07/17 10:00 02/12/17 11:15 Pamelor - PO 10 mg DAILY [facility] Administration Paroxetine HCl 20 mg 02/07/17 10:00 02/12/17 11:15 Paxil - PO 20 mg DAILY [facility] Administration Polyethylene Glycol 17 gm 02/09/17 22:00 02/12/17 07:00 Miralax (For Daily Use) - PO Not Given TID [facility] Impression 1. CKD 2. HTN 3. DM 4. CVA 5. smoking history 6. pleural effusions 7. anemia 8. COPD 9. CHF 10. positive anthan 11. Hepatitis B Plan - pt refused prep and endoscopy - stop fluids and resume PO lasix - no indication for acute HD - pt to follow with her outside [facility] compliance coordinator - will follow Dr Patel
[2017-02-12] MEDS ORDERED: POTASSIUM CHLORIDE TABS 20 MEQ TABLET.ER (FP) PO ONE (12:24)
[2017-02-12] MEDS: FUROSEMIDE 40 MG TABLET (FP) PO SCH (14:16)
--- NOTE | 2017-02-12 15:34 | DS ---
Physical Examination Vital Signs: Vital Signs Temperature 97.6 F 02/12/17 14:53 Pulse Rate 73 02/12/17 14:53 Respiratory Rate 20 02/12/17 14:53 Blood Pressure 149/73 02/12/17 14:53 O2 Sat by Pulse Oximetry (%) 93 L 02/12/17 09:00 Findings/Remarks: GENERAL: The patient is awake, alert, in no distress. Calmer today. HEAD: Normal with no signs of trauma. EYES: PERRL, extraocular movements intact, sclera anicteric, conjunctiva clear. No ptosis. LUNGS: Breath sounds equal, clear to auscultation bilaterally, no wheezes, no crackles, no accessory muscle use. HEART: Regular rate and rhythm, S1, S2 without murmur, rub or gallop. ABDOMEN: Soft, nontender, nondistended, normoactive bowel sounds, no guarding, no rebound EXTREMITIES: 2+ pulses, warm, well-perfused, no edema. NEUROLOGICAL: Cranial nerves II through XII grossly intact. Normal speech, gait not observed. PSYCH: Calmer today. Watching television quietly. Labs: CBC, BMP 02/10/17 15:00 02/12/17 06:28 Discharge Summary Reason For Visit: ACUTE RENAL FAILURE, ANEMIA GUAIAC Current Active Problems Anemia (Acute) Guaiac + stool (Acute) Renal failure (ARF), acute on chronic (Acute) Hospital Course: This is a 66 year-old female with a PMH of HTN, HLD, diastolic heart failure, CVA x 2, COPD, IDDM, CKD, hypothyroidism, and anemia, admitted for syncope/near syncope and severe anemia. Bilateral lower extremity cellulitis, chronic, recurrent --recently treated for same --will observe off antibiotics, remains afebrile Left lower lobe density --CT chest 02/10 no evidence of infiltrate or infectious process Syncope/Near syncope --flat trending troponins in setting of CKD --low clinical suspicion for ACS given absence of chest pain/dyspnea or ischemic ECG changes Chronic diastolic heart failure --congestive changes seen on 02/06 CXR --small to moderate bilateral pleural effusions on 02/10 CT chest --continue lasix GI Bleed Anemia secondary to blood loss Anemia of chronic kidney disease --stool occult positive on admission, Hgb 6.5, transfused 2 units PRBC 02/08 with good response; Hgb 11.0 and stable --Patient refused to go down to endoscopy suite, discussed with GI, can discharge and follow-up as an outpatient --continue iron CKD --Cr 4.1 which is baseline --continue lasix, phoslo --no immediate plan for [employer] Hypertension --continue Toprol XL, amlodipine, hydralazine, lasix Hyperlipidemia --continue Lipitor Hypothyroidism --continue levothyroxine COPD --continue Tudorza IDDM --Levemir --Novolog sliding scale coverage Please follow-up with your GI specialist (Dr. Zabala) within 2-3 days for further GI workup for any source of bleeding. Please follow-up with cardiology within 1 week. Please follow-up with your truck cleaner (Dr. Conroy) within 1 week to have your kidney function rechecked. Condition: Improved - Instructions Diet, Activity, Other Instructions: Please return to the ED with new, persistent, or worsening symptoms. Please follow-up with your GI specialist (Dr. Zabala) within 2-3 days for further GI workup for any source of bleeding. Please follow-up with cardiology within 1 week. Please follow-up with your truck cleaner (Dr. Conroy) within 1 week to have your kidney function rechecked. Referrals: rFeddy Barillas MD [Primary Care Provider] - (Please follow-up with your primary care provider within 1-2 days to have your hemoglobin checked. Please also have your WBC count checked) Liam Milian MD [Staff Physician] - 1 Week Disposition: LONG-TERM FACILITY - Home Medications Comprehensive Discharge Medication List: Ambulatory Orders Amlodipine Besylate [Norvasc -] 10 mg PO DAILY 02/06/17 Brimonidine Tartrate [Alphagan 0.15% -] 1 drop OD TID 02/06/17 Calcium Acetate 667 mg PO TID 02/06/17 Ferrous Sulfate [Feosol] 325 mg PO DAILY 02/06/17 Hydralazine HCl 50 mg PO TID 02/06/17 Insulin Glargine,Hum.rec.anlog [Lantus Solostar PEN -] 0 units SQ HS 02/06/17 Insulin Lispro [Humalog] 0 unit SQ ASDIR 02/06/17 Levothyroxine [Synthroid -] 200 mcg PO DAILY 02/06/17 Mag Hydrox/Al Hydrox/Simeth [Brittney-Lanta Liquid] 355 ml PO BID 02/06/17 Nortriptyline HCl [Pamelor -] 10 mg PO DAILY 02/06/17 Paroxetine HCl [Paxil] 20 mg PO DAILY 02/06/17 Sennosides [Senna] 8.6 mg PO DAILY 02/06/17 Simvastatin 20 mg PO DAILY 02/06/17 Tiotropium [place] [Spiriva] 1 inh IH DAILY 02/06/17 Diphenhydramine HCl [Benadryl Capsule -] 25 mg PO Q6H PRN #30 tab 02/12/17 Furosemide [Lasix -] 60 mg PO BID@0600,1400 #120 tablet 02/12/17 Metoprolol Succinate [Toprol XL -] 25 mg PO DAILY #30 tab 02/12/17 This patient is new to me today: Yes Date on this admission: 02/12/17 Emergency Visit: Yes ED Registration Date: 02/07/17 Care time: The patient presented to the Emergency Department on the above date and was hospitalized for further evaluation of their emergent condition. Critical Care patient: No - Discharge Referral Referred to [facility] Yes Physician Referral: Freddy Barillas MD (Int Med)
[2017-02-12] MEDS ORDERED: ACETAMINOPHEN 325 MG TABLET (FP) PO ONE (21:25)
[2017-02-13] MEDS ORDERED: ACETAMINOPHEN 325 MG TABLET (FP) PO PRN (02:23)
[2017-02-13] MEDS: POLYETHYLENE GLYCOL 3350 119 GM BTL PO SCH (05:21)
[2017-02-13] MEDS: CALCIUM ACETATE 667 MG CAPSULE (FP) PO SCH (05:21)
[2017-02-13] MEDS: FUROSEMIDE 40 MG TABLET (FP) PO SCH (05:21)
[2017-02-13] MEDS: BRIMONIDINE TARTRATE 0.15% OPHTHALMIC 5 ML BOTTLE OD SCH (05:21)
[2017-02-13] MEDS: hydrALAZINE HCL 50 MG TABLET (FP) PO SCH (05:22)
[2017-02-13] MEDS: INSULIN DETEMIR 100 UNITS/ML MDV SQ SCH (06:40)
[2017-02-13] MEDS: INSULIN SLIDING SCALE (NOVOLOG) 1 VIAL SQ SCH ×2 (06:40→12:39)
[2017-02-13] MEDS: LEVOTHYROXINE NA 200 MCG TABLET PO SCH (06:43)
[2017-02-13] MEDS ORDERED: PT OWN MED DRAWER 7, Y5N ONE ×3 (06:44→12:42)
[2017-02-13] MEDS ORDERED: INSULIN DETEMIR 100 UNITS/ML MDV SQ ONE (06:44)
[2017-02-13 08:08] LABS: CALCIUM 7.6 mg/dL (8.5-10.1); COCKROFT - GAULT 14.5265; CREATININE 4.2 mg/dL (0.55-1.02)
[2017-02-13] MEDS: FERROUS SO4 325 MG TABLET (FP) PO SCH (09:13)
[2017-02-13] MEDS: METOPROLOL SUCCINATE 25 MG TAB.SR.24H (FP) PO SCH (09:13)
[2017-02-13] MEDS: PARoxetine HCL 20 MG TABLET (FP) PO SCH (09:13)
[2017-02-13] MEDS: ATORVASTATIN CA 10 MG TABLET (FP) PO SCH (09:13)
[2017-02-13] MEDS: ACLIDINIUM BROMIDE 400 MCG/INH AERO.POWD IH SCH (09:14)
[2017-02-13 10:26] VITALS: BP 149/79; PULSE 78; TEMP 98.5
[2017-02-13] MEDS: NORTRIPTYLINE HCL 10 MG CAPSULE PO SCH (12:39)
== END 2017-02-13 12:46 | DRG 377 ==
LOC: JER 18:30 → JERBED 02-07 05:24 → J4S 02-07 13:22 → J5S 02-13 00:53
PROVIDERS: ADMIT Internal Medicine; ATTEND Registered Nurse
PROC: 30233N1 Transfusion of Nonautologous Red Blood Cells into Peripheral Vein, Percutaneous Approach (ICD-10-PCS; principal; 2017-02-07)
DX: K92.2 Gastrointestinal hemorrhage, unspecified (principal); I50.33 Acute on chronic diastolic (congestive) heart failure; N17.9 Acute kidney failure, unspecified; I69.354 Hemiplegia and hemiparesis following cerebral infarction affecting left non-dominant side; L03.115 Cellulitis of right lower limb; I13.2 Hypertensive heart and chronic kidney disease with heart failure and with stage 5 chronic kidney disease, or end stage renal disease; D62 Acute posthemorrhagic anemia; L03.116 Cellulitis of left lower limb; N18.5 Chronic kidney disease, stage 5; E11.9 Type 2 diabetes mellitus without complications; J44.9 Chronic obstructive pulmonary disease, unspecified; E03.9 Hypothyroidism, unspecified; E78.5 Hyperlipidemia, unspecified; R55 Syncope and collapse; H40.9 Unspecified glaucoma; K21.9 Gastro-esophageal reflux disease without esophagitis; D63.1 Anemia in chronic kidney disease; Z79.4 Long term (current) use of insulin; D72.829 Elevated white blood cell count, unspecified; Z87.891 Personal history of nicotine dependence; E87.6 Hypokalemia
CPT/HCPCS: 36415; 36430; 70450-TC; 71010-TC; 71250-TC; 80048; 80053; 81003; 81015; 82040; 82272; 82550; 83735; 84100; 84484; 85025; 85610; 85730; 86850; 86900; 86901; 86922; 87040; 87086; 93005; 93010; 99285-25; P9038; P9058

== ENCOUNTER 2017-03-03 10:32 | Emergency (ER) | payer OTHER ==
[2017-03-03 10:52] VITALS: BMI 32.3
--- NOTE | 2017-03-03 11:21 | PDOC ---
History of Present Illness - General Chief Complaint: Blood Sugar Problem Stated Complaint: HYPOGLYCEMIA Time Seen by Provider: 03/03/17 10:37 History Source: Patient, Other (nurse from facility) Exam Limitations: Other - History of Present Illness Initial Comments: 03/03/17 11:00 66-year-old female presents to the emergency department for evaluation of hypoglycemia. As per nurse at facility patient had BGM's that were noted to be in the 30s and patient did not want to drink anything so was given oral glucose and then sent to the ER for further evaluation. As per nurse patient has had no recent illness or change in medications. Post denies any recent change in weight or diet. Patient has no complaints upon arrival with normal vital signs and a BGM of 142. Timing/Duration: 4-6 hours Severity: moderate Associated Symptoms: reports: denies symptoms Past History - Past Medical History Allergies/Adverse Reactions: Allergies Allergy/AdvReac Type Severity Reaction Status Date / Time cephalexin Allergy Intermediate rash Unverified 03/03/17 10:39 naproxen [From Naprosyn] Allergy Verified 03/03/17 10:39 propoxyphene napsylate Allergy Verified 03/03/17 10:39 [From Darvocet-N 100] tramadol Allergy Verified 03/03/17 10:39 acetaminophen [From Percocet] AdvReac Abdominal Verified 03/03/17 10:39 issues ibuprofen [From Motrin] AdvReac Abdominal Verified 03/03/17 10:39 issues oxycodone HCl [From Percocet] AdvReac Abdominal Verified 03/03/17 10:39 issues Home Medications: Ambulatory Orders Amlodipine Besylate [Norvasc -] 10 mg PO DAILY 02/06/17 Brimonidine Tartrate [Alphagan 0.15% -] 1 drop OD TID 02/06/17 Ferrous Sulfate [Feosol] 325 mg PO DAILY 02/06/17 Insulin Lispro [Humalog] 0 unit SQ TID 02/06/17 Levothyroxine [Synthroid -] 200 mcg PO DAILY 02/06/17 Mag Hydrox/Al Hydrox/Simeth [Brittney-Lanta Liquid] 30 ml PO PRN 02/06/17 Nortriptyline HCl [Pamelor -] 10 mg PO HS 02/06/17 Sennosides [Senna] 17.2 mg PO HS 02/06/17 Simvastatin 20 mg PO DAILY 02/06/17 Tiotropium [place] [Spiriva] 1 inh IH DAILY 02/06/17 Furosemide [Lasix -] 60 mg PO BID@0600,1400 #120 tablet 02/12/17 Metoprolol Succinate [Toprol XL -] 25 mg PO DAILY #30 tab 02/12/17 Betamethasone Dipr 0.05% Oint [Diprolene] 50 gm TP BID 03/03/17 Diphenhydramine HCl [Benadryl Capsule -] 25 mg PO BID PRN 03/03/17 Insulin Glargine,Hum.rec.anlog [Lantus Solostar PEN (NF)] 20 units SQ HS Nitrofurantoin Monohyd/M-Cryst [Macrobid -] 100 mg PO BID #14 capsule 03/03/17 Anemia: Yes (iron def) Asthma: Yes Cancer: No Cardiac Disorders: No CVA: Yes (x2 slurred speech) COPD: Yes CHF: No Dementia: No Diabetes: Yes GI Disorders: Yes (GERD) Disorders: Yes HTN: Yes Hypercholesterolemia: Yes Liver Disease: No Psychiatric Problems: Yes Seizures: No Thyroid Disease: Yes - Surgical History Abdominal Surgery: No Appendectomy: No Cardiac Surgery: No Cholecystectomy: Yes Lung Surgery: No Neurologic Surgery: No Orthopedic Surgery: No - Psycho/Social/Smoking Cessation Hx Anxiety: No Suicidal Ideation: No Smoking History: Former smoker Have you smoked in the past 12 months: No If you are a former smoker, when did you quit?: 3 MONTHS AGO Information on smoking cessation initiated: No 'Breaking Loose' booklet given: 09/15/16 Hx Alcohol Use: No Drug/Substance Use Hx: No Substance Use Type: None Hx Substance Use Treatment: No Patient Lives Alone: No Lives with/in: retirement Review of Systems - Review of Systems Able to Perform ROS?: Yes Constitutional: No: Symptoms Reported HEENTM: No: Symptoms Reported Respiratory: No: Symptoms reported Cardiac (ROS): No: Symptoms Reported ABD/GI: No: Symptoms Reported : No: Symptoms Reported Musculoskeletal: No: Symptoms Reported Integumentary: No: Symptoms Reported Neurological: No: Symptoms reported *Physical Exam - Vital Signs Last Vital Signs Temp Pulse Resp BP Pulse Ox 98.2 F 75 20 164/80 97 03/03/17 10:42 05/06/17 10:42 03/03/17 10:42 03/03/17 10:42 03/03/17 10:42 - Physical Exam General Appearance: Yes: Nourished, Appropriately Dressed. No: Apparent Distress HEENT: positive: EOMI, TANA, Pharynx Normal (moist) Neck: positive: Supple Respiratory/Chest: positive: Lungs Clear, Normal Breath Sounds. negative: Respiratory Distress, Accessory Muscle Use Cardiovascular: positive: Regular Rhythm, Regular Rate. negative: Murmur Gastrointestinal/Abdominal: positive: Soft. negative: Tenderness Extremity: positive: Normal Capillary Refill. negative: Pedal Edema Integumentary: positive: Normal Color, Warm, Moist Neurologic: positive: Normal Mood/Affect (appropriate and conversing verbally), Motor Strength 03/02 ED Treatment Course - LABORATORY CBC & Chemistry Diagram: 03/03/17 11:35 03/03/17 11:35 - ADDITIONAL ORDERS Additional order review: Laboratory Results 03/03/17 10:37 POC Glucometer [id number] 03/03/17 10:37 POC Glucometer [id number] Medical Decision Making - Medical Decision Making 03/03/17 11:27 Patient sent over for documented hypoglycemia of 30 and since patient was refusing to drink juice or take sugar packets, pt was concerning for rebounding. So patient was sent here to the ER via EMS. Patient arrives asymptomatic with normal vital signs and has no acute findings. Patient's BGM was 142 upon arrival. Patient was ordered for urine, labs, and EKG 03/03/17 13:42 Laboratory Tests 01/12/17 01/16/17 02/06/17 14:00 07:25 20:10 WBC Hgb Hct RDW MPV Neutrophils % Lymphocytes % Potassium Chloride Carbon Dioxide Anion Gap BUN Creatinine 4.5 H 4.1 H 4.3 H Creat Clearance w eGFR Calcium Magnesium AST ALT Alkaline Phosphatase Albumin 02/08/17 02/13/17 03/03/17 09:44 06:20 11:35 WBC 8.4 D Hgb 10.9 Hct 33.8 RDW 16.7 H D MPV 7.1 L Neutrophils % 83.4 H Lymphocytes % 6.7 L D Potassium Chloride Carbon Dioxide Anion Gap BUN Creatinine 4.1 H 4.2 H Creat Clearance w eGFR Calcium Magnesium AST ALT Alkaline Phosphatase Albumin 03/03/17 11:35 WBC Hgb Hct RDW MPV Neutrophils % Lymphocytes % Potassium 3.7 Chloride 104 Carbon Dioxide 24 Anion Gap 15 BUN 35 H Creatinine 4.4 H Creat Clearance w eGFR 10.10 Calcium 8.1 L Magnesium 2.1 AST 17 D ALT 12 Alkaline Phosphatase 107 Albumin 3.0 L UA not sent yet. Patient will have repeat BGM. 03/03/17 16:06 Selected Entries 03/03/17 14:42 Pulse Rate [ 66 Apical] Respiratory 18 Rate Blood Pressure 133/63 [Left Arm] O2 Sat by Pulse 97 Oximetry (%) Laboratory Tests 03/03/17 14:01 POC Glucometer [id number] urine A pending 03/03/17 16:11 Laboratory Tests 03/03/17 15:25 Ur Leukocyte Esterase 2+ H Urine WBC 464 Urine culture will be sent. Patient be discharged back with Macrobid. No previous culture on file *DC/Admit/Observation/Transfer Diagnosis at time of Disposition: UTI (urinary tract infection) Qualifiers: Urinary tract infection type: acute cystitis Hematuria presence: without hematuria Qualified Code(s): N30.00 - Acute cystitis without hematuria - Discharge Dispostion Disposition: HOME Condition at time of disposition: Good - Prescriptions Prescriptions: Nitrofurantoin Monohyd/M-Cryst [Macrobid -] 100 mg PO BID #14 capsule - Referrals Referrals: Freddy Barillas MD [Primary Care Provider] - - Patient Instructions Printed Discharge Instructions: DI for Urinary Tract Infection (UTI) Additional Instructions: Please get patient started on antibiotics as her urine today shows a urinary tract infection. A culture was sent on today's urine and will result in 2 days. Please keep patient otherwise fully hydrated and eating small frequent meals with frequent glucose checks.
[2017-03-03 12:12] LABS: BASOPHIL 0.8 % (0-2.0); MCH 28.5 pg (25.7-33.7); MCHC 32.4 g/dl (32.0-36.0); MEAN CELL VOLUME 87.9 fl (80-96); MEAN PLT VOLUME 7.1 fl (7.5-11.1); NEUTROPHILS 83.4 % (42.8-82.8); PLATELET COUNT 314 K/MM3 (134-434); RDW 16.7 % (11.6-15.6); WHITE BLOOD COUNT 8.4 K/mm3 (4.0-10.0)
[2017-03-03 12:27] LABS: BILIRUBIN,TOTAL 0.3 mg/dL (0.2-1.0); CALCIUM 8.1 mg/dL (8.5-10.1); COCKROFT - GAULT 14.7985; CREATININE 4.4 mg/dL (0.55-1.02); MAGNESIUM 2.1 mg/dL (1.8-2.4); TOT PROT 6.9 g/dl (6.4-8.2)
[2017-03-03 15:39] LABS: URINE APPEARANCE CLOUDY; URINE BILIRUBIN NEGATIVE (NEGATIVE); URINE BLOOD NEGATIVE (NEGATIVE); URINE COLOR YELLOW; URINE GLUCOSE (UA) 1+ (NEGATIVE); URINE KETONE NEGATIVE (NEGATIVE); URINE NITRITE NEGATIVE (NEGATIVE); URINE UROBILINOGEN NEGATIVE E.U./dl (0.2-1.0)
[2017-03-03 16:05] LABS: URINE LEUK ESTERASE 2+ (NEGATIVE); URINE PROTEIN 3+ (NEGATIVE)
[2017-03-03 16:09] LABS: URINE BACTERIA RARE /hpf (NONE SEEN); URINE RBC 1 /hpf (0-3); URINE WBC 464 /hpf (3-5)
--- NOTE | 2017-03-03 16:25 | EKG ---
Test Reason : Blood Pressure : / mmHG Vent. Rate : 074 BPM Atrial Rate : 074 BPM P-R Int : 128 ms QRS Dur : 090 ms QT Int : 422 ms P-R-T Axes : 024 -46 087 degrees QTc Int : 468 ms POOR DATA QUALITY, INTERPRETATION MAY BE ADVERSELY AFFECTED NORMAL SINUS RHYTHM LEFT AXIS DEVIATION SEPTAL INFARCT , AGE UNDETERMINED T WAVE ABNORMALITY, CONSIDER LATERAL ISCHEMIA ABNORMAL ECG WHEN COMPARED WITH ECG OF 07-FEB-2017 07:42, NO SIGNIFICANT CHANGE WAS FOUND Confirmed by SUAD TOWNSEND MD ([id number]) on 03/03/2017 4:24:34 PM Referred By: Confirmed By:SUAD TOWNSEND MD
[2017-03-03 19:52] VITALS: BP 136/78; PULSE 82; TEMP 97.7
== END 2017-03-03 20:17 ==
LOC: JER 10:32
DX: N39.0 Urinary tract infection, site not specified (principal); D50.8 Other iron deficiency anemias; J45.909 Unspecified asthma, uncomplicated; J44.9 Chronic obstructive pulmonary disease, unspecified; E11.9 Type 2 diabetes mellitus without complications; Z79.4 Long term (current) use of insulin; Z79.84 Long term (current) use of oral hypoglycemic drugs; I10 Essential (primary) hypertension; E78.00 Pure hypercholesterolemia, unspecified; I69.828 Other speech and language deficits following other cerebrovascular disease; Z87.891 Personal history of nicotine dependence
CPT/HCPCS: 36415; 80053; 81003; 81015; 83735; 85025; 87086; 87186; 93005; 93010; 99283-25

== ENCOUNTER 2017-03-07 15:26 | Emergency (ER) | payer OTHER ==
--- NOTE | 2017-03-07 15:36 | PDOC ---
History of Present Illness - General History Source: Patient Exam Limitations: Dementia - History of Present Illness Initial Comments: 03/07/17 16:02 The patient is a 66 year old female, with a significant past medical history of dementia, CVA(X4), HTN, HLD, DM, GERD, hypothyroidism, LORENZO, CRF, asthma, dysarthria, vertigo, anxiety, and depression, who presents to the emergency department [facility] from [facility] for evaluation of black tarry stool. Patient reports she first noticed her stool to be black earlier today and told staff. She states she receives iron treatments, which may be the cause of her dark stool. The patient denies any associated abdominal pain, nausea, vomiting, diarrhea, or constipation. She denies any dysuria, hematuria, frequency, or urgency. She denies any fever, chills, cough, headache , or dizziness. She denies any recent travel. Vague historian. Allergies: Cephalexin, naproxen, propoxyphene napsylate, tramadol, acetaminophen , ibuprofen, oxycodone HCl Past Surgical History: Cholecystectomy Social History: Former smoker. Denies alcohol or drug use. <Gilberto Acosta - Last Filed: 03/07/17 18:15> <Tiarra Cavazos - Last Filed: 03/07/17 18:22> - General Chief Complaint: Rectal Bleed Stated Complaint: BALCK STOOL Time Seen by Provider: 03/07/17 15:36 Past History <Gilberto Acosta - Last Filed: 03/07/17 18:15> - Past Medical History Anemia: Yes (iron def) Asthma: Yes Cancer: No Cardiac Disorders: No CVA: Yes (x2 slurred speech) COPD: Yes CHF: No Dementia: No Diabetes: Yes GI Disorders: Yes (GERD) Disorders: Yes (CRF) HTN: Yes Hypercholesterolemia: Yes Liver Disease: No Psychiatric Problems: Yes (ANXIETY) Seizures: No Thyroid Disease: Yes (HYPO) Other medical history: GLUAUCOMA - Surgical History Abdominal Surgery: No Appendectomy: No Cardiac Surgery: No Cholecystectomy: Yes Lung Surgery: No Neurologic Surgery: No Orthopedic Surgery: No - Psycho/Social/Smoking Cessation Hx Anxiety: Yes Suicidal Ideation: No Smoking History: Former smoker Have you smoked in the past 12 months: No If you are a former smoker, when did you quit?: 3 MONTHS AGO Information on smoking cessation initiated: No 'Breaking Loose' booklet given: 09/15/16 Hx Alcohol Use: No Drug/Substance Use Hx: No Substance Use Type: None Hx Substance Use Treatment: No <Tiarra Cavazos - Last Filed: 03/07/17 18:22> - Past Medical History Allergies/Adverse Reactions: Allergies Allergy/AdvReac Type Severity Reaction Status Date / Time cephalexin Allergy Intermediate rash Verified 03/07/17 15:30 naproxen [From Naprosyn] Allergy Verified 03/07/17 15:30 propoxyphene napsylate Allergy Verified 03/07/17 15:30 [From Darvocet-N 100] tramadol Allergy Verified 03/07/17 15:30 acetaminophen [From Percocet] AdvReac Abdominal Verified 03/07/17 15:30 issues ibuprofen [From Motrin] AdvReac Abdominal Verified 03/07/17 15:30 issues oxycodone HCl [From Percocet] AdvReac Abdominal Verified 03/07/17 15:30 issues Home Medications: Ambulatory Orders Amlodipine Besylate [Norvasc -] 10 mg PO DAILY 02/06/17 Brimonidine Tartrate [Alphagan 0.15% -] 1 drop OD TID 02/06/17 Ferrous Sulfate [Feosol] 325 mg PO DAILY 02/06/17 Insulin Lispro [Humalog] 0 unit SQ TID 02/06/17 Levothyroxine [Synthroid -] 200 mcg PO DAILY 02/06/17 Mag Hydrox/Al Hydrox/Simeth [Brittney-Lanta Liquid] 30 ml PO PRN 02/06/17 Nortriptyline HCl [Pamelor -] 10 mg PO HS 02/06/17 Sennosides [Senna] 17.2 mg PO HS 02/06/17 Simvastatin 20 mg PO DAILY 02/06/17 Tiotropium [place] [Spiriva] 1 inh IH DAILY 02/06/17 Furosemide [Lasix -] 60 mg PO BID@0600,1400 #120 tablet 02/12/17 Metoprolol Succinate [Toprol XL -] 25 mg PO DAILY #30 tab 02/12/17 Betamethasone Dipr 0.05% Oint [Diprolene] 50 gm TP BID 03/03/17 Diphenhydramine HCl [Benadryl Capsule -] 25 mg PO BID PRN 03/03/17 Nitrofurantoin Monohyd/M-Cryst [Macrobid -] 100 mg PO BID #14 capsule 03/03/17 Hydralazine HCl 1.5 tab PO TID 03/07/17 Insulin Glargine,Hum.rec.anlog [Lantus Solostar PEN (NF)] 20 units SQ HS Review of Systems - Review of Systems Able to Perform ROS?: Yes Comments:: 03/07/17 16:03 GENERAL/CONSTITUTIONAL: No fever or chills. No weakness. HEAD, EYES, EARS, NOSE AND THROAT: No change in vision. No ear pain or discharge. No sore throat. CARDIOVASCULAR: No chest pain or shortness of breath. RESPIRATORY: No cough, wheezing, or hemoptysis. GASTROINTESTINAL: Yes: +melena. No nausea, vomiting, diarrhea, constipation, or hematochezia.. GENITOURINARY: No dysuria, frequency, or change in urination. MUSCULOSKELETAL: No joint or muscle swelling or pain. No neck or back pain. SKIN: No rash NEUROLOGIC: No headache, vertigo, loss of consciousness, or change in strength/ sensation. ENDOCRINE: No increased thirst. No abnormal weight change. HEMATOLOGIC/LYMPHATIC: No anemia, easy bleeding, or history of blood clots. ALLERGIC/IMMUNOLOGIC: No hives or skin allergy. <Gilberto Acosta - Last Filed: 03/07/17 18:15> *Physical Exam - Vital Signs Last Vital Signs Temp Pulse Resp BP Pulse Ox 98.8 F 74 16 149/89 100 03/07/17 15:27 03/07/17 15:27 03/07/17 15:27 03/07/17 15:27 03/07/17 15:27 - Physical Exam Comments: 03/07/17 16:03 GENERAL: Awake, alert, and fully oriented, in no acute distress HEAD: No signs of trauma EYES: PERRLA, EOMI, sclera anicteric, conjunctiva clear ENT: Auricles normal inspection, hearing grossly normal, nares patent, oropharynx clear without exudates. Moist mucosa NECK: Normal ROM, supple, no lymphadenopathy, JVD, or masses LUNGS: Breath sounds equal, clear to auscultation bilaterally. No wheezes, and no crackles HEART: Regular rate and rhythm, normal S1 and S2, no murmurs, rubs or gallops ABDOMEN: Soft, nontender, normoactive bowel sounds. No guarding, no rebound. No masses EXTREMITIES: 2+ Pitting edema to the bilateral lower extremities, with mild erythema internally. Normal range of motion, no edema. No clubbing or cyanosis. No cords, erythema, or tenderness NEUROLOGICAL: Cranial nerves II through XII grossly intact. Normal speech, normal gait SKIN: Erythematous patch with excoriations to the left groin and left chang. Warm , Dry, normal turgor. <Gilberto Acosta - Last Filed: 03/07/17 18:15> Medical Decision Making - Medical Decision Making Stool occult was negative for blood. No signs of acute abdomen on exam. Stable for transfer back to her facility. <Tiarra Cavazos - Last Filed: 03/07/17 18:22> *DC/Admit/Observation/Transfer - Attestations Scribe Attestion: 03/07/17 16:04 Documentation prepared by Gilberto Acosta, acting as medical equipment repair technician for Tiarra Cavazos MD. <Gilberto Acosta - Last Filed: 03/07/17 18:15> - Discharge Dispostion Admit: No <Tiarra Cavazos - Last Filed: 03/07/17 18:22> Diagnosis at time of Disposition: Dark stools - Discharge Dispostion Disposition: HOME Condition at time of disposition: Stable - Patient Instructions Printed Discharge Instructions: Fecal Occult Blood Test
[2017-03-07 15:47] VITALS: BP 149/89; PULSE 74; TEMP 98.8; BMI 30.2
== END 2017-03-07 18:32 | disposition home or self-care (01) ==
LOC: FER 15:26
DX: K92.1 Melena (principal); F03.90 Unspecified dementia, unspecified severity, without behavioral disturbance, psychotic disturbance, mood disturbance, and anxiety; I69.328 Other speech and language deficits following cerebral infarction; E78.5 Hyperlipidemia, unspecified; E03.9 Hypothyroidism, unspecified; K21.9 Gastro-esophageal reflux disease without esophagitis; I12.9 Hypertensive chronic kidney disease with stage 1 through stage 4 chronic kidney disease, or unspecified chronic kidney disease; E11.22 Type 2 diabetes mellitus with diabetic chronic kidney disease; N18.9 Chronic kidney disease, unspecified; Z87.891 Personal history of nicotine dependence; J45.909 Unspecified asthma, uncomplicated; R47.1 Dysarthria and anarthria; F41.9 Anxiety disorder, unspecified; F32.9 Major depressive disorder, single episode, unspecified; D50.9 Iron deficiency anemia, unspecified; H40.9 Unspecified glaucoma
CPT/HCPCS: 82272; 99283-25

== ENCOUNTER 2017-03-23 08:52 | Inpatient (IN) | payer OTHER ==
[2017-03-23] MEDS ORDERED: SODIUM CHLORIDE 500 ML IV STA (09:11)
[2017-03-23] MEDS ORDERED: LEVOFLOXACIN 750 MG IVPB 150 ML IVPB ONE ×2 (09:11→09:24)
[2017-03-23] MEDS ORDERED: VANCOMYCIN 1 GRAM (PRE-DOCKED) 1,000 MG/250 ML BAG IVPB ONE (09:11)
--- NOTE | 2017-03-23 09:14 | PDOC ---
History of Present Illness - General Chief Complaint: Wound Stated Complaint: BILATERAL LE WOUNDS Time Seen by Provider: 03/23/17 09:08 - History of Present Illness Initial Comments: 03/23/17 09:22 This is a 66 year-old female with a PMH of Insulin requiring diabetes, HTN, HLD , diastolic heart failure, CVA x 2, COPD, IDDM, CKD, hypothyroidism, GI BLEED, and anemia, sent to us by ambulance from assisted living because of sores on her legs that she will not stop picking at that has turned into cellulitis again. Patient is unable to give any reliable history for herself and she has no one with her this morning. Looking through previous documentation in the computer I do not see any mention of dementia so it is possible that she is just confused from the cellulitis. Past History - Past Medical History Allergies/Adverse Reactions: Allergies Allergy/AdvReac Type Severity Reaction Status Date / Time cephalexin Allergy Intermediate rash Verified 03/23/17 12:01 naproxen [From Naprosyn] Allergy Verified 03/23/17 12:01 propoxyphene napsylate Allergy Verified 03/23/17 12:01 [From Darvocet-N 100] tramadol Allergy Verified 03/23/17 12:01 acetaminophen [From Percocet] AdvReac Abdominal Verified 03/23/17 12:01 issues ibuprofen [From Motrin] AdvReac Abdominal Verified 03/23/17 12:01 issues oxycodone HCl [From Percocet] AdvReac Abdominal Verified 03/23/17 12:01 issues Home Medications: Ambulatory Orders Amlodipine Besylate [Norvasc -] 10 mg PO DAILY 03/23/17 Brimonidine Tartrate [Alphagan 0.15% -] 1 drop OU TID 03/23/17 Calcium Acetate [Calphron] 667 mg PO TID 03/23/17 Ferrous Sulfate [Feosol] 325 mg PO DAILY 03/23/17 Furosemide [Lasix] 60 mg PO BID 03/23/17 Hydralazine HCl [Apresoline -] 75 mg PO TID 03/23/17 Insulin Glargine,Hum.rec.anlog [Lantus (nf)] 0 units SQ HS 03/23/17 Insulin Lispro [Humalog] 0 unit SQ ASDIR 03/23/17 Levothyroxine Sodium [Synthroid] 200 mcg PO DAILY 03/23/17 Metoprolol Succinate [Toprol Xl -] 25 mg PO DAILY 03/23/17 Nortriptyline HCl [Pamelor -] 10 mg PO HS 03/23/17 Paroxetine HCl [Paxil] 20 mg PO DAILY 03/23/17 Sennosides [Senna] 8.6 mg PO HS 03/23/17 Simvastatin [Zocor -] 20 mg PO HS 03/23/17 Tiotropium [place] [Spiriva] 1 inh IH DAILY 03/23/17 Triamcinolone 0.025% Cream [Aristocort] 0 gm TP BID 03/23/17 Anemia: Yes (iron def) Asthma: Yes Cancer: No Cardiac Disorders: No CVA: Yes (x2 slurred speech) COPD: Yes CHF: No Dementia: No Diabetes: Yes GI Disorders: Yes (GERD) Disorders: Yes (CRF) HTN: Yes Hypercholesterolemia: Yes Liver Disease: No Psychiatric Problems: Yes (ANXIETY) Seizures: No Thyroid Disease: Yes (HYPO) - Surgical History Abdominal Surgery: No Appendectomy: No Cardiac Surgery: No Cholecystectomy: Yes Lung Surgery: No Neurologic Surgery: No Orthopedic Surgery: No - Psycho/Social/Smoking Cessation Hx Anxiety: Yes Suicidal Ideation: No Smoking History: Former smoker Have you smoked in the past 12 months: No If you are a former smoker, when did you quit?: 3 MONTHS AGO 'Breaking Loose' booklet given: 09/15/16 Hx Alcohol Use: No Drug/Substance Use Hx: No Substance Use Type: None Hx Substance Use Treatment: No ED Treatment Course - LABORATORY CBC & Chemistry Diagram: 03/23/17 11:30 03/23/17 11:30 *DC/Admit/Observation/Transfer Diagnosis at time of Disposition: Acute on chronic diastolic (congestive) heart failure Sepsis Qualifiers: Sepsis type: sepsis due to unspecified organism Qualified Code(s): A41.9 - Sepsis, unspecified organism Altered mental status Qualifiers: Altered mental status type: stupor Qualified Code(s): R40.1 - Stupor Cellulitis Qualifiers: Site of cellulitis: extremity Site of cellulitis of extremity: lower extremity Laterality: unspecified laterality Qualified Code(s): L03.119 - Cellulitis of unspecified part of limb Anemia Qualifiers: Anemia type: unspecified type Qualified Code(s): D64.9 - Anemia, unspecified COPD (chronic obstructive pulmonary disease) Qualifiers: COPD type: unspecified COPD Qualified Code(s): J44.9 - Chronic obstructive pulmonary disease, unspecified Chronic renal failure Qualifiers: Chronic kidney disease stage: unspecified stage Qualified Code(s): N18.9 - Chronic kidney disease, unspecified HTN (hypertension) Qualifiers: Hypertension type: essential hypertension Qualified Code(s): I10 - Essential ( primary) hypertension Renal failure (ARF), acute on chronic Qualifiers: Acute renal failure type: unspecified Chronic kidney disease stage: unspecified stage Qualified Code(s): N17.9 - Acute kidney failure, unspecified; N18.9 - Chronic kidney disease, unspecified - Discharge Dispostion Condition at time of disposition: Improved Admit: Yes
[2017-03-23] MEDS ORDERED: VANCOMYCIN 1,000 MG VIAL (RESTRICTED TO ID ONLY) ONE (09:24)
[2017-03-23] MEDS ORDERED: LORAZEPAM CARPU-JECT 2 MG/ML DISP.SYRIN IM ONE (10:26)
[2017-03-23] MEDS ORDERED: LORAZEPAM CARPU-JECT 2 MG/ML DISP.SYRIN ONE ×2 (10:28→14:09)
[2017-03-23] MEDS ORDERED: HALOPERIDOL LACTATE 5 MG/ML IM ONE (10:50)
[2017-03-23] MEDS ORDERED: HALOPERIDOL LACTATE 5 MG/ML ONE (10:58)
[2017-03-23 11:55] LABS: BASOPHIL 0.3 % (0-2.0); EOSINOPHIL 10.7 % (0-4.5); MCH 28.8 pg (25.7-33.7); MCHC 33.5 g/dl (32.0-36.0); MEAN CELL VOLUME 86.1 fl (80-96); MEAN PLT VOLUME 7.5 fl (7.5-11.1); NEUTROPHILS 79.3 % (42.8-82.8); PLATELET COUNT 355 K/MM3 (134-434); RDW 15.3 % (11.6-15.6); WHITE BLOOD COUNT 16.9 K/mm3 (4.0-10.8)
[2017-03-23 12:17] LABS: ACTIVATED PTT 28.8 SECONDS (24.0-38.9); ALK PHOS 87 U/L (32-92); ANION GAP 13 (8-16); BILIRUBIN,TOTAL 0.7 mg/dl (0.2-1.0); CO2 21 mmol/L (22-28); CREATININE 4.3 mg/dl (0.6-1.3); GLUCOSE,RANDOM 77 mg/dl (74-106); INR 1.11 (0.82-1.09); PROTHROMBIN TIME (PATIENT) 12.4 SEC (10.2-13.0); SGOT/AST 16 U/L (10-42); SGPT/ALT 10 U/L (10-40); TOT PROT 6.2 g/dl (6.4-8.3)
[2017-03-23 12:42] LABS: TROPONIN I (DFP) 0.04 ng/ml (0.03-0.50)
--- NOTE | 2017-03-23 13:16 | HP ---
CHIEF COMPLAINT: cellulitis/altered mental status PCP: Dr Barillas HISTORY OF PRESENT ILLNESS: patient is a 66 y/o female with a pmh of IDDM, HTN , diastolic CHF, CVA (most recent 06/13, residual left hemiparesis), COPD, CKD, hypothyroidism and anemia. Patient was transferred from her assisted living facility by ambulance to the emergency department for altered mental status and erythema with persistant skin break down to bilateral lower extremities. Patient is unable to provide a history due to altered mental status. ER course was notable for: (1) wbc 16.9 (2) chest xray no infiltrates no consolidation (3) doppler billateral lower extremities no dvt Recent Travel: none PAST MEDICAL HISTORY: as above PAST SURGICAL HISTORY: cholecystectomy and left knee arthroscopy Social History: resides at assisted living facility Smoking: none Alcohol: none Drugs: none Family History: mother-->, mi, dm father--> unknown 1 daughter alive and well Allergies cephalexin Allergy (Intermediate, Verified 03/23/17 12:01) rash naproxen [From Naprosyn] Allergy (Verified 03/23/17 12:01) propoxyphene napsylate [From Darvocet-N 100] Allergy (Verified 03/23/17 12:01) tramadol Allergy (Verified 03/23/17 12:01) acetaminophen [From Percocet] Adverse Reaction (Verified 03/23/17 12:01) Abdominal issues ibuprofen [From Motrin] Adverse Reaction (Verified 03/23/17 12:01) Abdominal issues oxycodone HCl [From Percocet] Adverse Reaction (Verified 03/23/17 12:01) Abdominal issues HOME MEDICATIONS: Home Medications Medication Instructions Recorded Amlodipine Besylate [Norvasc -] 10 mg PO DAILY 03/23/17 Brimonidine Tartrate [Alphagan 1 drop OU TID 03/23/17 0.15% -] Calcium Acetate [Calphron] 667 mg PO TID 03/23/17 Ferrous Sulfate [Feosol] 325 mg PO DAILY 03/23/17 Furosemide [Lasix] 60 mg PO BID 03/23/17 Hydralazine HCl [Apresoline -] 75 mg PO TID 03/23/17 Insulin Glargine,Hum.rec.anlog 0 units SQ HS 03/23/17 [Lantus (nf)] Insulin Lispro [Humalog] 0 unit SQ ASDIR 03/23/17 Levothyroxine Sodium [Synthroid] 200 mcg PO DAILY 03/23/17 Metoprolol Succinate [Toprol Xl -] 25 mg PO DAILY 03/23/17 Nortriptyline HCl [Pamelor -] 10 mg PO HS 03/23/17 Paroxetine HCl [Paxil] 20 mg PO DAILY 03/23/17 Sennosides [Senna] 8.6 mg PO HS 03/23/17 Simvastatin [Zocor -] 20 mg PO HS 03/23/17 Tiotropium [place] [Spiriva] 1 inh IH DAILY 03/23/17 Triamcinolone 0.025% Cream 0 gm TP BID 03/23/17 [Aristocort] REVIEW OF SYSTEMS CONSTITUTIONAL: Present: Absent: fever, chills, diaphoresis, generalized weakness, malaise, loss of appetite, weight change HEENT: Absent: rhinorrhea, nasal congestion, throat pain, throat swelling, difficulty swallowing, mouth swelling, ear pain, eye pain, visual changes CARDIOVASCULAR: Absent: chest pain, syncope, palpitations, irregular heart rate, lightheadedness , peripheral edema RESPIRATORY: Absent: cough, shortness of breath, dyspnea with exertion, orthopnea, wheezing, stridor, hemoptysis GASTROINTESTINAL: Absent: abdominal pain, abdominal distension, nausea, vomiting, diarrhea, constipation, melena, hematochezia GENITOURINARY: Absent: dysuria, frequency, urgency, hesitancy, hematuria, flank pain, genital pain MUSCULOSKELETAL: Absent: myalgia, arthralgia, joint swelling, back pain, neck pain SKIN: present: erythema, papules Absent: rash, itching, pallor HEMATOLOGIC/IMMUNOLOGIC: Absent: easy bleeding, easy bruising, lymphadenopathy, frequent infections ENDOCRINE: Absent: unexplained weight gain, unexplained weight loss, heat intolerance, cold intolerance NEUROLOGIC: present: mental status changes, Absent: headache, focal weakness or paresthesias, dizziness, unsteady gait, seizure, bladder or bowel incontinence PSYCHIATRIC: Absent: anxiety, depression, suicidal or homicidal ideation, hallucinations. PHYSICAL EXAMINATION Vital Signs - 24 hr 03/23/17 03/23/17 08:55 10:50 Temperature 97.9 F Pulse Rate 68 Pulse Rate [ 88 Right] Respiratory 18 18 Rate Blood Pressure 152/60 Blood Pressure 157/88 [Left Arm] O2 Sat by Pulse 100 96 Oximetry (%) GENERAL: dishevel, lethargic, pt received ativan, haldol, and benadryl prior to exam, oriented times person. HEAD: Normal with no signs of trauma. EYES: Pupils equal, round and reactive to light, extraocular movements intact, sclera anicteric, conjunctiva clear. No lid lag. EARS, NOSE, THROAT: Ears normal, nares patent, oropharynx clear without exudates. poor oral hygiene, Moist mucous membranes. NECK: Normal range of motion, supple without lymphadenopathy, JVD, or masses. LUNGS: Breath sounds equal, clear to auscultation bilaterally. No wheezes, and no crackles. No accessory muscle use. HEART: Regular rate and rhythm, normal S1 and S2 without murmur, rub or gallop. ABDOMEN: Soft, nontender, not distended, normoactive bowel sounds, no guarding, no rebound, no masses. No hepatomegaly or splenomegaly. MUSCULOSKELETAL: Normal range of motion at all joints. No bony deformities or tenderness. No CVA tenderness. UPPER EXTREMITIES: 2+ pulses, warm, well-perfused. No cyanosis. No clubbing. No peripheral edema. LOWER EXTREMITIES: 2+ pulses, +1 edema bilaterally, multiple erythematous papules with clear drainage, bilateral circumferential erythema. NEUROLOGICAL: Cranial nerves II-XII intact. Normal speech. Normal gait. PSYCHIATRIC: Cooperative. Good eye contact. Appropriate mood and affect. SKIN: Warm, dry, normal turgor, normal capillary refill. tinea noted to inguinal folds bilaterally. Laboratory Results - last 24 hr 03/23/17 03/23/17 03/23/17 11:30 11:30 11:30 WBC 16.9 H D RBC 3.76 D Hgb 10.8 D Hct 32.3 L D MCV 86.1 MCHC 33.5 RDW 15.3 Plt Count 355 MPV 7.5 Neutrophils % 79.3 Lymphocytes % 5.4 L Monocytes % 4.3 Eosinophils % 10.7 H D Basophils % 0.3 INR 1.11 PTT (Actin FS) 28.8 Sodium 141 Potassium 3.5 Chloride 107 Carbon Dioxide 21 L Anion Gap 13 BUN 47 H D Creatinine 4.3 H Creat Clearance w eGFR 10.37 Random Glucose 77 D Calcium 8.0 L Total Bilirubin 0.7 D AST 16 ALT 10 Alkaline Phosphatase 87 Creatine Kinase Cancelled Troponin I Cancelled Total Protein 6.2 L Albumin 3.0 L 03/23/17 11:30 WBC RBC Hgb Hct MCV MCHC RDW Plt Count MPV Neutrophils % Lymphocytes % Monocytes % Eosinophils % Basophils % INR PTT (Actin FS) Sodium Potassium Chloride Carbon Dioxide Anion Gap BUN Creatinine Creat Clearance w eGFR Random Glucose Calcium Total Bilirubin AST ALT Alkaline Phosphatase Creatine Kinase 114 Troponin I 0.04 Total Protein Albumin ASSESSMENT/PLAN: 1) ID: cellulitis - past history of cellulites to lower extremities, has required multiple admissions in the past, pt received vancomycin and levaquin in ED, continue vancomycin tommorow, pending vancomycin through, appreciate ID input (Brendon) - pt afebrile, lactic acid, leukocytosis noted, pending urine and blood cultures , trending wbc and monitor fever curve - tinea noted to groin start nystatin, multiple erythematous papules noted lower and upper bilateral extremities start bactroban 2) neuro: altered mental status - no history of dementia in the past, ct scan of brain ordered - review of medication list, paxil and noritripyline is noted, can be contributing to AMS, will hold nortriptilyine - urinalysis and urine culture ordered by straight cath - fall precautions 3) card diasytolic congestive heart failure - pt appears euvolemic on exam, continue lasix\ - strict i/o and daily weights hypertension - continue home medications: hydralazine, norvasc and lopressor - b/p at goal, vital signs q4h hyperlipidemia - continue lipitor (subsitute for zocor), lft's wnl 4) neph acute on chronic kidney failiure - creatine 4.3, baseline 2.5, likely secondary to hypovolemia, 500ml ns bolus given in ED, encourage po intake, caution with IVF due to CHF - repeat bmp in am 5) endo IDDM - pending hgb a1c, continue fingersticks achs with regular insulin coverage, continue lantus, home dose hypothyroidism -pending tsh and t4, continue synthroid, home dose f/e/n - renal/diabetic diet - replete lytes prn ppx - heparin -scd - oob - PT - zantac dispo: requires inpatient care Visit type - Emergency Visit Emergency Visit: Yes ED Registration Date: 03/23/17 Care time: The patient presented to the Emergency Department on the above date and was hospitalized for further evaluation of their emergent condition. - New Patient This patient is new to me today: Yes Date on this admission: 03/23/17 - Critical Care Critical Care patient: No
[2017-03-23] MEDS ORDERED: LORAZEPAM CARPU-JECT 2 MG/ML DISP.SYRIN IVPUSH ONE (14:42)
[2017-03-23] MEDS ORDERED: FUROSEMIDE 40 MG TABLET (FP) ONE (14:54)
[2017-03-23] MEDS: FUROSEMIDE 40 MG TABLET (FP) PO SCH (15:02)
[2017-03-23] MEDS: hydrALAZINE HCL 50 MG TABLET (FP) PO SCH ×2 (16:54→22:11)
[2017-03-23] MEDS: BRIMONIDINE TARTRATE 0.15% OPHTHALMIC 5 ML BOTTLE OU SCH ×2 (16:54→22:09)
[2017-03-23] MEDS: INSULIN SLIDING SCALE (NOVOLOG) 1 VIAL SQ SCH ×2 (16:55→22:33)
[2017-03-23] MEDS: MUPIROCIN 2% TOPICAL OINTMENT 22 GM TUBE TP SCH ×2 (16:55→22:13)
--- NOTE | 2017-03-23 17:20 | PN ---
Progress Note (short form) - Note Progress Note: ID Consult dictated Recurrent LE cellulitis Possible sepsis secondary to cellulitis Toxic metabolic encephalopathy Azotemia Cephalosporin allergy Await c/s Empiric vanco/levaquin, adjusted for renal failure
[2017-03-23 19:03] VITALS: BMI 31.7
[2017-03-23 19:07] LABS: PH,URINE 6.5 (4.5-8); URINE APPEARANCE Clear; URINE BILIRUBIN Negative (NEGATIVE); URINE GLUCOSE (UA) Negative (NEGATIVE); URINE KETONE Negative (NEGATIVE); URINE LEUK ESTERASE Negative (NEGATIVE); URINE NITRITE Negative (NEGATIVE); URINE UROBILINOGEN 0.2 E.U/dl (0.2-1.0)
[2017-03-23 19:08] LABS: URINE BLOOD 1+ (NEGATIVE); URINE COLOR YELLOW; URINE PROTEIN 3+ (NEGATIVE)
[2017-03-23 19:50] LABS: URINE RBC 0-2 /hpf (0-3)
[2017-03-23 19:51] LABS: URINE BACTERIA FEW /hpf (NEGATIVE)
[2017-03-23 20:09] LABS: FREE T4 1.03 ng/dl (0.76-1.46); THYROID STIMULATING HORMONE 3.43 uIU/ml (0.358-3.74)
[2017-03-23 20:32] LABS: CK MB 2.5 ng/ml (0.3-4.0); TROPONIN I (DFP) 0.05 ng/ml (0.03-0.50)
--- NOTE | 2017-03-23 21:05 | CONSULT ---
Consult Consult Specialty:: Nephrology Reason for Consultation:: CKD - History of Present Illness Chief Complaint: sent in from [place] for [place] extremity cellulitis History of Present Illness: Pt is a 66 year old female with pmhx of CKD, HTN, DM, HTN, CHF, CVA, and COPD who was sent in for lower extremity cellulitis. She is known to me from previous admissions. She does not follow up in the office. She was found to have elevated creatinine and I was called to evaluate her. She does have increased edema in her legs. She is a poor historian. She denies shortness of breath. 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 Cardio/Vascular: Yes: HTN, Hyperlipdemia Pulmonary: Yes: COPD Renal/: Yes: Renal Inusuff (CKD) ...: No Endocrine: Yes: Diabetes Mellitus Additional Medical History: Hard of hearing - Past Surgical History Past Surgical History: Yes: Arthrosocopy (Left knee), Cholecystectomy - Alcohol/Substance Use Hx Alcohol Use: No History of Substance Use: reports: None - Smoking History Smoking history: Former smoker Have you smoked in the past 12 months: No If you are a former smoker, when did you quit?: 3 MONTHS AGO - Social History Usual Living Arrangement: Assisted Living ADL: Support Services Occupation: Unemployed History of Recent Travel: No Home Medications - Allergies Allergies/Adverse Reactions: Allergies Allergy/AdvReac Type Severity Reaction Status Date / Time cephalexin Allergy Intermediate rash Verified 03/23/17 12:01 naproxen [From Naprosyn] Allergy Verified 03/23/17 12:01 propoxyphene napsylate Allergy Verified 03/23/17 12:01 [From Darvocet-N 100] tramadol Allergy Verified 03/23/17 12:01 acetaminophen [From Percocet] AdvReac Abdominal Verified 03/23/17 12:01 issues ibuprofen [From Motrin] AdvReac Abdominal Verified 03/23/17 12:01 issues oxycodone HCl [From Percocet] AdvReac Abdominal Verified 03/23/17 12:01 issues - Home Medications Home Medications: Ambulatory Orders Amlodipine Besylate [Norvasc -] 10 mg PO DAILY 03/23/17 Brimonidine Tartrate [Alphagan 0.15% -] 1 drop OU TID 03/23/17 Calcium Acetate [Calphron] 667 mg PO TID 03/23/17 Ferrous Sulfate [Feosol] 325 mg PO DAILY 03/23/17 Furosemide [Lasix] 60 mg PO BID 03/23/17 Hydralazine HCl [Apresoline -] 75 mg PO TID 03/23/17 Insulin Glargine,Hum.rec.anlog [Lantus (nf)] 0 units SQ HS 03/23/17 Insulin Lispro [Humalog] 0 unit SQ ASDIR 03/23/17 Levothyroxine Sodium [Synthroid] 200 mcg PO DAILY 03/23/17 Metoprolol Succinate [Toprol Xl -] 25 mg PO DAILY 03/23/17 Nortriptyline HCl [Pamelor -] 10 mg PO HS 03/23/17 Paroxetine HCl [Paxil] 20 mg PO DAILY 03/23/17 Sennosides [Senna] 8.6 mg PO HS 03/23/17 Simvastatin [Zocor -] 20 mg PO HS 03/23/17 Tiotropium [place] [Spiriva] 1 inh IH DAILY 03/23/17 Triamcinolone 0.025% Cream [Aristocort] 0 gm TP BID 03/23/17 Family Disease History - Family Disease History Family Disease History: Diabetes: Mother ( in her 50s from [place]), Heart Disease: Mother Review of Systems Unable to obtain ROS, reason: pt not reliable - Review of Systems Constitutional: reports: No Symptoms Eyes: reports: No Symptoms Neck: reports: No Symptoms Cardiovascular: reports: No Symptoms Respiratory: reports: No Symptoms. denies: SOB Gastrointestinal: reports: No Symptoms Genitourinary: reports: No Symptoms Musculoskeletal: reports: Other (lower extremity swelling) Neurological: reports: Confusion Physical Exam Vital Signs: Vital Signs Temperature 101.7 F H 03/23/17 19:20 Pulse Rate 118 H 03/23/17 15:57 Respiratory Rate 19 03/23/17 15:57 Blood Pressure 160/90 03/23/17 15:57 O2 Sat by Pulse Oximetry (%) 95 03/23/17 18:00 Constitutional: Yes: Calm Eyes: Yes: Conjunctiva Clear HENT: Yes: Atraumatic Neck: Yes: Supple Cardiovascular: Yes: S1, S2 Respiratory: Yes: CTA Bilaterally Gastrointestinal: Yes: Soft, Abdomen, Obese Musculoskeletal: Yes: WNL Edema: Yes Edema: LLE: 2+, RLE: 2+ Neurological: Yes: Confusion Labs: Laboratory Tests 02/10/17 02/12/17 02/13/17 15:00 06:28 06:20 WBC Hgb Sodium Potassium Chloride Carbon Dioxide Anion Gap BUN Creatinine 4.0 H 3.9 H 4.2 H 03/03/17 03/23/17 03/23/17 11:35 11:30 11:30 WBC 16.9 H D Hgb 10.8 D Sodium 141 Potassium 3.5 Chloride 107 Carbon Dioxide 21 L Anion Gap 13 BUN 47 H D Creatinine 4.4 H 4.3 H Imaging - Results Chest X-ray: Report Reviewed Cat Scan: Report Reviewed Problem List - Problems (1) COPD (chronic obstructive pulmonary disease) Code(s): J44.9 - CHRONIC OBSTRUCTIVE PULMONARY DISEASE, UNSPECIFIED Qualifiers : COPD type: unspecified COPD Qualified Code(s): J44.9 - Chronic obstructive pulmonary disease, unspecified (2) Cellulitis Code(s): L03.90 - CELLULITIS, UNSPECIFIED Qualifiers: Site of cellulitis: extremity Site of cellulitis of extremity: lower extremity Laterality: unspecified laterality Qualified Code(s): L03.119 - Cellulitis of unspecified part of limb (3) Chronic renal failure Code(s): N18.9 - CHRONIC KIDNEY DISEASE, UNSPECIFIED Qualifiers: Chronic kidney disease stage: unspecified stage Qualified Code(s): N18.9 - Chronic kidney disease, unspecified (4) HTN (hypertension) Code(s): I10 - ESSENTIAL (PRIMARY) HYPERTENSION Qualifiers: Hypertension type: essential hypertension Qualified Code(s): I10 - Essential (primary) hypertension Assessment/Plan Current Medications Generic Name Dose Route Start Last Admin Trade Name Freq PRN Reason Stop Dose Admin Aclidinium [place] 1 puff 03/24/17 10:00 Tudorza - IH BID LITZY Amlodipine Besylate 10 mg 03/24/17 10:00 Norvasc - PO DAILY LITZY Atorvastatin Calcium 20 mg 03/23/17 22:00 Lipitor - PO HS LITZY Brimonidine Tartrate 1 drop 03/23/17 14:00 03/23/17 16:54 Alphagan 0.15% - OU Not Given TID LITZY Ferrous Sulfate 325 mg 03/24/17 10:00 Feosol - PO DAILY LITZY Furosemide 60 mg 03/23/17 14:00 03/23/17 15:02 Lasix - PO 60 mg BIDLASIX LITZY Administration Hydralazine HCl 75 mg 03/23/17 14:00 03/23/17 16:54 Apresoline - PO Not Given TID LITZY Vancomycin HCl 250 mls @ 166.667 mls/hr 03/24/17 10:00 Vancomycin (Pre-Docked) IVPB 03/24/17 11:29 ONCE ONE Protocol Levofloxacin 50 mls @ 50 mls/hr 03/25/17 10:00 Levaquin 250 Mg Premixed Ivpb - IVPB Q2D@1000 [facility] Insulin Aspart 1 vial 03/23/17 16:30 03/23/17 16:55 Novolog Vial Sliding Scale - SQ Not Given ACHS [facility] Protocol Insulin Detemir 16 units 03/23/17 22:00 Levemir Vial SQ HS [facility] Levothyroxine Sodium 200 mcg 03/24/17 07:00 Synthroid - PO DAILY@0700 [facility] Lorazepam 0.5 mg 03/23/17 14:56 Ativan Injection - IVPUSH TID PRN ANXIETY Metoprolol Succinate 25 mg 03/24/17 10:00 Toprol Xl - PO DAILY [facility] Mupirocin 1 applic 03/23/17 15:00 03/23/17 16:55 Bactroban 2% Ointment - TP Not Given TID [facility] Nystatin 1 applic 03/23/17 22:00 Mycostatin Cream - TP BID [facility] Paroxetine HCl 20 mg 03/24/17 10:00 Paxil - PO DAILY [facility] Pneumococcal 13-Valent Conj Vacc 0.5 ml 03/23/17 19:03 Prevnar 13 Syringe - IM 03/23/17 19:04 .ONCE ONE Senna 1 tab 03/23/17 22:00 Senna - PO HS [facility] Impression 1. CKD 2. HTN 3. DM 4. CVA 5. smoking history 6. pleural effusions 7. anemia 8. COPD 9. CHF 10. positive nathan 11. Hepatitis B 12. cellulitis Plan - renal function is not far from baseline - would not give fluids as she has edema - cont with diuretics - monitor renal function closely - repeat labs in am - no indication for acute HD - will need to monitor vanco levels - will follow Dr Patel
[2017-03-23] MEDS ORDERED: ACETAMINOPHEN 500 MG TABLET (FP) PO ONE (21:19)
[2017-03-23] MEDS: SENNOSIDES 8.6MG TABLET (FP) PO SCH (22:11)
[2017-03-23] MEDS: ATORVASTATIN CA 20 MG TABLET (FP) PO SCH (22:11)
[2017-03-23] MEDS: NYSTATIN 100,000 UNIT/GM TOPICAL CREAM 15 GM TUBE TP SCH (22:13)
[2017-03-23] MEDS: INSULIN DETEMIR 100 UNITS/ML MDV SQ SCH (22:16)
[2017-03-24] MEDS: LORAZEPAM CARPU-JECT 2 MG/ML DISP.SYRIN IVPUSH PRN ×4 (01:04→21:54)
[2017-03-24] MEDS ORDERED: LORAZEPAM CARPU-JECT 2 MG/ML DISP.SYRIN IVPUSH ONE (02:12)
[2017-03-24] MEDS: MUPIROCIN 2% TOPICAL OINTMENT 22 GM TUBE TP SCH ×3 (06:43→21:12)
[2017-03-24] MEDS: FUROSEMIDE 40 MG TABLET (FP) PO SCH ×2 (06:43→14:14)
[2017-03-24] MEDS: hydrALAZINE HCL 50 MG TABLET (FP) PO SCH ×3 (06:45→21:07)
[2017-03-24] MEDS: BRIMONIDINE TARTRATE 0.15% OPHTHALMIC 5 ML BOTTLE OU SCH ×3 (06:47→21:43)
[2017-03-24] MEDS ORDERED: PT OWN MED DRAWER 7, Y5N ONE ×2 (06:48→16:09)
[2017-03-24] MEDS: INSULIN SLIDING SCALE (NOVOLOG) 1 VIAL SQ SCH ×4 (06:49→21:10)
[2017-03-24] MEDS: LEVOTHYROXINE NA 100 MCG TABLET (FP) PO SCH (06:50)
[2017-03-24 07:45] LABS: BASOPHIL 1.2 % (0-2.0); EOSINOPHIL 13.3 % (0-4.5); MCH 28.9 pg (25.7-33.7); MCHC 33.6 g/dl (32.0-36.0); MEAN CELL VOLUME 86.1 fl (80-96); MEAN PLT VOLUME 7.7 fl (7.5-11.1); NEUTROPHILS 70.9 % (42.8-82.8); PLATELET COUNT 298 K/MM3 (134-434); RDW 15.3 % (11.6-15.6); WHITE BLOOD COUNT 12.1 K/mm3 (4.0-10.8)
[2017-03-24 08:00] LABS: ALBUMIN 2.4 g/dl (3.5-5.0); BILIRUBIN,TOTAL 0.8 mg/dl (0.2-1.0); CALCIUM 7.7 mg/dl (8.4-10.2); COCKROFT - GAULT 14.1015; CREATININE 4.4 mg/dl (0.6-1.3); MAGNESIUM 1.9 mg/dL (1.8-2.4); PHOSPHOROUS 4.8 mg/dl (2.5-4.6); TOT PROT 5.1 g/dl (6.4-8.3)
[2017-03-24] MEDS ORDERED: POTASSIUM CHLORIDE TABS 20 MEQ TABLET.ER (FP) PO ONE (09:54)
[2017-03-24] MEDS: METOPROLOL SUCCINATE 25 MG TAB.SR.24H (FP) PO SCH (10:00)
[2017-03-24] MEDS ORDERED: VANCOMYCIN 1 GRAM (PRE-DOCKED) 250 ML IVPB ONE (10:00)
[2017-03-24] MEDS: PARoxetine HCL 20 MG TABLET (FP) PO SCH (10:00)
[2017-03-24] MEDS: NYSTATIN 100,000 UNIT/GM TOPICAL CREAM 15 GM TUBE TP SCH ×2 (10:22→21:42)
[2017-03-24] MEDS: amLODIPine BESYLATE 10 MG TABLET (FP) PO SCH (10:22)
[2017-03-24] MEDS: FERROUS SO4 325 MG TABLET (FP) PO SCH (10:22)
[2017-03-24] MEDS: ACLIDINIUM BROMIDE 400 MCG/INH AERO.POWD IH SCH ×2 (10:25→21:44)
--- NOTE | 2017-03-24 11:04 | PN ---
Physical Exam: SUBJECTIVE: Patient seen and examined. Reports that her legs are better and she wants to go home. No complaints on exam. OBJECTIVE: Vital Signs - 24 hr 3 03/23/17 03/23/17 03/23/17 10:50 13:52 15:57 Temperature 99.9 F H Pulse Rate 118 H Pulse Rate [ 88 87 Right] Respiratory 18 18 19 Rate Blood Pressure 160/90 Blood Pressure 157/88 164/79 [Left Arm] O2 Sat by Pulse 96 96 95 Oximetry (%) 3 03/23/17 03/23/17 03/24/17 03/24/17 03/24/17 21:05 23:00 00:00 02:08 05:30 Temperature 102.4 F H 100 F H 99.4 F 98.1 F 98.5 F Pulse Rate 96 H 96 H 101 H 106 H Pulse Rate [ Right] Respiratory 14 14 16 18 Rate Blood Pressure 151/62 154/73 154/66 154/66 Blood Pressure [Left Arm] O2 Sat by Pulse 95 Oximetry (%) GENERAL: The patient is awake, alert, and fully oriented, in no acute distress. HEAD: Normal with no signs of trauma. EYES: PERRL, extraocular movements intact, sclera anicteric, conjunctiva clear. No ptosis. ENT: Ears normal, nares patent, oropharynx clear without exudates, moist mucous membranes. NECK: Trachea midline, full range of motion, supple. LUNGS: Breath sounds equal, clear to auscultation bilaterally, no wheezes, no crackles, no accessory muscle use. HEART: Regular rate and rhythm, S1, S2 without murmur, rub or gallop. ABDOMEN: Soft, nontender, nondistended, normoactive bowel sounds, no guarding, no rebound, no hepatosplenomegaly, no masses. EXTREMITIES: 2+ pulses, warm, well-perfused, no edema. NEUROLOGICAL: Cranial nerves II through XII grossly intact. Normal speech, gait not observed. PSYCH: Normal mood, normal affect. SKIN: Warm, dry, normal turgor. Rash noted to chest and upper arms, erythematous , no induration, does not appear to be itchy. Also with rash to groin. B/L LE anterior shins with multiple excoriations on an erythematous base. + serosanguinous dc. Laboratory Results - last 24 hr 3 03/23/17 03/23/17 03/23/17 17:15 17:15 18:46 22:15 WBC RBC Hgb Hct MCV MCHC RDW Plt Count MPV Neutrophils % Lymphocytes % Monocytes % Eosinophils % Basophils % Sodium Potassium Chloride Carbon Dioxide Anion Gap BUN Creatinine Creat Clearance w eGFR POC Glucometer 71 Random Glucose Calcium Phosphorus Magnesium Total Bilirubin AST ALT Alkaline Phosphatase Creatine Kinase 190 H D CK-MB (CK-2) 2.5 Troponin I 0.05 Total Protein Albumin TSH 3.43 D Free T4 1.03 Urine Color Yellow Urine Appearance Clear Urine pH 6.5 Ur Specific [place] 1.020 Urine Protein 3+ H Urine Glucose (UA) Negative Urine Ketones Negative Urine Blood 1+ H Urine Nitrite Negative Urine Bilirubin Negative Urine Urobilinogen 0.2 e.u/dl Ur Leukocyte Esterase Negative Urine RBC 0-2 Urine WBC 2-3 Ur Epithelial Cells 1-2 Urine Bacteria Few 3 03/24/17 03/24/17 02:18 06:36 07:24 07:24 WBC 12.1 H RBC 3.32 L Hgb 9.6 L D Hct 28.6 L MCV 86.1 MCHC 33.6 RDW 15.3 Plt Count 298 MPV 7.7 Neutrophils % 70.9 Lymphocytes % 7.9 L D Monocytes % 6.7 Eosinophils % 13.3 H Basophils % 1.2 D Sodium 142 Potassium 3.4 L Chloride 110 H Carbon Dioxide 23 Anion Gap 9 BUN 47 H Creatinine 4.4 H Creat Clearance w eGFR 10.10 POC Glucometer 88 81 Random Glucose 88 Calcium 7.7 L Phosphorus 4.8 H Magnesium 1.9 Total Bilirubin 0.8 AST 16 ALT 9 L Alkaline Phosphatase 73 Creatine Kinase CK-MB (CK-2) Troponin I Total Protein 5.1 L Albumin 2.4 L TSH Free T4 Urine Color Urine Appearance Urine pH Ur Specific [place] Urine Protein Urine Glucose (UA) Urine Ketones Urine Blood Urine Nitrite Urine Bilirubin Urine Urobilinogen Ur Leukocyte Esterase Urine RBC Urine WBC Ur Epithelial Cells Urine Bacteria Active Medications 3 Generic Name Dose Route Start Last Admin Trade Name Freq PRN Reason Stop Dose Admin Aclidinium [place] 1 puff 03/24/17 10:00 Tudorza - IH BID [facility] Amlodipine Besylate 10 mg 03/24/17 10:00 Norvasc - PO DAILY [facility] Atorvastatin Calcium 20 mg 03/23/17 22:00 03/23/17 22:11 Lipitor - PO 20 mg HS LITZY Administration Brimonidine Tartrate 1 drop 03/23/17 14:00 03/24/17 06:47 Alphagan 0.15% - OU 1 drp TID LITZY Administration Ferrous Sulfate 325 mg 03/24/17 10:00 Feosol - PO DAILY LITZY Furosemide 60 mg 03/23/17 14:00 03/24/17 06:43 Lasix - PO 60 mg BIDLASIX [facility]ZY Administration Hydralazine HCl 75 mg 03/23/17 14:00 03/24/17 06:45 Apresoline - PO 75 mg TID LITZY Administration Vancomycin HCl 250 mls @ 166.667 mls/hr 03/24/17 10:00 Vancomycin (Pre-Docked) IVPB 03/24/17 11:29 ONCE ONE Protocol Levofloxacin 50 mls @ 50 mls/hr 03/25/17 10:00 Levaquin 250 Mg Premixed Ivpb - IVPB Q2D@1000 [facility] Insulin Aspart 1 vial 03/23/17 16:30 03/24/17 06:49 Novolog Vial Sliding Scale - SQ Not Given ACHS [facility] Protocol Insulin Detemir 16 units 03/23/17 22:00 03/23/17 22:16 Levemir Vial SQ Not Given HS [facility] Levothyroxine Sodium 200 mcg 03/24/17 07:00 03/24/17 06:50 Synthroid - PO 200 mcg DAILY@0700 L[facility] Administration Lorazepam 0.5 mg 03/23/17 14:56 03/24/17 09:25 Ativan Injection - IVPUSH 0.5 mg TID PRN Administration ANXIETY Metoprolol Succinate 25 mg 03/24/17 10:00 Toprol Xl - PO DAILY LITZY Mupirocin 1 applic 03/23/17 15:00 03/24/17 06:43 Bactroban 2% Ointment - TP 1 appful TID LITZY Administration Nystatin 1 applic 03/23/17 22:00 03/23/17 22:13 Mycostatin Cream - TP 1 applic BID L[facility]ZY Administration Paroxetine HCl 20 mg 03/24/17 10:00 Paxil - PO DAILY [facility] Pneumococcal 13-Valent Conj Vacc 0.5 ml 03/24/17 12:00 Prevnar 13 Syringe - IM 03/24/17 12:01 .ONCE ONE Potassium Chloride 20 meq 03/24/17 09:54 K-Dur - PO 03/24/17 09:55 ONCE ONE Senna 1 tab 03/23/17 22:00 03/23/17 22:11 Senna - PO 1 tab HS LITZY Administration ASSESSMENT/PLAN: 66yF with PMH HTN, dCHF, DM, CKD, COPD, CVA (mult), anemia, hypothyroidism, glaucoma and depression. She presented to the ED with AMS and B/L LE cellulitis. B/L LE cellulitis - Improving - cont vanc and zosyn, vanc trough pending - ID consult appreciated AMS - improving, cont to hold nortriptyline for now fungal rash groin - cont nystatin HTN/dCHF - BP stable, slightly elevated, cont home medications, lasix, norvasc, toprol - Does not appear in overt acute CHF, cont po lasix DM - A1C pending - BGM stable. Cont home levemir - BGM TIDAC/HS with novolog SS COPD - cont home inhalers, monitor for acute exac and start nebs if indicated. Anemia - Hgb at baseline. Cont iron therapy CKD - Cr at baseline, renal dose all medications. depression - cont paxil, hold nortriptyline for now due to AMS, restart tomorrow if ok. Glaucoma - cont brimonidine drops DVT PPX - heparin SC 5000uTID FEN - defer IVF, tolerating po - Potassium low, repleted, repeat tomorrow. - low sodium, renal diet. Dispo: Pt currently requires inpatient management of her emergent condition. Visit type - Emergency Visit Emergency Visit: Yes ED Registration Date: 03/23/17 Care time: The patient presented to the Emergency Department on the above date and was hospitalized for further evaluation of their emergent condition. - New Patient This patient is new to me today: Yes Date on this admission: 03/24/17 - Critical Care Critical Care patient: No - Discharge Referral Referred to [facility] Med P.C.: No
[2017-03-24] MEDS ORDERED: PNEUMOC 13-VAL CONJ-DIP CRM/PF 0.5 ML DISP.SYRIN IM ONE (12:00)
[2017-03-24] MEDS: HEPARIN NA (PORCINE) 5,000 UNITS/ML 1ML VIAL SQ SCH ×2 (14:35→21:07)
[2017-03-24] MEDS: INSULIN DETEMIR 100 UNITS/ML MDV SQ SCH (21:08)
[2017-03-24] MEDS: ATORVASTATIN CA 20 MG TABLET (FP) PO SCH (21:09)
[2017-03-24] MEDS: SENNOSIDES 8.6MG TABLET (FP) PO SCH (21:09)
[2017-03-24] MEDS ORDERED: INSULIN (NOVOLOG) ASPART 100 UNITS/ML 10ML VIAL ONE (21:10)
[2017-03-25] MEDS ORDERED: LORAZEPAM CARPU-JECT 2 MG/ML DISP.SYRIN IVPUSH ONE ×2 (00:19→22:02)
[2017-03-25] MEDS: HEPARIN NA (PORCINE) 5,000 UNITS/ML 1ML VIAL SQ SCH ×3 (06:05→21:12)
[2017-03-25] MEDS: MUPIROCIN 2% TOPICAL OINTMENT 22 GM TUBE TP SCH ×3 (06:06→21:12)
[2017-03-25] MEDS ORDERED: GLUCAGON 1 MG KIT ONE (06:21)
[2017-03-25] MEDS ORDERED: DEXTROSE 50%-WATER 50 ML DISP.SYRIN ONE (06:23)
[2017-03-25] MEDS: FUROSEMIDE 40 MG TABLET (FP) PO SCH ×2 (06:58→13:51)
[2017-03-25] MEDS: INSULIN SLIDING SCALE (NOVOLOG) 1 VIAL SQ SCH ×4 (06:59→21:11)
[2017-03-25] MEDS: hydrALAZINE HCL 50 MG TABLET (FP) PO SCH ×3 (06:59→21:10)
[2017-03-25] MEDS: LEVOTHYROXINE NA 100 MCG TABLET (FP) PO SCH (06:59)
[2017-03-25] MEDS: BRIMONIDINE TARTRATE 0.15% OPHTHALMIC 5 ML BOTTLE OU SCH ×3 (07:00→21:23)
--- NOTE | 2017-03-25 07:38 | PN ---
Physical Exam: SUBJECTIVE: Patient seen and examined this morning. Pt was agitated over night and was given ativan x 1 dose. Pt also found to have a glucose 27 over night and received an amp of d50 and glucose responded to 147 at 8 am. Pt is arousable but only to loud verbal stimuli and appears lethargic ? ativan ? hypoglycemic episode V/SS, afebrile, labs reviewed from yesterday and reordered for this morning to trend. While in unit, staff states glucose dropped again to 57 at 9 am. She is sleepy and difficult to arouse to keep interest in eating breakfast with a concern for aspiration. Pt given 1/2 amp of D50 and encouraged to stimulate wakefulness to eat breakfast. Levimir now d/c'd and coverage with fingersticks and sliding scale only. Assessed LE wounds to be somewhat healing, xeroform dsg reapplied. Bedrest most of time and DVT ppx on with heparin Noted a rash to the Upper chest wall but staff states this is not new for pt. ? drug rash or chronic? No signs of anaphylactic but should be monitored. Vanco on hold with elevated levels noted yesterday with 14.9 and poor renal function. Levaquin remains on. Labs drawn this morning and pending. OBJECTIVE: Vital Signs Period Temp Pulse Resp BP Sys/Gonsalez Pulse Ox Last 24 Hr 97.0 F-98.4 F 101-117 18-20 153-165/75-96 97-99 GENERAL: The patient is awake to loud verbal stimuli HEAD: Normal with no signs of trauma. EYES: no lid lag, no eye opening to verbal stimuli NECK: Trachea midline, supple. LUNGS: Breath sounds equal, clear to auscultation bilaterally, no wheezes, no crackles, no accessory muscle use. HEART: Regular rate and rhythm, S1, S2 without murmur, rub or gallop. ABDOMEN: Soft, nontender, nondistended, normoactive bowel sounds, no guarding, no rebound, no hepatosplenomegaly, no masses. EXTREMITIES: 2+ pulses, warm, LE with open erthyemic open wounds with dsg intact , +2 pitting edema noted. Minimal drainage, no odor NEUROLOGICAL: Pt on bedrest, Pt is agitated when painful stimuli but lethargic with verbal stimuli PSYCH:lethargic and agitated SKIN: Warm, dry,noted leisons to the LE and open wounds Laboratory Results - last 24 hr 03/24/17 03/24/17 03/24/17 07:24 07:24 07:24 WBC 12.1 H RBC 3.32 L Hgb 9.6 L D Hct 28.6 L MCV 86.1 MCHC 33.6 RDW 15.3 Plt Count 298 MPV 7.7 Neutrophils % 70.9 Lymphocytes % 7.9 L D Monocytes % 6.7 Eosinophils % 13.3 H Basophils % 1.2 D Sodium 142 Potassium 3.4 L Chloride 110 H Carbon Dioxide 23 Anion Gap 9 BUN 47 H Creatinine 4.4 H Creat Clearance w eGFR 10.10 POC Glucometer Random Glucose 88 Hemoglobin A1c % 4.9 D Calcium 7.7 L Phosphorus 4.8 H Magnesium 1.9 Total Bilirubin 0.8 AST 16 ALT 9 L Alkaline Phosphatase 73 Total Protein 5.1 L Albumin 2.4 L Vancomycin Trough 03/24/17 03/24/17 03/24/17 09:15 16:03 20:39 WBC RBC Hgb Hct MCV MCHC RDW Plt Count MPV Neutrophils % Lymphocytes % Monocytes % Eosinophils % Basophils % Sodium Potassium Chloride Carbon Dioxide Anion Gap BUN Creatinine Creat Clearance w eGFR POC Glucometer 104 154 Random Glucose Hemoglobin A1c % Calcium Phosphorus Magnesium Total Bilirubin AST ALT Alkaline Phosphatase Total Protein Albumin Vancomycin Trough 14.708 H 03/25/17 03/25/17 02:04 06:35 WBC RBC Hgb Hct MCV MCHC RDW Plt Count MPV Neutrophils % Lymphocytes % Monocytes % Eosinophils % Basophils % Sodium Potassium Chloride Carbon Dioxide Anion Gap BUN Creatinine Creat Clearance w eGFR POC Glucometer 74 144 Random Glucose Hemoglobin A1c % Calcium Phosphorus Magnesium Total Bilirubin AST ALT Alkaline Phosphatase Total Protein Albumin Vancomycin Trough Active Medications Generic Name Dose Route Start Last Admin Trade Name Freq PRN Reason Stop Dose Admin Aclidinium [place] 1 puff 03/24/17 10:00 03/24/17 21:44 Tudorza - IH 1 puff BID LITZY Administration Amlodipine Besylate 10 mg 03/24/17 10:00 03/24/17 10:22 Norvasc - PO 10 mg DAILY LITZY Administration Atorvastatin Calcium 20 mg 03/23/17 22:00 03/24/17 21:09 Lipitor - PO 20 mg HS LITZY Administration Brimonidine Tartrate 1 drop 03/23/17 14:00 03/25/17 07:00 Alphagan 0.15% - OU Not Given TID LITZY Ferrous Sulfate 325 mg 03/24/17 10:00 03/24/17 10:22 Feosol - PO 325 mg DAILY LITZY Administration Furosemide 60 mg 03/23/17 14:00 03/25/17 06:58 Lasix - PO 60 mg BIDLASIX LITZY Administration Heparin Sodium (Porcine) 5,000 unit 03/24/17 14:00 03/25/17 06:05 Heparin - SQ 5,000 unit TID LITZY Administration Hydralazine HCl 75 mg 03/23/17 14:00 03/25/17 06:59 Apresoline - PO 75 mg TID LITZY Administration Levofloxacin 50 mls @ 50 mls/hr 03/25/17 10:00 Levaquin 250 Mg Premixed Ivpb - IVPB Q2D@1000 COUNTS INCLUDE 234 BEDS AT THE [facility] Insulin Aspart 1 vial 03/23/17 16:30 03/25/17 06:59 Novolog Vial Sliding Scale - SQ Not Given ACHS COUNTS INCLUDE 234 BEDS AT THE [facility] Protocol Insulin Detemir 16 units 03/23/17 22:00 03/24/17 21:08 Levemir Vial SQ 16 units HS LITZY Administration Levothyroxine Sodium 200 mcg 03/24/17 07:00 03/25/17 06:59 Synthroid - PO 200 mcg DAILY@0700 LITZY Administration Lorazepam 0.5 mg 03/23/17 14:56 03/24/17 21:54 Ativan Injection - IVPUSH 0.5 mg TID PRN Administration ANXIETY Metoprolol Succinate 25 mg 03/24/17 10:00 03/24/17 10:00 Toprol Xl - PO 25 mg DAILY LITZY Administration Mupirocin 1 applic 03/23/17 15:00 03/25/17 06:06 Bactroban 2% Ointment - TP 1 appful TID LITZY Administration Nystatin 1 applic 03/23/17 22:00 03/24/17 21:42 Mycostatin Cream - TP 1 applic BID LITZY Administration Paroxetine HCl 20 mg 03/24/17 10:00 03/24/17 10:00 Paxil - PO 20 mg DAILY LITZY Administration Senna 1 tab 03/23/17 22:00 03/24/17 21:09 Senna - PO 1 tab HS LITZY Administration ASSESSMENT/PLAN: 66yF with PMH HTN, dCHF, DM, CKD, COPD, CVA (mult), anemia, hypothyroidism, glaucoma and depression. She presented to the ED with AMS and B/L LE cellulitis. B/L LE cellulitis - Redness and erythema and open wounds - cont levaquin, vanc random pending but noted to be high yesterday trough and held - ID consult appreciated -Renal consult appreciated AMS - noted to have been agitated over night and given dose of Ativan, would avoid ativan as pt is lethargic and difficult to arouse with voice but is agitated with painful stimulis. May consider Haldol fungal rash groin - cont nystatin B/L UE arm pustules - continue bactroban Upper chest noted red rash without pustules - staff states this is unchanged from prior day, ?drug rash? HTN/dCHF - BP stable, slightly elevated, cont home medications, lasix, norvasc, toprol - Does not appear in overt acute CHF, cont po lasix DM - A1C noted stable - with pt recent hypoglycemia episodes, will be holding levimir and use sliding scale only - BGM TIDAC/HS with novolog SS COPD - cont home inhalers, monitor for acute exac and start nebs if indicated. Anemia - Hgb at baseline. Cont iron therapy CKD - Cr at baseline, renal dose all medications. - appreciate Renal consult depression - cont paxil, hold nortriptyline for now due to AMS and will reassess tomorrow if needed. . Glaucoma - cont brimonidine drops DVT PPX - heparin SC 5000uTID FEN - defer IVF, tolerating po when awake - low sodium, renal diet. - ordered labs today and tomorrow to follow electrolytes. Dispo: Pt currently requires inpatient management of her emergent condition. Visit type - Emergency Visit Emergency Visit: No - New Patient This patient is new to me today: Yes Date on this admission: 03/25/17 - Critical Care Critical Care patient: No - Discharge Referral Referred to [facility] Med P.C.: No
[2017-03-25] MEDS ORDERED: DEXTROSE 50%-WATER - 25 GM/50 ML VIAL IVPUSH ONE ×2 (09:15→13:00)
[2017-03-25] MEDS: amLODIPine BESYLATE 10 MG TABLET (FP) PO SCH (10:57)
[2017-03-25] MEDS: METOPROLOL SUCCINATE 25 MG TAB.SR.24H (FP) PO SCH (10:58)
[2017-03-25] MEDS: PARoxetine HCL 20 MG TABLET (FP) PO SCH (10:58)
[2017-03-25] MEDS: LEVOFLOXACIN 250 MG IVPB 50 ML IVPB SCH (10:59)
[2017-03-25] MEDS: NYSTATIN 100,000 UNIT/GM TOPICAL CREAM 15 GM TUBE TP SCH ×2 (10:59→21:12)
[2017-03-25] MEDS: FERROUS SO4 325 MG TABLET (FP) PO SCH (11:00)
[2017-03-25] MEDS: ACLIDINIUM BROMIDE 400 MCG/INH AERO.POWD IH SCH ×2 (11:00→21:10)
[2017-03-25 11:02] LABS: INR 1.12 (0.82-1.09); PROTHROMBIN TIME (PATIENT) 12.5 SEC (10.2-13.0)
--- NOTE | 2017-03-25 11:18 | PN ---
Progress Note (short form) - Note Progress Note: 1100 Pt still remains arousable but not eating breakfast. 1/2 amp D50 (second one) now being admistered for a glucose of 61. Will monitor fingersticks more frequently. RN and multiple staff attempting to obtain labs this morning. Obtained PT, vanco random, but difficult with CBC and CMP. will continue to attempt and follow. 1200 Glucose is 125 currently. Pt is more alert. She is OOB [facility] She is calling out and slightly agitated but stable at current time. Labs still pending. Visit type - Emergency Visit Emergency Visit: No - New Patient This patient is new to me today: Yes Date on this admission: 03/25/17 - Critical Care Critical Care patient: No - Discharge Referral Referred to [facility] Med [facility].C.: No
[2017-03-25 12:02] LABS: ALBUMIN 2.8 g/dl (3.5-5.0); ALK PHOS 84 U/L (32-92); ANION GAP 13 (8-16); BILIRUBIN,TOTAL 0.5 mg/dl (0.2-1.0); CALCIUM 8.1 mg/dl (8.4-10.2); CO2 20 mmol/L (22-28); CREATININE 4.6 mg/dl (0.6-1.3); GLUCOSE,RANDOM 119 mg/dl (74-106); SGOT/AST 22 U/L (10-42); SGPT/ALT 11 U/L (10-40)
[2017-03-25 12:18] LABS: COCKROFT - GAULT NT
--- NOTE | 2017-03-25 12:58 | PN ---
Progress Note (short form) - Note Progress Note: RENAL Pt is asleep but arousable appears comfortable has had hypoglycemia Last Vital Signs Temp Pulse Resp BP Pulse Ox 97.0 F L 117 H 20 153/78 97 03/25/17 06:00 03/25/17 06:00 03/25/17 06:00 03/25/17 06:00 03/25/17 11:52 lungs decreased breath sounds at bases, poor effort cvs s1s2 rr abd soft ext no edema skin generalized dry skin with some excoriations neuro arousable CBC, BMP 03/25/17 09:30 03/25/17 10:00 Current Medications Generic Name Dose Route Start Last Admin Trade Name Freq PRN Reason Stop Dose Admin Aclidinium [place] 1 puff 03/24/17 10:00 03/25/17 11:00 Tudorza - IH Not Given BID LITZY Amlodipine Besylate 10 mg 03/24/17 10:00 03/25/17 10:57 Norvasc - PO 10 mg DAILY LITYZ Administration Atorvastatin Calcium 20 mg 03/23/17 22:00 03/24/17 21:09 Lipitor - PO 20 mg HS LITZY Administration Brimonidine Tartrate 1 drop 03/23/17 14:00 03/25/17 07:00 Alphagan 0.15% - OU Not Given TID LITZY Dextrose 25 ml 03/25/17 13:00 D50w (Vial) - IVPUSH 03/25/17 13:01 NOW ONE Ferrous Sulfate 325 mg 03/24/17 10:00 03/25/17 11:00 Feosol - PO 325 mg DAILY LITZY Administration Furosemide 60 mg 03/23/17 14:00 03/25/17 06:58 Lasix - PO 60 mg BIDLASIX LITZY Administration Heparin Sodium (Porcine) 5,000 unit 03/24/17 14:00 03/25/17 06:05 Heparin - SQ 5,000 unit TID LITZY Administration Hydralazine HCl 75 mg 03/23/17 14:00 03/25/17 06:59 Apresoline - PO 75 mg TID LITZY Administration Levofloxacin 50 mls @ 50 mls/hr 03/25/17 10:00 03/25/17 10:59 Levaquin 250 Mg Premixed Ivpb - IVPB 50 mls/hr Q2D@1000 LITZY Administration Insulin Aspart 1 vial 03/23/17 16:30 03/25/17 10:59 Novolog Vial Sliding Scale - SQ Not Given ACHS [facility] Protocol Levothyroxine Sodium 200 mcg 03/24/17 07:00 03/25/17 06:59 Synthroid - PO 200 mcg DAILY@0700 LIZTY Administration Lorazepam 0.5 mg 03/23/17 14:56 03/24/17 21:54 Ativan Injection - IVPUSH 0.5 mg TID PRN Administration ANXIETY Metoprolol Succinate 25 mg 03/24/17 10:00 03/25/17 10:58 Toprol Xl - PO 25 mg DAILY LITZY Administration Mupirocin 1 applic 03/23/17 15:00 03/25/17 06:06 Bactroban 2% Ointment - TP 1 appful TID LITZY Administration Nystatin 1 applic 03/23/17 22:00 03/25/17 10:59 Mycostatin Cream - TP 1 applic BID LITZY Administration Paroxetine HCl 20 mg 03/24/17 10:00 03/25/17 10:58 Paxil - PO 20 mg DAILY LITZY Administration Senna 1 tab 03/23/17 22:00 03/24/17 21:09 Senna - PO 1 tab HS LITYZ Administration Impression 1. CKD- with nephrotic range proteinuria 2. HTN 3. DM 4. CVA 5. smoking history 6. pleural effusions 7. anemia 8. COPD 9. CHF 10. positive nathan 11. Hepatitis B 12. cellulitis Plan - renal function is not far from baseline - will start some d5 given hypoglycemia and would do cxr - monitor renal function closely - repeat labs in am - no indication for acute HD - random vanco is 20 so vanco on hold MV
[2017-03-25] MEDS: DEXTROSE 5%-0.45% SALINE 1,000 ML IV SCH (13:50)
[2017-03-25] MEDS ORDERED: INSULIN (NOVOLOG) ASPART 100 UNITS/ML 10ML VIAL ONE (16:36)
[2017-03-25 19:40] LABS: MCH 29.4 pg (25.7-33.7); MEAN CELL VOLUME 86.4 fl (80-96); MEAN PLT VOLUME 7.7 fl (7.5-11.1); PLATELET COUNT 349 K/MM3 (134-434); RDW 14.9 % (11.6-15.6); WHITE BLOOD COUNT 11.8 K/mm3 (4.0-10.8)
[2017-03-25] MEDS: LORAZEPAM CARPU-JECT 2 MG/ML DISP.SYRIN IVPUSH PRN (20:50)
[2017-03-25] MEDS: SENNOSIDES 8.6MG TABLET (FP) PO SCH (21:10)
[2017-03-25] MEDS: ATORVASTATIN CA 20 MG TABLET (FP) PO SCH (21:10)
[2017-03-26] MEDS: LORAZEPAM CARPU-JECT 2 MG/ML DISP.SYRIN IVPUSH PRN ×2 (02:26→19:20)
[2017-03-26] MEDS ORDERED: PT OWN MED DRAWER 7, Y5N ONE ×3 (06:07→13:54)
[2017-03-26] MEDS: BRIMONIDINE TARTRATE 0.15% OPHTHALMIC 5 ML BOTTLE OU SCH ×3 (06:10→21:07)
[2017-03-26] MEDS: MUPIROCIN 2% TOPICAL OINTMENT 22 GM TUBE TP SCH ×3 (06:11→21:07)
[2017-03-26] MEDS: hydrALAZINE HCL 50 MG TABLET (FP) PO SCH ×3 (06:11→21:06)
[2017-03-26] MEDS: HEPARIN NA (PORCINE) 5,000 UNITS/ML 1ML VIAL SQ SCH ×3 (06:11→21:07)
[2017-03-26] MEDS: FUROSEMIDE 40 MG TABLET (FP) PO SCH ×2 (06:11→13:52)
[2017-03-26] MEDS: LEVOTHYROXINE NA 100 MCG TABLET (FP) PO SCH (06:14)
[2017-03-26] MEDS: INSULIN SLIDING SCALE (NOVOLOG) 1 VIAL SQ SCH ×4 (06:27→22:50)
--- NOTE | 2017-03-26 07:42 | PN ---
Physical Exam: SUBJECTIVE: Patient seen and examined, wants to go home. OBJECTIVE: patient is a 66yF with PMH HTN, diastyolic CHF, DM, CKD, COPD, CVA ( multiple), anemia, hypothyroidism, glaucoma and depression. Paty presented to the ED with AMS and B/L LE cellulitis. Vital Signs Period Temp Pulse Resp BP Sys/Gonsalez Pulse Ox Last 24 Hr 97.9 F-98.5 F 72-99 19-20 130-161/58-71 93-100 GENERAL: The patient is awake, alert, and fully oriented, in no acute distress. HEAD: Normal with no signs of trauma. EYES: PERRL, extraocular movements intact, sclera anicteric, conjunctiva clear. No ptosis. ENT: Ears normal, nares patent, oropharynx clear without exudates, moist mucous membranes. NECK: Trachea midline, full range of motion, supple. LUNGS: Breath sounds equal, clear to auscultation bilaterally, no wheezes, no crackles, no accessory muscle use. HEART: Regular rate and rhythm, S1, S2 without murmur, rub or gallop. ABDOMEN: Soft, nontender, nondistended, normoactive bowel sounds, no guarding, no rebound, no hepatosplenomegaly, no masses. EXTREMITIES: 2+ pulses, warm, well-perfused, no edema. LOWER EXTREMITIES: minimal erythema, sloughing skin, +1 edema NEUROLOGICAL: Cranial nerves II through XII grossly intact. Normal speech, gait not observed. PSYCH: Normal mood, normal affect. SKIN: Warm, dry, normal turgor, no rashes or lesions noted Laboratory Results - last 24 hr CBC WBC 11.8 K/mm3 (4.0-10.8) H 03/25/17 19:25 Corrected WBC (auto) Cancelled 03/25/17 09:30 RBC 3.50 M/mm3 (3.60-5.2) L 03/25/17 19:25 Hgb 10.3 GM/dl (10.7-15.3) L 03/25/17 19:25 Hct 30.2 % (32.4-45.2) L 03/25/17 19:25 MCV 86.4 fl (80-96) 03/25/17 19:25 MCHC 34.0 g/dl (32.0-36.0) 03/25/17 19:25 RDW 14.9 % (11.6-15.6) 03/25/17 19:25 Plt Count 349 K/MM3 (134-434) 03/25/17 19:25 MPV 7.7 fl (7.5-11.1) 03/25/17 19:25 Neutrophils % 70.9 % (42.8-82.8) 03/24/17 07:24 Lymphocytes % 7.9 % (8-40) L D 03/24/17 07:24 Monocytes % 6.7 % (3.8-10.2) 03/24/17 07:24 Eosinophils % 13.3 % (0-4.5) H 03/24/17 07:24 Basophils % 1.2 % (0-2.0) D 03/24/17 07:24 Differential Comment Cancelled 03/25/17 09:30 Smudge Cells Cancelled 03/25/17 09:30 Platelet Estimate Cancelled 03/25/17 09:30 Platelet Comment Cancelled 03/25/17 09:30 Platelet Comment Cancelled 03/25/17 09:30 RBC Morphology Cancelled 03/25/17 09:30 CMP Sodium 140 mmol/L (136-145) 03/26/17 08:18 Potassium 3.8 mmol/L (3.5-5.1) 03/26/17 08:18 Chloride 106 mmol/L (98-107) 03/26/17 08:18 Carbon Dioxide 23 mmol/L (22-28) 03/26/17 08:18 Anion Gap 11 (8-16) 03/26/17 08:18 BUN 42 mg/dl (7-18) H 03/26/17 08:18 Creatinine 4.6 mg/dl (0.6-1.3) H 03/26/17 08:18 Creat Clearance w eGFR 9.59 (>60) 03/26/17 08:18 POC Glucometer 192 UNITS (()) 03/26/17 10:58 Random Glucose 174 mg/dl (74-106) H D 03/26/17 08:18 Hemoglobin A1c % 5.0 % (4.8-6.0) D 03/26/17 08:18 Lactic Acid 0.6 mmol/L (0.4-2.0) 03/23/17 11:46 Calcium 7.8 mg/dl (8.4-10.2) L 03/26/17 08:18 Phosphorus 4.8 mg/dl (2.5-4.6) H 03/24/17 07:24 Magnesium 1.9 mg/dL (1.8-2.4) 03/24/17 07:24 Total Bilirubin 0.6 mg/dl (0.2-1.0) 03/26/17 08:18 AST 16 U/L (10-42) D 03/26/17 08:18 ALT 10 U/L (10-40) 03/26/17 08:18 Alkaline Phosphatase 77 U/L (32-92) 03/26/17 08:18 Creatine Kinase 190 IU/L (26-140) H D 03/23/17 17:15 CK-MB (CK-2) 2.5 ng/ml (0.3-4.0) 03/23/17 17:15 Troponin I 0.05 ng/ml (0.03-0.50) 03/23/17 17:15 B-Natriuretic Peptide 5690.76 pg/ml (5-125) H 03/23/17 11:46 Total Protein 5.4 g/dl (6.4-8.3) L 03/26/17 08:18 Albumin 2.5 g/dl (3.5-5.0) L 03/26/17 08:18 TSH 3.43 uIU/ml (0.358-3.74) D 03/23/17 17:15 Free T4 1.03 ng/dl (0.76-1.46) 03/23/17 17:15 Active Medications Generic Name Dose Route Start Last Admin Trade Name Freq PRN Reason Stop Dose Admin Aclidinium [place] 1 puff 03/24/17 10:00 03/25/17 21:10 Tudorza - IH 1 puff BID LITZY Administration Amlodipine Besylate 10 mg 03/24/17 10:00 03/25/17 10:57 Norvasc - PO 10 mg DAILY LITZY Administration Atorvastatin Calcium 20 mg 03/23/17 22:00 03/25/17 21:10 Lipitor - PO 20 mg HS LITZY Administration Brimonidine Tartrate 1 drop 03/23/17 14:00 03/26/17 06:10 Alphagan 0.15% - OU 1 drp TID LITZY Administration Ferrous Sulfate 325 mg 03/24/17 10:00 03/25/17 11:00 Feosol - PO 325 mg DAILY LITZY Administration Furosemide 60 mg 03/23/17 14:00 03/26/17 06:11 Lasix - PO 60 mg BIDLASIX LITZY Administration Heparin Sodium (Porcine) 5,000 unit 03/24/17 14:00 03/26/17 06:11 Heparin - SQ 5,000 unit TID LITZY Administration Hydralazine HCl 75 mg 03/23/17 14:00 03/26/17 06:11 Apresoline - PO 75 mg TID LITZY Administration Levofloxacin 50 mls @ 50 mls/hr 03/25/17 10:00 03/25/17 10:59 Levaquin 250 Mg Premixed Ivpb - IVPB 50 mls/hr Q2D@1000 LITZY Administration Dextrose/Sodium Chloride 1,000 mls @ 42 mls/hr 03/25/17 13:00 03/25/17 13:50 D5-1/2ns - IV 42 mls/hr ASDIR LITZY Administration Insulin Aspart 1 vial 03/23/17 16:30 03/26/17 06:27 Novolog Vial Sliding Scale - SQ Not Given ACHS [facility] Protocol Levothyroxine Sodium 200 mcg 03/24/17 07:00 03/26/17 06:14 Synthroid - PO 200 mcg DAILY@0700 LITZY Administration Lorazepam 0.5 mg 03/23/17 14:56 03/26/17 02:26 Ativan Injection - IVPUSH 0.5 mg TID PRN Administration ANXIETY Metoprolol Succinate 25 mg 03/24/17 10:00 03/25/17 10:58 Toprol Xl - PO 25 mg DAILY LITZY Administration Mupirocin 1 applic 03/23/17 15:00 03/26/17 06:11 Bactroban 2% Ointment - TP 1 applic TID LITZY Administration Nystatin 1 applic 03/23/17 22:00 03/25/17 21:12 Mycostatin Cream - TP 1 applic BID LITZY Administration Paroxetine HCl 20 mg 03/24/17 10:00 03/25/17 10:58 Paxil - PO 20 mg DAILY LITZY Administration Senna 1 tab 03/23/17 22:00 03/25/17 21:10 Senna - PO 1 tab HS LITZY Administration Microbiology 03/23/17 11:30 Blood - Peripheral Venous Blood Culture - Preliminary NO GROWTH OBTAINED AFTER 72 HOURS, INCUBATION TO CONTINUE FOR 2 DAYS. 03/23/17 11:33 Blood - Peripheral Venous Blood Culture - Preliminary NO GROWTH OBTAINED AFTER 72 HOURS, INCUBATION TO CONTINUE FOR 2 DAYS. 03/23/17 18:27 Urine - Urine Clean Catch Urine Culture - Final NO GROWTH OBTAINED ASSESSMENT/PLAN: 1) ID: billateral LE cellulitis - continue levaquin q2d renal dose (03/23-) vanc on hold due to elevated trough - leukocytosis trending downward pt afebrile - continue bactroban with xeroform dressings to LE - ID consulted and following 2) neuro:ams - continue lexapro and ativan prn 2) card hypertension - continue norvasc, hydralazine and toprol - b/p at goal diastolic chf - pt euvolemic continue lasix 3) endo IDDM - hgb a1c 5.0 contine fingersticks achs with reg insulin coverage - continue to hold levermir due to hypoglycemic 4) pulm copd - no acute excerbation at this time - continue tudorza home dose 5) neph ckd - creatine 4.6, close to baseline - nephrology consulted and following 6) HEM normocytic anemia - hgb 10.0 stable, continue Feso4 DVT PPX - heparin SC 5000uTID FEN - low sodium, renal diet. Dispo: Pt currently requires inpatient management of her emergent condition. Visit type - Emergency Visit Emergency Visit: Yes ED Registration Date: 03/23/17 Care time: The patient presented to the Emergency Department on the above date and was hospitalized for further evaluation of their emergent condition. - New Patient This patient is new to me today: No - Critical Care Critical Care patient: No - Discharge Referral Referred to [facility] No
[2017-03-26 09:46] LABS: ALBUMIN 2.5 g/dl (3.5-5.0); BILIRUBIN,TOTAL 0.6 mg/dl (0.2-1.0); CALCIUM 7.8 mg/dl (8.4-10.2); COCKROFT - GAULT 13.4895; CREATININE 4.6 mg/dl (0.6-1.3); TOT PROT 5.4 g/dl (6.4-8.3)
--- NOTE | 2017-03-26 10:00 | PN ---
Progress Note, Physician History of Present Illness: More awake and responsive Offers no complaints No c/o leg pain No fever/ chills Temps down Afebrile WBC improved - Current Medication List Current Medications: Active Medications Aclidinium [place] (Tudorza -) 1 puff IH BID [facility] Last Admin: 03/25/17 21:10 Dose: 1 puff Amlodipine Besylate (Norvasc -) 10 mg PO DAILY [facility] Last Admin: 03/25/17 10:57 Dose: 10 mg Atorvastatin Calcium (Lipitor -) 20 mg PO HS [facility] Last Admin: 03/25/17 21:10 Dose: 20 mg Brimonidine Tartrate (Alphagan 0.15% -) 1 drop OU TID [facility] Last Admin: 03/26/17 06:10 Dose: 1 drp Ferrous Sulfate (Feosol -) 325 mg PO DAILY [facility] Last Admin: 03/25/17 11:00 Dose: 325 mg Furosemide (Lasix -) 60 mg PO BIDLASIX [facility] Last Admin: 03/26/17 06:11 Dose: 60 mg Heparin Sodium (Porcine) (Heparin -) 5,000 unit SQ TID [facility] Last Admin: 03/26/17 06:11 Dose: 5,000 unit Hydralazine HCl (Apresoline -) 75 mg PO TID [facility] Last Admin: 03/26/17 06:11 Dose: 75 mg Levofloxacin (Levaquin 250 Mg Premixed Ivpb -) 50 mls @ 50 mls/hr IVPB Q2D@ 1000 [facility] Last Admin: 03/25/17 10:59 Dose: 50 mls/hr Dextrose/Sodium Chloride (D5-1/2ns -) 1,000 mls @ 42 mls/hr IV ASDIR [facility] Last Admin: 03/25/17 13:50 Dose: 42 mls/hr Insulin Aspart (Novolog Vial Sliding Scale -) 1 vial SQ ACHS [facility] PRN Reason: Protocol Last Admin: 03/26/17 06:27 Dose: Not Given Levothyroxine Sodium (Synthroid -) 200 mcg PO DAILY@0700 [facility] Last Admin: 03/26/17 06:14 Dose: 200 mcg Lorazepam (Ativan Injection -) 0.5 mg IVPUSH TID PRN PRN Reason: ANXIETY Last Admin: 03/26/17 02:26 Dose: 0.5 mg Metoprolol Succinate (Toprol Xl -) 25 mg PO DAILY [facility] Last Admin: 03/25/17 10:58 Dose: 25 mg Mupirocin (Bactroban 2% Ointment -) 1 applic TP TID [facility] Last Admin: 03/26/17 06:11 Dose: 1 applic Nystatin (Mycostatin Cream -) 1 applic TP BID [facility] Last Admin: 03/25/17 21:12 Dose: 1 applic Paroxetine HCl (Paxil -) 20 mg PO DAILY [facility] Last Admin: 03/25/17 10:58 Dose: 20 mg Senna (Senna -) 1 tab PO HS [facility] Last Admin: 03/25/17 21:10 Dose: 1 tab - Objective Vital Signs: Vital Signs Temperature 97.9 F 03/26/17 06:00 Pulse Rate 99 H 03/26/17 06:00 Respiratory Rate 19 03/26/17 06:00 Blood Pressure 151/67 03/26/17 06:00 O2 Sat by Pulse Oximetry (%) 95 03/26/17 08:33 Constitutional: Yes: No Distress Eyes: Yes: Conjunctiva Clear Cardiovascular: Yes: Regular Rate and Rhythm, S1, S2 Respiratory: Yes: CTA Bilaterally Gastrointestinal: Yes: Normal Bowel Sounds, Soft. No: Tenderness Extremities: Yes: Other (Erythema/ warmth LE resolved + superficial ulcerations pretibial areas bilat) Labs: CBC, BMP 03/25/17 19:25 03/26/17 08:18 INR, PTT INR 1.12 (0.82-1.09) 03/25/17 10:20 Assessment/Plan Bilateral LE cellulitis- resolved Toxic metabolic encephalopathy- improved Renal failure Cephalosporin allergy Fever/ leukocytosis- improved D/C Vancomycin D/C levaquin after next dose
[2017-03-26] MEDS: PARoxetine HCL 20 MG TABLET (FP) PO SCH (10:02)
[2017-03-26] MEDS: ACLIDINIUM BROMIDE 400 MCG/INH AERO.POWD IH SCH ×2 (10:02→21:07)
[2017-03-26] MEDS: amLODIPine BESYLATE 10 MG TABLET (FP) PO SCH (10:02)
[2017-03-26] MEDS: NYSTATIN 100,000 UNIT/GM TOPICAL CREAM 15 GM TUBE TP SCH (10:02)
[2017-03-26] MEDS: FERROUS SO4 325 MG TABLET (FP) PO SCH (10:02)
[2017-03-26] MEDS: METOPROLOL SUCCINATE 25 MG TAB.SR.24H (FP) PO SCH (10:02)
--- NOTE | 2017-03-26 10:54 | EKG ---
Test Reason : Blood Pressure : / mmHG Vent. Rate : 098 BPM Atrial Rate : 098 BPM P-R Int : 144 ms QRS Dur : 090 ms QT Int : 388 ms P-R-T Axes : 057 -29 086 degrees QTc Int : 495 ms NORMAL SINUS RHYTHM LEFTWARD AXIS POSSIBLE LEFT ATRIAL ENLARGEMENT ANTERIOR INFARCT (CITED ON OR BEFORE 03-MAR-2017) NONSPECIFIC T WAVE ABNORMALITY ABNORMAL ECG WHEN COMPARED WITH ECG OF 03-MAR-2017 11:13, NO SIGNIFICANT CHANGE WAS FOUND Confirmed by JESSIE ALBERT MD ([id number]) on 03/26/2017 10:53:57 AM Referred By: MD MADDOX Confirmed By:JESSIE ALBERT MD
[2017-03-26] MEDS ORDERED: INSULIN (NOVOLOG) ASPART 100 UNITS/ML 10ML VIAL ONE ×2 (11:24→16:33)
[2017-03-26] MEDS ORDERED: ACETAMINOPHEN 325 MG TABLET (FP) PO ONE (11:30)
[2017-03-26] MEDS: DEXTROSE 5%-0.45% SALINE 1,000 ML IV SCH (13:53)
[2017-03-26] MEDS: SENNOSIDES 8.6MG TABLET (FP) PO SCH (21:07)
[2017-03-26] MEDS: ATORVASTATIN CA 20 MG TABLET (FP) PO SCH (21:07)
[2017-03-27] MEDS ORDERED: PT OWN MED DRAWER 7, Y5N ONE ×2 (05:07→09:27)
[2017-03-27] MEDS: hydrALAZINE HCL 50 MG TABLET (FP) PO SCH ×2 (05:19→13:27)
[2017-03-27] MEDS: BRIMONIDINE TARTRATE 0.15% OPHTHALMIC 5 ML BOTTLE OU SCH ×2 (05:20→13:24)
[2017-03-27] MEDS: FUROSEMIDE 40 MG TABLET (FP) PO SCH ×2 (05:20→13:26)
[2017-03-27] MEDS: HEPARIN NA (PORCINE) 5,000 UNITS/ML 1ML VIAL SQ SCH ×2 (05:20→13:58)
[2017-03-27] MEDS: MUPIROCIN 2% TOPICAL OINTMENT 22 GM TUBE TP SCH ×2 (05:21→13:25)
[2017-03-27 06:34] VITALS: BP 147/64; PULSE 96; TEMP 98.4
[2017-03-27] MEDS: LEVOTHYROXINE NA 100 MCG TABLET (FP) PO SCH (06:42)
[2017-03-27] MEDS: INSULIN SLIDING SCALE (NOVOLOG) 1 VIAL SQ SCH ×2 (07:06→13:24)
[2017-03-27] MEDS: METOPROLOL SUCCINATE 25 MG TAB.SR.24H (FP) PO SCH (09:35)
[2017-03-27] MEDS: FERROUS SO4 325 MG TABLET (FP) PO SCH (09:35)
[2017-03-27] MEDS: amLODIPine BESYLATE 10 MG TABLET (FP) PO SCH (09:35)
[2017-03-27] MEDS: ACLIDINIUM BROMIDE 400 MCG/INH AERO.POWD IH SCH (09:35)
[2017-03-27] MEDS: LEVOFLOXACIN 250 MG IVPB 50 ML IVPB SCH (09:35)
[2017-03-27] MEDS: PARoxetine HCL 20 MG TABLET (FP) PO SCH (09:37)
[2017-03-27] MEDS ORDERED: NYSTATIN POWDER 100,000 UNITS/GM - 15 GM TOPICAL POWDER TP SCH (10:00)
--- NOTE | 2017-03-27 10:13 | PN ---
Progress Note, Physician History of Present Illness: Pt seen and examined at bedside. She is awake and appears comfortable. She remains confused and is asking to go home. She denies shortness of breath. - Current Medication List Current Medications: Active Medications Aclidinium [place] (Tudorza -) 1 puff IH BID [facility] Last Admin: 03/27/17 09:35 Dose: 1 puff Amlodipine Besylate (Norvasc -) 10 mg PO DAILY [facility] Last Admin: 03/27/17 09:35 Dose: 10 mg Atorvastatin Calcium (Lipitor -) 20 mg PO HS [facility] Last Admin: 03/26/17 21:07 Dose: 20 mg Brimonidine Tartrate (Alphagan 0.15% -) 1 drop OU TID [facility] Last Admin: 03/27/17 05:20 Dose: 1 drp Ferrous Sulfate (Feosol -) 325 mg PO DAILY [facility] Last Admin: 03/27/17 09:35 Dose: 325 mg Furosemide (Lasix -) 60 mg PO BIDLASIX [facility] Last Admin: 03/27/17 05:20 Dose: 60 mg Heparin Sodium (Porcine) (Heparin -) 5,000 unit SQ TID [facility] Last Admin: 03/27/17 05:20 Dose: 5,000 unit Hydralazine HCl (Apresoline -) 75 mg PO TID [facility] Last Admin: 03/27/17 05:19 Dose: 75 mg Levofloxacin (Levaquin 250 Mg Premixed Ivpb -) 50 mls @ 50 mls/hr IVPB Q2D@ 1000 [facility] Last Admin: 03/27/17 09:35 Dose: 50 mls/hr Insulin Aspart (Novolog Vial Sliding Scale -) 1 vial SQ ACHS [facility] PRN Reason: Protocol Last Admin: 03/27/17 07:06 Dose: Not Given Levothyroxine Sodium (Synthroid -) 200 mcg PO DAILY@0700 [facility] Last Admin: 03/27/17 06:42 Dose: 200 mcg Lorazepam (Ativan Injection -) 0.5 mg IVPUSH TID PRN PRN Reason: ANXIETY Last Admin: 03/26/17 19:20 Dose: 0.5 mg Metoprolol Succinate (Toprol Xl -) 25 mg PO DAILY [facility] Last Admin: 03/27/17 09:35 Dose: 25 mg Mupirocin (Bactroban 2% Ointment -) 1 applic TP TID [facility] Last Admin: 03/27/17 05:21 Dose: 1 applic Nystatin (Nystop Powder -) 1 applic TP DAILY [facility] Last Admin: 03/27/17 09:35 Dose: 1 applic Paroxetine HCl (Paxil -) 20 mg PO DAILY [facility] Last Admin: 03/27/17 09:37 Dose: 20 mg Senna (Senna -) 1 tab PO HS [facility] Last Admin: 03/26/17 21:07 Dose: 1 tab - Objective Vital Signs: Vital Signs Temperature 98.4 F 03/27/17 06:00 Pulse Rate 96 H 03/27/17 06:00 Respiratory Rate 03/27/17 06:00 Blood Pressure 147/64 03/27/17 06:00 O2 Sat by Pulse Oximetry (%) 97 03/26/17 21:20 Constitutional: Yes: Calm Eyes: Yes: Conjunctiva Clear HENT: Yes: Atraumatic Cardiovascular: Yes: S1, S2 Respiratory: Yes: On Nasal O2 Gastrointestinal: Yes: Soft, Abdomen, Obese Genitourinary: Yes: Incontinence Musculoskeletal: Yes: Muscle Weakness Edema: Yes Edema: LLE: 1+, RLE: 1+ Integumentary: Yes: Erythema Wound/Incision: Yes: Dressing Dry and Intact Neurological: Yes: Confusion Labs: CBC, BMP 03/25/17 19:25 03/26/17 08:18 INR, PTT INR 1.12 (0.82-1.09) 03/25/17 10:20 - ....Imaging Chest X-ray: Report Reviewed Problem List - Problems (1) COPD (chronic obstructive pulmonary disease) Code(s): J44.9 - CHRONIC OBSTRUCTIVE PULMONARY DISEASE, UNSPECIFIED Qualifiers : COPD type: unspecified COPD Qualified Code(s): J44.9 - Chronic obstructive pulmonary disease, unspecified (2) Cellulitis Code(s): L03.90 - CELLULITIS, UNSPECIFIED Qualifiers: Site of cellulitis: extremity Site of cellulitis of extremity: lower extremity Laterality: unspecified laterality Qualified Code(s): L03.119 - Cellulitis of unspecified part of limb (3) Chronic renal failure Code(s): N18.9 - CHRONIC KIDNEY DISEASE, UNSPECIFIED Qualifiers: Chronic kidney disease stage: unspecified stage Qualified Code(s): N18.9 - Chronic kidney disease, unspecified (4) HTN (hypertension) Code(s): I10 - ESSENTIAL (PRIMARY) HYPERTENSION Qualifiers: Hypertension type: essential hypertension Qualified Code(s): I10 - Essential (primary) hypertension Assessment/Plan Current Medications Generic Name Dose Route Start Last Admin Trade Name Freq PRN Reason Stop Dose Admin Aclidinium [place] 1 puff 03/24/17 10:00 03/27/17 09:35 Tudorza - IH 1 puff BID [facility] Administration Amlodipine Besylate 10 mg 03/24/17 10:00 03/27/17 09:35 Norvasc - PO 10 mg DAILY [facility] Administration Atorvastatin Calcium 20 mg 03/23/17 22:00 03/26/17 21:07 Lipitor - PO 20 mg HS [facility] Administration Brimonidine Tartrate 1 drop 03/23/17 14:00 03/27/17 05:20 Alphagan 0.15% - OU 1 drp TID [facility] Administration Ferrous Sulfate 325 mg 03/24/17 10:00 03/27/17 09:35 Feosol - PO 325 mg DAILY [facility] Administration Furosemide 60 mg 03/23/17 14:00 03/27/17 05:20 Lasix - PO 60 mg BIDLASIX [facility] Administration Heparin Sodium (Porcine) 5,000 unit 03/24/17 14:00 03/27/17 05:20 Heparin - SQ 5,000 unit TID [facility] Administration Hydralazine HCl 75 mg 03/23/17 14:00 03/27/17 05:19 Apresoline - PO 75 mg TID [facility] Administration Levofloxacin 50 mls @ 50 mls/hr 03/25/17 10:00 03/27/17 09:35 Levaquin 250 Mg Premixed Ivpb - IVPB 50 mls/hr Q2D@1000 [facility] Administration Insulin Aspart 1 vial 03/23/17 16:30 03/27/17 07:06 Novolog Vial Sliding Scale - SQ Not Given ACHS [facility] Protocol Levothyroxine Sodium 200 mcg 03/24/17 07:00 03/27/17 06:42 Synthroid - PO 200 mcg DAILY@0700 [facility] Administration Lorazepam 0.5 mg 03/23/17 14:56 03/26/17 19:20 Ativan Injection - IVPUSH 0.5 mg TID PRN Administration ANXIETY Metoprolol Succinate 25 mg 03/24/17 10:00 03/27/17 09:35 Toprol Xl - PO 25 mg DAILY [facility] Administration Mupirocin 1 applic 03/23/17 15:00 03/27/17 05:21 Bactroban 2% Ointment - TP 1 applic TID [facility] Administration Nystatin 1 applic 03/27/17 10:00 03/27/17 09:35 Nystop Powder - TP 1 applic DAILY [facility] Administration Paroxetine HCl 20 mg 03/24/17 10:00 03/27/17 09:37 Paxil - PO 20 mg DAILY [facility] Administration Senna 1 tab 03/23/17 22:00 03/26/17 21:07 Senna - PO 1 tab HS [facility] Administration Impression 1. CKD 2. HTN 3. DM 4. CVA 5. smoking history 6. pleural effusions 7. anemia 8. COPD 9. CHF 10. positive nathan 11. Hepatitis B 12. 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
--- NOTE | 2017-03-27 10:54 | DS ---
Physical Exam: SUBJECTIVE: Patient seen and examined, patient sitting up in bed, reports feeling well, denies any chest pain or shortness of breath, patient wants to go home. OBJECTIVE: patient is a 66 y/o female with a pmh of IDDM, HTN, diastolic CHF, CVA (most recent 06/13, residual left hemiparesis), COPD, CKD, hypothyroidism and anemia. Patient was transferred from her assisted living facility by ambulance to the emergency department for altered mental status and erythema with persistant skin break down to bilateral lower extremities. Patient is unable to provide a history due to altered mental status. ER course was notable for: (1) wbc 16.9 (2) chest xray no infiltrates no consolidation (3) doppler billateral lower extremities no dvt Vital Signs Period Temp Pulse Resp BP Sys/Gonsalez Pulse Ox Last 24 Hr 98.1 F-98.5 F 87-96 17-18 147-163/64-73 96-97 PHYSICAL EXAM GENERAL: The patient is awake, alert, and fully oriented, in no acute distress. HEAD: Normal with no signs of trauma. EYES: PERRL, extraocular movements intact, sclera anicteric, conjunctiva clear. No ptosis. ENT: Ears normal, nares patent, oropharynx clear without exudates, moist mucous membranes. NECK: Trachea midline, full range of motion, supple. LUNGS: Breath sounds equal, clear to auscultation bilaterally, no wheezes, no crackles, no accessory muscle use. HEART: Regular rate and rhythm, S1, S2 without murmur, rub or gallop. ABDOMEN: Soft, nontender, nondistended, normoactive bowel sounds, no guarding, no rebound, no hepatosplenomegaly, no masses. EXTREMITIES: 2+ pulses, warm, well-perfused, no edema. LOWER EXTREMITIES: minimal erythema, sloughing skin, +1 edema NEUROLOGICAL: Cranial nerves II through XII grossly intact. Normal speech, gait not observed. PSYCH: Normal mood, normal affect. SKIN: Warm, dry, normal turgor, no rashes or lesions noted LABS Laboratory Results - last 24 hr 03/25/17 03/25/17 03/26/17 06:09 06:19 08:18 POC Glucometer 88 26 Hemoglobin A1c % 5.0 D Random Vancomycin 03/26/17 03/26/17 03/26/17 08:18 10:58 16:11 POC Glucometer 192 237 Hemoglobin A1c % Random Vancomycin 16.941 03/26/17 03/27/17 21:16 05:40 POC Glucometer 136 128 Hemoglobin A1c % Random Vancomycin CBC WBC 11.8 K/mm3 (4.0-10.8) H 03/25/17 19:25 Corrected WBC (auto) Cancelled 03/25/17 09:30 RBC 3.50 M/mm3 (3.60-5.2) L 03/25/17 19:25 Hgb 10.3 GM/dl (10.7-15.3) L 03/25/17 19:25 Hct 30.2 % (32.4-45.2) L 03/25/17 19:25 MCV 86.4 fl (80-96) 03/25/17 19:25 MCHC 34.0 g/dl (32.0-36.0) 03/25/17 19:25 RDW 14.9 % (11.6-15.6) 03/25/17 19:25 Plt Count 349 K/MM3 (134-434) 03/25/17 19:25 MPV 7.7 fl (7.5-11.1) 03/25/17 19:25 Neutrophils % 70.9 % (42.8-82.8) 03/24/17 07:24 Lymphocytes % 7.9 % (8-40) L D 03/24/17 07:24 Monocytes % 6.7 % (3.8-10.2) 03/24/17 07:24 Eosinophils % 13.3 % (0-4.5) H 03/24/17 07:24 Basophils % 1.2 % (0-2.0) D 03/24/17 07:24 Differential Comment Cancelled 03/25/17 09:30 Smudge Cells Cancelled 03/25/17 09:30 Platelet Estimate Cancelled 03/25/17 09:30 Platelet Comment Cancelled 03/25/17 09:30 Platelet Comment Cancelled 03/25/17 09:30 RBC Morphology Cancelled 03/25/17 09:30 CMP Sodium 140 mmol/L (136-145) 03/26/17 08:18 Potassium 3.8 mmol/L (3.5-5.1) 03/26/17 08:18 Chloride 106 mmol/L (98-107) 03/26/17 08:18 Carbon Dioxide 23 mmol/L (22-28) 03/26/17 08:18 Anion Gap 11 (8-16) 03/26/17 08:18 BUN 42 mg/dl (7-18) H 03/26/17 08:18 Creatinine 4.6 mg/dl (0.6-1.3) H 03/26/17 08:18 Creat Clearance w eGFR 9.59 (>60) 03/26/17 08:18 POC Glucometer 128 UNITS (()) 03/27/17 05:40 Random Glucose 174 mg/dl (74-106) H D 03/26/17 08:18 Hemoglobin A1c % 5.0 % (4.8-6.0) D 03/26/17 08:18 Lactic Acid 0.6 mmol/L (0.4-2.0) 03/23/17 11:46 Calcium 7.8 mg/dl (8.4-10.2) L 03/26/17 08:18 Phosphorus 4.8 mg/dl (2.5-4.6) H 03/24/17 07:24 Magnesium 1.9 mg/dL (1.8-2.4) 03/24/17 07:24 Total Bilirubin 0.6 mg/dl (0.2-1.0) 03/26/17 08:18 AST 16 U/L (10-42) D 03/26/17 08:18 ALT 10 U/L (10-40) 03/26/17 08:18 Alkaline Phosphatase 77 U/L (32-92) 03/26/17 08:18 Creatine Kinase 190 IU/L (26-140) H D 03/23/17 17:15 CK-MB (CK-2) 2.5 ng/ml (0.3-4.0) 03/23/17 17:15 Troponin I 0.05 ng/ml (0.03-0.50) 03/23/17 17:15 B-Natriuretic Peptide 5690.76 pg/ml (5-125) H 03/23/17 11:46 Total Protein 5.4 g/dl (6.4-8.3) L 03/26/17 08:18 Albumin 2.5 g/dl (3.5-5.0) L 03/26/17 08:18 TSH 3.43 uIU/ml (0.358-3.74) D 03/23/17 17:15 Free T4 1.03 ng/dl (0.76-1.46) 03/23/17 17:15 Microbiology 03/23/17 11:30 Blood - Peripheral Venous Blood Culture - Preliminary NO GROWTH OBTAINED AFTER 96 HOURS, INCUBATION TO CONTINUE FOR 1 DAYS. 03/23/17 11:33 Blood - Peripheral Venous Blood Culture - Preliminary NO GROWTH OBTAINED AFTER 96 HOURS, INCUBATION TO CONTINUE FOR 1 DAYS. 03/23/17 18:27 Urine - Urine Clean Catch Urine Culture - Final NO GROWTH OBTAINED IMAGING head ct: no acute pathology doppler bilateral lower extremities: no dvt chest xray: large heart, no infiltrates no effusions noted. HOSPITAL COURSE: Patient was admitted from the emergency department for bilateral lower extremity cellulites. She was treated with levaquin q2d renal dose (03/23- 03/27) ,patient was given 2 doses of vancomycin which was held due to elevated trough. Leukocytosis trended downward and patient remained afebrile throughout hospitalization. Dr Olivas (ID) was consulted and followed. Bilateral lower extremities wounds were treated with bactroban with xeroform dressings. She was noted to have altered mental status upon arrival from the emergency department. Head ct scan resulted as no acute pathology. Lexapro and paxil was continued throughout hospitalization. Home medications was noted to include amitriptyline which may be contributing to her altered mental status. As a result, amitriptyline was held. Patient was given prn ativan for agitation. She has a past medical history of hypertension. Norvasc, hydralazine and toprol was continued. b/p remained at goal. She has a past medical historoy of diastolic chf. Patient remained euvolemic and lasix was continued. She was noted have hypoglycemia and levermir was discontinued, hgb a1c 5.0 and fingersticks achs with reg insulin coverage. She has history of copd, no acute excerbation at this time and tudorza home dose was continued. patient has significant history of CKD. creatine 4.6, close to baseline. Nephrology, Dr Vazquez was consulted and followed. Patient has history of normocytic anemia. hgb 10.0 stable, and Feso4 was continued. PLAN - discharge to short term rehab Date of Admission:03/23/17 Date of Discharge: 03/27/17 Minutes to complete discharge: 45 Discharge Summary Reason For Visit: CELLULITIS/SEPSIS/ALTERED MENTAL STATUS Current Active Problems Acute on chronic diastolic (congestive) heart failure (Acute) Altered mental status (Acute) Anemia (Acute) COPD (chronic obstructive pulmonary disease) (Acute) Cellulitis (Acute) Chronic renal failure (Acute) HTN (hypertension) (Acute) Renal failure (ARF), acute on chronic (Acute) Sepsis (Acute) Condition: Improved - Instructions Diet, Activity, Other Instructions: resume diabetic renal diet continue all medications as prescribed continue to apply bactroban to lower extremities please follow up with the supervisor personnel clerks within 1 week if fever, chest pain, or fever develops please return to the emergency department Referrals: Freddy Barillas MD [Primary Care Provider] - Disposition: HOME - Home Medications Comprehensive Discharge Medication List: Ambulatory Orders Amlodipine Besylate [Norvasc -] 10 mg PO DAILY 03/23/17 Brimonidine Tartrate [Alphagan 0.15% -] 1 drop OU TID 03/23/17 Calcium Acetate [Calphron] 667 mg PO TID 03/23/17 Ferrous Sulfate [Feosol] 325 mg PO DAILY 03/23/17 Furosemide [Lasix] 60 mg PO BID 03/23/17 Hydralazine HCl [Apresoline -] 75 mg PO TID 03/23/17 Insulin Glargine,Hum.rec.anlog [Lantus (nf)] 0 units SQ HS 03/23/17 Insulin Lispro [Humalog] 0 unit SQ ASDIR 03/23/17 Levothyroxine Sodium [Synthroid] 200 mcg PO DAILY 03/23/17 Metoprolol Succinate [Toprol Xl -] 25 mg PO DAILY 03/23/17 Nortriptyline HCl [Pamelor -] 10 mg PO HS 03/23/17 Paroxetine HCl [Paxil] 20 mg PO DAILY 03/23/17 Sennosides [Senna] 8.6 mg PO HS 03/23/17 Simvastatin [Zocor -] 20 mg PO HS 03/23/17 Tiotropium [place] [Spiriva] 1 inh IH DAILY 03/23/17 Triamcinolone 0.025% Cream [Aristocort] 0 gm TP BID 03/23/17 This patient is new to me today: No Emergency Visit: Yes ED Registration Date: 03/23/17 Care time: The patient presented to the Emergency Department on the above date and was hospitalized for further evaluation of their emergent condition. Critical Care patient: No - Discharge Referral Referred to [facility] Med [facility] Yes Physician Referral: Freddy Barillas MD (Int Med)
== END 2017-03-27 15:00 | DRG 602 ==
LOC: FER 08:52 → FM/S 13:23
PROVIDERS: ADMIT Internal Medicine; ATTEND Nurse Practitioner Family
DX: L03.116 Cellulitis of left lower limb (principal); G92 Toxic encephalopathy; I13.0 Hypertensive heart and chronic kidney disease with heart failure and stage 1 through stage 4 chronic kidney disease, or unspecified chronic kidney disease; I50.32 Chronic diastolic (congestive) heart failure; N17.9 Acute kidney failure, unspecified; I69.354 Hemiplegia and hemiparesis following cerebral infarction affecting left non-dominant side; B19.10 Unspecified viral hepatitis B without hepatic coma; L03.115 Cellulitis of right lower limb; E11.22 Type 2 diabetes mellitus with diabetic chronic kidney disease; N18.9 Chronic kidney disease, unspecified; E78.5 Hyperlipidemia, unspecified; J44.9 Chronic obstructive pulmonary disease, unspecified; E03.9 Hypothyroidism, unspecified; D64.9 Anemia, unspecified; H40.9 Unspecified glaucoma; B35.6 Tinea cruris; F32.9 Major depressive disorder, single episode, unspecified; T43.015A Adverse effect of tricyclic antidepressants, initial encounter; Z79.4 Long term (current) use of insulin; Z87.891 Personal history of nicotine dependence
CPT/HCPCS: 36415; 70450-TC; 71010-TC; 80053; 81003; 81015; 82550; 82553; 82947; 83036; 83605; 83735; 83880; 84100; 84439; 84443; 84484; 85025; 85027; 85610; 85730; 86850; 86900; 86901; 87040; 87086; 93005; 93970-TC; 96372; 97116-GP; 97162-GP; 99282-25; 99284-25; G0480; J1644